=== PATIENT | male | born 1955 | race Caucasian/White ===

== ENCOUNTER → 2019-10-16 | Outpatient (CLI) | payer MEDICARE ==
--- NOTE | 2019-10-19 06:32 | PE ---
EXAMINATION TYPE: PET CT fusion skull to thigh DATE OF EXAM: 10/16/2019 COMPARISON: Outside Chest CT October 04, 2019 HISTORY: Solitary pulmonary nodule, abnormal CT. TECHNIQUE: Following the intravenous administration of 10.86 mCi of F-18 FDG, whole body images are performed from the skull base to the midthigh. Images are reviewed on the computer in the coronal, a xial, and sagittal planes. Reconstructed rotating images are created on independent workstation and reviewed on the computer. A noncontrast CT is performed in conjunction with the PET scan. SCAN: Initial Scan FINDINGS: SKULL BASE AND NECK: No areas of suspicious hypermetabolic uptake. CHEST, MEDIASTINUM, AND HILAR REGION: There is background fairly moderate underlying emphysematous ch verna most prominent in the upper lungs redemonstrated. There is redemonstration of spiculated nodule or nodular consolidation posterior right upper lobe measuring 1.3 x 0.9 cm axial image 74 that is edwina tabolic favoring postinflammatory scar. There is persistent 1.4 x 1.0 cm right mid to lower lung cent ral nodule that is ametabolic axial image 125. Of most concern is right infrahilar level at level of the azygoesophageal recess endobronchial hyperm etabolic mass extending into the bronchus intermedius difficult to accurately measure due to postobst ructive atelectatic change but felt to be measuring roughly 3.6 x 3.4 cm axial image 112 by roughly t o 4-5 cm craniocaudal dimension. Max SUV is 17.13. There is postobstructive atelectasis and/or consol idation involving medial posterior portion right lower lobe with mild hypermetabolic uptake. There are no definitive metabolic enlarged hilar or mediastinal lymph nodes. No suspicious hypermetab olic left lung nodules or masses. ABDOMEN AND PELVIS: No areas of suspicious hypermetabolic uptake. No adrenal masses are present. OSSEOUS STRUCTURES: No areas of suspicious hypermetabolic uptake. OTHER CT: Greater than 1 cm left thyroid nodule thought present, this requires ultrasound follow-up o f this is not known finding. Small degree of bilateral gynecomastia. Enlarged pulmonary arteries, CT findings suggestive of underl rachel pulmonary artery hypertension. Coronary artery calcification and/or stents are present. Correlat e clinically. Tiny pericardial effusion anterior inferior aspect. There is [place] AAA with aortobiiliac stent graft beginning near the level of renal arteries. Mildly enlarged prostate gland bulging on bladder base with central calcification. Mild wall thickening of b ladder. Presumed outlet obstruction related to BPH, correlate clinically. /Levoconvex scoliotic curvature in the spine. Straightening of spine on sagittal images. Moderate mul tilevel spurring throughout the thoracolumbar spine. Moderate to severe multilevel disc space narrowi ng in the lumbar spine with moderate multilevel anterior and lateral spurring. Moderate narrowing in both hip joints. IMPRESSION: Central obstructing right lower lobe hypermetabolic mass or neoplasm as detailed above wi th post obstructive atelectasis on background moderate emphysematous change. No suspicious thoracic a denopathy or metastatic disease present. Bronchoscopy for sampling is advised due to component of the lesion extending into bronchus intermedius shortly after its origin. TNM STAGING [id number] AJCC STAGING IIA
== END | disposition home or self-care (01) ==
LOC: RADPETMAIN 14:04
PROVIDERS: ATTEND Internal Medicine Sleep Medicine
DX: R91.1 Solitary pulmonary nodule (principal)
CPT/HCPCS: 78815; A9552

== ENCOUNTER 2019-11-10 19:41 | Emergency (ER) | payer MEDICARE ==
[2019-11-10] MEDS ORDERED: IPRATROPIUM-ALBUTEROL 3 ML NEB INHALATION STA ×2 (20:01→21:52)
[2019-11-10] MEDS ORDERED: SODIUM CHLORIDE 0.9% 1,000 ML IV STA ×3 (20:01→21:52)
--- NOTE | 2019-11-10 20:01 | ED ---
SOB HPI - General Chief Complaint: Shortness of Breath Stated Complaint: poss pneumonia Time Seen by Provider: 11/10/19 19:51 Source: patient, RN notes reviewed, old records reviewed Mode of arrival: ambulatory Limitations: no limitations - History of Present Illness Initial Comments: This is a 64-year-old male presented today for evaluation with his , evaluation of new fever shortness of breath cough and congestion no specific chest pain. No modifying factors for symptoms. Patient has no recent travel history. He has is recent hospital admission he was treated on an outpatient basis antibiotics he did feeling he had improvement at that time he had outpatient computed tomography scan diagnosing lung cancer after years of being followed with lung nodule. Patient has outpatient follow-up tomorrow with cardiothoracic surgery regarding CA, patient states he does feel improved now in the ER MD Complaint: shortness of breath, cough, anxiety -: days(s) Severity: moderate Severity scale (1-10): 6 Quality: sharp Consistency: intermittent Improves With: nothing Worsens With: nothing Known History Of: COPD Context: recent URI, other (Recent diagnoses of cancer) Associated Symptoms: denies other symptoms - Related Data Home Medications Medication Instructions Recorded Confirmed Acetaminophen Tab [Tylenol Tab] 1,000 mg PO Q6H PRN 11/10/19 11/10/19 Enalapril [Vasotec] 20 mg PO DAILY@0700 11/10/19 11/10/19 Metoprolol Tartrate [Lopressor] 50 mg PO DAILY@1600 11/10/19 11/10/19 Spironolactone [Aldactone] 25 mg PO DAILY@0700 11/10/19 11/10/19 Allergies Allergy/AdvReac Type Severity Reaction Status Date / Time bee venom protein (honey bee) Allergy Anaphylaxis Verified 11/10/19 21:32 insect venom Allergy Anaphylaxis Verified 11/10/19 21:32 Penicillins Allergy Unknown Verified 11/10/19 21:32 Childhood Review of Systems ROS Statement: Those systems with pertinent positive or pertinent negative responses have been documented in the HPI. ROS Other: All systems not noted in ROS Statement are negative. Past Medical History Past Medical History: Cancer, Pneumonia Additional Past Medical History / Comment(s): rt lower lobe lung cancer History of Any Multi-Drug Resistant Organisms: None Reported Past Surgical History: Tonsillectomy Additional Past Surgical History / Comment(s): aortic abd stent Past Psychological History: No Psychological Hx Reported Smoking Status: Former smoker Past Alcohol Use History: None Reported Past Drug Use History: None Reported General Exam Limitations: no limitations General appearance: alert, in no apparent distress, anxious Head exam: Present: atraumatic, normocephalic, normal inspection Eye exam: Present: normal appearance, PERRL, EOMI. Absent: scleral icterus, conjunctival injection, periorbital swelling ENT exam: Present: normal exam, mucous membranes moist Neck exam: Present: normal inspection. Absent: tenderness, meningismus, lymphadenopathy Respiratory exam: Present: wheezes, decreased breath sounds, prolonged expiratory. Absent: respiratory distress, rales, rhonchi, stridor Cardiovascular Exam: Present: normal rhythm, tachycardia, normal heart sounds. Absent: systolic murmur, diastolic murmur, rubs, gallop, clicks GI/Abdominal exam: Present: soft, normal bowel sounds. Absent: distended, tenderness, guarding, rebound, rigid Extremities exam: Present: normal inspection, full ROM, normal capillary refill. Absent: tenderness, pedal edema, joint swelling, calf tenderness Back exam: Present: normal inspection Neurological exam: Present: alert, oriented X3, CN II-XII intact Psychiatric exam: Present: normal affect, normal mood Skin exam: Present: warm, dry, intact, normal color. Absent: rash Course Vital Signs 11/10/19 11/10/19 11/10/19 19:44 20:00 20:36 Temperature 102.1 F H 102.9 F H Pulse Rate 114 H 106 H 104 H Respiratory 24 20 Rate Blood Pressure 130/83 136/76 O2 Sat by Pulse 93 L 95 Oximetry 11/10/19 11/10/19 11/10/19 20:53 21:41 22:20 Temperature 101.9 F H Pulse Rate 102 H 101 H 92 Respiratory 18 Rate Blood Pressure 116/66 O2 Sat by Pulse 97 Oximetry 11/10/19 11/10/19 22:31 22:57 Temperature 99.3 F Pulse Rate 90 98 Respiratory 18 Rate Blood Pressure 102/66 O2 Sat by Pulse 95 Oximetry - Reevaluation(s) Reevaluation #1: Medical record is reviewed Disposition the patient regarding need for admission secondary to fever and shortness of breath patient's symptoms improving here with fever control and hydration in the ER breathing treatments. Patient states he would like to be discharged to do is follow-up for cardiothoracic surgery regarding his lung disease Medical Decision Making - Medical Decision Making 64 female DEL with no known cause of infection coming in for severe bronchitis and exacerbation. Patient is given a dose of antibiotics here in the ER as he wants to keep his surgical appointment with cardiothoracic surgery regarding his lung tumor tomorrow. Patient is in no distress able to walk on emergency room under is a well-appearing will be discharged to follow-up or return if symptoms worsen - Lab Data Result diagrams: 11/10/19 20:15 11/10/19 20:15 Lab Results 11/10/19 11/10/19 11/10/19 Range/Units 19:50 20:15 20:15 WBC 19.8 H (3.8-10.6) k/uL RBC 3.47 L (4.30-5.90) m/uL Hgb 10.9 L (13.0-17.5) gm/dL Hct 32.6 L (39.0-53.0) % MCV 93.9 (80.0-100.0) fL MCH 31.3 (25.0-35.0) pg MCHC 33.3 (31.0-37.0) g/dL RDW 15.9 H (11.5-15.5) % Plt Count 326 (150-450) k/uL Neutrophils % 87 % Lymphocytes % 3 % Monocytes % 6 % Eosinophils % 1 % Basophils % 0 % Neutrophils # 17.3 H (1.3-7.7) k/uL Lymphocytes # 0.7 L (1.0-4.8) k/uL Monocytes # 1.2 H (0-1.0) k/uL Eosinophils # 0.3 (0-0.7) k/uL Basophils # 0.0 (0-0.2) k/uL PT (9.0-12.0) sec INR (<1.2) APTT (22.0-30.0) sec Sodium 126 L (137-145) mmol/L Potassium 4.4 (3.5-5.1) mmol/L Chloride 91 L (98-107) mmol/L Carbon Dioxide 23 (22-30) mmol/L Anion Gap 12 mmol/L BUN 17 (9-20) mg/dL Creatinine 0.77 (0.66-1.25) mg/dL Est GFR (CKD-EPI)AfAm >90 (>60 ml/min/1.73 sqM) Est GFR (CKD-EPI)NonAf >90 (>60 ml/min/1.73 sqM) Glucose 131 H (74-99) mg/dL Plasma Lactic Acid Huey (0.7-2.0) mmol/L Calcium 8.9 (8.4-10.2) mg/dL Phosphorus 2.9 (2.5-4.5) mg/dL Magnesium 1.8 (1.6-2.3) mg/dL Total Bilirubin 0.6 (0.2-1.3) mg/dL AST 25 (17-59) U/L ALT 13 (4-49) U/L Alkaline Phosphatase 79 (38-126) U/L Troponin I (0.000-0.034) ng/mL NT-Pro-B Natriuret Pep pg/mL Total Protein 7.4 (6.3-8.2) g/dL Albumin 4.0 (3.5-5.0) g/dL Urine Color Urine Appearance (Clear) Urine pH (5.0-8.0) Ur Specific [place] (1.001-1.035) Urine Protein (Negative) Urine Glucose (UA) (Negative) Urine Ketones (Negative) Urine Blood (Negative) Urine Nitrite (Negative) Urine Bilirubin (Negative) Urine Urobilinogen (<2.0) mg/dL Ur Leukocyte Esterase (Negative) Urine RBC (0-5) /hpf Urine WBC (0-5) /hpf Ur Squamous Epith Cells (0-4) /hpf Hyaline Casts (0-2) /lpf Urine Mucus (None) /hpf Influenza Type A RNA Not Detected (Not Detectd) Influenza Type B (PCR) Not Detected (Not Detectd) 11/10/19 11/10/19 11/10/19 Range/Units 20:15 20:15 20:15 WBC (3.8-10.6) k/uL RBC (4.30-5.90) m/uL Hgb (13.0-17.5) gm/dL Hct (39.0-53.0) % MCV (80.0-100.0) fL MCH (25.0-35.0) pg MCHC (31.0-37.0) g/dL RDW (11.5-15.5) % Plt Count (150-450) k/uL Neutrophils % % Lymphocytes % % Monocytes % % Eosinophils % % Basophils % % Neutrophils # (1.3-7.7) k/uL Lymphocytes # (1.0-4.8) k/uL Monocytes # (0-1.0) k/uL Eosinophils # (0-0.7) k/uL Basophils # (0-0.2) k/uL PT 11.2 (9.0-12.0) sec INR 1.1 (<1.2) APTT 27.5 (22.0-30.0) sec Sodium (137-145) mmol/L Potassium (3.5-5.1) mmol/L Chloride (98-107) mmol/L Carbon Dioxide (22-30) mmol/L Anion Gap mmol/L BUN (9-20) mg/dL Creatinine (0.66-1.25) mg/dL Est GFR (CKD-EPI)AfAm (>60 ml/min/1.73 sqM) Est GFR (CKD-EPI)NonAf (>60 ml/min/1.73 sqM) Glucose (74-99) mg/dL Plasma Lactic Acid Huey 1.0 (0.7-2.0) mmol/L Calcium (8.4-10.2) mg/dL Phosphorus (2.5-4.5) mg/dL Magnesium (1.6-2.3) mg/dL Total Bilirubin (0.2-1.3) mg/dL AST (17-59) U/L ALT (4-49) U/L Alkaline Phosphatase (38-126) U/L Troponin I (0.000-0.034) ng/mL NT-Pro-B Natriuret Pep 929 pg/mL Total Protein (6.3-8.2) g/dL Albumin (3.5-5.0) g/dL Urine Color Urine Appearance (Clear) Urine pH (5.0-8.0) Ur Specific [place] (1.001-1.035) Urine Protein (Negative) Urine Glucose (UA) (Negative) Urine Ketones (Negative) Urine Blood (Negative) Urine Nitrite (Negative) Urine Bilirubin (Negative) Urine Urobilinogen (<2.0) mg/dL Ur Leukocyte Esterase (Negative) Urine RBC (0-5) /hpf Urine WBC (0-5) /hpf Ur Squamous Epith Cells (0-4) /hpf Hyaline Casts (0-2) /lpf Urine Mucus (None) /hpf Influenza Type A RNA (Not Detectd) Influenza Type B (PCR) (Not Detectd) 11/10/19 11/10/19 Range/Units 20:15 20:31 WBC (3.8-10.6) k/uL RBC (4.30-5.90) m/uL Hgb (13.0-17.5) gm/dL Hct (39.0-53.0) % MCV (80.0-100.0) fL MCH (25.0-35.0) pg MCHC (31.0-37.0) g/dL RDW (11.5-15.5) % Plt Count (150-450) k/uL Neutrophils % % Lymphocytes % % Monocytes % % Eosinophils % % Basophils % % Neutrophils # (1.3-7.7) k/uL Lymphocytes # (1.0-4.8) k/uL Monocytes # (0-1.0) k/uL Eosinophils # (0-0.7) k/uL Basophils # (0-0.2) k/uL PT (9.0-12.0) sec INR (<1.2) APTT (22.0-30.0) sec Sodium (137-145) mmol/L Potassium (3.5-5.1) mmol/L Chloride (98-107) mmol/L Carbon Dioxide (22-30) mmol/L Anion Gap mmol/L BUN (9-20) mg/dL Creatinine (0.66-1.25) mg/dL Est GFR (CKD-EPI)AfAm (>60 ml/min/1.73 sqM) Est GFR (CKD-EPI)NonAf (>60 ml/min/1.73 sqM) Glucose (74-99) mg/dL Plasma Lactic Acid Huey (0.7-2.0) mmol/L Calcium (8.4-10.2) mg/dL Phosphorus (2.5-4.5) mg/dL Magnesium (1.6-2.3) mg/dL Total Bilirubin (0.2-1.3) mg/dL AST (17-59) U/L ALT (4-49) U/L Alkaline Phosphatase (38-126) U/L Troponin I <0.012 (0.000-0.034) ng/mL NT-Pro-B Natriuret Pep pg/mL Total Protein (6.3-8.2) g/dL Albumin (3.5-5.0) g/dL Urine Color Yellow Urine Appearance Cloudy (Clear) Urine pH 5.5 (5.0-8.0) Ur Specific [place] 1.027 (1.001-1.035) Urine Protein 2+ H (Negative) Urine Glucose (UA) Negative (Negative) Urine Ketones Trace H (Negative) Urine Blood Moderate H (Negative) Urine Nitrite Negative (Negative) Urine Bilirubin Negative (Negative) Urine Urobilinogen 2.0 (<2.0) mg/dL Ur Leukocyte Esterase Negative (Negative) Urine RBC 2 (0-5) /hpf Urine WBC 3 (0-5) /hpf Ur Squamous Epith Cells <1 (0-4) /hpf Hyaline Casts 1 (0-2) /lpf Urine Mucus Few H (None) /hpf Influenza Type A RNA (Not Detectd) Influenza Type B (PCR) (Not Detectd) - Radiology Data Radiology results: report reviewed (Chest x-ray is negative with no new changes), image reviewed Disposition Clinical Impression: Fever, Bronchitis Disposition: HOME SELF-CARE Condition: Good Instructions (If sedation given, give patient instructions): Fever in Adults (E D), Acute Bronchitis (ED) Is patient prescribed a controlled substance at d/c from ED?: No Referrals: Jennifer Lea MD [Primary Care Provider] - 1-2 days
[2019-11-10] MEDS ORDERED: MORPHINE SULFATE 4 MG/ML SYRINGE IVP PRN (20:07)
[2019-11-10] MEDS ORDERED: MORPHINE SULFATE 4 MG/ML SYRINGE IVP STA (20:07)
[2019-11-10] MEDS ORDERED: IBUPROFEN 800 MG TAB PO STA (20:07)
[2019-11-10] MEDS ORDERED: ACETAMINOPHEN TAB 500 MG TAB PO STA (20:07)
[2019-11-10 20:34] LABS: Basophils % (A) 0 %; Eosinophils # (A) 0.3 k/uL (0-0.7); Eosinophils % (A) 1 %; HCT 32.6 % (39.0-53.0); HGB 10.9 gm/dL (13.0-17.5); Lymphocytes # (A) 0.7 k/uL (1.0-4.8); Lymphocytes % (A) 3 %; MCH 31.3 pg (25.0-35.0); MCHC 33.3 g/dL (31.0-37.0); MCV 93.9 fL (80.0-100.0); Mean Platelet Volume 7.7; Monocytes # (A) 1.2 k/uL (0-1.0); Monocytes % (A) 6 %; Neutrophils # (A) 17.3 k/uL (1.3-7.7); Neutrophils % (A) 87 %; Platelet Count 326 k/uL (150-450); RBC 3.47 m/uL (4.30-5.90); RDW 15.9 % (11.5-15.5); WBC 19.8 k/uL (3.8-10.6)
[2019-11-10 20:46] LABS: ALT 13 U/L (4-49); AST 25 U/L (17-59); African American GFR (CKD) >90 (>60 ml/min/1.73 sqM); Alkaline Phosphatase 79 U/L (38-126); Anion Gap 12 mmol/L; Blood Urea Nitrogen 17 mg/dL (9-20); Calcium 8.9 mg/dL (8.4-10.2); Carbon Dioxide 23 mmol/L (22-30); Chloride 91 mmol/L (98-107); Glucose 131 mg/dL (74-99); Magnesium 1.8 mg/dL (1.6-2.3); Non-African American GFR(CKD) >90 (>60 ml/min/1.73 sqM); Phosphorus 2.9 mg/dL (2.5-4.5); Potassium 4.4 mmol/L (3.5-5.1); Sodium 126 mmol/L (137-145); Total Bilirubin 0.6 mg/dL (0.2-1.3); Total Protein 7.4 g/dL (6.3-8.2)
[2019-11-10 20:49] LABS: Appearance,Urine Cloudy (Clear); Bilirubin,Urine Negative (Negative); Blood,Urine Moderate (Negative); Color,Urine Yellow; Glucose,Urine (UA) Negative (Negative); Hyaline Casts,Urine 1 /lpf (0-2); Ketones,Urine Trace (Negative); Leukocyte Esterase,Urine Negative (Negative); Mucus,Urine Few /hpf; Nitrite,Urine Negative (Negative); PH, Urine 5.5 (5.0-8.0); Protein,Urine 2+ (Negative); RBC,Urine 2 /hpf (0-5); Specific Gravity,Urine 1.027 (1.001-1.035); Squamous Epithelial Cell,Urine <1 /hpf (0-4); WBC,Urine 3 /hpf (0-5)
[2019-11-10 21:12] LABS: INR 1.1 (<1.2); Partial Thromboplastin Time 27.5 sec (22.0-30.0); Prothrombin Time 11.2 sec (9.0-12.0)
--- NOTE | 2019-11-10 21:12 | XR ---
EXAMINATION TYPE: XR chest 2V DATE OF EXAM: 11/10/2019 COMPARISON: PET CT scan October 16, 2019 HISTORY: Weakness TECHNIQUE: 2 views FINDINGS: There is large area of consolidation in the posterior aspect right lower lobe. Left lung is clear. There is no heart failure. There are chest leads. IMPRESSION: Large area of consolidation right lower lobe not significantly different than recent CT s can. No heart failure seen.
[2019-11-10 21:50] VITALS: RESP 18
[2019-11-10] MEDS ORDERED: LEVOFLOXACIN 750MG-D5W PMX 750 MG in DEXTROSE/WATER 1 150ML.BAG IVPB STA (21:52)
[2019-11-10] MEDS ORDERED: DEXAMETHASONE SOD PHOSPHATE 10 MG/ML 1 ML VIAL IV STA (21:53)
[2019-11-10 22:58] VITALS: BP 102/66; PULSE 98; TEMP 99.3
[2019-11-11] MEDS ORDERED: IPRATROPIUM-ALBUTEROL 3 ML NEB INHALATION SCH
== END 2019-11-10 23:50 | disposition home or self-care (01) ==
LOC: EC 19:41
DX: J40 Bronchitis, not specified as acute or chronic (principal); J44.9 Chronic obstructive pulmonary disease, unspecified; Z79.899 Other long term (current) drug therapy; Z88.0 Allergy status to penicillin; Z91.030 Bee allergy status; Z91.048 Other nonmedicinal substance allergy status; Z85.118 Personal history of other malignant neoplasm of bronchus and lung; Z87.891 Personal history of nicotine dependence; Z95.5 Presence of coronary angioplasty implant and graft
CPT/HCPCS: 99285; 96365; 96366; 96375 ×2; 96361; 36415; 94640 ×2; 93005; 83880; 80053; 83605; 83735; 84100; 84484; 85025; 85610; 85730; 81001; 87502; 71046; J2270; J1100; J1956

== ENCOUNTER 2019-11-15 11:46 | Inpatient (IN) | payer MEDICARE ==
[2019-11-15] MEDS ORDERED: ACETAMINOPHEN TAB 500 MG TAB PO STA (12:21)
[2019-11-15] MEDS ORDERED: IBUPROFEN 600 MG TAB PO STA ×2 (12:21→13:06)
--- NOTE | 2019-11-15 12:26 | ED ---
General Adult HPI - General Chief complaint: Fever Stated complaint: Fever/cough/tachy Time Seen by Provider: 11/15/19 11:55 Source: patient, RN notes reviewed, old records reviewed Mode of arrival: ambulatory Limitations: no limitations - History of Present Illness Initial comments: This a 64-year-old male who presents emergency Department with a past medical history significant for recently diagnosed lung cancer. Patient comes in today because he went to get an echo and he said his heart was too fast and had a fever of 102. Patient states she was also short of breath. Patient states he has been having a fever on and off for the last 2 weeks. Patient states she's been coughing for 6 months. Patient denies any chest pain or palpitations. P atient denies any abdominal pain patient has nausea vomiting diarrhea. Patient had a lightheadedness or dizziness. Patient denies headache patient denies numbness weakness. - Related Data Home Medications Medication Instructions Recorded Confirmed Acetaminophen Tab [Tylenol Tab] 1,000 mg PO Q6H PRN 11/10/19 11/15/19 Enalapril [Vasotec] 20 mg PO DAILY@0700 11/10/19 11/15/19 Metoprolol Tartrate [Lopressor] 50 mg PO DAILY@1600 11/10/19 11/15/19 Spironolactone [Aldactone] 25 mg PO DAILY@0700 11/10/19 11/15/19 Allergies Allergy/AdvReac Type Severity Reaction Status Date / Time bee venom protein (honey bee) Allergy Anaphylaxis Verified 11/15/19 14:00 insect venom Allergy Anaphylaxis Verified 11/15/19 14:00 Penicillins Allergy Unknown Verified 11/15/19 14:00 Childhood Review of Systems ROS Statement: Those systems with pertinent positive or pertinent negative responses have been documented in the HPI. ROS Other: All systems not noted in ROS Statement are negative. Past Medical History Past Medical History: Cancer, Pneumonia Additional Past Medical History / Comment(s): rt lower lobe lung cancer History of Any Multi-Drug Resistant Organisms: None Reported Past Surgical History: Tonsillectomy Additional Past Surgical History / Comment(s): aortic abd stent Past Psychological History: No Psychological Hx Reported Smoking Status: Former smoker Past Alcohol Use History: None Reported Past Drug Use History: None Reported General Exam - General Exam Comments Initial Comments: GENERAL: Patient is well-developed and well-nourished. Patient is nontoxic and well- hydrated and is in mild distress. ENT: Neck is soft and supple. No significant lymphadenopathy is noted. Oropharynx is clear. Moist mucous membranes. Neck has full range of motion without eliciting any pain. EYES: The sclera were anicteric and conjunctiva were pink and moist. Extraocular movements were intact and pupils were equal round and reactive to light. Eyelids were unremarkable. PULMONARY: Unlabored respirations. Good breath sounds bilaterally. No audible rales rhonchi or wheezing was noted. CARDIOVASCULAR: Patient is tachycardic ABDOMEN: Soft and nontender with normal bowel sounds. SKIN: Skin is clear with no lesions or rashes and otherwise unremarkable. NEUROLOGIC: Patient is alert and oriented x3. Cranial nerves II through XII are grossly intact. Motor and sensory are also intact. Normal speech, volume and content. Symmetrical smile. MUSCULOSKELETAL: Normal extremities with adequate strength and full range of motion. LYMPHATICS: No significant lymphadenopathy is noted PSYCHIATRIC: Normal psychiatric evaluation. Limitations: no limitations Course Vital Signs 11/15/19 11/15/19 11/15/19 11:53 13:10 14:20 Temperature 102.0 F H 99.9 F H Pulse Rate 133 H 121 H 108 H Respiratory 18 20 20 Rate Blood Pressure 112/70 126/70 106/68 O2 Sat by Pulse 97 98 Oximetry Medical Decision Making - Medical Decision Making EKG shows sinus tachycardia with occasional PVC at a rate of 131 bpm DC interval 128 QRS is 102 QT interval is 298 QTC is 440. Patient's EKG shows no ST segment elevation or depression. X-ray shows significant right lower lobe pneumonia. Patient was ordered given Rocephin on arrival. Patient is septic. I spoke with some physicians agreed to admit the patient admitted the patient I consult to Dr. Middleton. EKG shows sinus tachycardia at 107 bpm DC interval 238 QRS 102 QT interval 338 QTC is 451. - Lab Data Result diagrams: 11/15/19 12:30 11/15/19 12:30 Lab Results 11/15/19 11/15/19 11/15/19 Range/Units 12:30 12:30 12:30 WBC 25.3 H (3.8-10.6) k/uL RBC 3.50 L (4.30-5.90) m/uL Hgb 10.6 L (13.0-17.5) gm/dL Hct 33.5 L (39.0-53.0) % MCV 95.5 (80.0-100.0) fL MCH 30.4 (25.0-35.0) pg MCHC 31.8 (31.0-37.0) g/dL RDW 16.0 H (11.5-15.5) % Plt Count 469 H (150-450) k/uL Neutrophils % 93 % Lymphocytes % 3 % Monocytes % 3 % Eosinophils % 0 % Basophils % 0 % Neutrophils # 23.4 H (1.3-7.7) k/uL Lymphocytes # 0.7 L (1.0-4.8) k/uL Monocytes # 0.8 (0-1.0) k/uL Eosinophils # 0.1 (0-0.7) k/uL Basophils # 0.0 (0-0.2) k/uL PT 13.3 H (9.0-12.0) sec INR 1.3 H (<1.2) APTT 29.8 (22.0-30.0) sec Sodium 127 L (137-145) mmol/L Potassium 3.8 (3.5-5.1) mmol/L Chloride 91 L (98-107) mmol/L Carbon Dioxide 23 (22-30) mmol/L Anion Gap 13 mmol/L BUN 19 (9-20) mg/dL Creatinine 0.78 (0.66-1.25) mg/dL Est GFR (CKD-EPI)AfAm >90 (>60 ml/min/1.73 sqM) Est GFR (CKD-EPI)NonAf >90 (>60 ml/min/1.73 sqM) Glucose 154 H (74-99) mg/dL Plasma Lactic Acid Huey (0.7-2.0) mmol/L Calcium 8.2 L (8.4-10.2) mg/dL Total Bilirubin 0.4 (0.2-1.3) mg/dL AST 26 (17-59) U/L ALT 15 (4-49) U/L Alkaline Phosphatase 105 (38-126) U/L Total Protein 6.4 (6.3-8.2) g/dL Albumin 3.0 L (3.5-5.0) g/dL Influenza Type A RNA (Not Detectd) Influenza Type B (PCR) (Not Detectd) 11/15/19 11/15/19 Range/Units 12:30 12:30 WBC (3.8-10.6) k/uL RBC (4.30-5.90) m/uL Hgb (13.0-17.5) gm/dL Hct (39.0-53.0) % MCV (80.0-100.0) fL MCH (25.0-35.0) pg MCHC (31.0-37.0) g/dL RDW (11.5-15.5) % Plt Count (150-450) k/uL Neutrophils % % Lymphocytes % % Monocytes % % Eosinophils % % Basophils % % Neutrophils # (1.3-7.7) k/uL Lymphocytes # (1.0-4.8) k/uL Monocytes # (0-1.0) k/uL Eosinophils # (0-0.7) k/uL Basophils # (0-0.2) k/uL PT (9.0-12.0) sec INR (<1.2) APTT (22.0-30.0) sec Sodium (137-145) mmol/L Potassium (3.5-5.1) mmol/L Chloride (98-107) mmol/L Carbon Dioxide (22-30) mmol/L Anion Gap mmol/L BUN (9-20) mg/dL Creatinine (0.66-1.25) mg/dL Est GFR (CKD-EPI)AfAm (>60 ml/min/1.73 sqM) Est GFR (CKD-EPI)NonAf (>60 ml/min/1.73 sqM) Glucose (74-99) mg/dL Plasma Lactic Acid Huey 2.7 H* (0.7-2.0) mmol/L Calcium (8.4-10.2) mg/dL Total Bilirubin (0.2-1.3) mg/dL AST (17-59) U/L ALT (4-49) U/L Alkaline Phosphatase (38-126) U/L Total Protein (6.3-8.2) g/dL Albumin (3.5-5.0) g/dL Influenza Type A RNA Not Detected (Not Detectd) Influenza Type B (PCR) Not Detected (Not Detectd) Critical Care Time Critical Care Time: Yes Total Critical Care Time: 35 Disposition Clinical Impression: Sepsis, Pneumonia Disposition: ADMITTED IP TO THIS [facility] Time of Disposition: 13:47
[2019-11-15] MEDS: SODIUM CHLORIDE 0.9% 500 ML 500 ML IV SCH ×2 (12:40→15:31)
[2019-11-15 12:48] LABS: Basophils % (A) 0 %; Eosinophils # (A) 0.1 k/uL (0-0.7); Eosinophils % (A) 0 %; HCT 33.5 % (39.0-53.0); HGB 10.6 gm/dL (13.0-17.5); Lymphocytes # (A) 0.7 k/uL (1.0-4.8); Lymphocytes % (A) 3 %; MCH 30.4 pg (25.0-35.0); MCHC 31.8 g/dL (31.0-37.0); MCV 95.5 fL (80.0-100.0); Mean Platelet Volume 7.6; Monocytes # (A) 0.8 k/uL (0-1.0); Monocytes % (A) 3 %; Neutrophils # (A) 23.4 k/uL (1.3-7.7); Neutrophils % (A) 93 %; Platelet Count 469 k/uL (150-450); WBC 25.3 k/uL (3.8-10.6)
[2019-11-15 12:57] LABS: ALT 15 U/L (4-49); AST 26 U/L (17-59); African American GFR (CKD) >90 (>60 ml/min/1.73 sqM); Alkaline Phosphatase 105 U/L (38-126); Anion Gap 13 mmol/L; Blood Urea Nitrogen 19 mg/dL (9-20); Calcium 8.2 mg/dL (8.4-10.2); Carbon Dioxide 23 mmol/L (22-30); Chloride 91 mmol/L (98-107); Glucose 154 mg/dL (74-99); Non-African American GFR(CKD) >90 (>60 ml/min/1.73 sqM); Potassium 3.8 mmol/L (3.5-5.1); Sodium 127 mmol/L (137-145); Total Bilirubin 0.4 mg/dL (0.2-1.3); Total Protein 6.4 g/dL (6.3-8.2)
[2019-11-15 13:36] LABS: INR 1.3 (<1.2); Partial Thromboplastin Time 29.8 sec (22.0-30.0); Prothrombin Time 13.3 sec (9.0-12.0)
--- NOTE | 2019-11-15 13:40 | XR ---
EXAMINATION TYPE: XR chest 2V DATE OF EXAM: 11/15/2019 COMPARISON: 11/10/2019 TECHNIQUE: PA and lateral views submitted. HISTORY: Cough FINDINGS: There is increasing consolidation involving the right lung. Left lung is clear. No pneumothorax. Hear t size stable. Hypertrophic and degenerative change spine. Hyperinflation suggests COPD. Biapical ple ural thickening. IMPRESSION: 1. Right lower lobe infiltrate is progressing compared to the prior exam. Correlate for pneumonia. Un derlying neoplasm not excluded.
[2019-11-15] MEDS ORDERED: VANCOMYCIN IV PER PHARMACY 1 EACH MISC MISCELLANE PRN ×2 (13:49→14:45)
[2019-11-15] MEDS ORDERED: LEVOFLOXACIN 750MG-D5W PMX 750 MG in DEXTROSE/WATER 1 150ML.BAG IVPB STA (13:49)
[2019-11-15] MEDS ORDERED: VANCOMYCIN 1,500 MG in SODIUM CHLORIDE 0.9% 250 ML IVPB ONE (14:00)
[2019-11-15] MEDS: LEVOFLOXACIN 750MG-D5W PMX 750 MG in DEXTROSE/WATER 1 150ML.BAG IVPB SCH (14:38)
[2019-11-15] MEDS ORDERED: IBUPROFEN 400 MG TAB PO PRN (14:42)
[2019-11-15] MEDS ORDERED: NALOXONE 0.4 MG/ML 1 ML VIAL IV PRN (14:42)
[2019-11-15] MEDS ORDERED: ACETAMINOPHEN TAB 325 MG TAB PO PRN (14:42)
[2019-11-15] MEDS ORDERED: SODIUM CHLORIDE 0.9% 1,000 ML IV STA ×2 (15:44→15:45)
--- NOTE | 2019-11-15 15:50 | P.HPIM ---
History of Present Illness H&P Date: 11/15/19 Chief Complaint: sob 64-year-old male who presents emergency Department with a past medical history significant for recently diagnosed lung cancer was scheduled for bilateral lobectomies on , was supposed to have presurgical screening with an echocardiogram today but the echocardiogram staff felt that he needed to go to the emergency department due to high heart rate. Patient has been having worsening shortness of breath, diaphoresis, increasing phlegm production, diarrhea and fevers over the past several days. He presented to the emergency department last Friday for the same symptoms, was given some IV antibiotics and discharged home without antibiotic prescription.. No nausea or vomiting. No sick contacts. Patient denies any chest pain or palpitations, no abdominal pain. In the emergency department his heart rate was running between 110-120. He had a fever of 102. Laboratory analysis showed low sodium at 127 and high White count at 25,000. His lactic acid was elevated as well. His chest x-ray showed right lower lobe infiltrates. He was subsequently admitted for further evaluation and management. Review of Systems Complete review of system performed, pertinent positives per HPI, otherwise negative Past Medical History Past Medical History: Cancer, Pneumonia Additional Past Medical History / Comment(s): rt lower lobe lung cancer History of Any Multi-Drug Resistant Organisms: None Reported Past Surgical History: Tonsillectomy Additional Past Surgical History / Comment(s): aortic abd stent Past Psychological History: No Psychological Hx Reported Smoking Status: Former smoker Past Alcohol Use History: None Reported Past Drug Use History: None Reported Medications and Allergies Home Medications Medication Instructions Recorded Confirmed Type Acetaminophen Tab [Tylenol Tab] 1,000 mg PO Q6H PRN 11/10/19 11/15/19 History Enalapril [Vasotec] 20 mg PO DAILY@0700 11/10/19 11/15/19 History Metoprolol Tartrate [Lopressor] 50 mg PO DAILY@1600 11/10/19 11/15/19 History Spironolactone [Aldactone] 25 mg PO DAILY@0700 11/10/19 11/15/19 History Allergies Allergy/AdvReac Type Severity Reaction Status Date / Time bee venom protein (honey bee) Allergy Anaphylaxis Verified 11/15/19 14:00 insect venom Allergy Anaphylaxis Verified 11/15/19 14:00 Penicillins Allergy Unknown Verified 11/15/19 14:00 Childhood Physical Exam Vitals: Vital Signs Temp Pulse Resp BP Pulse Ox 11/15/19 14:20 99.9 F H 108 H 20 106/68 98 11/15/19 13:10 121 H 20 126/70 11/15/19 11:53 102.0 F H 133 H 18 112/70 97 Intake and Output 11/14/19 11/15/19 11/15/19 22:59 06:59 14:59 Other: Weight 92.533 kg Constitutional: Mild respiratory distress, diaphoretic, no use of accessory muscles Eyes:Anicteric sclerae, moist conjunctiva, no lid-lag, PERRLA, ENMT: Oropharynx clear, no erythema, exudates Neck: Supple, FROM, no masses, or JVD, No carotid bruits, No thyromegaly Lungs: Diminished breath sounds bilaterally, clear to percussion, Normal respiratory effort, no accessory muscle use Cardiovascular: Tachycardic, regular, No murmurs, gallops, or rubs, No peripheral edema Abdominal: Soft, Nontender, no guarding, rebound or rigidity, Normoactive bowel sounds, No hepatomegaly, No splenomegaly, No palpable mass Skin: Normal temperature, tone, texture, turgor, no induration, No subcutaneous nodules, No rash, lesions, No ulcers. Skin color normal for patient, capillary refill is normal Extremities: No digital cyanosis, No clubbing, Pedal pulses intact and symmet rical, Radial pulses intact and symmetrical, No calf tenderness Psychiatric: Alert and oriented to person, place and time, appropriate affect, intact judgement Neuro: Muscles Strength 5/5 in all 4 extremities, Sensation to light touch grossly present throughout, Cranial nerves II-XII grossly intact, no focal sensory deficits Results CBC & Chem 7: 11/15/19 12:30 11/15/19 12:30 Labs: Abnormal Lab Results - Last 24 Hours (Table) 11/15/19 11/15/19 11/15/19 Range/Units 12:30 12:30 12:30 WBC 25.3 H (3.8-10.6) k/uL RBC 3.50 L (4.30-5.90) m/uL Hgb 10.6 L (13.0-17.5) gm/dL Hct 33.5 L (39.0-53.0) % RDW 16.0 H (11.5-15.5) % Plt Count 469 H (150-450) k/uL Neutrophils # 23.4 H (1.3-7.7) k/uL Lymphocytes # 0.7 L (1.0-4.8) k/uL PT 13.3 H (9.0-12.0) sec INR 1.3 H (<1.2) Sodium 127 L (137-145) mmol/L Chloride 91 L (98-107) mmol/L Glucose 154 H (74-99) mg/dL Plasma Lactic Acid Huey (0.7-2.0) mmol/L Calcium 8.2 L (8.4-10.2) mg/dL Albumin 3.0 L (3.5-5.0) g/dL 11/15/19 Range/Units 12:30 WBC (3.8-10.6) k/uL RBC (4.30-5.90) m/uL Hgb (13.0-17.5) gm/dL Hct (39.0-53.0) % RDW (11.5-15.5) % Plt Count (150-450) k/uL Neutrophils # (1.3-7.7) k/uL Lymphocytes # (1.0-4.8) k/uL PT (9.0-12.0) sec INR (<1.2) Sodium (137-145) mmol/L Chloride (98-107) mmol/L Glucose (74-99) mg/dL Plasma Lactic Acid Huey 2.7 H* (0.7-2.0) mmol/L Calcium (8.4-10.2) mg/dL Albumin (3.5-5.0) g/dL Assessment and Plan Plan: Acute sepsis/healthcare associated pneumonia Blood cultures drawn in the emergency department Sputum cultures Levaquin, cefepime and vancomycin Steroids and duonebs He was bolused with 1 L of saline in the emergency department, will give additional liter Maintain IV fluids at 150 mL per hour Recently diagnosed lung cancer Monitor Hypertension, essential Stable Resume meds Patient be admitted for more than 2 midnights, will be placed as inpatient Sepsis - Sepsis Sepsis Focused Exam #1 Sepsis Focused Exam Time: 13:30 Sepsis Focused Exam Complete: Yes Vital Signs & RN Notes Reviewed: Yes Capillary Refill: < 2 Seconds: Fingers, Toes Peripheral Pulses: Normal: Radial (R), Radial (L), Posterior Tibialis (R), Posterior Tibialis (L), Dorsalis Pedis (R), Dorsalis Pedis (L) Skin Color: Normal for Patient Respiratory Exam: decreased breath sounds Cardiovascular Exam: tachycardia
[2019-11-15] MEDS: METOPROLOL TARTRATE 50 MG TAB PO SCH (17:44)
[2019-11-15] MEDS: CEFEPIME 1 GM in SODIUM CHLORIDE 0.9% 50 ML IVPB SCH (17:45)
[2019-11-15] MEDS: IPRATROPIUM-ALBUTEROL 3 ML NEB INHALATION SCH ×2 (17:57→19:59)
[2019-11-15] MEDS: methylPREDNISolone SOD SUCCI 40 MG/ML 1 ML VIAL IV SCH (20:33)
[2019-11-15 20:56] LABS: Appearance,Urine Cloudy (Clear); Bilirubin,Urine Negative (Negative); Blood,Urine Negative (Negative); Color,Urine Yellow; Glucose,Urine (UA) Negative (Negative); Granular Casts,Urine 8 /lpf (0); Hyaline Casts,Urine 188 /lpf (0-2); Ketones,Urine Negative (Negative); Leukocyte Esterase,Urine Negative (Negative); Mucus,Urine Rare /hpf; Nitrite,Urine Negative (Negative); PH, Urine 5.5 (5.0-8.0); Protein,Urine 1+ (Negative); RBC,Urine 1 /hpf (0-5); Specific Gravity,Urine 1.018 (1.001-1.035); Urobilinogen,Urine <2.0 mg/dL (<2.0); WBC,Urine 5 /hpf (0-5)
[2019-11-15] MEDS ORDERED: CEFEPIME 1 GM in SODIUM CHLORIDE 0.9% 50 ML IVPB SCH (21:00)
[2019-11-15] MEDS: VANCOMYCIN 1,500 MG in SODIUM CHLORIDE 0.9% 250 ML IVPB SCH (23:32)
[2019-11-16] MEDS: SODIUM CHLORIDE 0.9% 1,000 ML IV SCH ×4 (03:50→21:12)
[2019-11-16] MEDS: CEFEPIME 1 GM in SODIUM CHLORIDE 0.9% 50 ML IVPB SCH ×2 (03:51→15:55)
[2019-11-16 07:48] LABS: Anisocytosis Slight; Basophils % (A) 0 %; Eosinophils % (A) 0 %; HCT 32.8 % (39.0-53.0); HGB 10.6 gm/dL (13.0-17.5); Lymphocytes # (A) 0.5 k/uL (1.0-4.8); Lymphocytes % (A) 2 %; MCH 31.4 pg (25.0-35.0); MCHC 32.2 g/dL (31.0-37.0); MCV 97.6 fL (80.0-100.0); Mean Platelet Volume 7.6; Monocytes # (A) 0.5 k/uL (0-1.0); Monocytes % (A) 2 %; Neutrophils # (A) 20.5 k/uL (1.3-7.7); Neutrophils % (A) 94 %; Platelet Count 483 k/uL (150-450); RBC 3.36 m/uL (4.30-5.90); RDW 16.2 % (11.5-15.5); WBC 21.8 k/uL (3.8-10.6)
[2019-11-16 08:00] LABS: ALT 13 U/L (4-49); AST 22 U/L (17-59); African American GFR (CKD) >90 (>60 ml/min/1.73 sqM); Albumin 2.7 g/dL (3.5-5.0); Alkaline Phosphatase 98 U/L (38-126); Anion Gap 13 mmol/L; Blood Urea Nitrogen 21 mg/dL (9-20); Calcium 8.3 mg/dL (8.4-10.2); Carbon Dioxide 21 mmol/L (22-30); Chloride 97 mmol/L (98-107); Glucose 138 mg/dL (74-99); Magnesium 1.7 mg/dL (1.6-2.3); Non-African American GFR(CKD) >90 (>60 ml/min/1.73 sqM); Phosphorus 3.8 mg/dL (2.5-4.5); Potassium 3.9 mmol/L (3.5-5.1); Sodium 131 mmol/L (137-145); Total Bilirubin 0.4 mg/dL (0.2-1.3); Total Protein 5.9 g/dL (6.3-8.2)
[2019-11-16] MEDS: IPRATROPIUM-ALBUTEROL 3 ML NEB INHALATION SCH ×4 (08:01→19:55)
[2019-11-16] MEDS: methylPREDNISolone SOD SUCCI 40 MG/ML 1 ML VIAL IV SCH ×2 (08:40→20:31)
[2019-11-16] MEDS: LISINOPRIL 20 MG TAB PO SCH (08:42)
[2019-11-16] MEDS: VANCOMYCIN 1,500 MG in SODIUM CHLORIDE 0.9% 250 ML IVPB SCH ×3 (08:58→23:42)
[2019-11-16] MEDS ORDERED: ENOXAPARIN 40 MG/0.4 ML SYRINGE SQ SCH (09:00)
--- NOTE | 2019-11-16 11:28 | CT ---
EXAMINATION TYPE: CT angio chest DATE OF EXAM: 11/16/2019 COMPARISON: NONE HISTORY: pulmonary embolism, known cancer right lower lobe CT DLP: 424.3 mGycm. Automated Exposure Control for Dose Reduction was Utilized. CONTRAST: CTA scan of the thorax is performed with IV Contrast, patient injected with 78 mL of Isovue 370, pulm onary embolism protocol. MIP Images are created on CT scanner and reviewed. FINDINGS: LUNGS: There is a large pulmonary mass and surrounding consolidation. In the right lower lobe in keep ing with this patient's history of right-sided lung cancer. The mass answering consolidation now bj ure up to 18.3 x 13.2 x 12.0 cm in anterior posterior by transverse by craniocaudal dimensions.. This previously measured roughly 4 to 5 cm on the prior PET/CT of 10/16/2019. There is diffuse surrounding groundglass opacities and interlobular septal thickening. Moderate background emphysematous change of the lungs. Left lung remains well aerated. Endobronchial lesion-invasion measures 1.9 cm in the righ t mainstem bronchus. MEDIASTINUM: There are small eccentric filling defects of the left lower lobe and right upper lobe se gmental and subsegmental pulmonary arteries as well as within right lower lobe segmental pulmonary ar jeanne. There is no secondary evidence of right heart strain. There are no greater than 1 cm hilar or mediastinal lymph nodes. Moderate to severe coronary artery calcifications. Enlarged subcarinal lymph node measuring 1.7 cm in short axis and right perihilar adenopathy measuring 2.1 cm in short axis. T race pericardial effusion. OTHER: Small splenule is seen adjacent to the [place] spleen. Very small hiatal hernia. Bilateral mild retroareolar gynecomastia. IMPRESSION: 1. Bilateral nonobstructing small segmental and subsegmental pulmonary emboli with no evidence of rig ht heart strain. Overall mild clot burden. 2. The right lower lobe mass with endobronchial invasion and surrounding consolidation have markedly increased from the prior recent PET/CT of 10/16/2019 previously measuring 4 to 5 cm and now measuring u p to 18.3 cm. There is a presumed large degree of atelectasis surrounding the primary right lower lob e neoplasm. Pathologic adenopathy is also seen. A Red level critical message alert has been initiated for Claudia Boucher via the [employer] Results System on 11/16/2019 11:26 AM. This message alert has been sent to Claudia Boucher via the preferences provided by the clinician for the receipt of Radiology Critical Findings. Message ID [id number].
[2019-11-16] MEDS ORDERED: HEPARIN SODIUM,PORCINE 10,000 UNIT/ML 1 ML VIAL IV ONE (11:42)
[2019-11-16 12:21] LABS: Basophils % (A) 0 %; Eosinophils % (A) 0 %; HCT 31.4 % (39.0-53.0); Lymphocytes # (A) 0.7 k/uL (1.0-4.8); Lymphocytes % (A) 3 %; MCH 30.7 pg (25.0-35.0); MCHC 31.8 g/dL (31.0-37.0); MCV 96.4 fL (80.0-100.0); Mean Platelet Volume 7.5; Monocytes # (A) 0.4 k/uL (0-1.0); Monocytes % (A) 2 %; Neutrophils # (A) 24.1 k/uL (1.3-7.7); Neutrophils % (A) 95 %; Platelet Count 539 k/uL (150-450); RBC 3.25 m/uL (4.30-5.90); WBC 25.5 k/uL (3.8-10.6)
[2019-11-16 12:30] LABS: INR 1.3 (<1.2); Prothrombin Time 13.2 sec (9.0-12.0)
--- NOTE | 2019-11-16 12:46 | P.CRDCN ---
History of Present Illness History of present illness: HISTORY OF PRESENTING ILLNESS This is a pleasant 64-year-old male past medical history significant for ischemic cardiomyopathy, former heavy alcohol use, chronic nicotine dependence, right lower lobe lung carcinoma and chronic pneumonia. 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 We have been asked to see in consultation for preoperative evaluation. Scheduled to undergo a right lobectomy with Dr. Garcia on . He presented to the hospital with symptoms of cough, fever and tachycardia. He is currently being treated for pneumonia and sepsis. He is seen and examined sitting up in the chair in no acute distress. He denies chest pain, dizziness or palpitations. He has been struggling for the previous 3 weeks with a persistent fever, tachycardia and cough. He came to the hospital yesterday to undergo preoperative stress testing however the test was canceled given his symptoms. On arrival to the emergency department his heart rate was 133 with 102F temperature blood pressure was 112/70. EKG revealed a sinus tachycardia heart rate of 131 with left axis deviation and PVC. Chest x-ray revealed a right lower lobe infiltrate progres sing from prior exam. Underlying neoplasm. CTA of the chest revealed bilateral nonobstructing small segmental and subsegmental pulmonary emboli with no evidence of right heart strain, overall mild clot burden, right lower lobe mass with endobronchial invasion and surrounding consolidation markedly increased from a PET scan on October 16. Previously measuring 4-5 cm and now measuring up to 18.3 cm, presumed large degree of atelectasis surrounding the primary right lower lobe neoplasm. Laboratory data reviewed, WBC 25.5, hemoglobin 10, platelets 539, sodium 131, potassium 3.9, creatinine 0.69, lactic acid on admission 2. 7 repeat after fluid administration 1.1 and magnesium 1.7. Current daily cardiac medications include enalapril 20 mg daily, Lopressor 50 mg daily and Aldactone 25 mg daily. REVIEW OF SYSTEMS At the time of my exam: CONSTITUTIONAL: Denies fever or chills. CARDIOVASCULAR: Complains of shortness of breath, PND and orthopnea. Denies chest pain or palpitations. RESPIRATORY: Complains of cough. GASTROINTESTINAL: Denies abdominal pain, diarrhea, constipation, nausea or vomiting. MUSCULOSKELETAL: Denies myalgias. NEUROLOGIC: Denies numbness, tingling or weakness. ENDOCRINE: Denies fatigue, weight change, polydipsia or polyurina. GENITOURINARY: Denies burning, hematuria or urgency with micturation. HEMATOLOGIC: Denies history of anemia or bleeding. PHYSICAL EXAMINATION Blood pressure 114/78 heart rate 110 afebrile and maintaining oxygen saturation on room air. CONSTITUTIONAL: No apparent distress. HEENT: Head is normocephalic. Pupils are equal, round. Sclerae anicteric. Mucous membranes of the mouth are moist. No JVD. No carotid bruit. CHEST EXAMINATION: Lungs are clear to auscultation. No chest wall tenderness is noted on palpation or with deep breathing. Diminished bilaterally. HEART EXAMINATION: Regular rate and rhythm. Tachycardic. S1, S2 heard. Soft systolic ejection murmur, no gallops or rub. ABDOMEN: Soft, nontender. Positive bowel sounds. EXTREMITIES: 2+ peripheral pulses, no lower extremity edema and no calf tenderness. NEUROLOGIC EXAMINATION: Patient is awake, alert and oriented x3. ASSESSMENT Sepsis secondary to persistent pneumonia Suspect bilateral pulmonary embolism on CTA this morning, heparin initiated per primary care team. Lung neoplasm Lactic acidosis Leukocytosis Hyponatremia Hypertension History of non-ischemic cardiomyopathy 2009 Chronic nicotine dependence PLAN Obtain 2-D echocardiogram and Doppler study to assess cardiac structure and function. Patient is high risk to undergo surgical intervention given his current state of sepsis and worsening pneumonia. Currently he is hemodynamically stable. However this could change very rapidly. Discussed with Marlyn Garcia NP and states his pneumonia/infiltrate is becoming worsened by the mass and will not improve until removed. Plan for surgery on regardless. Recommend ongoing use of beta blockers, optimal fluid blood pressure control and cautious fluid administration. We will continue to follow and make recommendations accordingly. Thank you kindly for this consultation. Nurse Practitioner note has been reviewed, I agree with a documented findings and plan of care. Patient was seen and examined. Past Medical History Past Medical History: Cancer, Pneumonia Additional Past Medical History / Comment(s): rt lower lobe lung cancer History of Any Multi-Drug Resistant Organisms: None Reported Past Surgical History: Tonsillectomy Additional Past Surgical History / Comment(s): aortic abd stent Past Anesthesia/Blood Transfusion Reactions: No Reported Reaction Smoking Status: Former smoker - Past Family History Father Family Medical History: Myocardial Infarction ([place]) Additional Family Medical History / Comment(s): Father of a [place] at the age of 46yrs. Mother Family Medical History: Cancer Additional Family Medical History / Comment(s): Mother from breast cancer. Medications and Allergies Home Medications Medication Instructions Recorded Confirmed Type Acetaminophen Tab [Tylenol Tab] 1,000 mg PO Q6H PRN 11/10/19 11/15/19 History Enalapril [Vasotec] 20 mg PO DAILY@0700 11/10/19 11/15/19 History Metoprolol Tartrate [Lopressor] 50 mg PO DAILY@1600 11/10/19 11/15/19 History Spironolactone [Aldactone] 25 mg PO DAILY@0700 11/10/19 11/15/19 History Allergies Allergy/AdvReac Type Severity Reaction Status Date / Time bee venom protein (honey bee) Allergy Anaphylaxis Verified 11/15/19 14:00 insect venom Allergy Anaphylaxis Verified 11/15/19 14:00 Penicillins Allergy Unknown Verified 11/15/19 14:00 Childhood Physical Exam Vitals: Vital Signs Temp Pulse Pulse Resp BP BP Pulse Ox 11/16/19 12:08 108 H 11/16/19 11:51 112 H 11/16/19 08:11 108 H 11/16/19 08:01 108 H 11/16/19 07:34 98.2 F 110 H 18 94 L 11/16/19 05:00 98.0 F 106 H 22 114/78 95 11/15/19 21:00 97.8 F 102 H 18 114/72 95 11/15/19 20:13 102 H 11/15/19 20:00 102 H 11/15/19 16:27 97.9 F 104 H 20 106/70 94 L 11/15/19 15:10 110 H 20 95/54 97 11/15/19 14:20 99.9 F H 108 H 20 106/68 98 11/15/19 13:10 121 H 20 126/70 Intake and Output 11/15/19 11/16/19 11/16/19 22:59 06:59 14:59 Other: # Voids 2 2 Weight 92.533 kg Results 11/16/19 11:56 11/16/19 07:13 Cardiac Enzymes 11/15/19 11/16/19 Range/Units 12:30 07:13 AST 26 22 (17-59) U/L Coagulation 11/15/19 Range/Units 12:30 PT 13.3 H (9.0-12.0) sec APTT 29.8 (22.0-30.0) sec CBC 11/15/19 11/16/19 11/16/19 Range/Units 12:30 07:13 11:56 WBC 25.3 H 21.8 H 25.5 H (3.8-10.6) k/uL RBC 3.50 L 3.36 L 3.25 L (4.30-5.90) m/uL Hgb 10.6 L 10.6 L 10.0 L (13.0-17.5) gm/dL Hct 33.5 L 32.8 L 31.4 L (39.0-53.0) % Plt Count 469 H 483 H 539 H (150-450) k/uL Comprehensive Metabolic Panel 11/15/19 11/16/19 Range/Units 12:30 07:13 Sodium 127 L 131 L (137-145) mmol/L Potassium 3.8 3.9 (3.5-5.1) mmol/L Chloride 91 L 97 L (98-107) mmol/L Carbon Dioxide 23 21 L (22-30) mmol/L BUN 19 21 H (9-20) mg/dL Creatinine 0.78 0.69 (0.66-1.25) mg/dL Glucose 154 H 138 H (74-99) mg/dL Calcium 8.2 L 8.3 L (8.4-10.2) mg/dL AST 26 22 (17-59) U/L ALT 15 13 (4-49) U/L Alkaline Phosphatase 105 98 (38-126) U/L Total Protein 6.4 5.9 L (6.3-8.2) g/dL Albumin 3.0 L 2.7 L (3.5-5.0) g/dL Current Medications Generic Name Dose Route Start Last Admin Trade Name Freq PRN Reason Stop Dose Admin Acetaminophen 650 mg 11/15/19 14:42 Tylenol Tab PO Q6HR PRN Mild Pain or Fever > 100.5 Albuterol/Ipratropium 3 ml 11/15/19 16:00 11/16/19 11:50 Duoneb 0.5 Mg-3 Mg/3 Ml Soln INHALATION 3 ml RT-QID PERI Administration Heparin Sodium (Porcine) 0 unit 11/16/19 11:42 Heparin IV PER PROTOCOL PRN Low PTT Protocol Levofloxacin 750 mg/ IV 150 mls @ 100 mls/hr 11/16/19 14:00 11/15/19 14:38 Solution IVPB Not Given Q24H PERI Vancomycin HCl 1,500 mg/ 250 mls @ 125 mls/hr 11/16/19 00:00 11/16/19 08:58 Sodium Chloride IVPB 125 mls/hr Q8H PERI Administration Cefepime HCl 1 gm/ Sodium 50 mls @ 100 mls/hr 11/15/19 16:00 11/16/19 03:51 Chloride IVPB 100 mls/hr Q12H PERI Administration Sodium Chloride 1,000 mls @ 150 mls/hr 11/16/19 01:15 11/16/19 08:44 Saline 0.9% IV 150 mls/hr .Q6H40M PERI Administration Heparin Sodium/Sodium Chloride 250 mls @ 16.656 mls/hr 11/16/19 11:45 25,000 unit/ Sodium Chloride IV .Q15H1M [facility] Protocol 18 UNITS/KG/HR Lisinopril 40 mg 11/16/19 07:00 11/16/19 08:42 Zestril PO 40 mg DAILY@0700 [facility] Administration Methylprednisolone Sodium Succinate 40 mg 11/15/19 21:00 11/16/19 08:40 Solu-Medrol IV 40 mg BID PERI Administration Metoprolol Tartrate 50 mg 11/15/19 16:00 11/15/19 17:44 Lopressor PO Not Given DAILY@1600 [facility] Naloxone HCl 0.2 mg 11/15/19 14:42 Narcan IV Q2M PRN Opioid Reversal Intake and Output 11/15/19 11/16/19 11/16/19 22:59 06:59 14:59 Other: # Voids 2 2 Weight 92.533 kg 11/16/19 11:56 11/16/19 07:13
[2019-11-16] MEDS: HEPARIN SOD,PORK IN 0.45% NACL 25,000 UNIT in 0.45% NACL 1 250ML.BAG IV SCH (13:11)
--- NOTE | 2019-11-16 14:15 | P.CNPUL ---
History of Present Illness Reason for consult: dyspnea, cough, pulmonary embolism, lung mass Chief complaint: Shortness of breath and cough History of present illness: This is a 64-year-old with history of COPD recently diagnosed lung cancer patient is scheduled to see Dr. Jose barajas stress test during the stress test patient was found to having worsening of shortness of breath and tachycardia sent into emergency department for further evaluation found to have postobstructive pneumonia patient is admitted into hospital for broad-spectrum antibiotic computed tomography scan of the chest showing postobstructive pneumonia patient is being followed by thoracic surgery is scheduled for right lower lobe resection chest x-ray revealed a right lower lobe infiltrate progressing from prior exam. Underlying neoplasm. CTA of the chest revealed bilateral nonobstructing small segmental and subsegmental pulmonary emboli with no evidence of right heart strain, overall mild clot burden, right lower lobe mass with endobronchial invasion and surrounding consolidation markedly increased from a PET scan on October 16. Review of Systems All systems: negative Past Medical History Past Medical History: Cancer, Pneumonia Additional Past Medical History / Comment(s): rt lower lobe lung cancer History of Any Multi-Drug Resistant Organisms: None Reported Past Surgical History: Tonsillectomy Additional Past Surgical History / Comment(s): aortic abd stent Past Anesthesia/Blood Transfusion Reactions: No Reported Reaction Smoking Status: Former smoker - Past Family History Father Family Medical History: Myocardial Infarction ([place]) Additional Family Medical History / Comment(s): Father of a [place] at the age of 46yrs. Mother Family Medical History: Cancer Additional Family Medical History / Comment(s): Mother from breast cancer. Medications and Allergies Home Medications Medication Instructions Recorded Confirmed Type Acetaminophen Tab [Tylenol Tab] 1,000 mg PO Q6H PRN 11/10/19 11/15/19 History Enalapril [Vasotec] 20 mg PO DAILY@0700 11/10/19 11/15/19 History Metoprolol Tartrate [Lopressor] 50 mg PO DAILY@1600 11/10/19 11/15/19 History Spironolactone [Aldactone] 25 mg PO DAILY@0700 11/10/19 11/15/19 History Allergies Allergy/AdvReac Type Severity Reaction Status Date / Time bee venom protein (honey bee) Allergy Anaphylaxis Verified 11/15/19 14:00 insect venom Allergy Anaphylaxis Verified 11/15/19 14:00 Penicillins Allergy Unknown Verified 11/15/19 14:00 Childhood Physical Exam Vitals: Vital Signs Temp Pulse Pulse Resp BP BP Pulse Ox 11/16/19 12:59 99.1 F 115 H 16 137/81 92 L 11/16/19 12:08 108 H 11/16/19 11:51 112 H 11/16/19 08:11 108 H 11/16/19 08:01 108 H 11/16/19 07:34 98.2 F 110 H 18 94 L 11/16/19 05:00 98.0 F 106 H 22 114/78 95 11/15/19 21:00 97.8 F 102 H 18 114/72 95 11/15/19 20:13 102 H 11/15/19 20:00 102 H 11/15/19 16:27 97.9 F 104 H 20 106/70 94 L 11/15/19 15:10 110 H 20 95/54 97 11/15/19 14:20 99.9 F H 108 H 20 106/68 98 Intake and Output 11/15/19 11/16/19 11/16/19 22:59 06:59 14:59 Other: # Voids 2 2 Weight 92.533 kg - Constitutional General appearance: average body habitus, cooperative, disheveled, mild distress - EENT Eyes: anicteric sclerae, EOMI, PERRLA, poor dentition Ears: bilateral: normal - Neck Neck: normal ROM Carotids: bilateral: upstroke normal Thyroid: bilateral: normal size - Respiratory Respiratory: right: diminished, negative: dullness, rales, rhonchi, wheezing, prolonged expiration - Cardiovascular Rhythm: regular Heart sounds: normal: S1, S2 - Gastrointestinal General gastrointestinal: normal bowel sounds - Neurologic Neurologic: CNII-XII intact - Musculoskeletal Musculoskeletal: gait normal, generalized weakness, strength equal bilaterally - Psychiatric Psychiatric: A&O x's 3, appropriate affect, intact judgment & insight Results - Laboratory Findings CBC and BMP: 11/16/19 11:56 11/16/19 07:13 PT/INR, D-dimer PT 13.2 sec (9.0-12.0) H 11/16/19 11:56 INR 1.3 (<1.2) H 11/16/19 11:56 Abnormal lab findings: Abnormal Labs 11/15/19 11/15/1920 12:30 12:30 12:30 WBC 25.3 H RBC 3.50 L Hgb 10.6 L Hct 33.5 L RDW 16.0 H Plt Count 469 H Neutrophils # 23.4 H Lymphocytes # 0.7 L PT 13.3 H INR 1.3 H Sodium 127 L Chloride 91 L Carbon Dioxide BUN Glucose 154 H Plasma Lactic Acid Huey Calcium 8.2 L Total Protein Albumin 3.0 L Urine Protein Hyaline Casts Urine Mucus 11/15/19 11/15/19 11/16/19 12:30 20:40 07:13 WBC 21.8 H RBC 3.36 L Hgb 10.6 L Hct 32.8 L RDW 16.2 H Plt Count 483 H Neutrophils # 20.5 H Lymphocytes # 0.5 L PT INR Sodium Chloride Carbon Dioxide BUN Glucose Plasma Lactic Acid Huey 2.7 H* Calcium Total Protein Albumin Urine Protein 1+ H Hyaline Casts 188 H Urine Mucus Rare H 11/16/19 11/16/19 11/16/19 07:13 11:56 11:56 WBC 25.5 H RBC 3.25 L Hgb 10.0 L Hct 31.4 L RDW 16.0 H Plt Count 539 H Neutrophils # 24.1 H Lymphocytes # 0.7 L PT 13.2 H INR 1.3 H Sodium 131 L Chloride 97 L Carbon Dioxide 21 L BUN 21 H Glucose 138 H Plasma Lactic Acid Huey Calcium 8.3 L Total Protein 5.9 L Albumin 2.7 L Urine Protein Hyaline Casts Urine Mucus - Diagnostic Findings Chest x-ray: report reviewed, image reviewed CT scan - chest: report reviewed (Finding as noted above), image reviewed (Finding as noted above) Assessment and Plan Assessment: Right lower lobe postobstructive pneumonia 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
--- NOTE | 2019-11-16 14:25 | P.GSCN ---
History of Present Illness Consult date: 11/16/19 Reason for Consult: Lung mass, plan for lobectomy Requesting physician: Alejo Garcia History of present illness: This is a 64-year-old gentleman who follows an outpatient basis with Dr. Jennifer Lea and Dr. Leonel Middleton. He has a previous medical history of hypertension, cardiomyopathy documented in 2008 which apparently resolved, arthritis, abdominal aortic aneurysm status post stent grafting in 2011, and ongoing pneumonia secondary to mass in the bronchus intermedius. This gentleman had presented with intractable nonproductive cough beginning in late May, he was treated for pneumonia but had persistent right lower lobe infiltrate. Computed tomography scan completed at [facility] in September 2019 demonstrated a small nodule in the right upper lobe of the lung and a large obstructing mass in the bronchus intermedius. He subsequently underwent a PET scan on October 16. This demonstrated no uptake in the right upper lobe mass or pulmonary nodule and marked uptake in the obstructing tumor in the bronchus intermedius. He subsequently underwent proctoscopy by Dr. Middleton which showed an obstructing tumor at the bronchus intermedius, biopsies were obtained, but these demonstrated only necrotic tissue and were nondiagnostic. The PET scan did not show any evidence of metastasis and was only positive in the area of the mass. He was sent to Dr. Garcia for consultation and was scheduled to undergo right thoracotomy on , 11/18/2019 with right middle and lower bilobectomy, with possible pneumonectomy. He was sent for cardiac clearance yesterday, however prior to having his stress test he was noted to be tachycardic in the 130s, and febrile with a fever of 102. He did state that he had been having fevers off and on and had been treated for pneumonia off and on since last May. Stress test was canceled and patient was sent to the emergency room where he was admitted for sepsis and pneumonia. He was initiated on IV antibiotics as well as IV steroids. Dr. Garcia from cardiothoracic surgery was consulted as he is well-known to our service. Review of Systems Review of systems was completed was negative except as noted - Constitutional Reports chills, Reports fever - Cardiovascular Reports rapid heart beat - Respiratory Reports cough with sputum, Reports dyspnea Past Medical History Past Medical History: Cancer, COPD, Pneumonia Additional Past Medical History / Comment(s): rt lower lobe lung cancer, cardiomegaly History of Any Multi-Drug Resistant Organisms: None Reported Past Surgical History: Tonsillectomy Additional Past Surgical History / Comment(s): aortic abd stent Past Anesthesia/Blood Transfusion Reactions: No Reported Reaction Past Psychological History: No Psychological Hx Reported Smoking Status: Former smoker Past Alcohol Use History: None Reported Past Drug Use History: None Reported - Past Family History Father Family Medical History: Myocardial Infarction ([place]) Additional Family Medical History / Comment(s): Father of a [place] at the age of 46yrs. Mother Family Medical History: Cancer Additional Family Medical History / Comment(s): Mother from breast cancer. Medications and Allergies Home Medications Medication Instructions Recorded Confirmed Type Acetaminophen Tab [Tylenol Tab] 1,000 mg PO Q6H PRN 11/10/19 11/15/19 History Enalapril [Vasotec] 20 mg PO DAILY@0700 11/10/19 11/15/19 History Metoprolol Tartrate [Lopressor] 50 mg PO DAILY@1600 11/10/19 11/15/19 History Spironolactone [Aldactone] 25 mg PO DAILY@0700 11/10/19 11/15/19 History Allergies Allergy/AdvReac Type Severity Reaction Status Date / Time bee venom protein (honey bee) Allergy Anaphylaxis Verified 11/15/19 14:00 insect venom Allergy Anaphylaxis Verified 11/15/19 14:00 Penicillins Allergy Unknown Verified 11/15/19 14:00 Childhood Surgical - Exam Vital Signs Temp Pulse Resp BP Pulse Ox 102.0 F H 133 H 18 112/70 97 11/15/19 11:53 11/15/19 11:53 11/15/19 11:53 11/15/19 11:53 11/15/19 11:53 - General well developed, well nourished, no distress, no pain, chronically ill - Eyes PERRL, normal ocular movement - ENT no hearing loss - Neck no masses, no bruits, trachea midline - Respiratory Lungs sounds diminished bilaterally, right greater than left. Respirations even, nonlabored. Currently on room air with oxygen saturation 95%. Strong, productive cough. No chest wall deformities. No cyanosis present. - Cardiovascular S1, S2 present. Regular rate and rhythm. Palpable peripheral pulses bilate rally. No edema present. No calf pain or tenderness noted. - Abdomen Abdomen: soft, non tender, bowel sounds - Genitourinary Deferred - Rectum Deferred - Integumentary no rash, no growths, no abnormal pigmentation - Neurologic normal coordination, normal sensation - Musculoskeletal normal gait, normal posture - Psychiatric oriented to time, oriented to person, oriented to place, speech is normal, m [place] intact Results - Labs 11/16/19 11:56 11/16/19 07:13 Abnormal Lab Results - Last 24 Hours (Table) 11/15/19 11/15/19 11/16/19 Range/Units 12:30 20:40 07:13 WBC 21.8 H (3.8-10.6) k/uL RBC 3.36 L (4.30-5.90) m/uL Hgb 10.6 L (13.0-17.5) gm/dL Hct 32.8 L (39.0-53.0) % RDW 16.2 H (11.5-15.5) % Plt Count 483 H (150-450) k/uL Neutrophils # 20.5 H (1.3-7.7) k/uL Lymphocytes # 0.5 L (1.0-4.8) k/uL PT 13.3 H (9.0-12.0) sec INR 1.3 H (<1.2) Sodium (137-145) mmol/L Chloride (98-107) mmol/L Carbon Dioxide (22-30) mmol/L BUN (9-20) mg/dL Glucose (74-99) mg/dL Calcium (8.4-10.2) mg/dL Total Protein (6.3-8.2) g/dL Albumin (3.5-5.0) g/dL Urine Protein 1+ H (Negative) Hyaline Casts 188 H (0-2) /lpf Urine Mucus Rare H (None) /hpf 11/16/19 11/16/19 11/16/19 Range/Units 07:13 11:56 11:56 WBC 25.5 H (3.8-10.6) k/uL RBC 3.25 L (4.30-5.90) m/uL Hgb 10.0 L (13.0-17.5) gm/dL Hct 31.4 L (39.0-53.0) % RDW 16.0 H (11.5-15.5) % Plt Count 539 H (150-450) k/uL Neutrophils # 24.1 H (1.3-7.7) k/uL Lymphocytes # 0.7 L (1.0-4.8) k/uL PT 13.2 H (9.0-12.0) sec INR 1.3 H (<1.2) Sodium 131 L (137-145) mmol/L Chloride 97 L (98-107) mmol/L Carbon Dioxide 21 L (22-30) mmol/L BUN 21 H (9-20) mg/dL Glucose 138 H (74-99) mg/dL Calcium 8.3 L (8.4-10.2) mg/dL Total Protein 5.9 L (6.3-8.2) g/dL Albumin 2.7 L (3.5-5.0) g/dL Urine Protein (Negative) Hyaline Casts (0-2) /lpf Urine Mucus (None) /hpf Diabetes panel 11/16/19 Range/Units 07:13 Sodium 131 L (137-145) mmol/L Potassium 3.9 (3.5-5.1) mmol/L Chloride 97 L (98-107) mmol/L Carbon Dioxide 21 L (22-30) mmol/L BUN 21 H (9-20) mg/dL Creatinine 0.69 (0.66-1.25) mg/dL Glucose 138 H (74-99) mg/dL Calcium 8.3 L (8.4-10.2) mg/dL AST 22 (17-59) U/L ALT 13 (4-49) U/L Alkaline Phosphatase 98 (38-126) U/L Total Protein 5.9 L (6.3-8.2) g/dL Albumin 2.7 L (3.5-5.0) g/dL Calcium panel 11/16/19 Range/Units 07:13 Calcium 8.3 L (8.4-10.2) mg/dL Phosphorus 3.8 (2.5-4.5) mg/dL Albumin 2.7 L (3.5-5.0) g/dL Pituitary panel 11/16/19 Range/Units 07:13 Sodium 131 L (137-145) mmol/L Potassium 3.9 (3.5-5.1) mmol/L Chloride 97 L (98-107) mmol/L Carbon Dioxide 21 L (22-30) mmol/L BUN 21 H (9-20) mg/dL Creatinine 0.69 (0.66-1.25) mg/dL Glucose 138 H (74-99) mg/dL Calcium 8.3 L (8.4-10.2) mg/dL Adrenal panel 11/16/19 Range/Units 07:13 Sodium 131 L (137-145) mmol/L Potassium 3.9 (3.5-5.1) mmol/L Chloride 97 L (98-107) mmol/L Carbon Dioxide 21 L (22-30) mmol/L BUN 21 H (9-20) mg/dL Creatinine 0.69 (0.66-1.25) mg/dL Glucose 138 H (74-99) mg/dL Calcium 8.3 L (8.4-10.2) mg/dL Total Bilirubin 0.4 (0.2-1.3) mg/dL AST 22 (17-59) U/L ALT 13 (4-49) U/L Alkaline Phosphatase 98 (38-126) U/L Total Protein 5.9 L (6.3-8.2) g/dL Albumin 2.7 L (3.5-5.0) g/dL - Imaging Chest x-ray: report reviewed, image reviewed CT scan - chest: report reviewed, image reviewed EKG: image reviewed Assessment and Plan Assessment: 1. Known right lung mass, suspect cancer, positive uptake on PET scan, biopsy nondiagnostic 2. Pneumonia, sepsis on admission 3. History of hypertension 4. History of cardiomyopathy in 2008 which resolved 5. Arthritis 6. History of abdominal aortic aneurysm status post stent grafting in 2011 Plan: The patient was seen and examined at the bedside. Chart/diagnostics were reviewed. Case was discussed in detail with Dr. Garcia. Our plan is to proceed with surgery on as the patient will not recover from his pneumonia as long as the obstructing mass is present. We would like cardiac clearance and cardiology was placed on consult, echocardiogram was ordered. CTA completed demonstrating bilateral nonobstructing small segmental and subsegmental pulmonary emboli with no evidence of right heart strain, as well as increase in size of the right lower lobe mass, although this is likely due to obstructing pneumonia versus true increase in size of the mass. Patient to be started on IV heparin per primary care services for pulmonary embolism, which will need to be discontinued prior to surgery. May continue IV antibiotics and steroids to make sure patient is in optimal condition for surgery. Incentive spirometry ordered and should be actively encouraged. Medical management of other comorbidities per primary care service. More recommendations to follow. Thank you for allowing us the opportunity to participate in this patients care. Time with Patient: Greater than 30
[2019-11-16] MEDS: METOPROLOL TARTRATE 50 MG TAB PO SCH (17:31)
--- NOTE | 2019-11-16 19:01 | ECHOF ---
Referral Reason:eval ventricular function MEASUREMENTS -------- HEIGHT: 182.9 cm WEIGHT: 92.5 kg BP: 114/78 RVIDd: 3.8 cm (< 3.3) IVSd: 1.1 cm (0.6 - 1.1) LVIDd: 5.4 cm (3.9 - 5.3) LVPWd: 1.3 cm (0.6 - 1.1) IVSs: 1.6 cm LVIDs: 3.3 cm LVPWs: 1.6 cm LA Diam: 3.5 cm (2.7 - 3.8) LAESV Index (A-L): 18.02 ml/m Ao Diam: 3.8 cm (2.0 - 3.7) AV Cusp: 2.3 cm (1.5 - 2.6) MV EXCURSION: 18.395 mm (> 18.000) MV EF SLOPE: 167 mm/s (70 - 150) EPSS: 0.2 cm MV E Bart: 0.98 m/s MV DecT: 157 ms MV A Bart: 1.16 m/s MV E/A Ratio: 0.85 RAP: 5.00 mmHg RVSP: 46.47 mmHg TAPSE: 27.61 mm FINDINGS -------- Resting tachycardia (HR>100bpm). This was a technically good study. The left ventricular size is normal. There is mild concentric left ventricular hypertrophy. Overa ll left ventricular systolic function is normal with, an EF between 60 - 65 %. The right ventricle is mild to moderately enlarged. Normal LA size by volume 22+/-6 ml/m2. The right atrium is normal in size. Interatrial and interventricular septum intact. There is mild aortic valve sclerosis. Mild mitral regurgitation is present. Mild tricuspid regurgitation present. There is moderate pulmonary hypertension. The right ventric ular systolic pressure, as measured by Doppler, is 46.47mmHg. The pulmonic valve was not well visualized. The aortic root is dilated measuring 3.8cm. Normal inferior vena cava with normal inspiratory collapse consistent with estimated right atrial pre ssure of 5 mmHg. There is no pericardial effusion. CONCLUSIONS -------- 1. Resting tachycardia (HR>100bpm). 2. This was a technically good study. 3. The left ventricular size is normal. 4. There is mild concentric left ventricular hypertrophy. 5. Overall left ventricular systolic function is normal with, an EF between 60 - 65 %. 6. The right ventricle is mild to moderately enlarged. 7. Normal LA size by volume 22+/-6 ml/m2. 8. The right atrium is normal in size. 9. Interatrial and interventricular septum intact. 10. There is mild aortic valve sclerosis. 11. Mild mitral regurgitation is present. 12. Mild tricuspid regurgitation present. 13. There is moderate pulmonary hypertension. 14. The right ventricular systolic pressure, as measured by Doppler, is 46.47mmHg. 15. The pulmonic valve was not well visualized. 16. The aortic root is dilated measuring 3.8cm. 17. Normal inferior vena cava with normal inspiratory collapse consistent with estimated right atrial pressure of 5 mmHg. 18. There is no pericardial effusion. HEAD OF MOBILE: Shanell Jauregui RDCS
[2019-11-16] MEDS: LEVOFLOXACIN 750MG-D5W PMX 750 MG in DEXTROSE/WATER 1 150ML.BAG IVPB SCH (19:39)
--- NOTE | 2019-11-16 20:43 | P.PN ---
Subjective Progress Note Date: 11/16/19 (delayed charting seen at 0930) Principal diagnosis: fevers Patient is a 64-year-old male patient of Dr. Hernandez with a recent diagnosis of right lower lobe pulmonary mass being followed by Dr. Middleton and Dr. Garcia for lobectomy, COPD, and prior history of cardiomegaly who presented to the emergency department at the direction of the echocardiogram senior laboratory technician secondary to elevated heart rate. Of note the patient has had approximately 6 months of symptoms. He has had multiple courses of antibiotics throughout his stay. He initially felt that this is sinusitis and then he saw Dr. Middleton and August and was noted to have an abnormality on chest x-ray. He received a course of Levaquin and then underwent a chest CT PET which showed a mass in his right lower lobe but no adenopathy. 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 He met with Dr. Garcia it was felt that he likely had underlying tumor with necrosis and would require bilobectomy versus pneumonectomy. He has had 2 courses of Levaquin and over August and September as well as recurrent fevers up to 103 over the last several months. On arrival to the ER he had a fever of 102 and a pulse of 133. Laboratory analysis showed a white blood cell count 25.3, hemoglobin 10.6, platelets 469, INR 1.3, sodium 127, albumin 3, and 188 hyaline casts in his urine. Influenza was negative. Chest x-ray was completed which showed worsening of the abnormality in his right lower lobe. He was also found have an elevated lactic acid at 2.4. He was started on IV fluids, vancomycin, cefepime, and Levaquin. He was admitted for further monitoring. Dr. Garcia was consulted. Patient seen and examined at bedside. He reports that he is feeling better today after initiation of antibiotics. He states that over the last 2 weeks he's had an acute worsening of his symptoms. His shortness of breath has become progressive and he is unable to do much. His cough is relatively unchanged. His fevers have been worsening. His fatigue and energy levels have been worsening. He denies any cramping in his lower extremities. He states that he initially felt better at the end of September after completing a course of antibiotics that has slowly been getting worse. He states that his symptoms have been severe over the last 2 weeks and he just wants to have his surgery and feel better. He has been laying around more than normal and has not been very active. Objective - Vital Signs Vital signs: Vital Signs Temp 99.1 F 11/16/19 12:59 Pulse 102 H 11/16/19 20:07 Resp 16 11/16/19 12:59 BP 137/81 11/16/19 12:59 Pulse Ox 92 L 11/16/19 12:59 Intake & Output 11/16/19 11/16/19 11/17/19 06:59 18:59 06:59 Intake Total 1166 Balance 1166 Weight 92.533 kg Intake: Intake, IV Titration 1166 Amount Heparin Sod,Pork in 0.45% 16 NaCl 25,000 unit In 0.45 % NaCl 1 250ml.bag @ 18 UNITS/KG/HR 16.656 mls/hr IV .Q15H1M PERI Rx#: [id number] Sodium Chloride 0.9% 1, 900 000 ml @ 150 mls/hr IV . Q6H40M PERI Rx#:[id number] Vancomycin 1,500 mg In 250 Sodium Chloride 0.9% 250 ml @ 125 mls/hr IVPB Q8H PERI Rx#:[id number] Other: # Voids 2 4 # Bowel Movements 1 - Exam General: Ill-appearing, pale, no distress, appears at stated age Derm: warm, dry Head: atraumatic, normocephalic, symmetric Eyes: EOMI, no lid lag, anicteric sclera Mouth: no lip lesion, mucus membranes moist Cardiovascular: S1S2 reg, no murmur, positive posterior tibial pulse bilateral, Lungs: Decreased breath sounds right base, no rhonchi, no rales , no accessory muscle use Abdominal: soft, nontender to palpation, no guarding, no appreciable organomegaly Ext: no gross muscle atrophy, no edema, no contractures Neuro: CN II-XI grossly intact, no focal neuro deficits Psych: Alert, oriented, appropriate affect - Labs CBC & Chem 7: 11/16/19 11:56 11/16/19 07:13 Labs: Abnormal Lab Results - Last 24 Hours (Table) 11/15/19 11/16/19 11/16/19 Range/Units 20:40 07:13 07:13 WBC 21.8 H (3.8-10.6) k/uL RBC 3.36 L (4.30-5.90) m/uL Hgb 10.6 L (13.0-17.5) gm/dL Hct 32.8 L (39.0-53.0) % RDW 16.2 H (11.5-15.5) % Plt Count 483 H (150-450) k/uL Neutrophils # 20.5 H (1.3-7.7) k/uL Lymphocytes # 0.5 L (1.0-4.8) k/uL PT (9.0-12.0) sec INR (<1.2) APTT (22.0-30.0) sec Sodium 131 L (137-145) mmol/L Chloride 97 L (98-107) mmol/L Carbon Dioxide 21 L (22-30) mmol/L BUN 21 H (9-20) mg/dL Glucose 138 H (74-99) mg/dL Calcium 8.3 L (8.4-10.2) mg/dL Total Protein 5.9 L (6.3-8.2) g/dL Albumin 2.7 L (3.5-5.0) g/dL Procalcitonin (0.02-0.09) ng/mL Urine Protein 1+ H (Negative) Hyaline Casts 188 H (0-2) /lpf Urine Mucus Rare H (None) /hpf 11/16/19 11/16/19 11/16/19 Range/Units 07:13 11:56 11:56 WBC 25.5 H (3.8-10.6) k/uL RBC 3.25 L (4.30-5.90) m/uL Hgb 10.0 L (13.0-17.5) gm/dL Hct 31.4 L (39.0-53.0) % RDW 16.0 H (11.5-15.5) % Plt Count 539 H (150-450) k/uL Neutrophils # 24.1 H (1.3-7.7) k/uL Lymphocytes # 0.7 L (1.0-4.8) k/uL PT 13.2 H (9.0-12.0) sec INR 1.3 H (<1.2) APTT (22.0-30.0) sec Sodium (137-145) mmol/L Chloride (98-107) mmol/L Carbon Dioxide (22-30) mmol/L BUN (9-20) mg/dL Glucose (74-99) mg/dL Calcium (8.4-10.2) mg/dL Total Protein (6.3-8.2) g/dL Albumin (3.5-5.0) g/dL Procalcitonin 0.89 H (0.02-0.09) ng/mL Urine Protein (Negative) Hyaline Casts (0-2) /lpf Urine Mucus (None) /hpf 11/16/19 Range/Units 17:40 WBC (3.8-10.6) k/uL RBC (4.30-5.90) m/uL Hgb (13.0-17.5) gm/dL Hct (39.0-53.0) % RDW (11.5-15.5) % Plt Count (150-450) k/uL Neutrophils # (1.3-7.7) k/uL Lymphocytes # (1.0-4.8) k/uL PT (9.0-12.0) sec INR (<1.2) APTT 35.1 H (22.0-30.0) sec Sodium (137-145) mmol/L Chloride (98-107) mmol/L Carbon Dioxide (22-30) mmol/L BUN (9-20) mg/dL Glucose (74-99) mg/dL Calcium (8.4-10.2) mg/dL Total Protein (6.3-8.2) g/dL Albumin (3.5-5.0) g/dL Procalcitonin (0.02-0.09) ng/mL Urine Protein (Negative) Hyaline Casts (0-2) /lpf Urine Mucus (None) /hpf Microbiology - Last 24 Hours (Table) 11/15/19 12:30 Blood Culture - Preliminary Blood No Growth after 24 hours Assessment and Plan Assessment: Probable postobstructive pneumonia with sepsis, possible gram-negative -Continue with vancomycin, cefepime, and Levaquin -Await pulmonary recommendations -Sputum culture -Blood cultures -Check procalcitonin levels to search for active bacterial infection versus a worsening of his mass Right lower lobe mass, spindle cell Ca per verbal report - new CT with some adenopathy that could be reactive -Await thoracic surgery consultation [facility] for pneumonectomy: Serious complications 27, any complications 29.6, cardiac complication 3.1, 2.3 -consult oncology Bilateral sub segemental pulmonary embolism - heparin gtt - probable NOAC once compete surery and stable - will need treatment until remission Severe COPD with exacerbation - IV steroids - duonebs - pulm hygeine - pulm recs Hyponatremia due to dehydration - continue with IVF - repeat BMP in AM - urine sodium and osmol not ordered due to IVF Anemia, chronic - check FE studies, B 12, and folic acid Thrombocytosis - likely reactive - follow CBC Lactic acidosis, resolved Chronic HTN, not on medications cardiomyopathy, resolved AAA s/p stenting
[2019-11-17] MEDS: HEPARIN SODIUM,PORCINE 5,000 UNIT/ML 1 ML VIAL IV PRN ×2 (00:36→09:59)
[2019-11-17] MEDS: HEPARIN SOD,PORK IN 0.45% NACL 25,000 UNIT in 0.45% NACL 1 250ML.BAG IV SCH ×2 (02:56→14:55)
[2019-11-17] MEDS: CEFEPIME 1 GM in SODIUM CHLORIDE 0.9% 50 ML IVPB SCH ×2 (03:03→18:33)
[2019-11-17] MEDS: SODIUM CHLORIDE 0.9% 1,000 ML IV SCH ×3 (05:54→18:23)
[2019-11-17] MEDS ORDERED: VANCOMYCIN TROUGH DUE 1 EACH MISC MISCELLANE ONE (07:00)
[2019-11-17] MEDS: IPRATROPIUM-ALBUTEROL 3 ML NEB INHALATION SCH ×4 (07:58→20:21)
[2019-11-17 08:17] LABS: ALT 14 U/L (4-49); AST 27 U/L (17-59); African American GFR (CKD) >90 (>60 ml/min/1.73 sqM); Albumin 2.5 g/dL (3.5-5.0); Alkaline Phosphatase 93 U/L (38-126); Anion Gap 11 mmol/L; Blood Urea Nitrogen 22 mg/dL (9-20); Calcium 8.1 mg/dL (8.4-10.2); Carbon Dioxide 22 mmol/L (22-30); Chloride 101 mmol/L (98-107); Glucose 132 mg/dL (74-99); Non-African American GFR(CKD) >90 (>60 ml/min/1.73 sqM); Potassium 3.9 mmol/L (3.5-5.1); Sodium 134 mmol/L (137-145); Total Bilirubin 0.1 mg/dL (0.2-1.3); Total Protein 5.8 g/dL (6.3-8.2)
[2019-11-17 08:19] LABS: Basophils % (A) 0 %; Eosinophils % (A) 0 %; HCT 30.9 % (39.0-53.0); HGB 9.7 gm/dL (13.0-17.5); Lymphocytes # (A) 1.1 k/uL (1.0-4.8); Lymphocytes % (A) 5 %; MCH 30.8 pg (25.0-35.0); MCHC 31.3 g/dL (31.0-37.0); MCV 98.4 fL (80.0-100.0); Mean Platelet Volume 7.7; Monocytes # (A) 0.3 k/uL (0-1.0); Monocytes % (A) 2 %; Neutrophils # (A) 19.6 k/uL (1.3-7.7); Neutrophils % (A) 92 %; Platelet Count 521 k/uL (150-450); RBC 3.14 m/uL (4.30-5.90); RDW 15.9 % (11.5-15.5); WBC 21.3 k/uL (3.8-10.6)
[2019-11-17] MEDS: LISINOPRIL 20 MG TAB PO SCH (08:44)
[2019-11-17] MEDS ORDERED: HYDROmorphone 0.5 MG/0.5 ML SYRINGE IVP STA (10:27)
--- NOTE | 2019-11-17 10:56 | US ---
EXAMINATION TYPE: US venous doppler duplex LE DATE OF EXAM: 11/17/2019 10:43 AM COMPARISON: NONE CLINICAL HISTORY: bilateral PE. SIDE PERFORMED: Bilateral TECHNIQUE: The lower extremity deep venous system is examined utilizing real time linear array sonog dorina with graded compression, doppler sonography and color-flow sonography. VESSELS IMAGED: External Iliac Vein (EIV) Common Femoral Vein Deep Femoral Vein Greater Saphenous Vein * Femoral Vein Popliteal Vein Small Saphenous Vein * Proximal Calf Veins (* superficial vessels) Grayscale, color doppler, spectral doppler imaging performed of the deep veins of the lower extremiti es. There is normal flow, compressibility, vascular waveforms. Right Leg: Negative for DVT Left Leg: Negative for DVT IMPRESSION: No sonographic evidence of deep venous thrombosis within the bilateral lower extremities .
--- NOTE | 2019-11-17 11:39 | P.PN ---
Subjective HISTORY OF PRESENTING ILLNESS This is a pleasant 64-year-old male past medical history significant for ischemic cardiomyopathy, former heavy alcohol use, chronic nicotine dependence, right lower lobe lung carcinoma and chronic pneumonia. He no longer follows in the office with a surgical services assistant since 2013. Echocardiogram obtained reveals preserved LV systolic function with EF 60-65%, mild MR, mild TR and moderate PH with RVSP 46 mmHg. Blood pressure 132/78 heart rate 110 maintaining oxygen saturation on room air. He is seen and examined sitting up in the chair in no acute distress. He has been afebrile. He denies worsening shortness of breath, no chest pain, dizziness or palpitations. PHYSICAL EXAMINATION CONSTITUTIONAL: No apparent distress. HEENT: Head is normocephalic. Pupils are equal, round. Sclerae anicteric. Mucous membranes of the mouth are moist. No JVD. No carotid bruit. CHEST EXAMINATION: Lungs are clear to auscultation. No chest wall tenderness is noted on palpation or with deep breathing. Diminished bilaterally. HEART EXAMINATION: Regular rate and rhythm. Tachycardic. S1, S2 heard. Soft systolic ejection murmur, no gallops or rub. EXTREMITIES: 2+ peripheral pulses, no lower extremity edema and no calf t enderness. ASSESSMENT Sepsis secondary to persistent pneumonia Suspect bilateral pulmonary embolism on CTA this morning, heparin initiated per primary care team. Lung neoplasm Lactic acidosis Leukocytosis Hyponatremia Hypertension History of non-ischemic cardiomyopathy 2009 Chronic nicotine dependence PLAN LV function is normal with no wall motion abnormalities. Clinically stable currently from a cardiac perspective. Nurse Practitioner note has been reviewed, I agree with a documented findings and plan of care. Patient was seen and examined. Objective - Vital Signs Vital signs: Vital Signs Temp 97.9 F 11/17/19 05:00 Pulse 110 H 11/17/19 10:26 Resp 16 11/17/19 10:26 BP 132/78 11/17/19 07:04 Pulse Ox 94 L 11/17/19 07:04 Intake & Output 11/16/19 11/17/19 11/17/19 18:59 06:59 18:59 Intake Total 1166 3587.157 144.535 Balance 1166 3587.157 144.535 Weight 92.533 kg Intake: Intake, IV Titration 1166 2047.157 144.535 Amount Heparin Sod,Pork in 0.45% 16 247.157 144.535 NaCl 25,000 unit In 0.45 % NaCl 1 250ml.bag @ 18 UNITS/KG/HR 16.656 mls/hr IV .Q15H1M [facility] Rx#: [id number] Sodium Chloride 0.9% 1, 900 1800 000 ml @ 150 mls/hr IV . Q6H40M [facility] Rx#:[id number] Vancomycin 1,500 mg In 250 Sodium Chloride 0.9% 250 ml @ 125 mls/hr IVPB Q8H [facility] Rx#:[id number] Oral 1540 Other: # Voids 4 2 # Bowel Movements 1 - Labs CBC & Chem 7: 11/17/19 07:30 11/17/19 07:30 Labs: Abnormal Lab Results - Last 24 Hours (Table) 11/16/19 11/16/19 11/16/19 Range/Units 07:13 11:56 11:56 WBC 25.5 H (3.8-10.6) k/uL RBC 3.25 L (4.30-5.90) m/uL Hgb 10.0 L (13.0-17.5) gm/dL Hct 31.4 L (39.0-53.0) % RDW 16.0 H (11.5-15.5) % Plt Count 539 H (150-450) k/uL Neutrophils # 24.1 H (1.3-7.7) k/uL Lymphocytes # 0.7 L (1.0-4.8) k/uL PT 13.2 H (9.0-12.0) sec INR 1.3 H (<1.2) APTT (22.0-30.0) sec Sodium (137-145) mmol/L BUN (9-20) mg/dL Glucose (74-99) mg/dL Calcium (8.4-10.2) mg/dL Total Bilirubin (0.2-1.3) mg/dL Total Protein (6.3-8.2) g/dL Albumin (3.5-5.0) g/dL Procalcitonin 0.89 H (0.02-0.09) ng/mL 11/16/19 11/17/19 11/17/19 Range/Units 17:40 00:01 07:30 WBC 21.3 H (3.8-10.6) k/uL RBC 3.14 L (4.30-5.90) m/uL Hgb 9.7 L (13.0-17.5) gm/dL Hct 30.9 L (39.0-53.0) % RDW 15.9 H (11.5-15.5) % Plt Count 521 H (150-450) k/uL Neutrophils # 19.6 H (1.3-7.7) k/uL Lymphocytes # (1.0-4.8) k/uL PT (9.0-12.0) sec INR (<1.2) APTT 35.1 H 35.7 H (22.0-30.0) sec Sodium (137-145) mmol/L BUN (9-20) mg/dL Glucose (74-99) mg/dL Calcium (8.4-10.2) mg/dL Total Bilirubin (0.2-1.3) mg/dL Total Protein (6.3-8.2) g/dL Albumin (3.5-5.0) g/dL Procalcitonin (0.02-0.09) ng/mL 11/17/19 11/17/19 Range/Units 07:30 07:30 WBC (3.8-10.6) k/uL RBC (4.30-5.90) m/uL Hgb (13.0-17.5) gm/dL Hct (39.0-53.0) % RDW (11.5-15.5) % Plt Count (150-450) k/uL Neutrophils # (1.3-7.7) k/uL Lymphocytes # (1.0-4.8) k/uL PT (9.0-12.0) sec INR (<1.2) APTT 38.8 H (22.0-30.0) sec Sodium 134 L (137-145) mmol/L BUN 22 H (9-20) mg/dL Glucose 132 H (74-99) mg/dL Calcium 8.1 L (8.4-10.2) mg/dL Total Bilirubin 0.1 L (0.2-1.3) mg/dL Total Protein 5.8 L (6.3-8.2) g/dL Albumin 2.5 L (3.5-5.0) g/dL Procalcitonin (0.02-0.09) ng/mL Microbiology - Last 24 Hours (Table) 11/15/19 12:30 Blood Culture - Preliminary Blood No Growth after 24 hours
--- NOTE | 2019-11-17 11:47 | P.PN ---
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 Pulmonary emboli subsegmental peripheral Severe COPD Sepsis Hypertension hypertensive cardiovascular disease 11/17/2019, patient seen eval examined during the rounds labs reviewed medications reviewed care plan discussed with the patient, care plan and discussed with oncology service, white cell count is trending down but is still having elevated, patient remains on IV heparin and broad-spectrum antibiotics for postobstructive pneumonia, patient is scheduled for right lower lobe dissection and lymph node dissection for November 17 This is a 64-year-old with history of COPD recently diagnosed lung cancer patient is scheduled to see Dr. Jose barajas stress test during the stress test patient was found to having worsening of shortness of breath and tachycardia sent into emergency department for further evaluation found to have postobst ructive pneumonia patient is admitted into hospital for broad-spectrum antibiotic computed tomography scan of the chest showing postobstructive pneumonia patient is being followed by thoracic surgery is scheduled for right lower lobe resection chest x-ray revealed a right lower lobe infiltrate progressing from prior exam. Underlying neoplasm. CTA of the chest revealed bilateral nonobstructing small segmental and subsegmental pulmonary emboli with no evidence of right heart strain, overall mild clot burden, right lower lobe mass with endobronchial invasion and surrounding consolidation markedly increased from a PET scan on October 16. Objective - Vital Signs Vital signs: Vital Signs Temp 97.9 F 11/17/19 05:00 Pulse 100 11/17/19 11:31 Resp 16 11/17/19 10:26 BP 132/78 11/17/19 07:04 Pulse Ox 94 L 11/17/19 07:04 Intake & Output 11/16/19 11/17/19 11/17/19 18:59 06:59 18:59 Intake Total 1166 3587.157 144.535 Balance 1166 3587.157 144.535 Weight 92.533 kg Intake: Intake, IV Titration 1166 2047.157 144.535 Amount Heparin Sod,Pork in 0.45% 16 247.157 144.535 NaCl 25,000 unit In 0.45 % NaCl 1 250ml.bag @ 18 UNITS/KG/HR 16.656 mls/hr IV .Q15H1M [facility] Rx#: [id number] Sodium Chloride 0.9% 1, 900 1800 000 ml @ 150 mls/hr IV . Q6H40M [facility] Rx#:[id number] Vancomycin 1,500 mg In 250 Sodium Chloride 0.9% 250 ml @ 125 mls/hr IVPB Q8H [facility] Rx#:[id number] Oral 1540 Other: # Voids 4 2 # Bowel Movements 1 - Exam - Constitutional General appearance: average body habitus, cooperative, disheveled, mild distress - EENT Eyes: anicteric sclerae, EOMI, PERRLA, poor dentition Ears: bilateral: normal - Neck Neck: normal ROM Carotids: bilateral: upstroke normal Thyroid: bilateral: normal size - Respiratory Respiratory: right: diminished, negative: dullness, rales, rhonchi, wheezing, prolonged expiration - Cardiovascular Rhythm: regular Heart sounds: normal: S1, S2 - Gastrointestinal General gastrointestinal: normal bowel sounds - Neurologic Neurologic: CNII-XII intact - Musculoskeletal Musculoskeletal: gait normal, generalized weakness, strength equal bilaterally - Psychiatric Psychiatric: A&O x's 3, appropriate affect, intact judgment & insight - Labs CBC & Chem 7: 11/17/19 07:30 11/17/19 07:30 Labs: Abnormal Lab Results - Last 24 Hours (Table) 11/16/19 11/16/19 11/16/19 Range/Units 07:13 11:56 11:56 WBC 25.5 H (3.8-10.6) k/uL RBC 3.25 L (4.30-5.90) m/uL Hgb 10.0 L (13.0-17.5) gm/dL Hct 31.4 L (39.0-53.0) % RDW 16.0 H (11.5-15.5) % Plt Count 539 H (150-450) k/uL Neutrophils # 24.1 H (1.3-7.7) k/uL Lymphocytes # 0.7 L (1.0-4.8) k/uL PT 13.2 H (9.0-12.0) sec INR 1.3 H (<1.2) APTT (22.0-30.0) sec Sodium (137-145) mmol/L BUN (9-20) mg/dL Glucose (74-99) mg/dL Calcium (8.4-10.2) mg/dL Total Bilirubin (0.2-1.3) mg/dL Total Protein (6.3-8.2) g/dL Albumin (3.5-5.0) g/dL Procalcitonin 0.89 H (0.02-0.09) ng/mL 11/16/19 11/17/19 11/17/19 Range/Units 17:40 00:01 07:30 WBC 21.3 H (3.8-10.6) k/uL RBC 3.14 L (4.30-5.90) m/uL Hgb 9.7 L (13.0-17.5) gm/dL Hct 30.9 L (39.0-53.0) % RDW 15.9 H (11.5-15.5) % Plt Count 521 H (150-450) k/uL Neutrophils # 19.6 H (1.3-7.7) k/uL Lymphocytes # (1.0-4.8) k/uL PT (9.0-12.0) sec INR (<1.2) APTT 35.1 H 35.7 H (22.0-30.0) sec Sodium (137-145) mmol/L BUN (9-20) mg/dL Glucose (74-99) mg/dL Calcium (8.4-10.2) mg/dL Total Bilirubin (0.2-1.3) mg/dL Total Protein (6.3-8.2) g/dL Albumin (3.5-5.0) g/dL Procalcitonin (0.02-0.09) ng/mL 11/17/19 11/17/19 Range/Units 07:30 07:30 WBC (3.8-10.6) k/uL RBC (4.30-5.90) m/uL Hgb (13.0-17.5) gm/dL Hct (39.0-53.0) % RDW (11.5-15.5) % Plt Count (150-450) k/uL Neutrophils # (1.3-7.7) k/uL Lymphocytes # (1.0-4.8) k/uL PT (9.0-12.0) sec INR (<1.2) APTT 38.8 H (22.0-30.0) sec Sodium 134 L (137-145) mmol/L BUN 22 H (9-20) mg/dL Glucose 132 H (74-99) mg/dL Calcium 8.1 L (8.4-10.2) mg/dL Total Bilirubin 0.1 L (0.2-1.3) mg/dL Total Protein 5.8 L (6.3-8.2) g/dL Albumin 2.5 L (3.5-5.0) g/dL Procalcitonin (0.02-0.09) ng/mL Microbiology - Last 24 Hours (Table) 11/15/19 12:30 Blood Culture - Preliminary Blood No Growth after 24 hours Assessment and Plan Assessment: Right lower lobe postobstructive pneumonia 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
[2019-11-17] MEDS: VANCOMYCIN 1,500 MG in SODIUM CHLORIDE 0.9% 250 ML IVPB SCH ×3 (12:24→23:42)
[2019-11-17] MEDS: methylPREDNISolone SOD SUCCI 40 MG/ML 1 ML VIAL IV SCH ×2 (12:24→23:15)
--- NOTE | 2019-11-17 14:05 | P.PN ---
Subjective Progress Note Date: 11/17/19 Principal diagnosis: Known right lung mass, suspect cancer, pneumonia with sepsis on admission, bilateral nonobstructing small segmental and subsegmental pulmonary emboli. Previous medical history of severe COPD with previous tobacco dependence, hypertension, cardiomyopathy in 2008 which has resolved, arthritis, and abdominal aortic aneurysm status post stent grafting in 2011 The patient is currently sitting up in a chair on the medical oncology unit in no acute distress. Denies any pain, states shortness breath has improved with initiation of antibiotics. Perioperative course was again discussed with the patient, including potentially cardiac increase risk as well as new diagnosis of pulmonary embolism. Risks were discussed in detail with the patient by our services, pulmonology, oncology, cardiology, and primary care. The patient and his verbalized understanding of the risks and wish to proceed with surgery. The patient has been ambulatory without difficulty and is hemodynamically stable. Objective - Vital Signs Vital signs: Vital Signs Temp 98.8 F 11/17/19 12:45 Pulse 87 11/17/19 12:45 Resp 20 11/17/19 12:45 BP 152/52 11/17/19 12:45 Pulse Ox 94 L 11/17/19 12:45 Intake & Output 11/16/19 11/17/19 11/17/19 18:59 06:59 18:59 Intake Total 1166 3587.157 144.535 Balance 1166 3587.157 144.535 Weight 92.533 kg Intake: Intake, IV Titration 1166 2047.157 144.535 Amount Heparin Sod,Pork in 0.45% 16 247.157 144.535 NaCl 25,000 unit In 0.45 % NaCl 1 250ml.bag @ 18 UNITS/KG/HR 16.656 mls/hr IV .Q15H1M [facility] Rx#: [id number] Sodium Chloride 0.9% 1, 900 1800 000 ml @ 150 mls/hr IV . Q6H40M [facility] Rx#:[id number] Vancomycin 1,500 mg In 250 Sodium Chloride 0.9% 250 ml @ 125 mls/hr IVPB Q8H [facility] Rx#:[id number] Oral 1540 Other: # Voids 4 2 # Bowel Movements 1 - Constitutional General appearance: Present: cooperative, no acute distress - Respiratory Details: Lungs sounds diminished bilaterally, right greater than left. Respirations even, nonlabored. Currently on room air with oxygen saturation 94%. Strong, productive cough. - Cardiovascular Details: S1, S2 present. Regular rate and rhythm. Palpable peripheral pulses bilaterally. No edema present. No calf pain or tenderness noted. - Gastrointestinal Gastrointestinal Comment(s): Abdomen soft, nontender, nondistended. Active bowel sounds present 4 quadrants. Tolerating diet. - Genitourinary Genitourinary Comment(s): Continues to void - Integumentary Integumentary Comment(s): Skin is warm and dry - Neurologic Neurologic: Present: CNII-XII intact - Musculoskeletal Musculoskeletal: Present: gait normal, strength equal bilaterally - Psychiatric Psychiatric: Present: A&O x's 3, appropriate affect, intact judgment & insight - Allied health notes Allied health notes reviewed: nursing - Labs CBC & Chem 7: 11/17/19 07:30 11/17/19 07:30 Labs: Abnormal Lab Results - Last 24 Hours (Table) 11/16/19 11/16/19 11/17/19 Range/Units 07:13 17:40 00:01 WBC (3.8-10.6) k/uL RBC (4.30-5.90) m/uL Hgb (13.0-17.5) gm/dL Hct (39.0-53.0) % RDW (11.5-15.5) % Plt Count (150-450) k/uL Neutrophils # (1.3-7.7) k/uL APTT 35.1 H 35.7 H (22.0-30.0) sec Sodium (137-145) mmol/L BUN (9-20) mg/dL Glucose (74-99) mg/dL Calcium (8.4-10.2) mg/dL Total Bilirubin (0.2-1.3) mg/dL Total Protein (6.3-8.2) g/dL Albumin (3.5-5.0) g/dL Procalcitonin 0.89 H (0.02-0.09) ng/mL 11/17/19 11/17/19 11/17/19 Range/Units 07:30 07:30 07:30 WBC 21.3 H (3.8-10.6) k/uL RBC 3.14 L (4.30-5.90) m/uL Hgb 9.7 L (13.0-17.5) gm/dL Hct 30.9 L (39.0-53.0) % RDW 15.9 H (11.5-15.5) % Plt Count 521 H (150-450) k/uL Neutrophils # 19.6 H (1.3-7.7) k/uL APTT 38.8 H (22.0-30.0) sec Sodium 134 L (137-145) mmol/L BUN 22 H (9-20) mg/dL Glucose 132 H (74-99) mg/dL Calcium 8.1 L (8.4-10.2) mg/dL Total Bilirubin 0.1 L (0.2-1.3) mg/dL Total Protein 5.8 L (6.3-8.2) g/dL Albumin 2.5 L (3.5-5.0) g/dL Procalcitonin (0.02-0.09) ng/mL Microbiology - Last 24 Hours (Table) 11/15/19 12:30 Blood Culture - Preliminary Blood No Growth after 24 hours - Imaging and Cardiology Lower extremity venous Doppler results reviewed Assessment and Plan Assessment: 1. Known right lung mass, suspect cancer, positive uptake on PET scan, biopsy nondiagnostic 2. Pneumonia, sepsis on admission 3. Bilateral nonobstructing small segmental and subsegmental pulmonary emboli 4. Severe COPD, previous tobacco dependance 5. History of hypertension 6. History of cardiomyopathy in 2008 which resolved 7. Arthritis 8. History of abdominal aortic aneurysm status post stent grafting in 2011 Plan: 1. Our plan is for thoracotomy with bilobectomy of the right middle and lower lobes tomorrow, 11/18/[address] Garcia. Nothing by mouth after midnight. 2. 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 Antibiotics, IV steroids per primary care service 4. Encourage incentive spirometry use 5. Increase activity, ambulate as tolerated 6. Will discuss oncology and pulmonology's concerns with Dr. Garcia 7. Management of other comorbidities per primary care service 8. More recommendations to follow Time with Patient: Greater than 30
[2019-11-17] MEDS: LEVOFLOXACIN 750MG-D5W PMX 750 MG in DEXTROSE/WATER 1 150ML.BAG IVPB SCH (14:55)
--- NOTE | 2019-11-17 16:10 | P.PN ---
Subjective Progress Note Date: 11/17/19 (delayed charting seen t 1330) Principal diagnosis: fevers Patient is a 64-year-old male patient of Dr. Hernandez with a recent diagnosis of right lower lobe pulmonary mass being followed by Dr. Middleton and Dr. Garcia for lobectomy, COPD, and prior history of cardiomegaly who presented to the emergency department at the direction of the echocardiogram metrology technician secondary to elevated heart rate. Of note the patient has had approximately 6 months of symptoms. He has had multiple courses of antibiotics throughout this time period. He initially felt that this is sinusitis and then he saw Dr. Middleton and August and was noted to have an abnormality on chest x-ray. He received a course of Levaquin and then underwent a chest CT PET which showed a mass in his right lower lobe but no adenopathy. He underwent a bronchoscopy which showed obliteration of the bronchus intermedius with necrotic tissue on biopsy and spindle cells on the cytology. He met with Dr. Garcia it was felt that he likely had underlying tumor with necrosis and would require bilobectomy versus pneumonectomy. He has had 2 courses of Levaquin and over August and September as well as recurrent fevers up to 103 over the last several months. On arrival to the ER he had a fever of 102 and a pulse of 133. Laboratory analysis showed a white blood cell count 25.3, hemoglobin 10.6, platelets 469, I NR 1.3, sodium 127, albumin 3, and 188 hyaline casts in his urine. Influenza was negative. Chest x-ray was completed which showed worsening of the abnormality in his right lower lobe. He was also found have an elevated lactic acid at 2.4. He was started on IV fluids, vancomycin, cefepime, and Levaquin. He was admitted for further monitoring. Dr. Garcia was consulted. He underwent a CT PE protocol which showed bilateral subsegmental pulmonary emboli as well as increase in size of his right lower lobe mass to 18 cm with some subcarinal and perihilar lymphadenopathy. He was started on a heparin drip. Oncology was consulted, who recommended a vascular evaluation for possible removable IVC filter. Patient was evaluated by cardiovascular surgery who recommended proceeding with surgery on 11/18/19. Cardiology was consulted, echocardiogram was ordered which showed a preserved ejection fraction of 60-65%, mild concentric LVH, and moderate pulmonary hypertension with RVSP 46.47. Lower extremity venous Dopplers were negative. Patient seen and examined at bedside. He states that his breathing easier than yesterday, increased energy, increased appetite, less watery diarrhea. Feeling slightly anxious about undergoing surgical procedure tomorrow but just want this done. We discussed at length all the current findings on his computed tomography scan from what was said by his multiple specialists, and current plan of care. All questions answered to the best of my ability. Objective - Vital Signs Vital signs: Vital Signs Temp 98.8 F 11/17/19 12:45 Pulse 92 11/17/19 15:43 Resp 20 11/17/19 12:45 BP 152/52 11/17/19 12:45 Pulse Ox 94 L 11/17/19 12:45 Intake & Output 11/16/19 11/17/19 11/17/19 18:59 06:59 18:59 Intake Total 1166 3587.157 250.000 Balance 1166 3587.157 250.000 Weight 92.533 kg Intake: Intake, IV Titration 1166 2047.157 250.000 Amount Heparin Sod,Pork in 0.45% 16 247.157 250.000 NaCl 25,000 unit In 0.45 % NaCl 1 250ml.bag @ 18 UNITS/KG/HR 16.656 mls/hr IV .Q15H1M [facility] Rx#: [id number] Sodium Chloride 0.9% 1, 900 1800 000 ml @ 75 mls/hr IV . [id number] [facility] Rx#:[id number] Vancomycin 1,500 mg In 250 Sodium Chloride 0.9% 250 ml @ 125 mls/hr IVPB Q8H [facility] Rx#:[id number] Oral 1540 Other: # Voids 4 2 2 # Bowel Movements 1 - Exam General: Ill-appearing, pale, no distress, appears at stated age Derm: warm, dry Head: atraumatic, normocephalic, symmetric Eyes: EOMI, no lid lag, anicteric sclera Mouth: no lip lesion, mucus membranes moist Cardiovascular: S1S2 reg, no murmur, positive posterior tibial pulse bilateral, Lungs: Decreased breath sounds right base, no rhonchi, no rales , no accessory muscle use Abdominal: soft, nontender to palpation, no guarding, no appreciable organomegaly Ext: no gross muscle atrophy, 1+ edema, no contractures Neuro: CN II-XI grossly intact, no focal neuro deficits Psych: Alert, oriented, appropriate affect - Labs CBC & Chem 7: 11/17/19 07:30 11/17/19 07:30 Labs: Abnormal Lab Results - Last 24 Hours (Table) 11/16/19 11/16/19 11/17/19 Range/Units 07:13 17:40 00:01 WBC (3.8-10.6) k/uL RBC (4.30-5.90) m/uL Hgb (13.0-17.5) gm/dL Hct (39.0-53.0) % RDW (11.5-15.5) % Plt Count (150-450) k/uL Neutrophils # (1.3-7.7) k/uL APTT 35.1 H 35.7 H (22.0-30.0) sec Sodium (137-145) mmol/L BUN (9-20) mg/dL Glucose (74-99) mg/dL Calcium (8.4-10.2) mg/dL Total Bilirubin (0.2-1.3) mg/dL Total Protein (6.3-8.2) g/dL Albumin (3.5-5.0) g/dL Procalcitonin 0.89 H (0.02-0.09) ng/mL 11/17/19 11/17/19 11/17/19 Range/Units 07:30 07:30 07:30 WBC 21.3 H (3.8-10.6) k/uL RBC 3.14 L (4.30-5.90) m/uL Hgb 9.7 L (13.0-17.5) gm/dL Hct 30.9 L (39.0-53.0) % RDW 15.9 H (11.5-15.5) % Plt Count 521 H (150-450) k/uL Neutrophils # 19.6 H (1.3-7.7) k/uL APTT 38.8 H (22.0-30.0) sec Sodium 134 L (137-145) mmol/L BUN 22 H (9-20) mg/dL Glucose 132 H (74-99) mg/dL Calcium 8.1 L (8.4-10.2) mg/dL Total Bilirubin 0.1 L (0.2-1.3) mg/dL Total Protein 5.8 L (6.3-8.2) g/dL Albumin 2.5 L (3.5-5.0) g/dL Procalcitonin (0.02-0.09) ng/mL Microbiology - Last 24 Hours (Table) 11/15/19 12:30 Blood Culture - Preliminary Blood No Growth after 48 hours Assessment and Plan Assessment: Postobstructive pneumonia with sepsis, possible gram-negative -Continue with vancomycin, cefepime, and Levaquin -pulmonary recommendations appreciated -Sputum culture unable to be obtainted -Blood cultures negative -Procalcitonin levels less than 2. Large component may be atelectasis - Continue with incentive spirometer. Right lower lobe mass with lymphadenopathy - cytology with spindle cell CA, path with necrosis - new CT with some adenopathy that could be reactive - Cardiothorasic surgery plan on OR 11/18/19 -Oncology recs appreciated: pathology needed during OR case including perihilar LN Bilateral sub segemental pulmonary embolism - heparin gtt - probable NOAC once compete surery and stable - will need treatment until remission - Oncology recs: Consult vascular possible need for IVC filter if resumption of anticoagulation delayed after surgery. Severe COPD with exacerbation, improving - IV steroids - duonebs - pulm hygeine - pulm recs Hyponatremia due to dehydration, improving - continue with IVF but decrease rate due to edema - repeat BMP in AM Anemia, chronic - FE studies, B 12, and folic acid pending Thrombocytosis - likely reactive - follow CBC Lactic acidosis, resolved Chronic HTN, not on medications cardiomyopathy, resolved AAA s/p stenting DVT prophylaxis: on therapeutic heparin gtt Discussed with: patient, girlfriend, nursing, Marlyn Beasley, Dr. Middleton. and Dr. Smith A total of 60 minutes was spent on the care of this complex patient more than 50% of the time was spent in counseling and care coordination.
[2019-11-17] MEDS: METOPROLOL TARTRATE 50 MG TAB PO SCH (17:18)
--- NOTE | 2019-11-17 18:02 | P.CONS ---
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 He came to the emergency department with complaints of fever, cough and tachycardia. CTA of the chest revealed bilateral pulmonary emboli. Patient was subsequently started on heparin. Previously measured mass in RLL from a PET/CT dated 10/16/19 measured 4-5 cm, now measurs 18.3 x 13.2 x 12, there is discussion of a subcarinal and a perihilar node that were new and somewhat suspicious.Patient currently is not experiencing any fever, nausea, hemoptysis, chest pain, nausea vomiting, acute changes in bowel or bladder habits, new or unusual musculoskeletal pain, swelling, bleeding. He has lost a little bit of weight, denied sweats, lymph node swellings. Review of Systems 14 point review of systems is negative except as stated in HPI Past Medical History Past Medical History: Cancer, COPD, Pneumonia Additional Past Medical History / Comment(s): rt lower lobe lung cancer, cardiomegaly History of Any Multi-Drug Resistant Organisms: None Reported Past Surgical History: Tonsillectomy Additional Past Surgical History / Comment(s): aortic abd stent Past Anesthesia/Blood Transfusion Reactions: No Reported Reaction Past Psychological History: No Psychological Hx Reported Smoking Status: Former smoker Past Alcohol Use History: None Reported Past Drug Use History: None Reported - Past Family History Father Family Medical History: Myocardial Infarction (OK) Additional Family Medical History / Comment(s): Father of a OK at the age of 46yrs. Mother Family Medical History: Cancer Additional Family Medical History / Comment(s): Mother from breast cancer. Medications and Allergies Home Medications Medication Instructions Recorded Confirmed Type Acetaminophen Tab [Tylenol Tab] 1,000 mg PO Q6H PRN 11/10/19 11/15/19 History Enalapril [Vasotec] 20 mg PO DAILY@0700 11/10/19 11/15/19 History Metoprolol Tartrate [Lopressor] 50 mg PO DAILY@1600 02/26/20 03/02/20 History Spironolactone [Aldactone] 25 mg PO DAILY@0700 11/10/19 11/15/19 History Allergies Allergy/AdvReac Type Severity Reaction Status Date / Time bee venom protein (honey bee) Allergy Anaphylaxis Verified 11/15/19 14:00 insect venom Allergy Anaphylaxis Verified 11/15/19 14:00 Penicillins Allergy Unknown Verified 11/15/19 14:00 Childhood Physical Exam Vitals: Vital Signs Temp Pulse Pulse Resp BP Pulse Ox 11/17/19 10:26 110 H 16 11/17/19 08:11 96 11/17/19 07:58 92 11/17/19 07:04 86 18 132/78 94 L 11/17/19 05:00 97.9 F 88 16 121/68 91 L 11/16/19 23:56 76 16 11/16/19 21:00 98.5 F 110 H 16 133/78 93 L 11/16/19 20:07 102 H 11/16/19 19:56 100 11/16/19 16:00 104 H 11/16/19 15:53 102 H 11/16/19 12:59 99.1 F 115 H 16 137/81 92 L 11/16/19 12:08 108 H 11/16/19 11:51 112 H Intake and Output 11/16/19 11/17/19 11/17/19 22:59 06:59 14:59 Intake Total 695.21 2891.947 144.535 Balance 695.21 2891.947 144.535 Intake: Intake, IV Titration 105.21 1941.947 144.535 Amount Heparin Sod,Pork in 0.45% 105.21 141.947 144.535 NaCl 25,000 unit In 0.45 % NaCl 1 250ml.bag @ 18 UNITS/KG/HR 16.656 mls/hr IV .Q15H1M PERI Rx#: [id number] Sodium Chloride 0.9% 1, 1800 000 ml @ 150 mls/hr IV . Q6H40M PERI Rx#:[id number] Oral 590 950 Other: # Voids 1 2 Weight 92.533 kg - Constitutional General appearance: average body habitus, cooperative, no acute distress - EENT Eyes: anicteric sclerae, EOMI ENT: hearing grossly normal, normal oropharynx - Neck Neck: no lymphadenopathy - Respiratory Respiratory: right: diminished, left: CTA - Cardiovascular Rhythm: regular Heart sounds: normal: S1, S2 Abnormal Heart Sounds: no systolic murmur, no diastolic murmur, no rub, no S3 Gallop, no S4 Gallop, no click, no other leg Peripheral Edema: bilateral: None - Gastrointestinal General gastrointestinal: no absent bowel sounds, no decreased bowel sounds, no distended, no hepatomegaly, no hyperactive bowel sounds, normal bowel sounds, no organomegaly, no rigid, no scaphoid, soft, no splenomegaly, no tenderness, no umbilical hernia, no ventral hernia - Integumentary Integumentary: normal - Neurologic Neurologic: CNII-XII intact - Musculoskeletal Musculoskeletal: strength equal bilaterally - Psychiatric Psychiatric: A&O x's 3, appropriate affect, intact judgment & insight Results CBC & Chem 7: 11/17/19 07:30 11/17/19 07:30 Labs: Abnormal Lab Results - Last 24 Hours (Table) 11/16/19 11/16/19 11/16/19 Range/Units 07:13 11:56 11:56 WBC 25.5 H (3.8-10.6) k/uL RBC 3.25 L (4.30-5.90) m/uL Hgb 10.0 L (13.0-17.5) gm/dL Hct 31.4 L (39.0-53.0) % RDW 16.0 H (11.5-15.5) % Plt Count 539 H (150-450) k/uL Neutrophils # 24.1 H (1.3-7.7) k/uL Lymphocytes # 0.7 L (1.0-4.8) k/uL PT 13.2 H (9.0-12.0) sec INR 1.3 H (<1.2) APTT (22.0-30.0) sec Sodium (137-145) mmol/L BUN (9-20) mg/dL Glucose (74-99) mg/dL Calcium (8.4-10.2) mg/dL Total Bilirubin (0.2-1.3) mg/dL Total Protein (6.3-8.2) g/dL Albumin (3.5-5.0) g/dL Procalcitonin 0.89 H (0.02-0.09) ng/mL 11/16/19 11/17/19 11/17/19 Range/Units 17:40 00:01 07:30 WBC 21.3 H (3.8-10.6) k/uL RBC 3.14 L (4.30-5.90) m/uL Hgb 9.7 L (13.0-17.5) gm/dL Hct 30.9 L (39.0-53.0) % RDW 15.9 H (11.5-15.5) % Plt Count 521 H (150-450) k/uL Neutrophils # 19.6 H (1.3-7.7) k/uL Lymphocytes # (1.0-4.8) k/uL PT (9.0-12.0) sec INR (<1.2) APTT 35.1 H 35.7 H (22.0-30.0) sec Sodium (137-145) mmol/L BUN (9-20) mg/dL Glucose (74-99) mg/dL Calcium (8.4-10.2) mg/dL Total Bilirubin (0.2-1.3) mg/dL Total Protein (6.3-8.2) g/dL Albumin (3.5-5.0) g/dL Procalcitonin (0.02-0.09) ng/mL 11/17/19 11/17/19 Range/Units 07:30 07:30 WBC (3.8-10.6) k/uL RBC (4.30-5.90) m/uL Hgb (13.0-17.5) gm/dL Hct (39.0-53.0) % RDW (11.5-15.5) % Plt Count (150-450) k/uL Neutrophils # (1.3-7.7) k/uL Lymphocytes # (1.0-4.8) k/uL PT (9.0-12.0) sec INR (<1.2) APTT 38.8 H (22.0-30.0) sec Sodium 134 L (137-145) mmol/L BUN 22 H (9-20) mg/dL Glucose 132 H (74-99) mg/dL Calcium 8.1 L (8.4-10.2) mg/dL Total Bilirubin 0.1 L (0.2-1.3) mg/dL Total Protein 5.8 L (6.3-8.2) g/dL Albumin 2.5 L (3.5-5.0) g/dL Procalcitonin (0.02-0.09) ng/mL Microbiology - Last 24 Hours (Table) 11/15/19 12:30 Blood Culture - Preliminary Blood No Growth after 24 hours Comments: Path reports from [facility] reviewed PET scan report reviewed CT scan - chest: report reviewed Assessment and Plan (1) Primary spindle cell carcinoma of lung Current Visit: Yes Status: Acute Priority: High Code(s): C34.90 - MALIGNANT NEOPLASM OF UNSP PART OF UNSP BRONCHUS OR LUNG SNOMED Code(s): 769764064 (2) Pulmonary embolism Current Visit: Yes Status: Acute Priority: High Code(s): I26.99 - OTHER PULMONARY EMBOLISM WITHOUT ACUTE COR PULMONALE SNOMED Code(s): 51829125 Plan: Dr. Smith discussed the case with Radiologist. The lymph node of concern in the subcarinal area was negative on PET, felt to only be slightly enlarged on current scan. The perihilar node is more suspect to be involved with malignancy-and would be resected with surgery. Recommendation is for review of images prior to surgery as subcarinal kathleen involvement is contraindicated to surgery. Case was discussed with Cardiothoracic surgery PA. Asked Surgeon to review PET/CT scans. The rapid and significant change in the size of the RLL lung mass is more consistent with obstruction and collapse, less likely that this is only tumor progression in such a short period of time. Acute bilateral pulmonary emboli. Recommendation is for IVC filter placement. Discussed case with Vascular Surgeon. Patient has new bilateral PE and is going to have a significant surgery, which places him at very high risk for /post operative blood clots. Cardiothoracic surgery will place pt back on anticoagulation as soon as possible post op. Doppler of BLE performed-no acute DVT attests: I preformed H&P and developed impression and plan of care for patient, discussed with dictator. I agree with dictated note, documented as a scribe
[2019-11-17 18:14] LABS: % Iron Saturation 67.43 (15.00-50.00); Ferritin 1353.7 ng/mL (22.0-322.0); Iron 118 ug/dL (65-175); Total Iron Binding Capacity 175 ug/dL (228-460)
--- NOTE | 2019-11-17 18:30 | CONS ---
DATE OF CONSULTATION: 11/17/2019 This is a 64-year-old gentleman who is known to me from the past. The patient had an abdominal aortic aneurysm and for that he had an aortic stent graft. The patient has been admitted with a mass in the right lung suspicious for cancer. Patient is going for surgery tomorrow. The patient also has a history of bilateral PE. Venous ultrasound shows no clot seen in either leg. The patient has a medical history of hypertension, cardiomyopathy, personal long-standing history of smoking. PHYSICAL EXAMINATION: Patient was seen in his room in sitting position. NECK: Supple. CHEST: Clear on auscultation. ABDOMEN: Soft, nontender. VASCULAR: Femoral pulses are palpable bilaterally. PLAN: The patient will need a filter placement with history of PE, history of cancer. I have discussed in detail with the patient's and the patient. Patient understands. We will hold the heparin for [address] a filter. Then that can be started after 4 hours. N.p.o. now. Risks and complications of bleeding, infection, thrombosis, migration and perforation have been discussed. Patient understands and we will proceed. MMODL / IJN: [id number] / [email or web address]
[2019-11-17] MEDS ORDERED: fentaNYL (PF) 50 MCG/ML 2 ML AMP IV PRN (18:41)
[2019-11-17] MEDS ORDERED: MIDAZOLAM 2 MG/2 ML VIAL IV PRN (18:41)
[2019-11-17] MEDS ORDERED: DEXAMETHASONE SOD PHOSPHATE 10 MG/ML 1 ML VIAL IV ONE (18:41)
[2019-11-17] MEDS ORDERED: LIDOCAINE 1% (10MG/ML) FOR IV START INTRADERMA PRN (18:41)
[2019-11-17] MEDS ORDERED: LACTATED RINGERS 1,000 ML IV SCH (18:45)
[2019-11-17] MEDS ORDERED: LIDOCAINE 1% INJ 10MG/ML (20 ML MDV) SQ ONE (21:24)
[2019-11-17] MEDS ORDERED: IV FLUID CONTINUATION 800 ML IV ONE (21:41)
[2019-11-17] MEDS ORDERED: IOPAMIDOL-300 100ML BTL INJ ONE (21:41)
--- NOTE | 2019-11-17 22:32 | P.PN ---
Progress Note - Text Progress Note Date: 11/17/[address] Kwon that the patient developed tachycardia immediately following IVC filter placement in the Maintenance Scheduler. Evaluated the patient personally in the Maintenance Scheduler @ 10:15 pm. The patient was asymptomatic and noted no complaints. He denied chest pain, shortness of breath, palpitations, nausea, or diaphoresis. EKG obtained, revealing A. fib with RVR at 157 bpm with left bundle branch block. Discussed the case with Dr. Gaspar, tong setter on-call. Recommended starting the patient on Cardizem infusion with a Cardizem IV push bolus. Spoke with administrative discharge, regarding direct transfer of patient from Maintenance Scheduler to telemetry unit. Johnny administer 10 mg IV push Cardizem with Cardizem infusion 10 mg an hour. Heparin infusion to be resumed.
[2019-11-17] MEDS ORDERED: DILTIAZEM 5 MG/ML 10 ML VIAL IVP ONE (22:45)
--- NOTE | 2019-11-17 22:55 | PCN ---
PROCEDURE NOTE PREOPERATIVE DIAGNOSIS: Bilateral pulmonary embolism with carcinoma of the lung; going for lung resection in a.m. PROCEDURE: Placement of an infrarenal Tulip filter, inferior vena cavagram. PROCEDURE DESCRIPTION: The patient was brought to the laborer fryer farm. Right and left groins were prepped, and drapes were applied in the usual sterile manner. This patient has a history of bilateral PE and also was found to have a lung mass in the right lung. Patient is going for thoracotomy tomorrow. I was consulted for placement of a filter. The patient was brought to the laborer fryer farm. Right and right and left groins were prepped and drapes were applied in a sterile manner. Lidocaine 1% was infiltrated in the right groin area. Micropuncture was introduced into the right common femoral vein. Micropuncture guidewire was passed and 4-Kiswahili dilator was advanced on top of the guidewire. Then we passed a regular guidewire, which was parked at the renal level. We placed a 5-Kiswahili sheath and a pigtail catheter, advanced on the top of the guidewire. Venacavogram was performed. Both the renal veins were visualized. This patient had aortic stent graft placed in the past. After that we placed a sheath and dilator which was parked at the renal level and through the sheath we deployed the Tulip filter, which was deployed below the renal vein. Sheath was removed. Pressure was held. The patient has developed tachycardia. We are doing an EKG and we have informed Internal Medicine to follow up. MMODL / IJN: [id number] /
[2019-11-17] MEDS: DILTIAZEM 125 MG in SODIUM CHLORIDE 0.9% 100 ML IV SCH (23:06)
[2019-11-18 05:39] LABS: Anisocytosis Slight; Basophils % (A) 0 %; Eosinophils # (A) 0.1 k/uL (0-0.7); Eosinophils % (A) 0 %; HCT 32.2 % (39.0-53.0); Lymphocytes # (A) 1.1 k/uL (1.0-4.8); Lymphocytes % (A) 5 %; MCH 30.1 pg (25.0-35.0); MCV 96.9 fL (80.0-100.0); Mean Platelet Volume 7.5; Monocytes # (A) 0.5 k/uL (0-1.0); Monocytes % (A) 2 %; Neutrophils # (A) 20.5 k/uL (1.3-7.7); Neutrophils % (A) 91 %; Platelet Count 538 k/uL (150-450); RBC 3.32 m/uL (4.30-5.90); RDW 16.2 % (11.5-15.5); WBC 22.5 k/uL (3.8-10.6)
[2019-11-18 05:48] LABS: INR 1.2 (<1.2); Partial Thromboplastin Time 41.6 sec (22.0-30.0); Prothrombin Time 11.9 sec (9.0-12.0)
[2019-11-18 06:02] LABS: Glucose,Whole Blood 127 mg/dL (75-99)
[2019-11-18] MEDS ORDERED: IV FLUID CONTINUATION 300 ML IV ONE (06:49)
[2019-11-18] MEDS ORDERED: LIDOCAINE 1% (10MG/ML) FOR IV START SQ ONE (07:29)
[2019-11-18] MEDS ORDERED: fentaNYL (PF) 50 MCG/ML 2 ML AMP ONE (07:32)
[2019-11-18] MEDS ORDERED: ROCURONIUM BROMIDE 10 MG/ML 5 ML VIAL IV ONE (07:32)
[2019-11-18] MEDS ORDERED: METOPROLOL TARTRATE 5 MG/5 ML VIAL IVP ONE (07:32)
[2019-11-18] MEDS ORDERED: SUCCINYLCHOLINE CHLORIDE 100 MG/5 ML SYR IV ONE (07:32)
[2019-11-18] MEDS ORDERED: ONDANSETRON 4 MG/2 ML VIAL ONE (07:32)
[2019-11-18] MEDS ORDERED: LIDOCAINE 1% INJ 10MG/ML (20 ML MDV) ONE (07:32)
[2019-11-18] MEDS ORDERED: HYDROmorphone (PF) 1 MG/ML ONE (07:32)
[2019-11-18] MEDS ORDERED: PROPOFOL 10 MG/ML 20 ML VIAL IV ONE (07:32)
[2019-11-18] MEDS ORDERED: ROPIVACAINE 5 MG/ML 30 ML VIAL ONE (07:32)
[2019-11-18] MEDS ORDERED: NEOSTIGMINE 1 MG/ML 10 ML VIAL ONE (07:32)
[2019-11-18] MEDS ORDERED: MIDAZOLAM 2 MG/2 ML VIAL ONE (07:32)
[2019-11-18 08:12] LABS: Allen Test Performed? Yes
[2019-11-18 08:14] LABS: ABG Base Excess -3.9 mmol/L; ABG HCO3 21 mmol/L (21-25); ABG Oxygen Saturation 99.1 % (94-97); ABG PCO2 43 mmHg (35-45); ABG PH 7.32 (7.35-7.45); ABG PO2 221 mmHg (83-108)
[2019-11-18] MEDS: IPRATROPIUM-ALBUTEROL 3 ML NEB INHALATION SCH ×4 (08:40→20:08)
--- NOTE | 2019-11-18 09:06 | IR ---
EXAMINATION TYPE: IR IVC filter placement DATE OF EXAM: 11/17/2019 COMPARISON: NONE HISTORY: Fluoroscopy time. Fluoroscopy was provided to the referring clinician.
[2019-11-18] MEDS ORDERED: LACTATED RINGERS 1,000 ML IV ONE (09:45)
--- NOTE | 2019-11-18 12:35 | P.OP ---
Date of Procedure: 11/18/19 Preoperative Diagnosis: New-onset atrial fibrillation, obstructing tumor bronchus intermedius Postoperative Diagnosis: Same Procedure(s) Performed: Cardioversion. Right thoracotomy, exploratory with lysis of adhesions, right lower and middle bilobectomy, mediastinal lymph node dissection, cryoablation of right intercostal nerves Anesthesia: JOE Surgeon: Lei Garcia Estimated Blood Loss (ml): 300 IV fluids (ml): 1,800 Urine output (ml): 800 Pathology: other (Proximal bronchus intermedius for frozen section. Right lower and middle lobes, lymph node stations R4, 7, R8, R10, R11. Cultures of intraparenchymal abscess.) Condition: stable Disposition: PACU Indications for Procedure: 64-year-old male presents with cough and found to have obstructing tumor in the bronchus intermedius with basilar segmental atelectasis and consolidation of the right lower lobe. Bronchoscopically did not yield a diagnosis. Patient was referred for surgery. PET scan did not show any evidence of spread of the tumor. Patient was scheduled for surgery. He developed fever and illness and re-presented to the hospital. He was now noted to have consolidation of the entire lower lobe as well as the middle lobe. The tumor looked like it had progressed further proximally all the lymph nodes were not different. Patient was placed on antibiotics and stabilized and brought to the operating room. He did develop a brief episode of atrial fibrillation the night before surgery and was in A. fib at the time of entry to the OR. Operative Findings: Patient easily converted out of A. fib with a single cardioversion shock. Exploratory thoracotomy revealed some adhesions at the apex which were easily taken down. There were dense adhesions inferiorly especially between the lower lobe and the diaphragm. These were eventually successfully taken down. The fissures were incomplete and densely adherent. There was a fair amount of hilar and mediastinal adenopathy that appeared to be reactive. Dividing the proximal bronchus intermedius the tumor was immediately evident arising from deep within the bronchus intermedius. It was not attached to the wall of the bronchus intermedius. We did resect the proximal portion of the bronchus intermedius and sent it for frozen section which returned negative. We were able to successfully close the stump of the proximal bronchus intermedius following complete resection of the tumor and no air leaks were noted from the fissures or the bronchial stump. During the mobilization of the long there was extensive drainage from the lung parenchyma of purulent material from both the middle and lower lobes. This was cultured. The upper lobe itself appeared relatively normal. Description of Procedure: Patient was brought to the operating room and placed supine on the operating table. Gen. anesthesia was induced. Fiberoptic bronchoscopy was performed. Tumor was evident in the bronchus intermedius extending up to the right mainstem bronchus but did not appear to be adherent to the wall of the bronchus although it completely filled the bronchus intermedius. The left side was clear. The right upper lobe bronchus was clear. The endotracheal tube was secured. DC cardioversion was performed with a single shock of 200 J and was successful in converting the patient to sinus rhythm. Cardizem drip was stopped and patient was given a single dose of 5 mg of IV Lopressor. Patient was turned in the left lateral decubitus position and the right chest sterilely prepped and draped. A generous posterior lateral thoracotomy was performed. The latissimus muscle was divided and the serratus muscle was spared and retracted anteriorly. Chest was entered in the fifth interspace and the intercostal muscles undercut anteriorly and posteriorly. Adhesions with the apex were taken down with electrocautery. Adhesions inferiorly between the middle lobe and the lower lobe and the diaphragm and mediastinal tissues were more difficult. The majority of this was taken down through the main incision however we could not completely mobilized the lower lobe from the diaphragm and a the second intercostal incision was made in the eighth interspace. This allowed complete mobilization of the lower lobe from the diaphragm and mediastinal pleura. We then returned to the fifth interspace incision. During dissection off the diaphragm there was a lot of drainage from the longer purulent material and this was copiously suctioned and irrigated continuously throughout the operation. Cultures were obtained and sent. Inferior pulmonary ligament was taken down. Dissection was carried up posteriorly and the R8 and level VII lymph nodes were dissected and sent for permanent section. The inferior pulmonary vein was encircled and dissected out and then ligated and divided with a robotic vascular stapler. Dissection was continued anteriorly and the middle lobe vein was identified and ligated with a second firing of a robotic vascular stapler. Dissection was then carried posteriorly onto the bronchus. The proximal portion of the bronchus intermedius was dissected out and encircled. We then opened the bronchus intermedius right below the takeoff of the upper lobe bronchus. The tumor was immediately visible. It was not adherent to the wall of the proximal bronchus intermedius. The bronchus intermedius was divided at this level. We now continued her dissection onto the pulmonary artery. Pulmonary artery leading to the lower lobe and middle lobe was ligated and divided with robotic stapler firings. We now addressed the fissures. Dissection was carried out as much as possible with the Bovie however we were not able to really completely mobilized the fissures by any means. Multiple firings of the CELESTE green stapler and a thoracoscopic black stapler were used to complete the fissures between the upper lobe and the lower lobe posteriorly and the middle lobe anteriorly. Specimen was now removed from the chest. A half centimeter ring of proximal bronchus intermedius was resected from the specimen in a complete ring and marked distally and sent for frozen section and returned negative for tumor. We now closed the stump of the bronchus intermedius with interrupted sutures of 4-0 Vicryl. The upper lobe was inflated following this and the suture line tested and noted to be absent of air leak. Similarly the staple lines were absent of air leak. We completed our lymph node dissection removing some R 11 lymph nodes from the hilum of the remaining upper lobe the R 10 lymph nodes and R4 lymph nodes area and all of these were sent for permanent section. The bilobectomy specimen was also sent for permanent section. Cryoablation of the intercostal nerves was performed at levels [id number] and 10 posteriorly. The chest was copiously irrigated with warm water multiple occasions. Good hemostasis was confirmed. 28-Singaporean chest tube was placed anteriorly to the apex and a 32 posteriorly. These were placed through separate stab incisions and secured with 0 Ethibond sutures. The ribs were now reapproximated first at the eighth interspace with 3 #1 Vicryl sutures and then at the fifth interspace with 5 #1 Vicryl sutures. Muscle layers were closed with 0 Vicryl suture. The cutaneous tissues were closed with 2-0 Vicryl and skin with 3-0 Vicryl subcutaneous stitch. Skin glue and dry sterile dressings were applied. The patient was turned supine and extubated and transferred to recovery in stable condition.
--- NOTE | 2019-11-18 13:06 | XR ---
EXAMINATION TYPE: XR chest 1V portable DATE OF EXAM: 11/18/2019 COMPARISON: 11/15/2019 HISTORY: Post lobectomy TECHNIQUE: Single frontal view of the chest is obtained. FINDINGS: There is volume loss on the right noted with chest tube in place and a moderate-sized pneu mothorax. No mediastinal deviation. Suggestion of mediastinal drain. Elevation right hemidiaphragm. L eft lung is clear. Heart is enlarged. IMPRESSION: 1. Postoperative change on the right with right-sided chest tube and moderate sized pneumothorax. Cara sures approximately 25%.
[2019-11-18] MEDS ORDERED: SODIUM CHLORIDE 0.9% 1,000 ML IV ONE (13:26)
--- NOTE | 2019-11-18 14:15 | P.ANPRN ---
Procedure Note - Anesthesia - Nerve Block Performed Right Other (see comment) Single Time Out Performed: Yes (R serratus anterior block) Date of Procedure: 11/18/19 Procedure Start Time: 13:36 Procedure Stop Time: 13:42 Location of Patient: PreOp Indication: Acute Post-Operative Pain, Requested by Surgeon Sedation Type: Sedate with meaningful contact maintained Preparation: Sterile Prep Position: Left Lateral Needle Types: Pajunk Needle Gauge: 21 Ultrasound used to visualize needle placement: Yes Ultrasound used to observe medication spread: Yes Blood Aspirated: No Pain Paresthesia on Injection Noted: No Resistance on Injection: Normal Image Stored and Saved: Yes Events: Uneventful and Well Tolerated (ropi .25% 40cc used)
[2019-11-18 14:44] LABS: Glucose,Whole Blood 128 mg/dL (75-99)
[2019-11-18] MEDS ORDERED: ONDANSETRON 4 MG/2 ML VIAL IVP PRN (14:50)
[2019-11-18] MEDS ORDERED: IPRATROPIUM-ALBUTEROL 3 ML NEB IH PRN (14:50)
[2019-11-18] MEDS ORDERED: DEXTROSE 5%-0.45% NACL 1,000 ML IV SCH (14:50)
[2019-11-18] MEDS: SODIUM CHLORIDE 0.9% 1,000 ML IV SCH (14:54)
[2019-11-18] MEDS ORDERED: NALOXONE 0.4 MG/ML 1 ML VIAL IV PRN (15:25)
[2019-11-18] MEDS: METOPROLOL TARTRATE 50 MG TAB PO SCH (15:52)
[2019-11-18] MEDS: LISINOPRIL 20 MG TAB PO SCH (15:52)
[2019-11-18] MEDS ORDERED: MORPHINE PCA 50 MG/50 ML BAG IV PRN (16:00)
[2019-11-18] MEDS: DILTIAZEM 125 MG in SODIUM CHLORIDE 0.9% 100 ML IV SCH (16:20)
[2019-11-18] MEDS: HEPARIN SOD,PORK IN 0.45% NACL 25,000 UNIT in 0.45% NACL 1 250ML.BAG IV SCH (16:20)
[2019-11-18 16:37] LABS: Glucose,Whole Blood 116 mg/dL (75-99)
[2019-11-18] MEDS: INSULIN ASPART (NovoLOG) 100 UNIT/ML VIAL SQ SCH ×2 (16:54→20:59)
--- NOTE | 2019-11-18 17:10 | P.PN ---
Subjective Progress Note Date: 11/18/19 (delayed charting seen at 1400) Principal diagnosis: fevers Patient is a 64-year-old male patient of Dr. Hernandez with a recent diagnosis of right lower lobe pulmonary mass being followed by Dr. Middleton and Dr. Garcia for lobectomy, COPD, and prior history of cardiomegaly who presented to the emergency department at the direction of the echocardiogram cryptologic technician secondary to elevated heart rate. Of note the patient has had approximately 6 months of symptoms. He has had multiple courses of antibiotics throughout this time period. He initially felt that this is sinusitis and then he saw Dr. Middleton and August and was noted to have an abnormality on chest x-ray. He received a course of Levaquin and then underwent a chest CT PET which showed a mass in his right lower lobe but no adenopathy. He underwent a bronchoscopy which showed obliteration of the bronchus intermedius with necrotic tissue on biopsy and spindle cells on the cytology. He met with Dr. Garcia it was felt that he likely had underlying tumor with necrosis and would require bilobectomy versus pneumonectomy. He has had 2 courses of Levaquin and over August and September as well as recurrent fevers up to 103 over the last several months. On arrival to the ER he had a fever of 102 and a pulse of 133. Laboratory analysis showed a white blood cell count 25.3, hemoglobin 10.6, platelets 469, INR 1.3, sodium 127, albumin 3, and 188 hyaline casts in his urine. Influenza was negative. Chest x-ray was completed which showed worsening of the abnormality in his right lower lobe. He was also found have an elevated lactic acid at 2.4. He was started on IV fluids, vancomycin, cefepime, and Levaquin. He was admitted for further monitoring. Dr. Garcia was consulted. He underwent a CT PE protocol which showed bilateral subsegmental pulmonary emboli as well as increase in size of his right lower lobe mass to 18 cm with some subcarinal and perihilar lymphadenopathy. He was started on a heparin drip. Oncology was consulted, who recommended a vascular evaluation for possible removable IVC filter. Patient was evaluated by cardiovascular surgery who recommended proceeding with surgery on 11/18/19. Cardiology was consulted, echocardiogram was ordered which showed a preserved ejection fraction of 60-65%, mild concentric LVH, and moderate pulmonary hypertension with RVSP 46.47. Lower extremity venous Dopplers were negative. He had a removable IVC filter placed on 11/18/19 and went into A fib with RVR in recovery. He was started on a cardizem gtt and transferred to the cardiac floor. He underwent Right middle and lower lobectomies with lymphnode sampling and cardioversion on 11/18/19. He tolerated the procedure well. Patient seen and examined at bedside. No pain issues, no shortness of breath, no chest pain, no nausea, no vomiting, no diarrhea, no abdominal pain. Objective - Vital Signs Vital signs: Vital Signs Temp 98.6 F 11/18/19 15:13 Pulse 84 11/18/19 16:00 Resp 12 11/18/19 16:00 BP 138/89 11/18/19 16:00 Pulse Ox 99 11/18/19 16:00 Intake & Output 11/17/19 11/18/19 11/18/19 18:59 06:59 18:59 Intake Total 307.580 295 9941 Output Total 1205 Balance 307.461 358 3900 Intake: IV 150 2215 Dextrose 5%-0.45% NaCl 1, 40 000 ml @ 40 mls/hr IV . Q24H [facility] Rx#:[id number] Sodium Chloride 0.9% 1, 75 000 ml @ 75 mls/hr IV . [id number] PERI Rx#:[id number] Intake, IV Titration 307.371 0 50 Amount Heparin Sod,Pork in 0.45% 307.371 0 NaCl 25,000 unit In 0.45 % NaCl 1 250ml.bag @ 18 UNITS/KG/HR 16.656 mls/hr IV .Q15H1M [facility] Rx#: [id number] ceFAZolin 2 gm In Sodium 50 Chloride 0.9% 50 ml @ 100 mls/hr IVPB Q8HR [facility] Rx# :[id number] Oral 250 Output: Urine 905 Estimated Blood Loss 300 Other: Voiding Method Indwelling Catheter # Voids 2 ABP, PAP, CO, CI - Last Documented Arterial Blood Pressure 154/73 - Exam General: Ill-appearing, pale, no distress, appears at stated age Derm: warm, dry Head: atraumatic, normocephalic, symmetric Eyes: EOMI, no lid lag, anicteric sclera Mouth: no lip lesion, mucus membranes moist Cardiovascular: S1S2 reg, no murmur, positive posterior tibial pulse bilateral, Lungs: Decreased breath sounds right , no rhonchi, no rales , no accessory musc le use, Chest tube in place with small air leak Abdominal: soft, nontender to palpation, no guarding, no appreciable organomegaly Ext: no gross muscle atrophy, 1+ edema, no contractures Neuro: CN II-XI grossly intact, no focal neuro deficits Psych: Alert, oriented, appropriate affect - Labs CBC & Chem 7: 11/18/19 05:22 11/17/19 07:30 Labs: Abnormal Lab Results - Last 24 Hours (Table) 11/17/19 11/17/19 11/18/19 Range/Units 07:30 07:30 05:22 WBC 22.5 H (3.8-10.6) k/uL RBC 3.32 L (4.30-5.90) m/uL Hgb 10.0 L (13.0-17.5) gm/dL Hct 32.2 L (39.0-53.0) % RDW 16.2 H (11.5-15.5) % Plt Count 538 H (150-450) k/uL Neutrophils # 20.5 H (1.3-7.7) k/uL INR (<1.2) APTT (22.0-30.0) sec ABG pH (7.35-7.45) ABG pO2 (83-108) mmHg ABG O2 Saturation (94-97) % POC Glucose (mg/dL) (75-99) mg/dL TIBC 175 L (228-460) ug/dL % Saturation 67.43 H (15.00-50.00) Ferritin 1353.7 H (22.0-322.0) ng/mL RBC Folate 1,072 H (280 - 791) ng/mL 11/18/19 11/18/19 11/18/19 Range/Units 05:22 06:00 08:07 WBC (3.8-10.6) k/uL RBC (4.30-5.90) m/uL Hgb (13.0-17.5) gm/dL Hct (39.0-53.0) % RDW (11.5-15.5) % Plt Count (150-450) k/uL Neutrophils # (1.3-7.7) k/uL INR 1.2 H (<1.2) APTT 41.6 H (22.0-30.0) sec ABG pH 7.32 L (7.35-7.45) ABG pO2 221 H (83-108) mmHg ABG O2 Saturation 99.1 H (94-97) % POC Glucose (mg/dL) 127 H (75-99) mg/dL TIBC (228-460) ug/dL % Saturation (15.00-50.00) Ferritin (22.0-322.0) ng/mL RBC Folate (280 - 791) ng/mL 11/18/19 11/18/19 Range/Units 14:42 16:36 WBC (3.8-10.6) k/uL RBC (4.30-5.90) m/uL Hgb (13.0-17.5) gm/dL Hct (39.0-53.0) % RDW (11.5-15.5) % Plt Count (150-450) k/uL Neutrophils # (1.3-7.7) k/uL INR (<1.2) APTT (22.0-30.0) sec ABG pH (7.35-7.45) ABG pO2 (83-108) mmHg ABG O2 Saturation (94-97) % POC Glucose (mg/dL) 128 H 116 H (75-99) mg/dL TIBC (228-460) ug/dL % Saturation (15.00-50.00) Ferritin (22.0-322.0) ng/mL RBC Folate (280 - 791) ng/mL Microbiology - Last 24 Hours (Table) 11/15/19 12:30 Blood Culture - Preliminary Blood No Growth after 72 hours Assessment and Plan Assessment: Postobstructive pneumonia with sepsis, possible gram-negative -vancomycin, cefepime, and Levaquin stopped by surgery as they state they removed all infection, if spikes fevers or elevating WBC will restart, Procalcitonin was less than 2. -pulmonary recommendations appreciated -Sputum culture unable to be obtained -Blood cultures negative to date - Continue with incentive spirometer. Right lower lobe mass with lymphadenopathy s/p bilobectomy with lymphnode s ampling - cytology with spindle cell CA, path with necrosis - new CT with some adenopathy that could be reactive -Oncology recs appreciated: Await pathology - pain control - pulm hygeine Bilateral sub segemental pulmonary embolism - s/p IVC filter - heparin gtt to be resumed when okay with surgery - probable NOAC once compete surery and stable - will need treatment until remission - Oncology recs appreciated Severe COPD with exacerbation, improving - IV steroids stopped by surgery - duonebs - pulm hygeine - pulm recs Hyponatremia due to dehydration, improving - on d% 0.45 per surgery, monitor sodium level closely. - repeat BMP in AM Anemia, chronic - FE studies, B 12, and folic acid consistent with anemia of chronic disease Thrombocytosis - likely reactive - follow CBC Lactic acidosis, resolved Chronic HTN, not on medications cardiomyopathy, resolved AAA s/p stenting DVT prophylaxis: SCDs Discussed with: patient, Marlyn Beasley, Nimo Montoya A total of 35 minutes was spent on the care of this complex patient more than 50% of the time was spent in counseling and care coordination.
[2019-11-18] MEDS: KETOROLAC 30 MG/ML 1 ML VIAL IVP SCH (17:37)
--- NOTE | 2019-11-18 18:06 | P.PN ---
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 fib with RVR, obstructing tumor bronchus intermedius status post right thoracotomy with lysis of adhesions resection of right lower and right middle lobe lymph node dissection along with cryoablation of right intercostal nerve, estimated blood loss was 300 mL urine output was 800 IV fluid infused for 1.8 L, patient is sitting upright on supplemental oxygen, mild pain is there, hemodynamic status stable, no pressors, right-sided chest tube intermittent air leak is present dr waggoner blood-tinged pleural fluid, labs reviewed white cell count is 22,500, ABG is stable 7.3-43 and 221 and successfully extubated in recovery, afebrile, oxygen saturation is 96-98% on supplemental oxygen post procedure chest x-ray reviewed indicated above volume loss on the right side with stable chest tube on the right moderate pneumothorax of 25%, chest tube is 20% mid to waterseal suction 11/17/2019, patient seen eval examined during the rounds labs reviewed medications reviewed care plan discussed with the patient, care plan and discussed with oncology service, white cell count is trending down but is still having elevated, patient remains on IV heparin and broad-spectrum antibiotics for postobstructive pneumonia, patient is scheduled for right lower lobe dissection and lymph node dissection for November 17 This is a 64-year-old with history of COPD recently diagnosed lung cancer p atient is scheduled to see Dr. Jose barajas stress test during the stress test patient was found to having worsening of shortness of breath and tachycardia sent into emergency department for further evaluation found to have postobstructive pneumonia patient is admitted into hospital for broad-spectrum antibiotic computed tomography scan of the chest showing postobstructive pneumonia patient is being followed by thoracic surgery is scheduled for right lower lobe resection chest x-ray revealed a right lower lobe infiltrate progressing from prior exam. Underlying neoplasm. CTA of the chest revealed bilateral nonobstructing small segmental and subsegmental pulmonary emboli with no evidence of right heart strain, overall mild clot burden, right lower lobe mass with endobronchial invasion and surrounding consolidation markedly increased from a PET scan on October 16. Objective - Vital Signs Vital signs: Vital Signs Temp 98.6 F 11/18/19 15:13 Pulse 70 11/18/19 17:00 Resp 20 11/18/19 17:00 BP 136/82 11/18/19 17:00 Pulse Ox 98 11/18/19 17:00 Intake & Output 11/17/19 11/18/19 11/18/19 18:59 06:59 18:59 Intake Total 307.678 367 5004 Output Total 1305 Balance 307.110 860 1263 Intake: IV 150 2255 Dextrose 5%-0.45% NaCl 1, 80 000 ml @ 40 mls/hr IV . Q24H PERI Rx#:[id number] Sodium Chloride 0.9% 1, 75 000 ml @ 75 mls/hr IV . [id number] PERI Rx#:[id number] Intake, IV Titration 307.371 0 50 Amount Heparin Sod,Pork in 0.45% 307.371 0 NaCl 25,000 unit In 0.45 % NaCl 1 250ml.bag @ 18 UNITS/KG/HR 16.656 mls/hr IV .Q15H1M PERI Rx#: [id number] ceFAZolin 2 gm In Sodium 50 Chloride 0.9% 50 ml @ 100 mls/hr IVPB Q8HR [facility] Rx# :[id number] Oral 500 Output: Urine 1005 Estimated Blood Loss 300 Other: Voiding Method Indwelling Catheter # Voids 2 ABP, PAP, CO, CI - Last Documented Arterial Blood Pressure 129/72 - Exam - Constitutional General appearance: average body habitus, cooperative, disheveled, mild distress - EENT Eyes: anicteric sclerae, EOMI, PERRLA, poor dentition Ears: bilateral: normal - Neck Neck: normal ROM Carotids: bilateral: upstroke normal Thyroid: bilateral: normal size - Respiratory Respiratory: right: diminished, negative: dullness, rales, rhonchi, wheezing, prolonged expiration, chest tube to 20 cm water suction intermittent air leak is present - Cardiovascular Rhythm: regular Heart sounds: normal: S1, S2 - Gastrointestinal General gastrointestinal: normal bowel sounds - Neurologic Neurologic: CNII-XII intact Psychiatric: A&O x's 3, appropriate affect, intact judgment & insight - Labs CBC & Chem 7: 11/18/19 05:22 11/17/19 07:30 Labs: Abnormal Lab Results - Last 24 Hours (Table) 11/17/19 11/17/19 11/18/19 Range/Units 07:30 07:30 05:22 WBC 22.5 H (3.8-10.6) k/uL RBC 3.32 L (4.30-5.90) m/uL Hgb 10.0 L (13.0-17.5) gm/dL Hct 32.2 L (39.0-53.0) % RDW 16.2 H (11.5-15.5) % Plt Count 538 H (150-450) k/uL Neutrophils # 20.5 H (1.3-7.7) k/uL INR (<1.2) APTT (22.0-30.0) sec ABG pH (7.35-7.45) ABG pO2 (83-108) mmHg ABG O2 Saturation (94-97) % POC Glucose (mg/dL) (75-99) mg/dL TIBC 175 L (228-460) ug/dL % Saturation 67.43 H (15.00-50.00) Ferritin 1353.7 H (22.0-322.0) ng/mL RBC Folate 1,072 H (280 - 791) ng/mL 11/18/19 11/18/19 11/18/19 Range/Units 05:22 06:00 08:07 WBC (3.8-10.6) k/uL RBC (4.30-5.90) m/uL Hgb (13.0-17.5) gm/dL Hct (39.0-53.0) % RDW (11.5-15.5) % Plt Count (150-450) k/uL Neutrophils # (1.3-7.7) k/uL INR 1.2 H (<1.2) APTT 41.6 H (22.0-30.0) sec ABG pH 7.32 L (7.35-7.45) ABG pO2 221 H (83-108) mmHg ABG O2 Saturation 99.1 H (94-97) % POC Glucose (mg/dL) 127 H (75-99) mg/dL TIBC (228-460) ug/dL % Saturation (15.00-50.00) Ferritin (22.0-322.0) ng/mL RBC Folate (280 - 791) ng/mL 11/18/19 11/18/19 Range/Units 14:42 16:36 WBC (3.8-10.6) k/uL RBC (4.30-5.90) m/uL Hgb (13.0-17.5) gm/dL Hct (39.0-53.0) % RDW (11.5-15.5) % Plt Count (150-450) k/uL Neutrophils # (1.3-7.7) k/uL INR (<1.2) APTT (22.0-30.0) sec ABG pH (7.35-7.45) ABG pO2 (83-108) mmHg ABG O2 Saturation (94-97) % POC Glucose (mg/dL) 128 H 116 H (75-99) mg/dL TIBC (228-460) ug/dL % Saturation (15.00-50.00) Ferritin (22.0-322.0) ng/mL RBC Folate (280 - 791) ng/mL Microbiology - Last 24 Hours (Table) 11/15/19 12:30 Blood Culture - Preliminary Blood No Growth after 72 hours Assessment and Plan Assessment: Right lower lobe postobstructive pneumonia 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 fib with RVR status post DC cardioversion Plan: Broad-spectrum antibiotics IV heparin on hold once hemostasis is achieved then resume in next 24-48 hours Bronchodilator He breathing exercise incentive spirometry Status post Right middle lobe and lower lobe resection and lymph node dissection Vincent we'll follow up on pathology Deep breathing sense incentive spirometry Pain control, patient will be started on PLATFORM ARCHITECT Gentle rehydration Time with Patient: Greater than 30
[2019-11-18 20:22] LABS: Glucose,Whole Blood 134 mg/dL (75-99)
[2019-11-19] MEDS: KETOROLAC 30 MG/ML 1 ML VIAL IVP SCH ×5 (00:45→23:44)
[2019-11-19 05:30] LABS: Anisocytosis Slight; Basophils % (A) 0 %; Eosinophils # (A) 0.1 k/uL (0-0.7); Eosinophils % (A) 0 %; HCT 29.7 % (39.0-53.0); HGB 9.2 gm/dL (13.0-17.5); Lymphocytes # (A) 1.6 k/uL (1.0-4.8); Lymphocytes % (A) 8 %; MCH 30.5 pg (25.0-35.0); MCV 98.4 fL (80.0-100.0); Macrocytosis Slight; Mean Platelet Volume 7.4; Monocytes % (A) 5 %; Neutrophils # (A) 15.7 k/uL (1.3-7.7); Neutrophils % (A) 84 %; Platelet Count 459 k/uL (150-450); RBC 3.02 m/uL (4.30-5.90); RDW 16.1 % (11.5-15.5); WBC 18.7 k/uL (3.8-10.6)
[2019-11-19 05:42] LABS: ALT 22 U/L (4-49); AST 52 U/L (17-59); African American GFR (CKD) >90 (>60 ml/min/1.73 sqM); Albumin 2.2 g/dL (3.5-5.0); Alkaline Phosphatase 58 U/L (38-126); Anion Gap 8 mmol/L; Blood Urea Nitrogen 24 mg/dL (9-20); Calcium 7.4 mg/dL (8.4-10.2); Carbon Dioxide 23 mmol/L (22-30); Chloride 99 mmol/L (98-107); Glucose 109 mg/dL (74-99); Magnesium 1.8 mg/dL (1.6-2.3); Non-African American GFR(CKD) >90 (>60 ml/min/1.73 sqM); Potassium 4.1 mmol/L (3.5-5.1); Sodium 130 mmol/L (137-145); Total Bilirubin 0.2 mg/dL (0.2-1.3)
[2019-11-19] MEDS ORDERED: Magnesium Replacement Protocol 1 EACH MISC MISCELLANE PRN (06:29)
[2019-11-19 06:44] LABS: Glucose,Whole Blood 114 mg/dL (75-99)
[2019-11-19] MEDS ORDERED: MORPHINE SULFATE 2 MG/ML SYRINGE IVP PRN (07:00)
[2019-11-19] MEDS ORDERED: VANCOMYCIN TROUGH DUE 1 EACH MISC MISCELLANE ONE (07:00)
[2019-11-19] MEDS: INSULIN ASPART (NovoLOG) 100 UNIT/ML VIAL SQ SCH ×4 (07:15→20:24)
[2019-11-19] MEDS: LISINOPRIL 20 MG TAB PO SCH (07:15)
[2019-11-19] MEDS: MAGNESIUM SULFATE-D5W PMX 1 GM in DEXTROSE/WATER 1 100ML.BAG IVPB SCH ×2 (07:18→09:04)
[2019-11-19] MEDS: IPRATROPIUM-ALBUTEROL 3 ML NEB INHALATION SCH ×4 (07:31→19:43)
--- NOTE | 2019-11-19 07:41 | P.PN ---
Subjective Progress Note Date: 11/19/19 Principal diagnosis: New-onset atrial fibrillation, obstructing tumor bronchus intermedius, pneumonia with sepsis on admission, bilateral nonobstructing small segmental and subsegm ental pulmonary emboli. Past medical history significant for severe COPD with previous tobacco dependence, hypertension, cardiomyopathy in 2008 which has resolved, arthritis, and abdominal aortic aneurysm status post stent grafting in 2011. POD #1 cardioversion. Right thoracotomy, exploratory with lysis of adhesions, right lower and middle bilobectomy, mediastinal lymph node dissection, cryoabl ation of right intercostal nerves. Postoperative acute blood loss anemia, an expected outcome. The patient is sitting up in bed in the intensive care unit. He is in no acute distress. Denies any complaints of shortness of breath although is complaining of some surgical type pain to his right chest with coughing. Oxygen saturations are 98% on 4 L nasal cannula and he is achieving 1000 mL on his incentive spirometry. Right pleural chest tubes remain in place to water seal. No air leak is present. Draining thin serosanguineous drainage with 900 mL output in the last 12 hours, and 1650 mL output since surgery. He remained hemodynamically stable and is currently on no inotropic or pressor support. He does have a RADIOISOTOPE TECHNOLOGIST pump in place for pain control. He has been afebrile the last 24 hours. Family member is at his bedside and has been updated on his care. His Timmons catheter was discontinued at 6 AM this morning. Bedside telemetry showing sinus tachycardia heart rate 111. Objective - Vital Signs Vital signs: Vital Signs Temp 97.9 F 11/19/19 04:00 Pulse 79 11/19/19 04:00 Resp 16 11/19/19 04:00 BP 126/76 11/18/19 19:00 Pulse Ox 92 L 11/19/19 04:00 Intake & Output 11/18/19 11/19/19 11/19/19 18:59 06:59 18:59 Intake Total 2845 400 Output Total 1635 515 Balance 1210 -115 Intake: IV 2295 400 Dextrose 5%-0.45% NaCl 1, 120 400 000 ml @ 40 mls/hr IV . Q24H PERI Rx#:[id number] Sodium Chloride 0.9% 1, 75 000 ml @ 75 mls/hr IV . [id number] PERI Rx#:[id number] Intake, IV Titration 50 Amount ceFAZolin 2 gm In Sodium 50 Chloride 0.9% 50 ml @ 100 mls/hr IVPB Q8HR [facility] Rx# :[id number] Oral 500 Output: Chest Tube Drainage 300 Chest Tube Right 300 Urine 1035 515 Estimated Blood Loss 300 Other: Voiding Method Indwelling Catheter ABP, PAP, CO, CI - Last Documented Arterial Blood Pressure 148/77 - Constitutional General appearance: Present: cooperative, no acute distress, obese - Respiratory Details: Lung sounds with few scattered rhonchi to his left lobes, diminished to his right lobe. Loose nonproductive cough. Respirations are symmetrical and nonlabored. Oxygen saturation is 98% on 4 L nasal cannula. Achieving 1000 mL on his incentive spirometry. Right pleural chest tube to remain in place to water seal. No air leaks present. Draining thin serosanguineous drainage with 900 mL output in the last 12 hours, and 1650 mL output in the last 24 hours. - Cardiovascular Details: Regular rhythm and tachycardic rate. S1 and S2 present, negative for S3, gallop or murmur. No edema present. Knee-high LANEI hose and sequential compression devices in place to his bilateral lower extremities. - Gastrointestinal Gastrointestinal Comment(s): Abdomen is soft, nontender and nondistended. Hypoactive bowel sounds present in all 4 abdominal quadrants. No guarding or rigidity. No organomegaly appreciated. - Genitourinary Genitourinary Comment(s): Timmons catheter discontinued at 6 AM today, has not voided since catheter has been removed. - Integumentary Integumentary Comment(s): Skin is warm and dry. No clubbing or cyanosis is present. Subcutaneous emphysema present to his right chest and right back. Right thoracotomy incision is clean and dry with dressing clean dry and intact. - Neurologic Neurologic: Present: CNII-XII intact - Musculoskeletal Musculoskeletal: Present: gait normal, generalized weakness, strength equal bilaterally - Psychiatric Psychiatric: Present: A&O x's 3, appropriate affect, intact judgment & insight - Allied health notes Allied health notes reviewed: nursing - Labs CBC & Chem 7: 11/19/19 05:14 11/19/19 05:14 Labs: Abnormal Lab Results - Last 24 Hours (Table) 11/17/19 11/18/19 11/18/19 Range/Units 07:30 08:07 14:42 WBC (3.8-10.6) k/uL RBC (4.30-5.90) m/uL Hgb (13.0-17.5) gm/dL Hct (39.0-53.0) % RDW (11.5-15.5) % Plt Count (150-450) k/uL Neutrophils # (1.3-7.7) k/uL ABG pH 7.32 L (7.35-7.45) ABG pO2 221 H (83-108) mmHg ABG O2 Saturation 99.1 H (94-97) % Sodium (137-145) mmol/L BUN (9-20) mg/dL Glucose (74-99) mg/dL POC Glucose (mg/dL) 128 H (75-99) mg/dL Calcium (8.4-10.2) mg/dL Total Protein (6.3-8.2) g/dL Albumin (3.5-5.0) g/dL RBC Folate 1,072 H (280 - 791) ng/mL 11/18/19 11/18/19 11/19/19 Range/Units 16:36 20:20 05:14 WBC (3.8-10.6) k/uL RBC (4.30-5.90) m/uL Hgb (13.0-17.5) gm/dL Hct (39.0-53.0) % RDW (11.5-15.5) % Plt Count (150-450) k/uL Neutrophils # (1.3-7.7) k/uL ABG pH (7.35-7.45) ABG pO2 (83-108) mmHg ABG O2 Saturation (94-97) % Sodium 130 L (137-145) mmol/L BUN 24 H (9-20) mg/dL Glucose 109 H (74-99) mg/dL POC Glucose (mg/dL) 116 H 134 H (75-99) mg/dL Calcium 7.4 L (8.4-10.2) mg/dL Total Protein 5.0 L (6.3-8.2) g/dL Albumin 2.2 L (3.5-5.0) g/dL RBC Folate (280 - 791) ng/mL 11/19/19 11/19/19 Range/Units 05:14 06:42 WBC 18.7 H (3.8-10.6) k/uL RBC 3.02 L (4.30-5.90) m/uL Hgb 9.2 L (13.0-17.5) gm/dL Hct 29.7 L (39.0-53.0) % RDW 16.1 H (11.5-15.5) % Plt Count 459 H (150-450) k/uL Neutrophils # 15.7 H (1.3-7.7) k/uL ABG pH (7.35-7.45) ABG pO2 (83-108) mmHg ABG O2 Saturation (94-97) % Sodium (137-145) mmol/L BUN (9-20) mg/dL Glucose (74-99) mg/dL POC Glucose (mg/dL) 114 H (75-99) mg/dL Calcium (8.4-10.2) mg/dL Total Protein (6.3-8.2) g/dL Albumin (3.5-5.0) g/dL RBC Folate (280 - 791) ng/mL Microbiology - Last 24 Hours (Table) 11/18/19 12:09 Gram Stain - Preliminary Lung - Right Wound Culture - Preliminary 11/18/19 12:09 Anaerobic Culture - Preliminary Lung - Right 11/18/19 12:09 Fungal Culture - Preliminary Lung - Right 11/15/19 12:30 Blood Culture - Preliminary Blood No Growth after 72 hours - Imaging and Cardiology Chest x-ray: image reviewed Assessment and Plan Assessment: 1. 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 New-onset atrial fibrillation, status post cardioversion 3. Pneumonia, sepsis on admission 4. Bilateral nonobstructing small segmental and subsegmental pulmonary emboli 5. Severe COPD, previous tobacco dependance 6. History of hypertension 7. History of cardiomyopathy in 2008 which resolved 8. Arthritis 9. History of abdominal aortic aneurysm status post stent grafting in 2011 Plan: 1. Keep right pleural chest tubes in place to water seal with accurate I's and O's. 2. Discontinue Timmons catheter, this was done at 6 AM this morning. 3. Remove right radial arterial line. 4. Encourage incentive spirometry use every hour while awake. 5. Increase activity, ambulate as tolerated, out of bed for all meals. Physical/occupational therapy consulted. 6. Surgical pathology and culture results remain pending. 7. Pain management per current when necessary orders. Morphine 2 mg IVP every 4 hours when necessary for breakthrough pain added. 8. Increase metoprolol to 50 mg by mouth twice a day. 9. We will continue to follow his daily labs and chest x-rays. 10. Bronchodilator and pulmonary management recommendations per Dr. Middleton. 11. More recommendations to follow based on patient's clinical course. Time with Patient: Greater than 30
--- NOTE | 2019-11-19 07:45 | PN ---
PROGRESS NOTE Mr. Patel is a 64-year-old male who underwent right lower and middle lobe lobectomy yesterday by Dr. Garcia. He had episode of atrial fibrillation prior to the intervention. He was cardioverted back in sinus mechanism. He is complaining of some discomfort when he coughs, but otherwise denied any chest pain. His breathing is unchanged. He denies any dizziness or palpitation. He denies any nausea or vomiting. He continues to be in sinus mechanism. He has a history of abdominal aortic aneurysm, status post endovascular repair. He has a history of pulmonary embolism, chronic obstructive lung disease. He continues to be at this time on lisinopril 40 mg daily and metoprolol tartrate 50 mg a day. PHYSICAL EXAMINATION: Blood pressure 148/70 with the heart rate in the 70s. LUNGS: With decreased breath sounds on the right side. HEART: Regular rate and rhythm. S1, S2. No S3. No rub appreciated. ABDOMEN: Soft, nontender. EXTREMITIES: No edema. LAB DATA: Lab data revealed BUN and creatinine 24 and 0.76, potassium 4.1, hemoglobin of 9.2. IMPRESSION: 1. Status post lobectomy on the right side for malignancy. 2. Paroxysmal atrial fibrillation, remains in sinus mechanism at this time. 3. Pulmonary embolism. 4. History of chronic obstructive lung disease. 5. History of abdominal aortic aneurysm repair. RECOMMENDATION: From the cardiac standpoint, I will adjust the dose of his beta guillermina. I would recommend to initiate anticoagulation once it is agreeable with Dr. Garcia. Continue incentive spirometry and continue increasing his level of activity and depending on his progress, further recommendation will be made. MMODL / IJN: [id number] /
--- NOTE | 2019-11-19 08:18 | XR ---
EXAMINATION TYPE: XR chest 1V DATE OF EXAM: 11/19/2019 COMPARISON: 11/18/2019 INDICATION: Post lobectomy TECHNIQUE: Single frontal view of the chest is obtained. FINDINGS: The heart size is normal. The pulmonary vasculature is normal. Right lung appears reinflated. No pneumothorax is evident. 2 right-sided chest tubes are present. The re is diffuse opacification through the right aerated lung which is worsening. Increasing subcutaneou s emphysema is present. IMPRESSION: 1. Expansion of previous pneumothorax right lung field post lobectomy. 2. Increasing lung opacities through the residual right lung. 3. 2 right-sided chest tubes remain in position
[2019-11-19] MEDS: METOPROLOL TARTRATE 50 MG TAB PO SCH ×2 (09:05→20:53)
[2019-11-19 11:04] VITALS: BMI 28.0
[2019-11-19] MEDS: ACETYLCYSTEINE 800 MG/4 ML VIAL INHALATION SCH ×3 (11:31→19:43)
[2019-11-19 12:04] LABS: Glucose,Whole Blood 143 mg/dL (75-99)
[2019-11-19] MEDS ORDERED: DIGOXIN 250 MCG/ML 2 ML AMP IVP STA (14:00)
--- NOTE | 2019-11-19 14:42 | P.PN ---
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 fib along with obstructing tumor of the bronchus intermedius along with pneumonia and sepsis small pulmonary emboli, anticoagulation is on hold, 11/18/2019, patient seen and evaluated examined during the rounds care plan discussed with the staff as well as family member at length, critical care time spent about 35 minutes, patient is status post cardioversion for A. fib with RVR, obstructing tumor bronchus intermedius status post right thoracotomy with lysis of adhesions resection of right lower and right middle lobe lymph node dissection along with cryoablation of right intercostal nerve, estimated blood loss was 300 mL urine output was 800 IV fluid infused for 1.8 L, patient is sitting upright on supplemental oxygen, mild pain is there, hemodynamic status stable, no pressors, right-sided chest tube intermittent air leak is present draining blood-tinged pleural fluid, labs reviewed white cell count is 22,500, ABG is stable 7.3-43 and 221 and successfully extubated in recovery, afebrile, oxygen saturation is 96-98% on supplemental oxygen post procedure chest x-ray reviewed indicated above volume loss on the right side with stable chest tube on the right moderate pneumothorax of 25%, chest tube is 20% mid to waterseal suction 11/17/2019, patient seen eval examined during the rounds labs reviewed medications reviewed care plan discussed with the patient, care plan and discussed with oncology service, white cell count is trending down but is still having elevated, patient remains on IV heparin and broad-spectrum antibiotics for postobstructive pneumonia, patient is scheduled for right lower lobe dissection and lymph node dissection for November 17 This is a 64-year-old with history of COPD recently diagnosed lung cancer patient is scheduled to see Dr. Jose barajas stress test during the stress test patient was found to having worsening of shortness of breath and tachycardia sent into emergency department for further evaluation found to have postobstructive pneumonia patient is admitted into hospital for broad-spectrum antibiotic computed tomography scan of the chest showing postobstructive pneumonia patient is being followed by thoracic surgery is scheduled for right lower lobe resection chest x-ray revealed a right lower lobe infiltrate progressing from prior exam. Underlying neoplasm. CTA of the chest revealed bilateral nonobstructing small segmental and subsegmental pulmonary emboli with no evidence of right heart strain, overall mild clot burden, right lower lobe mass with endobronchial invasion and surrounding consolidation markedly increased from a PET scan on October 16. Objective - Vital Signs Vital signs: Vital Signs Temp 98.8 F 11/19/19 12:00 Pulse 101 H 11/19/19 14:00 Resp 25 H 11/19/19 14:00 BP 96/68 11/19/19 14:00 Pulse Ox 93 L 11/19/19 14:00 Intake & Output 11/18/19 11/19/19 11/19/19 18:59 06:59 18:59 Intake Total 2845 480 320 Output Total 1635 665 545 Balance 1210 -185 -225 Weight 93.6 kg 93.6 kg Intake: IV 2295 480 320 Dextrose 5%-0.45% NaCl 1, 120 480 320 000 ml @ 40 mls/hr IV . Q24H PERI Rx#:[id number] Sodium Chloride 0.9% 1, 75 000 ml @ 75 mls/hr IV . [id number] PERI Rx#:[id number] Intake, IV Titration 50 Amount ceFAZolin 2 gm In Sodium 50 Chloride 0.9% 50 ml @ 100 mls/hr IVPB Q8HR PERI Rx# :[id number] Oral 500 Output: Chest Tube Drainage 300 Chest Tube Right 300 Drainage 375 Right Chest 375 Urine 1035 665 170 Estimated Blood Loss 300 Other: Voiding Method Indwelling Catheter Indwelling Catheter ABP, PAP, CO, CI - Last Documented Arterial Blood Pressure 89/65 - Exam - Constitutional General appearance: average body habitus, cooperative, disheveled, mild distress - EENT Eyes: anicteric sclerae, EOMI, PERRLA, poor dentition Ears: bilateral: normal - Neck Neck: normal ROM Carotids: bilateral: upstroke normal Thyroid: bilateral: normal size - Respiratory Respiratory: right: diminished, negative: dullness, rales, rhonchi, wheezing, prolonged expiration, chest tube to 20 cm water suction intermittent air leak is present - Cardiovascular Rhythm: regular Heart sounds: normal: S1, S2 - Gastrointestinal General gastrointestinal: normal bowel sounds - Neurologic Neurologic: CNII-XII intact Psychiatric: A&O x's 3, appropriate affect, intact judgment & insight - Labs CBC & Chem 7: 11/19/19 05:14 11/19/19 05:14 Labs: Abnormal Lab Results - Last 24 Hours (Table) 11/18/19 11/18/19 11/18/19 Range/Units 14:42 16:36 20:20 WBC (3.8-10.6) k/uL RBC (4.30-5.90) m/uL Hgb (13.0-17.5) gm/dL Hct (39.0-53.0) % RDW (11.5-15.5) % Plt Count (150-450) k/uL Neutrophils # (1.3-7.7) k/uL Sodium (137-145) mmol/L BUN (9-20) mg/dL Glucose (74-99) mg/dL POC Glucose (mg/dL) 128 H 116 H 134 H (75-99) mg/dL Calcium (8.4-10.2) mg/dL Total Protein (6.3-8.2) g/dL Albumin (3.5-5.0) g/dL 11/19/19 11/19/19 11/19/19 Range/Units 05:14 05:14 06:42 WBC 18.7 H (3.8-10.6) k/uL RBC 3.02 L (4.30-5.90) m/uL Hgb 9.2 L (13.0-17.5) gm/dL Hct 29.7 L (39.0-53.0) % RDW 16.1 H (11.5-15.5) % Plt Count 459 H (150-450) k/uL Neutrophils # 15.7 H (1.3-7.7) k/uL Sodium 130 L (137-145) mmol/L BUN 24 H (9-20) mg/dL Glucose 109 H (74-99) mg/dL POC Glucose (mg/dL) 114 H (75-99) mg/dL Calcium 7.4 L (8.4-10.2) mg/dL Total Protein 5.0 L (6.3-8.2) g/dL Albumin 2.2 L (3.5-5.0) g/dL 11/19/19 Range/Units 12:02 WBC (3.8-10.6) k/uL RBC (4.30-5.90) m/uL Hgb (13.0-17.5) gm/dL Hct (39.0-53.0) % RDW (11.5-15.5) % Plt Count (150-450) k/uL Neutrophils # (1.3-7.7) k/uL Sodium (137-145) mmol/L BUN (9-20) mg/dL Glucose (74-99) mg/dL POC Glucose (mg/dL) 143 H (75-99) mg/dL Calcium (8.4-10.2) mg/dL Total Protein (6.3-8.2) g/dL Albumin (3.5-5.0) g/dL Microbiology - Last 24 Hours (Table) 11/18/19 12:09 Gram Stain - Preliminary Lung - Right Wound Culture - Preliminary 11/18/19 12:09 Anaerobic Culture - Preliminary Lung - Right 11/18/19 12:09 Fungal Culture - Preliminary Lung - Right 11/15/19 12:30 Blood Culture - Preliminary Blood No Growth after 72 hours Assessment and Plan Assessment: Right lower lobe postobstructive pneumonia 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 fib with RVR status post DC cardioversion Plan: Broad-spectrum antibiotics IV heparin on hold once hemostasis is achieved patient is status post IVC filter, therapeutic anticoagulation can be initiated at a later Bronchodilator Deep breathing exercise incentive spirometry Status post Right middle lobe and lower lobe resection and lymph node dissection Vincent we'll follow up on pathology Deep breathing sense incentive spirometry Pain control, patient will be started on LAB MANAGER Gentle rehydration Time with Patient: Greater than 30
--- NOTE | 2019-11-19 14:50 | P.PN ---
Subjective Progress Note Date: 11/19/19 (delayed charting seen at 0915) Principal diagnosis: fevers Patient is a 64-year-old male patient of Dr. Hernandez with a recent diagnosis of right lower lobe pulmonary mass being followed by Dr. Middleton and Dr. 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 Of note the patient has had approximately 6 months of symptoms. He has had multiple courses of antibiotics throughout this time period. He initially felt that this is sinusitis and then he saw Dr. Middleton and August and was noted to have an abnormality on chest x-ray. He received a course of Levaquin and then underwent a chest CT PET which showed a mass in his right lower lobe but no adenopathy. He underwent a bronchoscopy which showed obliteration of the bronchus intermedius with necrotic tissue on biopsy and spindle cells on the cytology. He met with Dr. Garcia it was felt that he likely had underlying tumor with necrosis and would require bilobectomy versus pneumonectomy. He has had 2 courses of Levaquin and over August and September as well as recurrent fevers up to 103 over the last several months. On arrival to the ER he had a fever of 102 and a pulse of 133. Laboratory analysis showed a white blood cell count 25.3, hemoglobin 10.6, platelets 469, INR 1.3, sodium 127, albumin 3, and 188 hyaline casts in his urine. Influenza was negative. Chest x-ray was completed which showed worsening of the abnormality in his right lower lobe. He was also found have an elevated lactic acid at 2.4. He was started on IV fluids, vancomycin, cefepime, and Levaquin. He was admitted for further monitoring. Dr. Garcia was consulted. He underwent a CT PE protocol which showed bilateral subsegmental pulmonary emboli as well as increase in size of his right lower lobe mass to 18 cm with some subcarinal and perihilar lymphadenopathy. He was started on a heparin drip. Oncology was consulted, who recommended a vascular evaluation for possible removable IVC filter. Patient was evaluated by cardiovascular surgery who recommended proceeding with surgery on 11/18/19. Cardiology was consulted, echocardiogram was ordered which showed a preserved ejection fraction of 60-65%, mild concentric LVH, and moderate pulmonary hypertension with RVSP 46.47. Lower extremity venous Dopplers were negative. He had a removable IVC filter placed on 11/18/19 and went into A fib with RVR in recovery. He was started on a cardizem gtt and transferred to the cardiac floor. He underwent Right middle and lower lobectomies with lymphnode sampling and cardioversion on 11/18/19. He tolerated the procedure well. Was on minial oxygen after the surgery which was able to be weaned off by 11/19/19. He had a fever of 101 the morning after surgery. Patient seen and examined at bedside.Slightly more pain then yesterday, will be able to get out of bed today, no nausea, no shortness of breath. no BM yesterday or today. Tolerating his diet. Objective - Vital Signs Vital signs: Vital Signs Temp 98.8 F 11/19/19 12:00 Pulse 101 H 11/19/19 14:00 Resp 25 H 11/19/19 14:00 BP 96/68 11/19/19 14:00 Pulse Ox 93 L 11/19/19 14:00 Intake & Output 11/18/19 11/19/19 11/19/19 18:59 06:59 18:59 Intake Total 2845 480 320 Output Total 1635 665 545 Balance 1210 -185 -225 Weight 93.6 kg 93.6 kg Intake: IV 2295 480 320 Dextrose 5%-0.45% NaCl 1, 120 480 320 000 ml @ 40 mls/hr IV . Q24H PERI Rx#:[id number] Sodium Chloride 0.9% 1, 75 000 ml @ 75 mls/hr IV . [id number] PERI Rx#:[id number] Intake, IV Titration 50 Amount ceFAZolin 2 gm In Sodium 50 Chloride 0.9% 50 ml @ 100 mls/hr IVPB Q8HR PERI Rx# :[id number] Oral 500 Output: Chest Tube Drainage 300 Chest Tube Right 300 Drainage 375 Right Chest 375 Urine 1035 665 170 Estimated Blood Loss 300 Other: Voiding Method Indwelling Catheter Indwelling Catheter ABP, PAP, CO, CI - Last Documented Arterial Blood Pressure 89/65 - Exam General: Ill-appearing, pale, no distress, appears at stated age Derm: warm, dry Head: atraumatic, normocephalic, symmetric Eyes: EOMI, no lid lag, anicteric sclera Mouth: no lip lesion, mucus membranes moist Cardiovascular: S1S2 reg, no murmur, positive posterior tibial pulse bilateral, Lungs: Decreased breath sounds right , + Rhonchi , no accessory muscle use, Chest tube in place with small air leak Abdominal: soft, nontender to palpation, no guarding, no appreciable organomegaly Ext: no gross muscle atrophy, 1+ edema, no contractures Neuro: CN II-XI grossly intact, no focal neuro deficits Psych: Alert, oriented, appropriate affect - Labs CBC & Chem 7: 11/19/19 05:14 11/19/19 05:14 Labs: Abnormal Lab Results - Last 24 Hours (Table) 11/18/19 11/18/19 11/18/19 Range/Units 14:42 16:36 20:20 WBC (3.8-10.6) k/uL RBC (4.30-5.90) m/uL Hgb (13.0-17.5) gm/dL Hct (39.0-53.0) % RDW (11.5-15.5) % Plt Count (150-450) k/uL Neutrophils # (1.3-7.7) k/uL Sodium (137-145) mmol/L BUN (9-20) mg/dL Glucose (74-99) mg/dL POC Glucose (mg/dL) 128 H 116 H 134 H (75-99) mg/dL Calcium (8.4-10.2) mg/dL Total Protein (6.3-8.2) g/dL Albumin (3.5-5.0) g/dL 11/19/19 11/19/19 11/19/19 Range/Units 05:14 05:14 06:42 WBC 18.7 H (3.8-10.6) k/uL RBC 3.02 L (4.30-5.90) m/uL Hgb 9.2 L (13.0-17.5) gm/dL Hct 29.7 L (39.0-53.0) % RDW 16.1 H (11.5-15.5) % Plt Count 459 H (150-450) k/uL Neutrophils # 15.7 H (1.3-7.7) k/uL Sodium 130 L (137-145) mmol/L BUN 24 H (9-20) mg/dL Glucose 109 H (74-99) mg/dL POC Glucose (mg/dL) 114 H (75-99) mg/dL Calcium 7.4 L (8.4-10.2) mg/dL Total Protein 5.0 L (6.3-8.2) g/dL Albumin 2.2 L (3.5-5.0) g/dL 11/19/19 Range/Units 12:02 WBC (3.8-10.6) k/uL RBC (4.30-5.90) m/uL Hgb (13.0-17.5) gm/dL Hct (39.0-53.0) % RDW (11.5-15.5) % Plt Count (150-450) k/uL Neutrophils # (1.3-7.7) k/uL Sodium (137-145) mmol/L BUN (9-20) mg/dL Glucose (74-99) mg/dL POC Glucose (mg/dL) 143 H (75-99) mg/dL Calcium (8.4-10.2) mg/dL Total Protein (6.3-8.2) g/dL Albumin (3.5-5.0) g/dL Microbiology - Last 24 Hours (Table) 11/18/19 12:09 Gram Stain - Preliminary Lung - Right Wound Culture - Preliminary 11/18/19 12:09 Anaerobic Culture - Preliminary Lung - Right 11/18/19 12:09 Fungal Culture - Preliminary Lung - Right 11/15/19 12:30 Blood Culture - Preliminary Blood No Growth after 72 hours Assessment and Plan Assessment: Postobstructive pneumonia with sepsis, Gram stain with G+ in chains. -vancomycin, cefepime, and Levaquin stopped by surgery as they state they removed all infection, had recurrent fever after ABX stopped would recommended continued strep coverage. -pulmonary recommendations appreciated -Sputum culture many Gram + in chains -Blood cultures negative to date - Continue with incentive spirometer. Right lower lobe mass with lymphadenopathy s/p bilobectomy with lymph node sampling - cytology with spindle cell CA, path with necrosis - new CT with some adenopathy that could be reactive - Oncology recs appreciated: Await pathology - pain control - pulm hygeine Paroxysmal A fib - anticoagulation when okay with surgery - tele - cardio recs appreciated - BB, Dig Bilateral sub segmental pulmonary embolism - s/p IVC filter - heparin gtt to be resumed when okay with surgery - probable NOAC on discharge - will need treatment until remission - Oncology recs appreciated Severe COPD, exacerbation resolved - duonebs - pulm hygeine - pulm recs Hyponatremia due to dehydration, - encourage oral fluid intake - repeat BMP in AM Anemia, chronic - FE studies, B 12, and folic acid consistent with anemia of chronic disease Thrombocytosis - likely reactive - follow CBC Lactic acidosis, resolved Chronic HTN, not on medications cardiomyopathy, resolved AAA s/p stenting DVT prophylaxis: SCDs Discussed with: patient, Marlyn Beasley, A total of 35 minutes was spent on the care of this complex patient more than 50% of the time was spent in counseling and care coordination.
[2019-11-19] MEDS ORDERED: ALBUMIN HUMAN 5% 500 ML in EMPTY BAG 1 BAG IVPB ONE (15:26)
[2019-11-19 16:55] LABS: Glucose,Whole Blood 170 mg/dL (75-99)
[2019-11-19] MEDS ORDERED: DEXTROSE 5%-0.45% NACL 1,000 ML IV SCH (17:00)
[2019-11-19] MEDS ORDERED: DIGOXIN 250 MCG/ML 2 ML AMP IVP ONE (20:00)
[2019-11-19 20:22] LABS: Glucose,Whole Blood 203 mg/dL (75-99)
[2019-11-19] MEDS ORDERED: METOPROLOL TARTRATE 25 MG TAB PO STA (20:47)
[2019-11-20] MEDS ORDERED: DIGOXIN 250 MCG/ML 2 ML AMP IVP ONE (02:00)
[2019-11-20] MEDS ORDERED: SODIUM CHLORIDE 0.9% 500 ML 500 ML IV SCH (04:45)
[2019-11-20] MEDS: KETOROLAC 30 MG/ML 1 ML VIAL IVP SCH ×4 (05:08→23:33)
[2019-11-20 05:37] LABS: Basophils % (A) 0 %; Eosinophils # (A) 0.1 k/uL (0-0.7); Eosinophils % (A) 1 %; Lymphocytes # (A) 1.7 k/uL (1.0-4.8); Lymphocytes % (A) 8 %; MCH 30.4 pg (25.0-35.0); MCHC 30.9 g/dL (31.0-37.0); MCV 98.6 fL (80.0-100.0); Macrocytosis Slight; Mean Platelet Volume 7.7; Monocytes # (A) 0.5 k/uL (0-1.0); Monocytes % (A) 2 %; Neutrophils # (A) 19.9 k/uL (1.3-7.7); Neutrophils % (A) 89 %; Platelet Count 452 k/uL (150-450); RBC 2.53 m/uL (4.30-5.90); RDW 15.9 % (11.5-15.5); WBC 22.5 k/uL (3.8-10.6)
[2019-11-20 05:39] LABS: HGB 7.7 gm/dL (13.0-17.5)
[2019-11-20 05:47] LABS: ALT 19 U/L (4-49); AST 47 U/L (17-59); African American GFR (CKD) >90 (>60 ml/min/1.73 sqM); Albumin 2.4 g/dL (3.5-5.0); Alkaline Phosphatase 60 U/L (38-126); Anion Gap 8 mmol/L; Blood Urea Nitrogen 29 mg/dL (9-20); Calcium 7.5 mg/dL (8.4-10.2); Carbon Dioxide 24 mmol/L (22-30); Chloride 95 mmol/L (98-107); Glucose 92 mg/dL (74-99); Magnesium 2.2 mg/dL (1.6-2.3); Non-African American GFR(CKD) 88 (>60 ml/min/1.73 sqM); Potassium 4.1 mmol/L (3.5-5.1); Sodium 127 mmol/L (137-145); Total Bilirubin 0.1 mg/dL (0.2-1.3); Total Protein 5.2 g/dL (6.3-8.2)
[2019-11-20 06:48] LABS: Glucose,Whole Blood 218 mg/dL (75-99)
[2019-11-20] MEDS: INSULIN ASPART (NovoLOG) 100 UNIT/ML VIAL SQ SCH ×4 (06:50→20:42)
[2019-11-20] MEDS: LISINOPRIL 20 MG TAB PO SCH (06:59)
--- NOTE | 2019-11-20 07:01 | XR ---
EXAMINATION TYPE: XR chest 2V DATE OF EXAM: 11/20/2019 COMPARISON: Chest x-ray from yesterday and older studies. HISTORY: Post partial pneumonectomy. TECHNIQUE: Frontal and lateral views of the chest are obtained. FINDINGS: Redemonstration of 2 right-sided chest tubes. Persistent right-sided volume loss with right upper and lower lung consolidation. Adjacent significant right-sided subcutaneous emphysema. Left carter ng remains clear. Cardiac silhouette size is stable and mildly enlarged. No right-sided pneumothorax. Underlying scoliotic curvature positioning redemonstrated. IMPRESSION: Overall stable findings, 2 right-sided chest tubes with right-sided volume loss, diffuse right lung atelectasis and/or infiltrates with more prominent consolidation upper and lower lung lev els and adjacent significant subcutaneous emphysema without pneumothorax are all redemonstrated.
[2019-11-20] MEDS: ACETYLCYSTEINE 800 MG/4 ML VIAL INHALATION SCH ×4 (08:00→19:28)
[2019-11-20] MEDS: IPRATROPIUM-ALBUTEROL 3 ML NEB INHALATION SCH ×4 (08:02→19:28)
[2019-11-20] MEDS ORDERED: FUROSEMIDE 10 MG/ML 4 ML VIAL IV STA (08:36)
[2019-11-20] MEDS ORDERED: FUROSEMIDE 10 MG/ML 2 ML VIAL IV ONE (08:54)
[2019-11-20] MEDS ORDERED: METOPROLOL TARTRATE 25 MG TAB PO SCH (09:00)
[2019-11-20] MEDS: METOPROLOL TARTRATE 25 MG TAB PO SCH ×3 (09:40→21:08)
[2019-11-20] MEDS: ASCORBIC ACID 500 MG TAB PO SCH (09:40)
[2019-11-20] MEDS: SODIUM CHLORIDE 0.9% 1,000 ML IV SCH ×2 (09:41→20:42)
--- NOTE | 2019-11-20 09:41 | P.PN ---
Subjective Progress Note Date: 11/20/19 Principal diagnosis: New-onset atrial fibrillation, obstructing tumor bronchus intermedius, pneumonia with sepsis on admission, bilateral nonobstructing small segmental and subsegm ental pulmonary emboli. Past medical history significant for severe COPD with previous tobacco dependence, hypertension, cardiomyopathy in 2008 which has resolved, arthritis, and abdominal aortic aneurysm status post stent grafting in 2011. POD #2 cardioversion. Right thoracotomy, exploratory with lysis of adhesions, right lower and middle bilobectomy, mediastinal lymph node dissection, cryoabl ation of right intercostal nerves. Postoperative acute blood loss anemia, an expected outcome. The patient is sitting up to the bedside chair in the intensive care unit. He is in no acute distress. He currently denies any complaints of pain or shortness of breath. His [employer] orders remain in place for pain control and says he has been using it sparingly. Oxygen saturations are 96% on room air and he is achieving 6510-7879 mL on his incentive spirometry. Right pleural chest tubes remain in place to water seal. No air leak is present and they're draining thin serosanguineous drainage with 225 mL output in the last 8 hours in 850 mL output in the last 24 hours. He remained hemodynamically stable and is currently on no inotropic or pressor support. Lab results this morning show a WBC count of 22.5, Hgb 7.7, platelets 452, sodium 127, BUN 29 and creatinine 0.91. T-max temperature in the last 24 hours 101F, encouraged patient to use his incentive spirometry every hour while awake and ambulating in the hallway with assistance as tolerated. His Timmons catheter was discontinued yesterday and his urine output the last 8 hours has been around 300 mL. He is tolerating oral intake. The patient's is at his bedside. He reports he does have a loose productive cough with thin clear sputum. Objective - Vital Signs Vital signs: Vital Signs Temp 98.3 F 11/20/19 04:00 Pulse 97 11/20/19 08:17 Resp 25 H 11/20/19 04:00 BP 119/72 11/20/19 04:00 Pulse Ox 95 11/20/19 04:00 Intake & Output 11/19/19 11/20/19 11/20/19 18:59 06:59 18:59 Intake Total 860 480 Output Total 545 520 Balance 315 -40 Weight 93.6 kg 103.4 kg Intake: IV 860 480 Albumin Human 5% 500 ml 500 In Empty Bag 1 bag @ 500 mls/hr IVPB ONCE ONE Rx#: [id number] Dextrose 5%-0.45% NaCl 1, 360 480 000 ml @ 40 mls/hr IV . Q24H [facility] Rx#:[id number] Output: Drainage 375 280 Right Chest 375 280 Urine 170 240 Other: Voiding Method Indwelling Catheter Urinal ABP, PAP, CO, CI - Last Documented Arterial Blood Pressure 89/65 - Constitutional General appearance: Present: cooperative, no acute distress, obese - Respiratory Details: Lung sounds essentially clear throughout with some few scattered crackles. Respirations are symmetrical and nonlabored. No wheezes or rhonchi. Oxygen saturation is 96% on room air. Achieving 1000 1250 mL on his incentive spirometry. Right pleural chest tubes remain in place to water seal. No air leak is present. Draining thin serosanguineous drainage. - Cardiovascular Details: Regular rhythm and tachycardic rate. S1 and S2 present, negative for S3, gallop or murmur. +1 to +2 generalized edema. Knee-high LANIE hose and sequential compression devices in place to his bilateral lower extremities. - Gastrointestinal Gastrointestinal Comment(s): Abdomen is soft, nontender and nondistended. Active bowel sounds present in all 4 abdominal quadrants. No guarding or rigidity. Tolerating oral intake. - Genitourinary Genitourinary Comment(s): Continues to void clear vero urine. - Integumentary Integumentary Comment(s): Skin is warm and dry. No clubbing or cyanosis is present. Right chest thoracotomy incision with silver impregnated dressing clean, dry and intact. - Neurologic Neurologic: Present: CNII-XII intact - Musculoskeletal Musculoskeletal: Present: gait normal, generalized weakness, strength equal bilaterally - Psychiatric Psychiatric: Present: A&O x's 3, appropriate affect, intact judgment & insight - Allied health notes Allied health notes reviewed: nursing - Labs CBC & Chem 7: 11/20/19 04:10 11/20/19 04:10 Labs: Abnormal Lab Results - Last 24 Hours (Table) 11/19/19 11/19/19 11/19/19 Range/Units 12:02 16:53 20:20 WBC (3.8-10.6) k/uL RBC (4.30-5.90) m/uL Hgb (13.0-17.5) gm/dL Hct (39.0-53.0) % MCHC (31.0-37.0) g/dL RDW (11.5-15.5) % Plt Count (150-450) k/uL Neutrophils # (1.3-7.7) k/uL Sodium (137-145) mmol/L Chloride (98-107) mmol/L BUN (9-20) mg/dL POC Glucose (mg/dL) 143 H 170 H 203 H (75-99) mg/dL Calcium (8.4-10.2) mg/dL Total Bilirubin (0.2-1.3) mg/dL Total Protein (6.3-8.2) g/dL Albumin (3.5-5.0) g/dL 11/20/19 11/20/19 11/20/19 Range/Units 04:10 04:10 06:45 WBC 22.5 H (3.8-10.6) k/uL RBC 2.53 L (4.30-5.90) m/uL Hgb 7.7 L D (13.0-17.5) gm/dL Hct 25.0 L (39.0-53.0) % MCHC 30.9 L (31.0-37.0) g/dL RDW 15.9 H (11.5-15.5) % Plt Count 452 H (150-450) k/uL Neutrophils # 19.9 H (1.3-7.7) k/uL Sodium 127 L (137-145) mmol/L Chloride 95 L (98-107) mmol/L BUN 29 H (9-20) mg/dL POC Glucose (mg/dL) 218 H (75-99) mg/dL Calcium 7.5 L (8.4-10.2) mg/dL Total Bilirubin 0.1 L (0.2-1.3) mg/dL Total Protein 5.2 L (6.3-8.2) g/dL Albumin 2.4 L (3.5-5.0) g/dL Microbiology - Last 24 Hours (Table) 11/15/19 12:30 Blood Culture - Preliminary Blood No Growth after 96 hours - Imaging and Cardiology Chest x-ray: report reviewed, image reviewed Assessment and Plan Assessment: 1. 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 New-onset atrial fibrillation, status post cardioversion 3. Pneumonia, sepsis on admission 4. Bilateral nonobstructing small segmental and subsegmental pulmonary emboli 5. Severe COPD, previous tobacco dependance 6. History of hypertension 7. History of cardiomyopathy in 2008 which resolved 8. Arthritis 9. History of abdominal aortic aneurysm status post stent grafting in 2011 10. Postoperative acute blood loss anemia Plan: 1. Keep right pleural chest tubes in place to water seal, continue with accurat e I's and O's. 2. Lasix 20 mg IV 1 now. KVO IV fluids. 3. Start Ancef 2 g IVPB every 8 hours, Gram stain from right lung is showing many gram-positive cocci in chains. Blood cultures continue to show no growth after 96 hours. 4. Encourage incentive spirometry use every hour while awake. 5. Increase activity, ambulate as tolerated, out of bed for all meals. Physical/occupational therapy following. 6. Surgical pathology results remain pending. 7. Pain management per current when necessary orders. 8. Decrease metoprolol to 25 mg by mouth 3 times a day. 9. We will continue to follow his daily labs and chest x-rays. 10. Bronchodilator and pulmonary management recommendations per Dr. Middleton. 11. Medical management and other comorbidities per Dr. Cristina. 12. May transfer to the cardiac stepdown unit when bed available. 13. More recommendations to follow based on patient's clinical course. Time with Patient: Greater than 30
--- NOTE | 2019-11-20 09:46 | PN ---
PROGRESS NOTE Mr. Patel is a 64-year-old male who has underwent a lobectomy on the right side. He had episode of atrial fibrillation prior to the surgery. He continues to be in sinus mechanism. He is hemodynamically stable. He is complaining of some discomfort in the back of the chest at the site of his surgery. He denies any dizziness or palpitation. He denies any nausea. His blood pressure is slightly on the lower side. He continues to be on metoprolol 25 mg 3 times a day. The dose was held yesterday because of low blood pressure. His blood pressure today is 119/70 with a heart rate in the 90s. Lungs decreased breath sounds in the right base. Heart regular rate and rhythm S1, S2. No S3. No rub appreciated. Abdomen soft, nontender. Positive bowel sounds. No megaly. Extremities no edema. LAB DATA: Lab data revealed BUN and creatinine 29 and 0.91, potassium 4.1, hemoglobin of 7.7, white blood cells 22.5. IMPRESSION: 1. Status post lobectomy. 2. Atrial fibrillation, remains in sinus mechanism. 3. History of pulmonary embolism. 4. Abdominal aortic aneurysm repair. 5. History of chronic obstructive lung disease. RECOMMENDATION: From the cardiac standpoint, I will continue present therapy once it is agreeable with the surgeon. They will initiate treatment with anticoagulation. Otherwise, continue the rest of medical regimen. MMODL / IJN: [id number] /
[2019-11-20 12:19] LABS: Glucose,Whole Blood 103 mg/dL (75-99)
[2019-11-20] MEDS: FERROUS SULFATE 325 MG TAB PO SCH (12:21)
[2019-11-20 12:23] LABS: Anisocytosis Slight; HCT 25.9 % (39.0-53.0); HGB 8.1 gm/dL (13.0-17.5); MCHC 31.5 g/dL (31.0-37.0); MCV 98.5 fL (80.0-100.0); Macrocytosis Slight; Mean Platelet Volume 7.6; Platelet Count 492 k/uL (150-450); RBC 2.63 m/uL (4.30-5.90); RDW 16.1 % (11.5-15.5); WBC 23.5 k/uL (3.8-10.6)
--- NOTE | 2019-11-20 13:06 | P.PN ---
Subjective Progress Note Date: 11/20/19 (delayed charting seen at 0845) Principal diagnosis: fevers Patient is a 64-year-old male patient of Dr. Hernandez with a recent diagnosis of right lower lobe pulmonary mass being followed by Dr. Middleton and Dr. Garcia for lobectomy, COPD, and prior history of cardiomegaly who presented to the emergency department at the direction of the echocardiogram front end technician secondary to elevated heart rate. Of note the patient has had approximately 6 months of symptoms. He has had multiple courses of antibiotics throughout this time period. He initially felt that this is sinusitis and then he saw Dr. Middleton and August and was noted to have an abnormality on chest x-ray. He received a course of Levaquin and then underwent a chest CT PET which showed a mass in his right lower lobe but no adenopathy. He underwent a bronchoscopy which showed obliteration of the bronchus intermedius with necrotic tissue on biopsy and spindle cells on the cytology. He met with Dr. Garcia it was felt that he likely had underlying tumor with necrosis and would require bilobectomy versus pneumonectomy. He has had 2 courses of Levaquin and over August and September as well as recurrent fevers up to 103 over the last several months. On arrival to the ER he had a fever of 102 and a pulse of 133. Laboratory analysis showed a white blood cell count 25.3, hemoglobin 10.6, platelets 469, INR 1.3, sodium 127, albumin 3, and 188 hyaline casts in his urine. Influenza was negative. Chest x-ray was completed which showed worsening of the abnormality in his right lower lobe. He was also found have an elevated lactic acid at 2.4. He was started on IV fluids, vancomycin, cefepime, and Levaquin. He was admitted for further monitoring. Dr. Garcia was consulted. He underwent a CT PE protocol which showed bilateral subsegmental pulmonary emboli as well as increase in size of his right lower lobe mass to 18 cm with some subcarinal and perihilar lymphadenopathy. He was started on a heparin drip. Oncology was consulted, who recommended a vascular evaluation for possible removable IVC filter. Patient was evaluated by cardiovascular surgery who recommended proceeding with surgery on 11/18/19. Cardiology was consulted, echocardiogram was ordered which showed a preserved ejection fraction of 60-65%, mild concentric LVH, and moderate pulmonary hypertension with RVSP 46.47. Lower extremity venous Dopplers were negative. He had a removable IVC filter placed on 11/18/19 and went into A fib with RVR in recovery. He was started on a cardizem gtt and transferred to the cardiac floor. He underwent Right middle and lower lobectomies with lymphnode sampling and cardioversion on 11/18/19. He tolerated the procedure well. Was on minial oxygen after the surgery which was able to be weaned off by 11/19/19. He had a fever of 101 the morning after surgery. He continued to progress well, but sodium levels falling. His HgB also fell. Patient seen and examined at bedside. Pain is better controlled, no shortness of breath, no nausea, no vomiting, no diarrhea, wants to get up and walk more. Objective - Vital Signs Vital signs: Vital Signs Temp 98.3 F 11/20/19 08:00 Pulse 96 11/20/19 11:45 Resp 19 11/20/19 08:00 BP 107/75 11/20/19 08:00 Pulse Ox 94 L 11/20/19 08:00 Intake & Output 11/19/19 11/20/19 11/20/19 18:59 06:59 18:59 Intake Total 860 480 Output Total 545 520 660 Balance 315 -40 -660 Weight 93.6 kg 103.4 kg Intake: IV 860 480 Albumin Human 5% 500 ml 500 In Empty Bag 1 bag @ 500 mls/hr IVPB ONCE ONE Rx#: [id number] Dextrose 5%-0.45% NaCl 1, 360 480 000 ml @ 40 mls/hr IV . Q24H [facility] Rx#:[id number] Output: Drainage 375 280 Right Chest 375 280 Urine 170 240 660 Other: Voiding Method Indwelling Catheter Urinal Urinal # Voids 3 ABP, PAP, CO, CI - Last Documented Arterial Blood Pressure 89/65 - Exam General: Ill-appearing, pale, no distress, appears at stated age Derm: warm, dry Head: atraumatic, normocephalic, symmetric Eyes: EOMI, no lid lag, anicteric sclera Mouth: no lip lesion, mucus membranes moist Cardiovascular: S1S2 reg, no murmur, positive posterior tibial pulse bilateral, Lungs: Decreased breath sounds right , + Rhonchi , no accessory muscle use, Chest tube in place with small air leak Abdominal: soft, nontender to palpation, no guarding, no appreciable organomegaly Ext: no gross muscle atrophy, 1+ edema, no contractures Neuro: CN II-XI grossly intact, no focal neuro deficits Psych: Alert, oriented, appropriate affect - Labs CBC & Chem 7: 11/20/19 12:00 11/20/19 04:10 Labs: Abnormal Lab Results - Last 24 Hours (Table) 11/19/19 11/19/19 11/20/19 Range/Units 16:53 20:20 04:10 WBC (3.8-10.6) k/uL RBC (4.30-5.90) m/uL Hgb (13.0-17.5) gm/dL Hct (39.0-53.0) % MCHC (31.0-37.0) g/dL RDW (11.5-15.5) % Plt Count (150-450) k/uL Neutrophils # (1.3-7.7) k/uL Sodium 127 L (137-145) mmol/L Chloride 95 L (98-107) mmol/L BUN 29 H (9-20) mg/dL POC Glucose (mg/dL) 170 H 203 H (75-99) mg/dL Osmolality (280-301) mosm/kg Calcium 7.5 L (8.4-10.2) mg/dL Total Bilirubin 0.1 L (0.2-1.3) mg/dL Total Protein 5.2 L (6.3-8.2) g/dL Albumin 2.4 L (3.5-5.0) g/dL 11/20/19 11/20/19 11/20/19 Range/Units 04:10 04:10 06:45 WBC 22.5 H (3.8-10.6) k/uL RBC 2.53 L (4.30-5.90) m/uL Hgb 7.7 L D (13.0-17.5) gm/dL Hct 25.0 L (39.0-53.0) % MCHC 30.9 L (31.0-37.0) g/dL RDW 15.9 H (11.5-15.5) % Plt Count 452 H (150-450) k/uL Neutrophils # 19.9 H (1.3-7.7) k/uL Sodium (137-145) mmol/L Chloride (98-107) mmol/L BUN (9-20) mg/dL POC Glucose (mg/dL) 218 H (75-99) mg/dL Osmolality 271 L (280-301) mosm/kg Calcium (8.4-10.2) mg/dL Total Bilirubin (0.2-1.3) mg/dL Total Protein (6.3-8.2) g/dL Albumin (3.5-5.0) g/dL 11/20/19 11/20/19 Range/Units 12:00 12:15 WBC 23.5 H (3.8-10.6) k/uL RBC 2.63 L (4.30-5.90) m/uL Hgb 8.1 L (13.0-17.5) gm/dL Hct 25.9 L (39.0-53.0) % MCHC (31.0-37.0) g/dL RDW 16.1 H (11.5-15.5) % Plt Count 492 H (150-450) k/uL Neutrophils # (1.3-7.7) k/uL Sodium (137-145) mmol/L Chloride (98-107) mmol/L BUN (9-20) mg/dL POC Glucose (mg/dL) 103 H (75-99) mg/dL Osmolality (280-301) mosm/kg Calcium (8.4-10.2) mg/dL Total Bilirubin (0.2-1.3) mg/dL Total Protein (6.3-8.2) g/dL Albumin (3.5-5.0) g/dL Microbiology - Last 24 Hours (Table) 11/18/19 12:09 Gram Stain - Preliminary Lung - Right Wound Culture - Preliminary Non Hemolytic Strep 11/15/19 12:30 Blood Culture - Preliminary Blood No Growth after 96 hours Assessment and Plan Assessment: Strep pneumonia with sepsis, -ABX have been cancelled by CT surgery, I will monitor for fevers and increasing white blood cell count closely. -pulmonary recommendations appreciated -Blood cultures negative to date - Continue with incentive spirometer. Right lower lobe mass with lymphadenopathy s/p bilobectomy with lymph node sampling - cytology with spindle cell CA, path with necrosis - new CT with some adenopathy that could be reactive - Oncology recs appreciated: Await pathology - pain control - pulm hygeine Paroxysmal A fib - anticoagulation when okay with surgery - tele - cardio recs appreciated - BB - s/p Dig load Bilateral sub segmental pulmonary embolism - s/p IVC filter - heparin gtt to be resumed when okay with surgery - probable NOAC on discharge - will need treatment until remission - Oncology recs appreciated Severe COPD, exacerbation resolved - duonebs - pulm hygeine - pulm recs Hyponatremia now with fluid overload. - received albumin on 11/19/19 - Lasix X 1 now - repeat BMP in AM Anemia, chronic - FE studies, B 12, and folic acid consistent with anemia of chronic disease Thrombocytosis - likely reactive - follow CBC Lactic acidosis, resolved Chronic HTN, not on medications cardiomyopathy, resolved AAA s/p stenting DVT prophylaxis: SCDs Discussed with: patient, nursing, David Alberts A total of 35 minutes was spent on the care of this complex patient more than 50% of the time was spent in counseling and care coordination.
--- NOTE | 2019-11-20 13:21 | P.PN ---
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 Pulmonary emboli subsegmental peripheral Severe COPD Sepsis Hypertension hypertensive cardiovascular disease 11/20/2019, patient seen eval examined during the rounds labs reviewed medications reviewed care plan discussed with the staff and patient at length, patient culture results are positive for GBS, has been on IV cefazolin, white cell count slightly up, hemodynamically patient remains stable, has been walking in the hallway, residual pneumothorax is almost resolved chest tube output has been declining 11/19/2019, patient seen eval examined during the rounds labs reviewed medications reviewed radiographic studies reviewed as well minimal chest tube leak is present Ammann mild chest pain is present, but it appears to be well controlled with narcotics and [employer], patient is postop day #14 A. fib along with obstructing tumor of the bronchus intermedius along with pneumonia and sepsis small pulmonary emboli, anticoagulation is on hold, 11/18/2019, patient seen and evaluated examined during the rounds care plan discussed with the staff as well as family member at length, critical care time spent about 35 minutes, patient is status post cardioversion for A. fib with RVR, obstructing tumor bronchus intermedius status post right thoracotomy with lysis of adhesions resection of right lower and right middle lobe lymph node dissection along with cryoablation of right intercostal nerve, estimated blood loss was 300 mL urine output was 800 IV fluid infused for 1.8 L, patient is sitting upright on supplemental oxygen, mild pain is there, hemodynamic status stable, no pressors, right-sided chest tube intermittent air leak is present draining blood-tinged pleural fluid, labs reviewed white cell count is 22,500, ABG is stable 7.3-43 and 221 and successfully extubated in recovery, afebrile, oxygen saturation is 96-98% on supplemental oxygen post procedure chest x-ray reviewed indicated above volume loss on the right side with stable chest tube on the right moderate pneumothorax of 25%, chest tube is 20% mid to waterseal figueroa ction 11/17/2019, patient seen eval examined during the rounds labs reviewed medications reviewed care plan discussed with the patient, care plan and discussed with oncology service, white cell count is trending down but is still having elevated, patient remains on IV heparin and broad-spectrum antibiotics for postobstructive pneumonia, patient is scheduled for right lower lobe dissection and lymph node dissection for November 17 This is a 64-year-old with history of COPD recently diagnosed lung cancer patient is scheduled to see Dr. Jose barajas stress test during the stress test patient was found to having worsening of shortness of breath and tachycardia sent into emergency department for further evaluation found to have postobstructive pneumonia patient is admitted into hospital for broad-spectrum antibiotic computed tomography scan of the chest showing postobstructive pneumonia patient is being followed by thoracic surgery is scheduled for right lower lobe resection chest x-ray revealed a right lower lobe infiltrate progressing from prior exam. Underlying neoplasm. CTA of the chest revealed bilateral nonobstructing small segmental and subsegmental pulmonary emboli with no evidence of right heart strain, overall mild clot burden, right lower lobe mass with endobronchial inv asion and surrounding consolidation markedly increased from a PET scan on October 16. Objective - Vital Signs Vital signs: Vital Signs Temp 98.3 F 11/20/19 08:00 Pulse 96 11/20/19 11:45 Resp 19 11/20/19 08:00 BP 107/75 11/20/19 08:00 Pulse Ox 94 L 11/20/19 08:00 Intake & Output 11/19/19 11/20/19 11/20/19 18:59 06:59 18:59 Intake Total 860 480 Output Total 545 520 660 Balance 315 -40 -660 Weight 93.6 kg 103.4 kg Intake: IV 860 480 Albumin Human 5% 500 ml 500 In Empty Bag 1 bag @ 500 mls/hr IVPB ONCE ONE Rx#: [id number] Dextrose 5%-0.45% NaCl 1, 360 480 000 ml @ 40 mls/hr IV . Q24H [facility] Rx#:[id number] Output: Drainage 375 280 Right Chest 375 280 Urine 170 240 660 Other: Voiding Method Indwelling Catheter Urinal Urinal # Voids 3 ABP, PAP, CO, CI - Last Documented Arterial Blood Pressure 89/65 - Exam - Constitutional General appearance: average body habitus, cooperative, disheveled, mild distress - EENT Eyes: anicteric sclerae, EOMI, PERRLA, poor dentition Ears: bilateral: normal - Neck Neck: normal ROM Carotids: bilateral: upstroke normal Thyroid: bilateral: normal size - Respiratory Respiratory: right: diminished, negative: dullness, rales, rhonchi, wheezing, prolonged expiration, chest tube to 20 cm water suction intermittent air leak is present - Cardiovascular Rhythm: regular Heart sounds: normal: S1, S2 - Gastrointestinal General gastrointestinal: normal bowel sounds - Neurologic Neurologic: CNII-XII intact Psychiatric: A&O x's 3, appropriate affect, intact judgment & insight - Labs CBC & Chem 7: 11/20/19 12:00 11/20/19 04:10 Labs: Abnormal Lab Results - Last 24 Hours (Table) 11/19/19 11/19/19 11/20/19 Range/Units 16:53 20:20 04:10 WBC (3.8-10.6) k/uL RBC (4.30-5.90) m/uL Hgb (13.0-17.5) gm/dL Hct (39.0-53.0) % MCHC (31.0-37.0) g/dL RDW (11.5-15.5) % Plt Count (150-450) k/uL Neutrophils # (1.3-7.7) k/uL Sodium 127 L (137-145) mmol/L Chloride 95 L (98-107) mmol/L BUN 29 H (9-20) mg/dL POC Glucose (mg/dL) 170 H 203 H (75-99) mg/dL Osmolality (280-301) mosm/kg Calcium 7.5 L (8.4-10.2) mg/dL Total Bilirubin 0.1 L (0.2-1.3) mg/dL Total Protein 5.2 L (6.3-8.2) g/dL Albumin 2.4 L (3.5-5.0) g/dL 11/20/19 11/20/19 11/20/19 Range/Units 04:10 04:10 06:45 WBC 22.5 H (3.8-10.6) k/uL RBC 2.53 L (4.30-5.90) m/uL Hgb 7.7 L D (13.0-17.5) gm/dL Hct 25.0 L (39.0-53.0) % MCHC 30.9 L (31.0-37.0) g/dL RDW 15.9 H (11.5-15.5) % Plt Count 452 H (150-450) k/uL Neutrophils # 19.9 H (1.3-7.7) k/uL Sodium (137-145) mmol/L Chloride (98-107) mmol/L BUN (9-20) mg/dL POC Glucose (mg/dL) 218 H (75-99) mg/dL Osmolality 271 L (280-301) mosm/kg Calcium (8.4-10.2) mg/dL Total Bilirubin (0.2-1.3) mg/dL Total Protein (6.3-8.2) g/dL Albumin (3.5-5.0) g/dL 11/20/19 11/20/19 Range/Units 12:00 12:15 WBC 23.5 H (3.8-10.6) k/uL RBC 2.63 L (4.30-5.90) m/uL Hgb 8.1 L (13.0-17.5) gm/dL Hct 25.9 L (39.0-53.0) % MCHC (31.0-37.0) g/dL RDW 16.1 H (11.5-15.5) % Plt Count 492 H (150-450) k/uL Neutrophils # (1.3-7.7) k/uL Sodium (137-145) mmol/L Chloride (98-107) mmol/L BUN (9-20) mg/dL POC Glucose (mg/dL) 103 H (75-99) mg/dL Osmolality (280-301) mosm/kg Calcium (8.4-10.2) mg/dL Total Bilirubin (0.2-1.3) mg/dL Total Protein (6.3-8.2) g/dL Albumin (3.5-5.0) g/dL Microbiology - Last 24 Hours (Table) 11/18/19 12:09 Gram Stain - Preliminary Lung - Right Wound Culture - Preliminary Non Hemolytic Strep 11/15/19 12:30 Blood Culture - Preliminary Blood No Growth after 96 hours Assessment and Plan Assessment: Right lower lobe postobstructive pneumonia 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 fib with RVR status post DC cardioversion Plan: Broad-spectrum antibiotics Bronchodilator Deep breathing exercise incentive spirometry Status post Right middle lobe and lower lobe resection and lymph node dissectio n, we'll follow up on pathology Deep breathing sense incentive spirometry Pain control, Increase activity as tolerated Gentle rehydration Time with Patient: Greater than 30
[2019-11-20 16:45] LABS: Glucose,Whole Blood 147 mg/dL (75-99)
[2019-11-20 20:41] LABS: Glucose,Whole Blood 154 mg/dL (75-99)
--- NOTE | 2019-11-21 00:23 | P.CONS ---
History of Present Illness - Reason for Consult Consult date: 11/20/19 sepsis and post obstructive pneumonia Requesting physician: Leonel Middleton - Chief Complaint fever and cough x days - History of Present Illness Patient is a 64-year-old male presenting to the ER at [facility] on 11/15/2019 with a chief complaints of fever and palpitation patient also complaining of increasing shortness of breath patient did have a cough that has been going on for almost 6 months has been mostly dry irritating cough moderate intensity and not bringing up any sputum patient denies any nausea no vomiting no shortness of wound abdominal pain and no diarrhea on arrival to the ER the patient did have a fever of 121-patient did have a tachycardia with heart rate 108 and on admission the patient did have white count of 25,000 influenza PCR was negative UA was negative patient did have a CT angiogram which shows bilateral nonobstructive small segmental pulmonary emboli right lower lobe mass with endobronchial invasion and surrounding consolidation patient has been evaluated by pulmonary and CT surgery and the patient was taken to the OR on 11/18/2019 in this patient who status post right thoracotomy exploration with lysis of addition right lower and middle lobe lobectomy mediastinal lymph node dissection patient did have right lung cultures obtained which are now showing nonhemolytic strep patient was started on cefazolin 2 g every 8 hour infectious disease consult for further recommendation about antibiotic therapy in view of persistent elevated white count though patient seemed to have shown some improvement clinically. Review of Systems Positive point has been mentioned in HPI rest of the systems are negative Past Medical History Past Medical History: Cancer, COPD, Pneumonia Additional Past Medical History / Comment(s): rt lower lobe lung cancer, cardiomegaly History of Any Multi-Drug Resistant Organisms: None Reported Past Surgical History: Tonsillectomy Additional Past Surgical History / Comment(s): aortic abd stent Past Anesthesia/Blood Transfusion Reactions: No Reported Reaction Past Psychological History: No Psychological Hx Reported Smoking Status: Former smoker Past Alcohol Use History: None Reported Past Drug Use History: None Reported - Past Family History Father Family Medical History: Myocardial Infarction ([place]) Additional Family Medical History / Comment(s): Father of a [place] at the age of 46yrs. Mother Family Medical History: Cancer Additional Family Medical History / Comment(s): Mother from breast cancer. Medications and Allergies Home Medications Medication Instructions Recorded Confirmed Type Acetaminophen Tab [Tylenol Tab] 1,000 mg PO Q6H PRN 11/10/19 11/15/19 History Enalapril [Vasotec] 20 mg PO DAILY@0700 11/10/19 11/15/19 History Metoprolol Tartrate [Lopressor] 50 mg PO DAILY@1600 11/10/19 11/15/19 History Spironolactone [Aldactone] 25 mg PO DAILY@0700 11/10/19 11/15/19 History Allergies Allergy/AdvReac Type Severity Reaction Status Date / Time bee venom protein (honey bee) Allergy Anaphylaxis Verified 11/18/19 06:46 insect venom Allergy Anaphylaxis Verified 11/18/19 06:46 Penicillins Allergy Unknown Verified 11/18/19 06:46 Childhood Physical Exam Vitals: Vital Signs Temp Pulse Resp BP Pulse Ox 11/20/19 13:00 106 H 27 H 105/69 11/20/19 12:00 98.6 F 99 25 H 105/69 96 11/20/19 11:45 96 11/20/19 11:32 98 11/20/19 08:17 97 11/20/19 08:04 94 11/20/19 08:00 98.3 F 97 19 107/75 94 L 11/20/19 04:00 98.3 F 94 25 H 119/72 95 11/20/19 03:00 84 19 100/69 97 11/20/19 02:00 88 24 90/63 98 11/20/19 01:00 84 20 98/56 97 11/20/19 00:12 90 21 98/56 97 11/20/19 00:00 98.6 F 89 17 99/66 95 11/19/19 23:00 93 32 H 99/65 98 11/19/19 22:00 96 23 99/62 95 11/19/19 21:00 92 22 89/65 94 L 11/19/19 20:11 99 11/19/19 20:00 98.0 F 91 18 89/65 98 11/19/19 19:43 89 11/19/19 19:00 86 21 88/62 94 L 11/19/19 18:00 99 14 87/56 94 L 11/19/19 17:00 97 16 85/58 92 L 11/19/19 16:14 98 11/19/19 16:00 98.9 F 98 20 76/58 95 11/19/19 15:59 96 11/19/19 15:00 100 22 92/71 95 Intake and Output 11/19/19 11/20/19 11/20/19 22:59 06:59 14:59 Intake Total 740 280 Output Total 175 345 660 Balance 309 -73 -296 Intake: IV 740 280 Albumin Human 5% 500 ml 500 In Empty Bag 1 bag @ 500 mls/hr IVPB ONCE ONE Rx#: [id number] Dextrose 5%-0.45% NaCl 1, 240 280 000 ml @ 40 mls/hr IV . Q24H [facility] Rx#:[id number] Output: Drainage 55 225 Right Chest 55 225 Urine 120 120 660 Other: Voiding Method Urinal Urinal Urinal # Voids 3 Weight 103.4 kg GENERAL DESCRIPTION: Elderly male lying in bed, no distress. No tachypnea or accessory muscle of respiration use. HEENT: Shows Pallor , no scleral icterus. Oral mucous membrane is dry. NECK: Trachea central, no thyromegaly. LUNGS: Unlabored breathing. Decreased breath sound at the base. No wheeze or crackle. HEART: S1, S2, regular rate and rhythm. ABDOMEN: Soft, no tenderness , guarding or rigidity EXTREMITIES: No edema of feet. SKIN: No rash, no masses palpable. NEUROLOGICAL: The patient is awake, alert, oriented x3, mood and affect normal. Results CBC & Chem 7: 11/20/19 12:00 11/20/19 04:10 Labs: Abnormal Lab Results - Last 24 Hours (Table) 11/19/19 11/19/19 11/20/19 Range/Units 16:53 20:20 04:10 WBC (3.8-10.6) k/uL RBC (4.30-5.90) m/uL Hgb (13.0-17.5) gm/dL Hct (39.0-53.0) % MCHC (31.0-37.0) g/dL RDW (11.5-15.5) % Plt Count (150-450) k/uL Neutrophils # (1.3-7.7) k/uL Sodium 127 L (137-145) mmol/L Chloride 95 L (98-107) mmol/L BUN 29 H (9-20) mg/dL POC Glucose (mg/dL) 170 H 203 H (75-99) mg/dL Osmolality (280-301) mosm/kg Calcium 7.5 L (8.4-10.2) mg/dL Total Bilirubin 0.1 L (0.2-1.3) mg/dL Total Protein 5.2 L (6.3-8.2) g/dL Albumin 2.4 L (3.5-5.0) g/dL 11/20/19 11/20/19 11/20/19 Range/Units 04:10 04:10 06:45 WBC 22.5 H (3.8-10.6) k/uL RBC 2.53 L (4.30-5.90) m/uL Hgb 7.7 L D (13.0-17.5) gm/dL Hct 25.0 L (39.0-53.0) % MCHC 30.9 L (31.0-37.0) g/dL RDW 15.9 H (11.5-15.5) % Plt Count 452 H (150-450) k/uL Neutrophils # 19.9 H (1.3-7.7) k/uL Sodium (137-145) mmol/L Chloride (98-107) mmol/L BUN (9-20) mg/dL POC Glucose (mg/dL) 218 H (75-99) mg/dL Osmolality 271 L (280-301) mosm/kg Calcium (8.4-10.2) mg/dL Total Bilirubin (0.2-1.3) mg/dL Total Protein (6.3-8.2) g/dL Albumin (3.5-5.0) g/dL 11/20/19 11/20/19 Range/Units 12:00 12:15 WBC 23.5 H (3.8-10.6) k/uL RBC 2.63 L (4.30-5.90) m/uL Hgb 8.1 L (13.0-17.5) gm/dL Hct 25.9 L (39.0-53.0) % MCHC (31.0-37.0) g/dL RDW 16.1 H (11.5-15.5) % Plt Count 492 H (150-450) k/uL Neutrophils # (1.3-7.7) k/uL Sodium (137-145) mmol/L Chloride (98-107) mmol/L BUN (9-20) mg/dL POC Glucose (mg/dL) 103 H (75-99) mg/dL Osmolality (280-301) mosm/kg Calcium (8.4-10.2) mg/dL Total Bilirubin (0.2-1.3) mg/dL Total Protein (6.3-8.2) g/dL Albumin (3.5-5.0) g/dL Microbiology - Last 24 Hours (Table) 11/18/19 12:09 Gram Stain - Preliminary Lung - Right Wound Culture - Preliminary Non Hemolytic Strep 11/15/19 12:30 Blood Culture - Preliminary Blood No Growth after 96 hours Assessment and Plan Assessment: 1-patient admitted to hospital with sepsis in this patient who did have fever tachycardia elevated white count source is right sided postobstructive pneumonia in this patient with recent diagnosis of spindle cell carcinoma status post thoracotomy with right middle and lower lobe resection in this patient initial diagnosis possible postoperative pneumonia with the lung culture positive for non hemolytic strep. 2-patient with penicillin allergy that would limit the number of antibiotics safe to use (1) Pneumonia Current Visit: Yes Status: Acute Code(s): J18.9 - PNEUMONIA, UNSPECIFIED ORGANISM SNOMED Code(s): 652849909 (2) Sepsis Current Visit: Yes Status: Acute Code(s): A41.9 - SEPSIS, UNSPECIFIED ORGANISM SNOMED Code(s): 49124658 Plan: 1-cefazolin 2 g every 8 hour and will add clindamycin 600 every 8 for possible anaerobic coverage associated with the postobstructive pneumonias 2-Gentle IV fluid We will follow on clinical condition and cultures to further adjust medication if needed Thank you for this consultation we will follow the patient along with you Time with Patient: Greater than 30
[2019-11-21] MEDS: CLINDAMYCIN 600 MG in DEXTROSE 5% IN WATER 50 ML IVPB SCH ×6 (01:50→17:19)
[2019-11-21] MEDS: KETOROLAC 30 MG/ML 1 ML VIAL IVP SCH ×4 (05:52→23:13)
[2019-11-21 05:55] LABS: Anisocytosis Slight; Basophils % (A) 0 %; Eosinophils # (A) 0.3 k/uL (0-0.7); Eosinophils % (A) 1 %; HCT 24.4 % (39.0-53.0); HGB 7.8 gm/dL (13.0-17.5); Lymphocytes # (A) 1.7 k/uL (1.0-4.8); Lymphocytes % (A) 8 %; MCH 31.4 pg (25.0-35.0); MCHC 32.1 g/dL (31.0-37.0); Macrocytosis Slight; Mean Platelet Volume 8.1; Monocytes # (A) 1.1 k/uL (0-1.0); Monocytes % (A) 5 %; Neutrophils # (A) 19.5 k/uL (1.3-7.7); Neutrophils % (A) 85 %; Platelet Count 546 k/uL (150-450); RBC 2.49 m/uL (4.30-5.90); RDW 16.3 % (11.5-15.5); WBC 22.8 k/uL (3.8-10.6)
[2019-11-21 06:07] LABS: African American GFR (CKD) >90 (>60 ml/min/1.73 sqM); Anion Gap 8 mmol/L; Blood Urea Nitrogen 23 mg/dL (9-20); Calcium 7.5 mg/dL (8.4-10.2); Carbon Dioxide 23 mmol/L (22-30); Chloride 96 mmol/L (98-107); Glucose 94 mg/dL (74-99); Magnesium 1.9 mg/dL (1.6-2.3); Non-African American GFR(CKD) >90 (>60 ml/min/1.73 sqM); Sodium 127 mmol/L (137-145)
[2019-11-21 06:20] LABS: Potassium 5.4 mmol/L (3.5-5.1)
[2019-11-21 06:45] LABS: Glucose,Whole Blood 131 mg/dL (75-99)
[2019-11-21] MEDS: INSULIN ASPART (NovoLOG) 100 UNIT/ML VIAL SQ SCH ×4 (06:46→21:06)
--- NOTE | 2019-11-21 07:29 | XR ---
EXAMINATION TYPE: XR chest 1V portable DATE OF EXAM: 11/21/2019 Comparison: 11/20/2019 Clinical History: 64-year-old male post op right thoracotomy Findings: Redemonstrated volume loss in the right hemithorax with confluent upper and lower lung opacities. Rig ht sided chest tubes are present. No appreciable pneumothorax. Subcutaneous emphysema along the right thoracic wall. Right heart margin remains obscured by adjacent pleural parenchymal opacity. Impression: Stable right upper and lower lung opacities with [address] and subcutaneous emphysema. S imilar volume loss right hemithorax. No appreciable pneumothorax.
[2019-11-21] MEDS: ACETYLCYSTEINE 800 MG/4 ML VIAL INHALATION SCH ×4 (08:38→21:34)
[2019-11-21] MEDS: IPRATROPIUM-ALBUTEROL 3 ML NEB INHALATION SCH ×4 (08:38→21:34)
[2019-11-21] MEDS: MAGNESIUM SULFATE-D5W PMX 1 GM in DEXTROSE/WATER 1 100ML.BAG IVPB SCH ×2 (08:51→10:01)
[2019-11-21] MEDS: ASCORBIC ACID 500 MG TAB PO SCH (08:52)
[2019-11-21] MEDS: METOPROLOL TARTRATE 25 MG TAB PO SCH ×3 (08:55→21:06)
[2019-11-21] MEDS ORDERED: FUROSEMIDE 10 MG/ML 2 ML VIAL IV ONE (09:58)
--- NOTE | 2019-11-21 10:00 | PN ---
PROGRESS NOTE Mr. Patel is a 64-year-old male who presented lobectomy on the right side because of a mass. He had an episode of atrial fibrillation prior to that. He continues to be in sinus mechanism. He is feeling better overall. He has been more active physically. He denies any dizziness. No palpitations. He denies any nausea. He continues to be at this time on metoprolol tartrate 25 mg 3 times a day. PHYSICAL EXAMINATION: Blood pressure running in the 90s. Heart rate in the 80s. Lungs with pleuritic rub on the right side. HEART: Regular rate and rhythm, S1, S2. No S3. No rub appreciated. ABDOMEN: Soft, nontender. EXTREMITIES: No edema. LAB DATA: BUN and creatinine 23 and 0.7, hemoglobin 7.8, white blood cell of 22.8. IMPRESSION: 1. Status post lobectomy. 2. Atrial fibrillation, remains in sinus mechanism. 3. History of abdominal aortic aneurysm repair. 4. History of pulmonary embolism. 5. History of chronic obstructive lung disease. RECOMMENDATIONS: From the cardiac standpoint, stable, we will continue present therapy. There is no evidence of recurrent atrial fibrillation. We will continue to increase his level of activity. The patient will need to be anticoagulated once agreeable by the surgical service. MMODL / IJN: [id number] /
--- NOTE | 2019-11-21 10:45 | P.PN ---
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 Pulmonary emboli subsegmental peripheral Severe COPD Sepsis Hypertension hypertensive cardiovascular disease 11/21/2019, patient seen eval examined during the rounds labs reviewed medications reviewed care plan discussed with the patient sitting upright on the chair still have intermittent air leak on coughing and output is present, patient has been ambulating in the room, plan is to walk him in the hallway, lower extremity edema is present, labs reviewed white cell count remains elevated but slightly stable and showing downward trend hemoglobin have been stable also showing downward trend, sodium is down to 127 potassium is 5.4 noted that sample is hemolyzed renal functions are stable, patient has been placed on Clinda with cefazolin sodium, ID service has been following now, chest x-ray from today reviewed overall stable with 2 chest tube and right-sided volume loss due to resection of right lower lobe and right middle lobe 11/20/2019, patient seen eval examined during the rounds labs reviewed medications reviewed care plan discussed with the staff and patient at length, patient culture results are positive for GBS, has been on IV cefazolin, white cell count slightly up, hemodynamically patient remains stable, has been walking in the hallway, residual pneumothorax is almost resolved chest tube output has been declining 11/19/2019, patient seen eval examined during the rounds labs reviewed medications reviewed radiographic studies reviewed as well minimal chest tube leak is present Ammann mild chest pain is present, but it appears to be well controlled with narcotics and [employer], patient is postop day #14 A. fib along with obstructing tumor of the bronchus intermedius along with pneumonia and sepsis small pulmonary emboli, anticoagulation is on hold, 11/18/2019, patient seen and evaluated examined during the rounds care plan discussed with the staff as well as family member at length, critical care time spent about 35 minutes, patient is status post cardioversion for A. fib with RVR, obstructing tumor bronchus intermedius status post right thoracotomy with lysis of adhesions resection of right lower and right middle lobe lymph node dissection along with cryoablation of right intercostal nerve, estimated blood loss was 300 mL urine output was 800 IV fluid infused for 1.8 L, patient is sitting upright on supplemental oxygen, mild pain is there, hemodynamic status stable, no pressors, right-sided chest tube intermittent air leak is present draining blood-tinged pleural fluid, labs reviewed white cell count is 22,500, ABG is stable 7.3-43 and 221 and successfully extubated in recovery, afebrile, oxygen saturation is 96-98% on supplemental oxygen post procedure chest x-ray reviewed indicated above volume loss on the right side with stable chest tube on the right moderate pneumothorax of 25%, chest tube is 20% mid to waterseal suction 11/17/2019, patient seen eval examined during the rounds labs reviewed medications reviewed care plan discussed with the patient, care plan and discussed with oncology service, white cell count is trending down but is still having elevated, patient remains on IV heparin and broad-spectrum antibiotics for postobstructive pneumonia, patient is scheduled for right lower lobe dissection and lymph node dissection for November 17 This is a 64-year-old with history of COPD recently diagnosed lung cancer patient is scheduled to see Dr. Jose barajas stress test during the stress test patient was found to having worsening of shortness of breath and tachycardia sen t into emergency department for further evaluation found to have postobstructive pneumonia patient is admitted into hospital for broad-spectrum antibiotic computed tomography scan of the chest showing postobstructive pneumonia patient is being followed by thoracic surgery is scheduled for right lower lobe resection chest x-ray revealed a right lower lobe infiltrate progressing from prior exam. Underlying neoplasm. CTA of the chest revealed bilateral nonobstructing small segmental and subsegmental pulmonary emboli with no evidence of right heart strain, overall mild clot burden, right lower lobe mass with endobronchial invasion and surrounding consolidation markedly increased from a PET scan on October 16. Objective - Vital Signs Vital signs: Vital Signs Temp 98.5 F 11/21/19 08:00 Pulse 89 11/21/19 09:00 Resp 16 11/21/19 09:00 BP 94/59 11/21/19 09:00 Pulse Ox 96 11/21/19 09:00 Intake & Output 11/20/19 11/21/19 11/21/19 17:59 06:59 18:59 Intake Total 160 Output Total 200 Balance -40 Weight Intake: IV 160 Magnesium Sulfate-D5w Pmx 100 1 gm In Dextrose/Water 1 100ml.bag @ 100 mls/hr IVPB Q1H [facility] Rx#: [id number] Sodium Chloride 0.9% 1, 10 000 ml @ 10 mls/hr IV . Q24H [facility] Rx#:[id number] ceFAZolin 2 gm In Sodium 50 Chloride 0.9% 50 ml @ 100 mls/hr IVPB Q8HR [facility] Rx# :[id number] Intake, IV Titration Amount Clindamycin 600 mg In Dextrose 5% in Water 50 ml @ 50 mls/hr IVPB Q8H [facility] Rx#:[id number] Sodium Chloride 0.9% 1, 000 ml @ 10 mls/hr IV . Q24H [facility] Rx#:[id number] Output: Drainage 50 Right Chest 50 Urine 150 Other: Voiding Method Urinal # Voids 1 ABP, PAP, CO, CI - Last Documented Arterial Blood Pressure 89/65 - Exam - Constitutional General appearance: average body habitus, cooperative, disheveled, mild distress - EENT Eyes: anicteric sclerae, EOMI, PERRLA, poor dentition Ears: bilateral: normal - Neck Neck: normal ROM Carotids: bilateral: upstroke normal Thyroid: bilateral: normal size - Respiratory Respiratory: right: diminished, negative: dullness, rales, rhonchi, wheezing, prolonged expiration, chest tube to 20 cm water suction intermittent air leak is present on coughing - Cardiovascular Rhythm: regular Heart sounds: normal: S1, S2 - Gastrointestinal General gastrointestinal: normal bowel sounds - Neurologic Neurologic: CNII-XII intact Psychiatric: A&O x's 3, appropriate affect, intact judgment & insight - Labs CBC & Chem 7: 11/21/19 05:15 11/21/19 05:15 Labs: Abnormal Lab Results - Last 24 Hours (Table) 11/20/19 11/20/19 11/20/19 Range/Units 04:10 12:00 12:15 WBC 23.5 H (3.8-10.6) k/uL RBC 2.63 L (4.30-5.90) m/uL Hgb 8.1 L (13.0-17.5) gm/dL Hct 25.9 L (39.0-53.0) % RDW 16.1 H (11.5-15.5) % Plt Count 492 H (150-450) k/uL Neutrophils # (1.3-7.7) k/uL Monocytes # (0-1.0) k/uL Sodium (137-145) mmol/L Potassium (3.5-5.1) mmol/L Chloride (98-107) mmol/L BUN (9-20) mg/dL POC Glucose (mg/dL) 103 H (75-99) mg/dL Osmolality 271 L (280-301) mosm/kg Calcium (8.4-10.2) mg/dL 11/20/19 11/20/19 11/21/19 Range/Units 16:43 20:39 05:15 WBC (3.8-10.6) k/uL RBC (4.30-5.90) m/uL Hgb (13.0-17.5) gm/dL Hct (39.0-53.0) % RDW (11.5-15.5) % Plt Count (150-450) k/uL Neutrophils # (1.3-7.7) k/uL Monocytes # (0-1.0) k/uL Sodium 127 L (137-145) mmol/L Potassium 5.4 H (3.5-5.1) mmol/L Chloride 96 L (98-107) mmol/L BUN 23 H (9-20) mg/dL POC Glucose (mg/dL) 147 H 154 H (75-99) mg/dL Osmolality (280-301) mosm/kg Calcium 7.5 L (8.4-10.2) mg/dL 11/21/19 11/21/19 Range/Units 05:15 06:43 WBC 22.8 H (3.8-10.6) k/uL RBC 2.49 L (4.30-5.90) m/uL Hgb 7.8 L (13.0-17.5) gm/dL Hct 24.4 L (39.0-53.0) % RDW 16.3 H (11.5-15.5) % Plt Count 546 H (150-450) k/uL Neutrophils # 19.5 H (1.3-7.7) k/uL Monocytes # 1.1 H (0-1.0) k/uL Sodium (137-145) mmol/L Potassium (3.5-5.1) mmol/L Chloride (98-107) mmol/L BUN (9-20) mg/dL POC Glucose (mg/dL) 131 H (75-99) mg/dL Osmolality (280-301) mosm/kg Calcium (8.4-10.2) mg/dL Microbiology - Last 24 Hours (Table) 11/18/19 12:09 Anaerobic Culture - Preliminary Lung - Right 11/15/19 12:30 Blood Culture - Preliminary Blood No Growth after 120 hours 11/18/19 12:09 Gram Stain - Preliminary Lung - Right Wound Culture - Preliminary Non Hemolytic Strep Assessment and Plan Assessment: Hyponatremia Right lower lobe postobstructive pneumonia 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 fib with RVR status post DC cardioversion Intermittent air leak on coughing Plan: Recommend to leave the chest tubes in for now Broad-spectrum antibiotics Bronchodilator Deep breathing exercise incentive spirometry Status post Right middle lobe and lower lobe resection and lymph node dissection, we'll follow up on pathology Deep breathing sense incentive spirometry Pain control, Increase activity as tolerated Gentle rehydration with normal saline if sodium level remains low Time with Patient: Greater than 30
--- NOTE | 2019-11-21 11:25 | P.PN ---
Subjective Progress Note Date: 11/21/19 Principal diagnosis: New-onset atrial fibrillation, obstructing tumor bronchus intermedius, pneumonia with sepsis on admission, bilateral nonobstructing small segmental, subsegmental pulmonary emboli and right lung Gram stain result showing non-hemolytic strep. Past medical history significant for severe COPD with previous tobacco dependence, hypertension, cardiomyopathy in 2008 which has resolved, arthritis, and abdominal aortic aneurysm status post stent grafting in 2012. POD #3 cardioversion. Right thoracotomy, exploratory with lysis of adhesions, right lower and middle bilobectomy, mediastinal lymph node dissection, cryoablation of right intercostal nerves. Postoperative acute blood loss anemia, an expected outcome. The patient is sitting up to the bedside chair in the intensive care unit. He is in no acute distress. He currently denies any complaints of pain or shortness of breath. Reports he feels better on a daily basis. Room air oxygen saturation is 95% and he is achieving 1500 mL on his incentive spirometry. Right pleural chest tube remains in place to water seal. No air leak is present. 125 mL of thin serosanguineous drainage output the last 8 hours and 500 mL output in the last 24 hours. A chest x-ray was completed this morning which shows a stable right upper and lower lung bases with some subcu emphysema present and continued volume loss to his right hemithorax. He remains afebrile the last 24 hours. Preliminary Gram stain of his right lung shows nonhemolytic strep and was started on Ancef yesterday. Infectious disease is following and also added clindamycin. He reports that he has ambulated in the intensive care unit hallway 1 this morning with assistance from physical therapy and nursing staff. Objective - Vital Signs Vital signs: Vital Signs Temp 98.5 F 11/21/19 08:00 Pulse 89 11/21/19 09:00 Resp 16 11/21/19 09:00 BP 94/59 11/21/19 09:00 Pulse Ox 96 11/21/19 09:00 Intake & Output 11/20/19 11/21/19 11/21/19 17:59 06:59 18:59 Intake Total 160 Output Total 200 Balance -40 Weight Intake: IV 160 Magnesium Sulfate-D5w Pmx 100 1 gm In Dextrose/Water 1 100ml.bag @ 100 mls/hr IVPB Q1H [facility] Rx#: [id number] Sodium Chloride 0.9% 1, 10 000 ml @ 10 mls/hr IV . Q24H [facility] Rx#:[id number] ceFAZolin 2 gm In Sodium 50 Chloride 0.9% 50 ml @ 100 mls/hr IVPB Q8HR [facility] Rx# :[id number] Intake, IV Titration Amount Clindamycin 600 mg In Dextrose 5% in Water 50 ml @ 50 mls/hr IVPB Q8H [facility] Rx#:[id number] Sodium Chloride 0.9% 1, 000 ml @ 10 mls/hr IV . Q24H [facility] Rx#:[id number] Output: Drainage 50 Right Chest 50 Urine 150 Other: Voiding Method Urinal # Voids 1 ABP, PAP, CO, CI - Last Documented Arterial Blood Pressure 89/65 - Constitutional General appearance: Present: cooperative, no acute distress, obese - Respiratory Details: Lung sounds essentially clear to his left lobes, diminished to his right lower lobe. Respirations are symmetrical and nonlabored. Productive loose cough with clear sputum. Right pleural chest tubes remains in place to water seal. No air leak is present. Draining thin serosanguineous drainage with 125 mL output in the last 8 hours, 500 mL output in the last 24 hours. Room air oxygen saturatio n 95% in achieving 1500 mL on his incentive spirometry. - Cardiovascular Details: regular rhythm and rate. S1 and S2 present, negative for S3, gallop or murmur. Generalized +1 edema. Bedside telemetry showing normal sinus rhythm heart rate 92. - Gastrointestinal Gastrointestinal Comment(s): Abdomen is soft, nontender and nondistended. Active bowel sounds present in all 4 abdominal quadrants. No guarding or rigidity. Passing flatus. Tolerating oral intake. - Genitourinary Genitourinary Comment(s): Voiding clear vero urine. - Integumentary Integumentary Comment(s): Skin is warm and dry. No clubbing or cyanosis is present. Right thoracotomy incision is clean and dry with silver impregnated dressing clean and intact. - Neurologic Neurologic: Present: CNII-XII intact - Musculoskeletal Musculoskeletal: Present: gait normal, generalized weakness, strength equal bilaterally - Psychiatric Psychiatric: Present: A&O x's 3 - Allied health notes Allied health notes reviewed: nursing - Labs CBC & Chem 7: 11/21/19 05:15 11/21/19 05:15 Labs: Abnormal Lab Results - Last 24 Hours (Table) 03/07/20 03/07/20 03/07/20 Range/Units 04:10 12:00 12:15 WBC 23.5 H (3.8-10.6) k/uL RBC 2.63 L (4.30-5.90) m/uL Hgb 8.1 L (13.0-17.5) gm/dL Hct 25.9 L (39.0-53.0) % RDW 16.1 H (11.5-15.5) % Plt Count 492 H (150-450) k/uL Neutrophils # (1.3-7.7) k/uL Monocytes # (0-1.0) k/uL Sodium (137-145) mmol/L Potassium (3.5-5.1) mmol/L Chloride (98-107) mmol/L BUN (9-20) mg/dL POC Glucose (mg/dL) 103 H (75-99) mg/dL Osmolality 271 L (280-301) mosm/kg Calcium (8.4-10.2) mg/dL 11/20/19 11/20/19 11/21/19 Range/Units 16:43 20:39 05:15 WBC (3.8-10.6) k/uL RBC (4.30-5.90) m/uL Hgb (13.0-17.5) gm/dL Hct (39.0-53.0) % RDW (11.5-15.5) % Plt Count (150-450) k/uL Neutrophils # (1.3-7.7) k/uL Monocytes # (0-1.0) k/uL Sodium 127 L (137-145) mmol/L Potassium 5.4 H (3.5-5.1) mmol/L Chloride 96 L (98-107) mmol/L BUN 23 H (9-20) mg/dL POC Glucose (mg/dL) 147 H 154 H (75-99) mg/dL Osmolality (280-301) mosm/kg Calcium 7.5 L (8.4-10.2) mg/dL 11/21/19 11/21/19 Range/Units 05:15 06:43 WBC 22.8 H (3.8-10.6) k/uL RBC 2.49 L (4.30-5.90) m/uL Hgb 7.8 L (13.0-17.5) gm/dL Hct 24.4 L (39.0-53.0) % RDW 16.3 H (11.5-15.5) % Plt Count 546 H (150-450) k/uL Neutrophils # 19.5 H (1.3-7.7) k/uL Monocytes # 1.1 H (0-1.0) k/uL Sodium (137-145) mmol/L Potassium (3.5-5.1) mmol/L Chloride (98-107) mmol/L BUN (9-20) mg/dL POC Glucose (mg/dL) 131 H (75-99) mg/dL Osmolality (280-301) mosm/kg Calcium (8.4-10.2) mg/dL Microbiology - Last 24 Hours (Table) 11/18/19 12:09 Anaerobic Culture - Preliminary Lung - Right 11/15/19 12:30 Blood Culture - Preliminary Blood No Growth after 120 hours 11/18/19 12:09 Gram Stain - Preliminary Lung - Right Wound Culture - Preliminary Non Hemolytic Strep - Imaging and Cardiology Chest x-ray: report reviewed, image reviewed Assessment and Plan Assessment: 1. 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 New-onset atrial fibrillation, status post cardioversion 3. Pneumonia, sepsis on admission 4. Bilateral nonobstructing small segmental and subsegmental pulmonary emboli 5. Severe COPD, previous tobacco dependance 6. History of hypertension 7. History of cardiomyopathy in 2008 which resolved 8. Arthritis 9. History of abdominal aortic aneurysm status post stent grafting in 2011 10. Postoperative acute blood loss anemia Plan: 1. Keep right pleural chest tubes in place to water seal, continue with accurate I's and O's. Likely will discontinue his right pleural chest tubes tomorrow. 2. Lasix 20 mg IV 1 now. 3. Continue Ancef 2 g IVPB every 8 hours, as gram stain from right lung is showing many gram-positive cocci in chains, nonhemolytic strep. Continue clindamycin antibiotic management per infectious disease. 4. Encourage incentive spirometry use 10 times every hour while awake. 5. Increase activity, ambulate as tolerated, out of bed for all meals. Physical/occupational therapy following. 6. Surgical pathology results remain pending. 7. Pain management per current when necessary orders. 8. Continue metoprolol to 25 mg by mouth 3 times a day. 9. We will continue to follow his daily labs and chest x-rays. 10. Bronchodilator and pulmonary management recommendations per Dr. Middleton. 11. Medical management and other comorbidities per Dr. Cristina. 12. May transfer to the cardiac stepdown unit when bed available per the cardiothoracic surgery standpoint. 13. More recommendations to follow based on patient's clinical course. Time with Patient: Greater than 30
[2019-11-21 11:50] LABS: Glucose,Whole Blood 131 mg/dL (75-99)
--- NOTE | 2019-11-21 12:03 | P.PN ---
Subjective Progress Note Date: 11/21/19 The patient is status post bilobectomy on 11/19/19. He is currently undergoing postop care in the ICU. Chest tubes are still in situ, with some decreasing drainage noted today. He denied any fevers/chills/nausea/vomiting. His complaining of some constipation. Appetite is fair. Objective - Vital Signs Vital signs: Vital Signs Temp 98.5 F 11/21/19 08:00 Pulse 89 11/21/19 09:00 Resp 16 11/21/19 09:00 BP 94/59 11/21/19 09:00 Pulse Ox 96 11/21/19 09:00 Intake & Output 11/20/19 11/21/19 11/21/19 17:59 06:59 18:59 Intake Total 160 Output Total 200 Balance -40 Weight Intake: IV 160 Magnesium Sulfate-D5w Pmx 100 1 gm In Dextrose/Water 1 100ml.bag @ 100 mls/hr IVPB Q1H [facility] Rx#: [id number] Sodium Chloride 0.9% 1, 10 000 ml @ 10 mls/hr IV . Q24H [facility] Rx#:[id number] ceFAZolin 2 gm In Sodium 50 Chloride 0.9% 50 ml @ 100 mls/hr IVPB Q8HR [facility] Rx# :[id number] Intake, IV Titration Amount Clindamycin 600 mg In Dextrose 5% in Water 50 ml @ 50 mls/hr IVPB Q8H [facility] Rx#:[id number] Sodium Chloride 0.9% 1, 000 ml @ 10 mls/hr IV . Q24H [facility] Rx#:[id number] Output: Drainage 50 Right Chest 50 Urine 150 Other: Voiding Method Urinal # Voids 1 ABP, PAP, CO, CI - Last Documented Arterial Blood Pressure 89/65 - Constitutional General appearance: Present: no acute distress - EENT Eyes: Present: EOMI ENT: Present: hearing grossly normal, normal oropharynx - Respiratory Respiratory: right: diminished - Cardiovascular Rhythm: regular Heart sounds: normal: S1, S2 - Gastrointestinal General gastrointestinal: Present: normal bowel sounds, soft - Integumentary Integumentary: Present: normal - Neurologic Neurologic: Present: CNII-XII intact - Musculoskeletal Musculoskeletal Comment(s): Bilateral lower extremity edema Musculoskeletal: Present: generalized weakness, strength equal bilaterally - Psychiatric Psychiatric: Present: A&O x's 3, appropriate affect - Labs CBC & Chem 7: 11/21/19 05:15 11/21/19 05:15 Labs: Abnormal Lab Results - Last 24 Hours (Table) 11/20/19 11/20/19 11/20/19 Range/Units 04:10 12:00 12:15 WBC 23.5 H (3.8-10.6) k/uL RBC 2.63 L (4.30-5.90) m/uL Hgb 8.1 L (13.0-17.5) gm/dL Hct 25.9 L (39.0-53.0) % RDW 16.1 H (11.5-15.5) % Plt Count 492 H (150-450) k/uL Neutrophils # (1.3-7.7) k/uL Monocytes # (0-1.0) k/uL Sodium (137-145) mmol/L Potassium (3.5-5.1) mmol/L Chloride (98-107) mmol/L BUN (9-20) mg/dL POC Glucose (mg/dL) 103 H (75-99) mg/dL Osmolality 271 L (280-301) mosm/kg Calcium (8.4-10.2) mg/dL 11/20/19 11/20/19 11/21/19 Range/Units 16:43 20:39 05:15 WBC (3.8-10.6) k/uL RBC (4.30-5.90) m/uL Hgb (13.0-17.5) gm/dL Hct (39.0-53.0) % RDW (11.5-15.5) % Plt Count (150-450) k/uL Neutrophils # (1.3-7.7) k/uL Monocytes # (0-1.0) k/uL Sodium 127 L (137-145) mmol/L Potassium 5.4 H (3.5-5.1) mmol/L Chloride 96 L (98-107) mmol/L BUN 23 H (9-20) mg/dL POC Glucose (mg/dL) 147 H 154 H (75-99) mg/dL Osmolality (280-301) mosm/kg Calcium 7.5 L (8.4-10.2) mg/dL 11/21/19 11/21/1920 Range/Units 05:15 06:43 11:35 WBC 22.8 H (3.8-10.6) k/uL RBC 2.49 L (4.30-5.90) m/uL Hgb 7.8 L (13.0-17.5) gm/dL Hct 24.4 L (39.0-53.0) % RDW 16.3 H (11.5-15.5) % Plt Count 546 H (150-450) k/uL Neutrophils # 19.5 H (1.3-7.7) k/uL Monocytes # 1.1 H (0-1.0) k/uL Sodium (137-145) mmol/L Potassium (3.5-5.1) mmol/L Chloride (98-107) mmol/L BUN (9-20) mg/dL POC Glucose (mg/dL) 131 H 131 H (75-99) mg/dL Osmolality (280-301) mosm/kg Calcium (8.4-10.2) mg/dL Microbiology - Last 24 Hours (Table) 11/18/19 12:09 Anaerobic Culture - Preliminary Lung - Right 11/15/19 12:30 Blood Culture - Preliminary Blood No Growth after 120 hours 11/18/19 12:09 Gram Stain - Preliminary Lung - Right Wound Culture - Preliminary Non Hemolytic Strep Assessment and Plan (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 Therefore at this time the exact pathology is not known. In any case the patient appeared to have resectable disease and is status post bilobectomy, and lymph node sampling. Await final pathology for additional recommendations. It was discussed with the patient that the need for any adjuvant systemic therapy will depend on the final pathology and pathologic stage. Current Visit: Yes Status: Acute Priority: High Code(s): C34.90 - MALIGNANT NEOPLASM OF UNSP PART OF UNSP BRONCHUS OR LUNG SNOMED Code(s): 046255135 (2) Pulmonary embolism Narrative/Plan: The patient underwent IVC filter placement prior to surgery. Anticoagulation was discontinued for surgery. He has been off anticoagulation since because of increased output from the chest tubes which is starting to decrease. - The case was discussed in detail with the thoracic surgery service. Final pathology report is not available but apparently pulmonary embolus was not found on pathology. However this does NOT rule out PE, as small emboli can resolve within 24-48 hours with anticoagulation. I would therefore recommend that the patient be started on anticoagulation as soon as okay with thoracic surgery and continue treatment for 6 months assuming that there are no tolerance issues. - Case was also discussed with vascular surgery. Assuming that the patient is able to resume anticoagulation and tolerated that well, we will attempt to plan for removal of the filter within the next 3-4 weeks. Current Visit: Yes Status: Acute Priority: High Code(s): I26.99 - OTHER PU LMONARY EMBOLISM WITHOUT ACUTE COR PULMONALE SNOMED Code(s): 38522012 Plan: Defer to the admitting service and other consultants for management of his other medical problems
[2019-11-21] MEDS ORDERED: POLYETHYLENE GLYCOL 3350 17 GM POWD.PACK PO PRN (12:19)
[2019-11-21] MEDS: FERROUS SULFATE 325 MG TAB PO SCH (13:06)
--- NOTE | 2019-11-21 15:39 | P.PN ---
Subjective Progress Note Date: 11/21/19 (delayed charting seen at 1145) Principal diagnosis: fevers Patient is a 64-year-old male patient of Dr. Hernadnez with a recent diagnosis of right lower lobe pulmonary mass being followed by Dr. Middleton and Dr. Garcia for lobectomy, COPD, and prior history of cardiomegaly who presented to the emergency department at the direction of the echocardiogram staging technician secondary to elevated heart rate. Of note the patient has had approximately 6 months of symptoms. He has had multiple courses of antibiotics throughout this time period. He initially felt that this is sinusitis and then he saw Dr. Middleton and August and was noted to have an abnormality on chest x-ray. He received a course of Levaquin and then underwent a chest CT PET which showed a mass in his right lower lobe but no adenopathy. He underwent a bronchoscopy which showed obliteration of the bronchus intermedius with necrotic tissue on biopsy and some spindle cells on washings per verbal report. He met with Dr. Garcia it was felt that he likely had underlying tumor with necrosis and would require bilobectomy versus pneumonectomy. He has had 2 courses of Levaquin and over August and September as well as recurrent fevers up to 103 over the last several months. On arrival to the ER he had a fever of 102 and a pulse of 133. Laboratory analysis showed a white blood cell count 25.3, hemoglobin 10.6, platelets 469, INR 1.3, sodium 127, albumin 3, and 188 hyaline casts in his urine. Influenza was negative. Chest x-ray was completed which showed worsening of the abnormality in his right lower lobe. He was also found have an elevated lactic acid at 2.4. He was started on IV fluids, vancomycin, cefepime, and Levaquin. He was admitted for further monitoring. Dr. Garcia was consulted. He underwent a CT PE protocol which showed bilateral subsegmental pulmonary emboli as well as increase in size of his right lower lobe mass to 18 cm with some subcarinal and perihilar lymphadenopathy. He was started on a heparin drip. Oncology was consulted, who recommended a vascular evaluation for possible removable IVC filter. Patient was evaluated by cardiovascular surgery who recommended proc eeding with surgery on 11/18/19. Cardiology was consulted, echocardiogram was ordered which showed a preserved ejection fraction of 60-65%, mild concentric LVH, and moderate pulmonary hypertension with RVSP 46.47. Lower extremity venous Dopplers were negative. He had a removable IVC filter placed on 11/18/19 and went into A fib with RVR in recovery. He was started on a cardizem gtt and transferred to the cardiac floor. He underwent Right middle and lower lobectomies with lymphnode sampling and cardioversion on 11/18/19. He tolerated the procedure well. Was on minial oxygen after the surgery which was able to be weaned off by 11/19/19. He had a fever of 101 the morning after surgery. He continued to progress well, but sodium levels falling. His HgB also fell. Patient seen and examined at bedside. He reports feeling well today, minimal pain other then when coughing or walking, no chest pain, no SOB. No BM yet since surgery. Objective - Vital Signs Vital signs: Vital Signs Temp 98.2 F 11/21/19 12:00 Pulse 102 H 11/21/19 13:13 Resp 16 11/21/19 12:00 BP 89/58 11/21/19 12:00 Pulse Ox 96 11/21/19 12:00 Intake & Output 11/20/19 11/21/19 11/21/19 17:59 06:59 18:59 Intake Total 160 Output Total 220 Balance -60 Weight Intake: IV 160 Magnesium Sulfate-D5w Pmx 100 1 gm In Dextrose/Water 1 100ml.bag @ 100 mls/hr IVPB Q1H PERI Rx#: [id number] Sodium Chloride 0.9% 1, 10 000 ml @ 10 mls/hr IV . Q24H PERI Rx#:[id number] ceFAZolin 2 gm In Sodium 50 Chloride 0.9% 50 ml @ 100 mls/hr IVPB Q8HR PERI Rx# :[id number] Intake, IV Titration Amount Clindamycin 600 mg In Dextrose 5% in Water 50 ml @ 50 mls/hr IVPB Q8H PERI Rx#:[id number] Sodium Chloride 0.9% 1, 000 ml @ 10 mls/hr IV . Q24H PERI Rx#:[id number] Output: Drainage 70 Right Chest 70 Urine 150 Other: Voiding Method Urinal # Voids 1 ABP, PAP, CO, CI - Last Documented Arterial Blood Pressure 89/65 - Exam General: non toxic, no distress, appears at stated age Derm: warm, dry Head: atraumatic, normocephalic, symmetric Eyes: EOMI, no lid lag, anicteric sclera Mouth: no lip lesion, mucus membranes moist Cardiovascular: S1S2 reg, no murmur, positive posterior tibial pulse bilateral, Lungs: Decreased breath sounds right , no accessory muscle use, Chest tube in place Abdominal: soft, nontender to palpation, no guarding, no appreciable organomegaly Ext: no gross muscle atrophy, 2+ edema, no contractures Neuro: CN II-XI grossly intact, no focal neuro deficits Psych: Alert, oriented, appropriate affect - Labs CBC & Chem 7: 11/21/19 05:15 11/21/19 05:15 Labs: Abnormal Lab Results - Last 24 Hours (Table) 11/20/19 11/20/19 11/21/19 Range/Units 16:43 20:39 05:15 WBC (3.8-10.6) k/uL RBC (4.30-5.90) m/uL Hgb (13.0-17.5) gm/dL Hct (39.0-53.0) % RDW (11.5-15.5) % Plt Count (150-450) k/uL Neutrophils # (1.3-7.7) k/uL Monocytes # (0-1.0) k/uL Sodium 127 L (137-145) mmol/L Potassium 5.4 H (3.5-5.1) mmol/L Chloride 96 L (98-107) mmol/L BUN 23 H (9-20) mg/dL POC Glucose (mg/dL) 147 H 154 H (75-99) mg/dL Calcium 7.5 L (8.4-10.2) mg/dL 11/21/19 11/21/19 11/21/19 Range/Units 05:15 06:43 11:35 WBC 22.8 H (3.8-10.6) k/uL RBC 2.49 L (4.30-5.90) m/uL Hgb 7.8 L (13.0-17.5) gm/dL Hct 24.4 L (39.0-53.0) % RDW 16.3 H (11.5-15.5) % Plt Count 546 H (150-450) k/uL Neutrophils # 19.5 H (1.3-7.7) k/uL Monocytes # 1.1 H (0-1.0) k/uL Sodium (137-145) mmol/L Potassium (3.5-5.1) mmol/L Chloride (98-107) mmol/L BUN (9-20) mg/dL POC Glucose (mg/dL) 131 H 131 H (75-99) mg/dL Calcium (8.4-10.2) mg/dL Microbiology - Last 24 Hours (Table) 11/15/19 12:30 Blood Culture - Final Blood No Growth after 144 hours 11/18/19 12:09 Gram Stain - Final Lung - Right Wound Culture - Final Non Hemolytic Strep 11/18/19 12:09 Anaerobic Culture - Preliminary Lung - Right Assessment and Plan Assessment: Strep pneumonia with sepsis, -ID consulted and pt on cefazolin and clindamycin -pulmonary recommendations appreciated - Blood cultures negative to date - Continue with incentive spirometer. Right lower lobe mass with lymphadenopathy s/p bilobectomy with lymph node sampling - awaiting pathology - Bronch results: bronchial washings with spindle cells, path with necrosis - new CT with some adenopathy that could be reactive - Oncology recs appreciated: Await pathology - pain control - pulm hygeine Paroxysmal A fib - anticoagulation when okay with surgery - tele - cardio recs appreciated - BB - s/p Dig load Bilateral sub segmental pulmonary embolism - s/p IVC filter - heparin gtt to be resumed when okay with surgery - NOAC on discharge - will need treatment until remission - Oncology recs appreciated Pseudo hyperkalemia - due to hemolysis - recheck in AM Severe COPD, exacerbation resolved - duonebs - pulm hygeine - pulm recs Hyponatremia now with fluid overload. - received albumin on 11/19/19 - Lasix X 1 given again today - repeat BMP in AM Anemia, chronic - FE studies, B 12, and folic acid consistent with anemia of chronic disease Thrombocytosis - likely reactive - follow CBC Lactic acidosis, resolved Chronic HTN, not on medications cardiomyopathy, resolved AAA s/p stenting DVT prophylaxis: SCDs Discussed with: patient, nursing A total of 25 minutes was spent on the care of this complex patient more than 50% of the time was spent in counseling and care coordination.
[2019-11-21] MEDS: SENNOSIDES 8.6 MG TAB PO SCH (16:13)
[2019-11-21 17:16] LABS: Glucose,Whole Blood 134 mg/dL (75-99)
[2019-11-21 21:02] LABS: Glucose,Whole Blood 153 mg/dL (75-99)
[2019-11-21] MEDS: SODIUM CHLORIDE 0.9% 1,000 ML IV SCH (21:08)
--- NOTE | 2019-11-21 23:39 | PN ---
PROGRESS NOTE DATE OF SERVICE: 11/21/2019 REASON FOR FOLLOWUP: Possible postoperative pneumonia. INTERVAL HISTORY: The patient is currently afebrile. He has been breathing comfortably. The patient denies having any chest pain or shortness of breath. He did have some cough with minimal sputum and hemoptysis. No nausea. No vomiting. No abdominal pain. No diarrhea. The patient is complaining of constipation. PHYSICAL EXAMINATION: Blood pressure is 91/57 with a pulse of 93, temperature 98.1. He is 96% on room air. General description is an elderly male lying in bed in no distress. RESPIRATORY SYSTEM: Unlabored breathing. Decreased breath sounds at the bases. No wheeze. HEART: S1, S2. Regular rate and rhythm. ABDOMEN: Soft. No tenderness. LABS: Hemoglobin 7.8, white count 22.8. BUN of 23, creatinine 0.67. DIAGNOSTIC IMPRESSION AND PLAN: Patient with lung cancer and this patient who is status post right middle and lower lobe resection. The right lung culture was positive for non-hemolytic strep, which is sensitive to most antibiotics in this patient currently with penicillin allergy with initial concern for possible postoperative pneumonia. The patient is covered with cefazolin and clindamycin. Continue to monitor clinical course closely. Continue with supportive care. MMODL / IJN: [id number] /
[2019-11-22] MEDS: CLINDAMYCIN 600 MG in DEXTROSE 5% IN WATER 50 ML IVPB SCH ×6 (02:56→19:05)
[2019-11-22 05:16] LABS: Anisocytosis Slight; Basophils % (A) 0 %; Eosinophils # (A) 0.3 k/uL (0-0.7); Eosinophils % (A) 1 %; HCT 20.2 % (39.0-53.0); Hypochromasia Slight; Lymphocytes # (A) 1.6 k/uL (1.0-4.8); Lymphocytes % (A) 8 %; MCH 31.5 pg (25.0-35.0); MCHC 31.9 g/dL (31.0-37.0); MCV 98.8 fL (80.0-100.0); Macrocytosis Slight; Mean Platelet Volume 8.2; Monocytes # (A) 0.6 k/uL (0-1.0); Monocytes % (A) 3 %; Neutrophils # (A) 16.4 k/uL (1.3-7.7); Neutrophils % (A) 86 %; Platelet Count 786 k/uL (150-450); RBC 2.05 m/uL (4.30-5.90); RDW 16.2 % (11.5-15.5); WBC 19.1 k/uL (3.8-10.6)
[2019-11-22 05:17] LABS: African American GFR (CKD) >90 (>60 ml/min/1.73 sqM); Anion Gap 8 mmol/L; Blood Urea Nitrogen 20 mg/dL (9-20); Calcium 7.5 mg/dL (8.4-10.2); Carbon Dioxide 28 mmol/L (22-30); Chloride 94 mmol/L (98-107); Glucose 112 mg/dL (74-99); Non-African American GFR(CKD) >90 (>60 ml/min/1.73 sqM); Potassium 4.8 mmol/L (3.5-5.1); Sodium 130 mmol/L (137-145)
[2019-11-22 05:18] LABS: HGB 6.5 gm/dL (13.0-17.5)
[2019-11-22] MEDS: KETOROLAC 30 MG/ML 1 ML VIAL IVP SCH ×3 (05:51→19:06)
[2019-11-22 06:43] LABS: Glucose,Whole Blood 148 mg/dL (75-99)
[2019-11-22] MEDS: INSULIN ASPART (NovoLOG) 100 UNIT/ML VIAL SQ SCH ×4 (06:44→21:14)
[2019-11-22] MEDS ORDERED: CALCIUM GLUCONATE 1 GM in SODIUM CHLORIDE 0.9% 100 ML IVPB ONE (07:00)
--- NOTE | 2019-11-22 08:16 | XR ---
EXAMINATION TYPE: XR chest 2V DATE OF EXAM: 11/22/2019 COMPARISON: 11/21/2019 HISTORY: 64-year-old male postoperative right bilobectomy TECHNIQUE: PA and lateral views FINDINGS: 2 right-sided chest tubes remain in place. Volume loss within the right hemithorax with shift of the heart towards the right remains unchanged as does patchy opacity upper and lower right lung. No pneum othorax clearly identified. Subcutaneous emphysema persists along the right chest wall. IMPRESSION: Postsurgical volume loss right hemithorax with persistent upper and lower right lung consolidation. 2 right-sided chest tubes remain in place with similar subcutaneous emphysema. No appreciable pneumoth orax.
--- NOTE | 2019-11-22 09:16 | PN ---
PROGRESS NOTE Mr. Patel is a 64-year-old male who underwent lobectomy, had episode of atrial fibrillation prior to the intervention. He is back in sinus mechanism. He had a history of pulmonary embolism. He is feeling better overall. His breathing is stable. He is denying any symptoms of chest pain. He denies any dizziness or palpitation. He continued to be in sinus mechanism. He is anemic. His cytology and transbronchial biopsies so far are negative for malignancy. He continues to be at this time on metoprolol tartrate 25 mg 3 times a day. PHYSICAL EXAMINATION: Blood pressure 102/60 with the heart rate in 90s. LUNGS: With crackles on the right. No wheezes. HEART: Regular rate and rhythm. S1, S2. No S3. No rub. ABDOMEN: Soft, nontender. EXTREMITIES: No significant edema. LAB DATA: Lab data revealed a hemoglobin of 6.5, which has decreased compared to yesterday. His BUN and creatinine are 20 and 0.64. IMPRESSION: 1. Status post bilobectomy. 2. Atrial fibrillation, remaining in sinus mechanism at this time. 3. Possible pulmonary embolism. 4. History of chronic obstructive lung disease. 5. History of abdominal aortic aneurysm. RECOMMENDATION: From the cardiac standpoint, will continue present therapy. Once he is stable from the surgical standpoint and the chest tube is removed and his hemoglobin is stable, then he should be started back on anticoagulation in view of pulmonary embolism and the episode of atrial fibrillation. We will see him on as-needed basis. Please feel free to call us for any question. MMODL / IJN: [id number] /
[2019-11-22] MEDS: ACETYLCYSTEINE 800 MG/4 ML VIAL INHALATION SCH ×4 (09:23→20:53)
[2019-11-22] MEDS: IPRATROPIUM-ALBUTEROL 3 ML NEB INHALATION SCH ×4 (09:23→20:53)
--- NOTE | 2019-11-22 10:01 | P.PN ---
Subjective Progress Note Date: 11/22/19 Principal diagnosis: SOB Patient feeling ok, no overnight issues. No sob or cp. No fevers. Objective - Vital Signs Vital signs: Vital Signs Temp 98.5 F 11/22/19 04:00 Pulse 100 11/22/19 09:26 Resp 25 H 11/22/19 04:00 BP 102/62 11/22/19 04:00 Pulse Ox 98 11/22/19 04:00 Intake & Output 11/21/19 11/22/19 11/22/19 18:59 06:59 18:59 Intake Total 250 80 Output Total 1140 360 Balance -890 -280 Weight 101.2 kg Intake: IV 250 80 Magnesium Sulfate-D5w Pmx 100 1 gm In Dextrose/Water 1 100ml.bag @ 100 mls/hr IVPB Q1H PERI Rx#: [id number] Sodium Chloride 0.9% 1, 50 80 000 ml @ 10 mls/hr IV . Q24H PERI Rx#:[id number] ceFAZolin 2 gm In Sodium 100 Chloride 0.9% 50 ml @ 100 mls/hr IVPB Q8HR PERI Rx# :[id number] Oral 0 Output: Drainage 200 40 Right Chest 200 40 Urine 940 320 Other: Voiding Method Urinal Urinal # Voids 1 ABP, PAP, CO, CI - Last Documented Arterial Blood Pressure 89/65 - Exam General: non toxic, no distress, appears at stated age Derm: warm, dry Head: atraumatic, normocephalic, symmetric Eyes: EOMI, no lid lag, anicteric sclera Mouth: no lip lesion, mucus membranes moist Cardiovascular: S1S2 reg, no murmur, positive posterior tibial pulse bilateral, Lungs: Decreased breath sounds right , no accessory muscle use, Chest tube in place Abdominal: soft, nontender to palpation, no guarding, no appreciable organomegaly Ext: no gross muscle atrophy, 2+ edema, no contractures Neuro: CN II-XI grossly intact, no focal neuro deficits Psych: Alert, oriented, appropriate affect - Labs CBC & Chem 7: 11/22/19 04:00 11/22/19 04:00 Labs: Abnormal Lab Results - Last 24 Hours (Table) 11/21/19 11/21/19 11/21/19 Range/Units 11:35 16:50 21:00 WBC (3.8-10.6) k/uL RBC (4.30-5.90) m/uL Hgb (13.0-17.5) gm/dL Hct (39.0-53.0) % RDW (11.5-15.5) % Plt Count (150-450) k/uL Neutrophils # (1.3-7.7) k/uL Sodium (137-145) mmol/L Chloride (98-107) mmol/L Creatinine (0.66-1.25) mg/dL Glucose (74-99) mg/dL POC Glucose (mg/dL) 131 H 134 H 153 H (75-99) mg/dL Calcium (8.4-10.2) mg/dL 11/22/19 11/22/19 11/22/19 Range/Units 04:00 04:00 06:41 WBC 19.1 H (3.8-10.6) k/uL RBC 2.05 L (4.30-5.90) m/uL Hgb 6.5 L* (13.0-17.5) gm/dL Hct 20.2 L (39.0-53.0) % RDW 16.2 H (11.5-15.5) % Plt Count 786 H (150-450) k/uL Neutrophils # 16.4 H (1.3-7.7) k/uL Sodium 130 L (137-145) mmol/L Chloride 94 L (98-107) mmol/L Creatinine 0.64 L (0.66-1.25) mg/dL Glucose 112 H (74-99) mg/dL POC Glucose (mg/dL) 148 H (75-99) mg/dL Calcium 7.5 L (8.4-10.2) mg/dL Microbiology - Last 24 Hours (Table) 11/15/19 12:30 Blood Culture - Final Blood No Growth after 144 hours 11/18/19 12:09 Gram Stain - Final Lung - Right Wound Culture - Final Non Hemolytic Strep Assessment and Plan Plan: Strep pneumonia with sepsis, -ID consulted and pt on cefazolin and clindamycin -pulmonary recommendations appreciated - Blood cultures negative to date - Continue with incentive spirometer. Right lower lobe mass with lymphadenopathy s/p bilobectomy with lymph node sampling - Bronch results: bronchial washings with spindle cells, path with necrosis - new CT with some adenopathy that could be reactive - Oncology recs appreciated: Await pathology - pain control - pulm hygeine Paroxysmal A fib - anticoagulation when okay with surgery and when anemia stabilizes - tele - cardio recs appreciated - BB - s/p Dig load, not on dig now as he is back in sinus. Bilateral sub segmental pulmonary embolism - s/p IVC filter - AC to resume once anemia stable and once ok with CT surgery - NOAC on discharge Severe COPD, exacerbation resolved - duonebs - pulm hygeine - pulm recs Hyponatremia now with fluid overload. - received albumin on 11/19/19 - Lasix given - improved, repeat BMP in AM Acute on chronic anemia sec to blood loss - d/w pulm, will d/w CT surgery, will likely require one unit of PRBCs - FE studies, B 12, and folic acid consistent with anemia of chronic disease now with component of blood loss Thrombocytosis - likely reactive - follow CBC Lactic acidosis, resolved Chronic HTN, not on medications cardiomyopathy, resolved AAA s/p stenting DVT prophylaxis: SCDs Discussed with: patient, nursing A total of 25 minutes was spent on the care of this complex patient more than 50% of the time was spent in counseling and care coordination.
--- NOTE | 2019-11-22 10:06 | P.PN ---
Subjective Progress Note Date: 11/22/19 On today's evaluation of the 2019 and seeing the patient for Dr. Middleton is a follow-up. I'm covering for Dr. Burgess this evaluation. The patient has COPD and he has a lung mass when he was found to have a lesion in the right mainstem bronchus. He underwent a bilobectomy with a right middle lobe and the right lower lobe was removed. The patient currently is postop day #4. His chest tubes are in place. The output from the chest tube has been around 130 mL over the past 24 hours. It is a blood the effusion. There is a minimal amount of air leak. He is using incentive spirometer. Is on room air oxygen. Hemoglobin dropped down to 6.5 and the patient will be receiving a unit of packed RBC. No nausea. No vomiting. No abdominal pain. No chest pain. He has a morphine [facility] for pain control. He is on bronchodilators around the clock. No hemoptysis. No pleurisy. No altered mentation. Final pathology still pending. He is on a combination of clindamycin and Kefzol. Cultures still pending for now major samples liver collected intraoperatively. The white cell count is at 19 and it is improving compared to yesterday. Objective - Vital Signs Vital signs: Vital Signs Temp 98.5 F 11/22/19 04:00 Pulse 102 H 11/22/19 09:48 Resp 25 H 11/22/19 04:00 BP 102/62 11/22/19 04:00 Pulse Ox 98 11/22/19 04:00 Intake & Output 11/21/19 11/22/19 11/22/19 18:59 06:59 18:59 Intake Total 250 80 Output Total 1140 360 Balance -890 -280 Weight 101.2 kg Intake: IV 250 80 Magnesium Sulfate-D5w Pmx 100 1 gm In Dextrose/Water 1 100ml.bag @ 100 mls/hr IVPB Q1H PERI Rx#: [id number] Sodium Chloride 0.9% 1, 50 80 000 ml @ 10 mls/hr IV . Q24H PERI Rx#:[id number] ceFAZolin 2 gm In Sodium 100 Chloride 0.9% 50 ml @ 100 mls/hr IVPB Q8HR PERI Rx# :[id number] Oral 0 Output: Drainage 200 40 Right Chest 200 40 Urine 940 320 Other: Voiding Method Urinal Urinal # Voids 1 ABP, PAP, CO, CI - Last Documented Arterial Blood Pressure 89/65 - Exam - Constitutional General appearance: Present: cooperative, no acute distress, obese - Respiratory Details: Lung sounds essentially clear to his left lobes, diminished to his right lower lobe. Respirations are symmetrical and nonlabored. Productive loose cough with clear sputum. Right pleural chest tubes remains in place to water seal. No air leak is present. Draining thin serosanguineous drainage was noted and the patient has limited air leak as seen in the Pleur-evac. - Cardiovascular Details: regular rhythm and rate. S1 and S2 present, negative for S3, gallop or murmur. Generalized +1 edema. Bedside telemetry showing normal sinus rhythm heart rate 92. - Gastrointestinal Gastrointestinal Comment(s): Abdomen is soft, nontender and nondistended. Active bowel sounds present in all 4 abdominal quadrants. No guarding or rigidity. Passing flatus. Tolerating oral intake. - Genitourinary Genitourinary Comment(s): Voiding clear vero urine. - Integumentary Integumentary Comment(s): Skin is warm and dry. No clubbing or cyanosis is present. Right thoracotomy incision is clean and dry with silver impregnated dressing clean and intact. - Neurologic Neurologic: Present: CNII-XII intact - Musculoskeletal Musculoskeletal: Present: gait normal, generalized weakness, strength equal bilaterally - Psychiatric Psychiatric: Present: A&O x's 3 - Labs CBC & Chem 7: 11/22/19 04:00 11/22/19 04:00 Labs: Abnormal Lab Results - Last 24 Hours (Table) 11/21/19 11/21/19 11/21/19 Range/Units 11:35 16:50 21:00 WBC (3.8-10.6) k/uL RBC (4.30-5.90) m/uL Hgb (13.0-17.5) gm/dL Hct (39.0-53.0) % RDW (11.5-15.5) % Plt Count (150-450) k/uL Neutrophils # (1.3-7.7) k/uL Sodium (137-145) mmol/L Chloride (98-107) mmol/L Creatinine (0.66-1.25) mg/dL Glucose (74-99) mg/dL POC Glucose (mg/dL) 131 H 134 H 153 H (75-99) mg/dL Calcium (8.4-10.2) mg/dL Crossmatch 11/22/19 11/22/19 11/22/19 Range/Units 04:00 04:00 06:41 WBC 19.1 H (3.8-10.6) k/uL RBC 2.05 L (4.30-5.90) m/uL Hgb 6.5 L* (13.0-17.5) gm/dL Hct 20.2 L (39.0-53.0) % RDW 16.2 H (11.5-15.5) % Plt Count 786 H (150-450) k/uL Neutrophils # 16.4 H (1.3-7.7) k/uL Sodium 130 L (137-145) mmol/L Chloride 94 L (98-107) mmol/L Creatinine 0.64 L (0.66-1.25) mg/dL Glucose 112 H (74-99) mg/dL POC Glucose (mg/dL) 148 H (75-99) mg/dL Calcium 7.5 L (8.4-10.2) mg/dL Crossmatch 11/22/19 Range/Units 08:23 WBC (3.8-10.6) k/uL RBC (4.30-5.90) m/uL Hgb (13.0-17.5) gm/dL Hct (39.0-53.0) % RDW (11.5-15.5) % Plt Count (150-450) k/uL Neutrophils # (1.3-7.7) k/uL Sodium (137-145) mmol/L Chloride (98-107) mmol/L Creatinine (0.66-1.25) mg/dL Glucose (74-99) mg/dL POC Glucose (mg/dL) (75-99) mg/dL Calcium (8.4-10.2) mg/dL Crossmatch See Detail Microbiology - Last 24 Hours (Table) 11/15/19 12:30 Blood Culture - Final Blood No Growth after 144 hours 11/18/19 12:09 Gram Stain - Final Lung - Right Wound Culture - Final Non Hemolytic Strep Assessment and Plan Plan: 1. obstructing tumor bronchus intermedius/right mainstem bronchus, suspect cancer, positive uptake on PET scan, biopsy nondiagnostic, status post right thoracotomy, exploratory with lysis of adhesions, right lower and middle bilobectomy, the patient is postop day #4. Right-sided chest tube in place. The patient is positive air leak. Output is improved compared to yesterday. 2. New-onset atrial fibrillation, status post cardioversion 3. Pneumonia, sepsis on admission, awaiting final cultures and the patient is currently on a combination of clindamycin and his white cell count is improving 4. Bilateral nonobstructing small segmental and subsegmental pulmonary emboli, post IVC filter placement 5. Severe COPD, previous tobacco dependance 6. History of hypertension 7. History of cardiomyopathy in 2008 which resolved 8. Arthritis 9. History of abdominal aortic aneurysm status post stent grafting in 2011 10. Postoperative acute blood loss anemia, with further drop in the hemoglobin down to 6.5. The patient will be receiving a unit of packed RBC. 11 subcu emphysema involving the right lung extending to the right chest area Plan: Continue pain control with morphine [facility] Transfused with 1 unit of packed RBC Monitor hemoglobin posttransfusion Continue incentive spirometer Continue current antibiotic coverage Monitor the output from the chest tubes Daily chest x-rays. The chest x-ray was reviewed. No evidence of any significant pneumothorax. There is subcutaneous emphysema and a chest tubes are all in good location. There is volume loss on the right. Maxillary
[2019-11-22] MEDS: SENNOSIDES 8.6 MG TAB PO SCH (10:46)
[2019-11-22] MEDS: METOPROLOL TARTRATE 25 MG TAB PO SCH ×3 (10:46→21:14)
[2019-11-22] MEDS: ASCORBIC ACID 500 MG TAB PO SCH (10:46)
[2019-11-22 11:50] LABS: Glucose,Whole Blood 129 mg/dL (75-99)
[2019-11-22] MEDS: FERROUS SULFATE 325 MG TAB PO SCH (12:02)
--- NOTE | 2019-11-22 12:24 | P.PN ---
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 Previous medical history of severe COPD with previous tobacco dependence, hypertension, cardiomyopathy in 2008 which has resolved, arthritis, and abdominal aortic aneurysm status post stent grafting in 2012 POD #5 placement of infrarenal tulip filter, inferior venacavogram POD #4 cardioversion. Right thoracotomy, exploratory with lysis of adhesions, right lower and middle bilobectomy, mediastinal lymph node dissection, cryoablation right intercostal nerves Postoperative acute blood loss anemia, expected outcome The patient is currently sitting up in a recliner in the intensive care unit in no acute distress. He states pain is controlled on current medication regimen, denies shortness of breath. He does report being tired but otherwise feels okay. Hemoglobin 6.5 this morning. Cultures removed during thoracotomy represent nonhemolytic strep. No new concerns. Objective - Vital Signs Vital signs: Vital Signs Temp 97.6 F 11/22/19 08:00 Pulse 102 H 11/22/19 09:48 Resp 15 11/22/19 08:00 BP 106/58 11/22/19 08:00 Pulse Ox 99 11/22/19 08:00 Intake & Output 11/21/19 11/22/19 11/22/19 18:59 06:59 18:59 Intake Total 250 80 Output Total 1140 360 150 Balance -890 -280 -150 Weight 101.2 kg Intake: IV 250 80 Magnesium Sulfate-D5w Pmx 100 1 gm In Dextrose/Water 1 100ml.bag @ 100 mls/hr IVPB Q1H PERI Rx#: [id number] Sodium Chloride 0.9% 1, 50 80 000 ml @ 10 mls/hr IV . Q24H PERI Rx#:[id number] ceFAZolin 2 gm In Sodium 100 Chloride 0.9% 50 ml @ 100 mls/hr IVPB Q8HR PERI Rx# :[id number] Oral 0 Output: Drainage 200 40 Right Chest 200 40 Urine 940 320 150 Other: Voiding Method Urinal Urinal # Voids 1 ABP, PAP, CO, CI - Last Documented Arterial Blood Pressure 89/65 - Constitutional General appearance: Present: cooperative, no acute distress - Respiratory Details: Lungs sounds diminished bilaterally, right greater than left. Respirations even, nonlabored. Currently on room air with oxygen saturation 98%. Right pleural chest tube present to waterseal, 40 mL serosanguineous drainage overnight, 500 mL in 24 hours, no air leak present, positive tidaling. Strong, productive cough. - Cardiovascular Details: S1, S2 present. Regular rate and rhythm. Palpable peripheral pulses bilaterally. Trace generalized edema present. No calf pain or tenderness noted. - Gastrointestinal Gastrointestinal Comment(s): Abdomen soft, nontender, nondistended. Active bowel sounds present 4 quadrants. Tolerating diet. - Genitourinary Genitourinary Comment(s): Continues to void clear, yellow urine - Integumentary Integumentary Comment(s): Skin is warm and dry with evidence of good perfusion. Right lateral thoracotomy incision covered with dry intact dressing - Neurologic Neurologic: Present: CNII-XII intact - Musculoskeletal Musculoskeletal: Present: gait normal, strength equal bilaterally - Psychiatric Psychiatric: Present: A&O x's 3, appropriate affect, intact judgment & insight - Allied health notes Allied health notes reviewed: nursing - Labs CBC & Chem 7: 11/22/19 04:00 11/22/19 04:00 Labs: Abnormal Lab Results - Last 24 Hours (Table) 11/21/19 11/21/19 11/21/19 Range/Units 11:35 16:50 21:00 WBC (3.8-10.6) k/uL RBC (4.30-5.90) m/uL Hgb (13.0-17.5) gm/dL Hct (39.0-53.0) % RDW (11.5-15.5) % Plt Count (150-450) k/uL Neutrophils # (1.3-7.7) k/uL Sodium (137-145) mmol/L Chloride (98-107) mmol/L Creatinine (0.66-1.25) mg/dL Glucose (74-99) mg/dL POC Glucose (mg/dL) 131 H 134 H 153 H (75-99) mg/dL Calcium (8.4-10.2) mg/dL Crossmatch 11/22/19 11/22/19 11/22/19 Range/Units 04:00 04:00 06:41 WBC 19.1 H (3.8-10.6) k/uL RBC 2.05 L (4.30-5.90) m/uL Hgb 6.5 L* (13.0-17.5) gm/dL Hct 20.2 L (39.0-53.0) % RDW 16.2 H (11.5-15.5) % Plt Count 786 H (150-450) k/uL Neutrophils # 16.4 H (1.3-7.7) k/uL Sodium 130 L (137-145) mmol/L Chloride 94 L (98-107) mmol/L Creatinine 0.64 L (0.66-1.25) mg/dL Glucose 112 H (74-99) mg/dL POC Glucose (mg/dL) 148 H (75-99) mg/dL Calcium 7.5 L (8.4-10.2) mg/dL Crossmatch 11/22/19 Range/Units 08:23 WBC (3.8-10.6) k/uL RBC (4.30-5.90) m/uL Hgb (13.0-17.5) gm/dL Hct (39.0-53.0) % RDW (11.5-15.5) % Plt Count (150-450) k/uL Neutrophils # (1.3-7.7) k/uL Sodium (137-145) mmol/L Chloride (98-107) mmol/L Creatinine (0.66-1.25) mg/dL Glucose (74-99) mg/dL POC Glucose (mg/dL) (75-99) mg/dL Calcium (8.4-10.2) mg/dL Crossmatch See Detail Microbiology - Last 24 Hours (Table) 11/18/19 12:09 Anaerobic Culture - Final Lung - Right 11/15/19 12:30 Blood Culture - Final Blood No Growth after 144 hours 11/18/19 12:09 Gram Stain - Final Lung - Right Wound Culture - Final Non Hemolytic Strep - Imaging and Cardiology Chest x-ray: report reviewed, image reviewed Assessment and Plan Assessment: 1. Known right lung mass/obstructing tumor of the bronchus intermedius, suspect cancer, positive uptake on PET scan, biopsy nondiagnostic, status post right thoracotomy with middle and lower bilobectomy, pathology pending 2. Pneumonia, sepsis on admission, cultures growing nonhemolytic strep 3. Bilateral nonobstructing small segmental and subsegmental pulmonary emboli per radiologist read, status post IVC filter placement 4. Severe COPD, previous tobacco dependance 5. History of hypertension 6. History of cardiomyopathy in 2008 which resolved 7. Arthritis 8. History of abdominal aortic aneurysm status post stent grafting in 2011 9. New onset paroxysmal atrial fibrillation, status post cardioversion 10. Postoperative acute blood loss anemia Plan: 1. Will keep right pleural chest tubes to waterseal for now. May discontinue anterior chest tube this afternoon. 2. Antibiotics per infectious disease 3. Encourage incentive spirometry use 10 times every hour while awake 4. Increase activity, ambulate as tolerated 5. Pain control with current medication regimen. 6. Will monitor daily x-rays 7. Bronchodilators per pulmonology 8. Management of other comorbidities per primary care service 9. Transfer orders placed for [address] [place] [address] cardiac stepdown unit. May transfer when bed available from cardiothoracic surgery standpoint 10. Patient to receive 1 unit packed red blood cells per oncology 11. More recommendations to follow Time with Patient: Greater than 30
[2019-11-22] MEDS ORDERED: traMADol 50 MG TAB PO PRN (14:53)
[2019-11-22] MEDS: SODIUM CHLORIDE 0.9% 1,000 ML IV SCH (15:41)
[2019-11-22 16:38] LABS: Glucose,Whole Blood 122 mg/dL (75-99)
[2019-11-22 16:53] LABS: Anisocytosis Slight; HGB 7.2 gm/dL (13.0-17.5); MCH 29.7 pg (25.0-35.0); MCHC 31.5 g/dL (31.0-37.0); MCV 94.3 fL (80.0-100.0); Mean Platelet Volume 7.3; Platelet Count 574 k/uL (150-450); RBC 2.43 m/uL (4.30-5.90); RDW 18.6 % (11.5-15.5); WBC 16.6 k/uL (3.8-10.6)
[2019-11-22 20:21] LABS: Glucose,Whole Blood 139 mg/dL (75-99)
[2019-11-23] MEDS: SODIUM CHLORIDE 0.9% 1,000 ML IV SCH (00:01)
[2019-11-23] MEDS: CLINDAMYCIN 600 MG in DEXTROSE 5% IN WATER 50 ML IVPB SCH ×4 (02:12→11:24)
[2019-11-23 06:07] LABS: Anisocytosis Slight; Basophils % (A) 0 %; Eosinophils # (A) 0.2 k/uL (0-0.7); Eosinophils % (A) 1 %; HCT 23.2 % (39.0-53.0); HGB 7.3 gm/dL (13.0-17.5); Lymphocytes # (A) 1.3 k/uL (1.0-4.8); Lymphocytes % (A) 8 %; MCH 29.6 pg (25.0-35.0); MCHC 31.3 g/dL (31.0-37.0); MCV 94.6 fL (80.0-100.0); Mean Platelet Volume 7.2; Monocytes # (A) 0.5 k/uL (0-1.0); Monocytes % (A) 3 %; Neutrophils % (A) 87 %; Platelet Count 616 k/uL (150-450); RBC 2.45 m/uL (4.30-5.90); RDW 19.1 % (11.5-15.5); WBC 16.1 k/uL (3.8-10.6)
[2019-11-23 06:22] LABS: African American GFR (CKD) >90 (>60 ml/min/1.73 sqM); Anion Gap 9 mmol/L; Blood Urea Nitrogen 15 mg/dL (9-20); Calcium 7.8 mg/dL (8.4-10.2); Carbon Dioxide 27 mmol/L (22-30); Chloride 97 mmol/L (98-107); Glucose 91 mg/dL (74-99); Non-African American GFR(CKD) >90 (>60 ml/min/1.73 sqM); Potassium 5.3 mmol/L (3.5-5.1); Sodium 133 mmol/L (137-145)
[2019-11-23 06:31] LABS: Glucose,Whole Blood 108 mg/dL (75-99)
[2019-11-23] MEDS: KETOROLAC 30 MG/ML 1 ML VIAL IVP SCH ×2 (06:33)
[2019-11-23] MEDS: INSULIN ASPART (NovoLOG) 100 UNIT/ML VIAL SQ SCH ×3 (07:05→17:38)
--- NOTE | 2019-11-23 08:10 | XR ---
EXAMINATION TYPE: XR chest 2V DATE OF EXAM: 11/23/2019 COMPARISON: 11/22/2019 HISTORY: Post lobectomy. Follow-up exam. TECHNIQUE: Frontal and lateral views of the chest are obtained. FINDINGS: Right chest wall subcutaneous emphysema is again seen. Right thoracostomy tube has been re moved in the interim. There is a small apical residual pneumothorax with apical measurement of 2.7 cm . Right basilar airspace disease has become more confluent. Rightward mediastinal shift from the righ t-sided volume loss is partially postsurgical. Cardiomediastinal silhouette is partially obscured. Ri ght-sided pleural thickening is also seen. Left lung is well aerated. IMPRESSION: Removal of the right thoracostomy tube with small residual right pneumothorax. Increasin g confluence of the right basilar airspace disease, likely atelectasis and trace right pleural effusi on with persistent subcutaneous emphysema along the right chest wall.
[2019-11-23] MEDS: IPRATROPIUM-ALBUTEROL 3 ML NEB INHALATION SCH ×3 (09:01→16:15)
[2019-11-23] MEDS: ACETYLCYSTEINE 800 MG/4 ML VIAL INHALATION SCH ×3 (09:02→16:15)
--- NOTE | 2019-11-23 09:11 | P.PN ---
Subjective Progress Note Date: 11/23/19 Principal diagnosis: Known right lung mass/obstructing tumor of the bronchus intermedius, suspect cancer, pneumonia with sepsis on admission, bilateral nonobstructing small segmental and subsegmental pulmonary emboli per radiologist read, new-onset paroxysmal atrial fibrillation. Previous medical history of severe COPD with previous tobacco dependence, hypertension, cardiomyopathy in 2008 which has resolved, arthritis, and abdominal aortic aneurysm status post stent grafting in 2012 POD #6 placement of infrarenal tulip filter, inferior venacavogram POD #5 cardioversion. Right thoracotomy, exploratory with lysis of adhesions, right lower and middle bilobectomy, mediastinal lymph node dissection, cryoablation right intercostal nerves Postoperative acute blood loss anemia, expected outcome The patient was sitting up in a recliner in the intensive care unit this morning in no acute distress. He stated pain has been well controlled on current medication regimen and is requiring no narcotics, denies shortness of breath. He received 1 unit packed red blood cells yesterday with hemoglobin this morning 7.3. Cultures removed during thoracotomy represent nonhemolytic strep, currently on IV antibiotics, pathology still pending. No new concerns. Objective - Vital Signs Vital signs: Vital Signs Temp 98.5 F 11/23/19 08:20 Pulse 102 H 11/23/19 08:20 Resp 20 11/23/19 08:20 BP 117/68 11/23/19 08:20 Pulse Ox 99 11/23/19 08:20 Intake & Output 11/22/19 11/23/19 11/23/19 18:59 06:59 18:59 Intake Total 310 90 Output Total 550 650 Balance -240 -560 Intake: IV 90 Sodium Chloride 0.9% 1, 40 000 ml @ 10 mls/hr IV . Q24H PERI Rx#:[id number] ceFAZolin 2 gm In Sodium 50 Chloride 0.9% 50 ml @ 100 mls/hr IVPB Q8HR PERI Rx# :[id number] Blood Product 310 Rc Irr As1 Unit 310 [id number] Output: Drainage 50 Right Chest 50 Urine 500 650 Other: Voiding Method Urinal Urinal # Voids 1 # Bowel Movements 1 ABP, PAP, CO, CI - Last Documented Arterial Blood Pressure 89/65 - Constitutional General appearance: Present: cooperative, no acute distress - Respiratory Details: Lungs sounds diminished bilaterally, right greater than left. Respirations even, nonlabored. Currently on room air with oxygen saturation 95%. Able to achieve 1000 mL on his incentive spirometry. Strong cough. - Cardiovascular Details: S1, S2 present. Regular rate and rhythm. Palpable peripheral pulses bilaterally. Trace generalized edema present. No calf pain or tenderness noted. - Gastrointestinal Gastrointestinal Comment(s): Abdomen soft, nontender, nondistended. Active bowel sounds present 4 q uadrants. Tolerating diet. Positive bowel movement yesterday and this morning - Genitourinary Genitourinary Comment(s): Continues to void clear, yellow urine - Integumentary Integumentary Comment(s): Skin is warm and dry with evidence of good perfusion. Right lateral thoracotomy incision covered with dry intact dressing - Neurologic Neurologic: Present: CNII-XII intact - Musculoskeletal Musculoskeletal: Present: gait normal, strength equal bilaterally - Psychiatric Psychiatric: Present: A&O x's 3, appropriate affect, intact judgment & insight - Allied health notes Allied health notes reviewed: nursing - Labs CBC & Chem 7: 11/23/19 05:19 11/23/19 05:19 Labs: Abnormal Lab Results - Last 24 Hours (Table) 11/22/19 11/22/19 11/22/19 Range/Units 08:23 11:49 16:21 WBC 16.6 H (3.8-10.6) k/uL RBC 2.43 L (4.30-5.90) m/uL Hgb 7.2 L (13.0-17.5) gm/dL Hct 23.0 L (39.0-53.0) % RDW 18.6 H (11.5-15.5) % Plt Count 574 H (150-450) k/uL Neutrophils # (1.3-7.7) k/uL Sodium (137-145) mmol/L Potassium (3.5-5.1) mmol/L Chloride (98-107) mmol/L POC Glucose (mg/dL) 129 H (75-99) mg/dL Calcium (8.4-10.2) mg/dL Crossmatch See Detail 11/22/19 11/22/19 11/23/19 Range/Units 16:37 20:19 05:19 WBC 16.1 H (3.8-10.6) k/uL RBC 2.45 L (4.30-5.90) m/uL Hgb 7.3 L (13.0-17.5) gm/dL Hct 23.2 L (39.0-53.0) % RDW 19.1 H (11.5-15.5) % Plt Count 616 H (150-450) k/uL Neutrophils # 14.0 H (1.3-7.7) k/uL Sodium (137-145) mmol/L Potassium (3.5-5.1) mmol/L Chloride (98-107) mmol/L POC Glucose (mg/dL) 122 H 139 H (75-99) mg/dL Calcium (8.4-10.2) mg/dL Crossmatch 11/23/19 11/23/19 Range/Units 05:19 06:29 WBC (3.8-10.6) k/uL RBC (4.30-5.90) m/uL Hgb (13.0-17.5) gm/dL Hct (39.0-53.0) % RDW (11.5-15.5) % Plt Count (150-450) k/uL Neutrophils # (1.3-7.7) k/uL Sodium 133 L (137-145) mmol/L Potassium 5.3 H (3.5-5.1) mmol/L Chloride 97 L (98-107) mmol/L POC Glucose (mg/dL) 108 H (75-99) mg/dL Calcium 7.8 L (8.4-10.2) mg/dL Crossmatch Microbiology - Last 24 Hours (Table) 11/18/19 12:09 Anaerobic Culture - Final Lung - Right - Imaging and Cardiology Chest x-ray: report reviewed, image reviewed Assessment and Plan Assessment: 1. Known right lung mass/obstructing tumor of the bronchus intermedius, suspect cancer, positive uptake on PET scan, biopsy nondiagnostic, status post right thoracotomy with middle and lower bilobectomy, pathology pending 2. Pneumonia, sepsis on admission, cultures growing nonhemolytic strep 3. Bilateral nonobstructing small segmental and subsegmental pulmonary emboli per radiologist read, status post IVC filter placement 4. Severe COPD, previous tobacco dependance 5. History of hypertension 6. History of cardiomyopathy in 2008 which resolved 7. Arthritis 8. History of abdominal aortic aneurysm status post stent grafting in 2012 9. New onset paroxysmal atrial fibrillation, status post cardioversion 10. Postoperative acute blood loss anemia Plan: 1. No anticoagulation necessary 2. Antibiotics per infectious disease, recommend transitioning to oral antibiotics 3. Encourage incentive spirometry use 10 times every hour while awake 4. Increase activity, ambulate as tolerated 5. Pain control with current medication regimen. 6. Bronchodilators per pulmonology 7. Management of other comorbidities per primary care service 8. Patient should be discharged to home from our standpoint. Follow up appointment made with Dr. Garcia. Incisional care reviewed with the patient. Our contact information given to patient for any questions or concerns. Time with Patient: Greater than 30
[2019-11-23] MEDS ORDERED: FUROSEMIDE 10 MG/ML 2 ML VIAL IV ONE (09:23)
[2019-11-23] MEDS: SENNOSIDES 8.6 MG TAB PO SCH (09:37)
[2019-11-23] MEDS: METOPROLOL TARTRATE 25 MG TAB PO SCH ×2 (09:37→16:11)
[2019-11-23] MEDS: ASCORBIC ACID 500 MG TAB PO SCH (09:37)
[2019-11-23] MEDS: FERROUS SULFATE 325 MG TAB PO SCH (13:02)
[2019-11-23 15:32] VITALS: BP 125/63; TEMP 99
--- NOTE | 2019-11-23 16:09 | P.PN ---
Subjective Progress Note Date: 11/23/19 Principal diagnosis: Obstructing tumor in the bronchus intermedius/right mainstem bronchus, suspect malignancy, with positive uptake on PET scan, status post right thoracotomy, exp loratory with lysis of adhesions right lower and middle lobectomy On today's evaluation of the 2019 and seeing the patient for Dr. Middleton is a follow-up. I'm covering for Dr. Burgess this evaluation. The patient has COPD and he has a lung mass when he was found to have a lesion in the right mainstem bronchus. He underwent a bilobectomy with a right middle lobe and the right lower lobe was removed. The patient currently is postop day #4. His chest tubes are in place. The output from the chest tube has been around 130 mL over the past 24 hours. It is a blood the effusion. There is a minimal amount of air leak. He is using incentive spirometer. Is on room air oxygen. Hemoglobin dropped down to 6.5 and the patient will be receiving a unit of packed RBC. No nausea. No vomiting. No abdominal pain. No chest pain. He has a morphine [employer] for pain control. He is on bronchodilators around the clock. No hemoptysis. No pleurisy. No altered mentation. Final pathology still pending. He is on a combination of clindamycin and Kefzol. Cultures still pending for now major samples liver collected intraoperatively. The white cell count is at 19 and it is improving compared to yesterday. On 11/23/2019 patient seen in follow-up on selective care unit, she is awake and alert, in no acute distress, his right-sided chest tube was removed yesterday, and today's chest x-ray interval removal of the right thoracostomy tube with small residual right pneumothorax, and increasing right basilar airspace disease likely related to atelectasis and trace right pleural effusion with persistent subcutaneous emphysema along the right chest wall. Clinically stable, patient is doing well, room air pulse ox is 97%, and on incentive spirometer, tolerating ambulation. Wedge biopsy of the lung pathology is still pending. Objective - Vital Signs Vital signs: Vital Signs Temp 99 F 11/23/19 15:31 Pulse 101 H 11/23/19 15:31 Resp 20 11/23/19 15:31 BP 125/63 11/23/19 15:31 Pulse Ox 97 11/23/19 15:31 Intake & Output 11/22/19 11/23/19 11/23/19 18:59 06:59 18:59 Intake Total 310 90 340 Output Total 276 117 7904 Balance -485 -593 -4353 Intake: IV 90 100 Clindamycin 600 mg In 50 Dextrose 5% in Water 50 ml @ 50 mls/hr IVPB Q8H PERI Rx#:[id number] Sodium Chloride 0.9% 1, 40 000 ml @ 10 mls/hr IV . Q24H PERI Rx#:[id number] ceFAZolin 2 gm In Sodium 50 50 Chloride 0.9% 50 ml @ 100 mls/hr IVPB Q8HR PERI Rx# :[id number] Oral 240 Blood Product 310 Rc Irr As1 Unit 310 [id number] Output: Drainage 50 Right Chest 50 Urine 552 129 1804 Other: Voiding Method Urinal Urinal Urinal # Voids 1 # Bowel Movements 1 ABP, PAP, CO, CI - Last Documented Arterial Blood Pressure 89/65 - Exam GENERAL EXAM: Alert, very pleasant, 64-year-old white male, on room air, with pulse ox of 97% comfortable in no apparent distress. HEAD: Normocephalic/atraumatic. EYES: Normal reaction of pupils, equal size. Conjunctiva pink, sclera white. NOSE: Clear with pink turbinates. THROAT: No erythema or exudates. NECK: No masses, no JVD, no thyroid enlargement, no adenopathy. CHEST: No chest wall deformity. Symmetrical expansion. Right lateral chest incisions clean dry and intact, chest tube sites clean dry and intact LUNGS: Equal air entry with basilar crackles, but no wheeze, rhonchi or dullness. CVS: Regular rate and rhythm, normal S1 and S2, no gallops, no murmurs, no rubs ABDOMEN: Soft, nontender. No hepatosplenomegaly, normal bowel sounds, no guarding or rigidity. EXTREMITIES: No clubbing, no edema, no cyanosis, 2+ pulses and upper and lower extremities. MUSCULOSKELETAL: Muscle strength and tone normal. SPINE: No scoliosis or deformity SKIN: No rashes CENTRAL NERVOUS SYSTEM: Alert and oriented -3. No focal deficits, tone is normal in all 4 extremities. PSYCHIATRIC: Alert and oriented -3. Appropriate affect. Intact judgment and insight. - Labs CBC & Chem 7: 11/23/19 05:19 11/23/19 05:19 Labs: Abnormal Lab Results - Last 24 Hours (Table) 11/22/19 11/22/19 11/22/19 Range/Units 16:21 16:37 20:19 WBC 16.6 H (3.8-10.6) k/uL RBC 2.43 L (4.30-5.90) m/uL Hgb 7.2 L (13.0-17.5) gm/dL Hct 23.0 L (39.0-53.0) % RDW 18.6 H (11.5-15.5) % Plt Count 574 H (150-450) k/uL Neutrophils # (1.3-7.7) k/uL Sodium (137-145) mmol/L Potassium (3.5-5.1) mmol/L Chloride (98-107) mmol/L POC Glucose (mg/dL) 122 H 139 H (75-99) mg/dL Calcium (8.4-10.2) mg/dL 11/23/19 11/23/19 11/23/19 Range/Units 05:19 05:19 06:29 WBC 16.1 H (3.8-10.6) k/uL RBC 2.45 L (4.30-5.90) m/uL Hgb 7.3 L (13.0-17.5) gm/dL Hct 23.2 L (39.0-53.0) % RDW 19.1 H (11.5-15.5) % Plt Count 616 H (150-450) k/uL Neutrophils # 14.0 H (1.3-7.7) k/uL Sodium 133 L (137-145) mmol/L Potassium 5.3 H (3.5-5.1) mmol/L Chloride 97 L (98-107) mmol/L POC Glucose (mg/dL) 108 H (75-99) mg/dL Calcium 7.8 L (8.4-10.2) mg/dL Assessment and Plan Plan: Assessment: 1. obstructing tumor bronchus intermedius/right mainstem bronchus, suspect cancer, positive uptake on PET scan, biopsy nondiagnostic, status post right thoracotomy, exploratory with lysis of adhesions, right lower and middle bilobectomy, the patient is postop day #5. Right-sided chest tube in place. The patient is positive air leak. Output is improved compared to yesterday. 2. New-onset atrial fibrillation, status post cardioversion 3. Pneumonia, sepsis on admission, awaiting final cultures and the patient is currently on a combination of clindamycin and his white cell count is improving 4. Bilateral nonobstructing small segmental and subsegmental pulmonary emboli, post IVC filter placement 5. Severe COPD, previous tobacco dependance 6. History of hypertension 7. History of cardiomyopathy in 2008 which resolved 8. Arthritis 9. History of abdominal aortic aneurysm status post stent grafting in 2011 10. Postoperative acute blood loss anemia, with further drop in the hemoglobin down to 6.5. The patient will be receiving a unit of packed RBC. 11 subcu emphysema involving the right lung extending to the right chest area Plan: Patient is doing well, today's chest x-ray has been reviewed, no evidence of any significant pneumothorax, and his incentive spirometry use, maintain pain control, patient is tolerating ablation, discharge planning is in progress for discharge home today. Biopsies are still pending, she will follow-up with Dr. Middleton in the office. I performed a history & physical examination of the patient and discussed their management with my nurse practitioner, Radha Garcia. I reviewed the nurse practitioner's note and agree with the documented findings and plan of care. Lung sounds are positive for diminished breath sounds with a few scattered crackles. The findings and the impression was discussed with the patient. I attest to the documentation by the nurse practitioner. Time with Patient: Less than 30
[2019-11-23 16:19] VITALS: RESP 18
[2019-11-23 16:31] VITALS: PULSE 94
[2019-11-23 17:17] LABS: Glucose,Whole Blood 138 mg/dL (75-99)
[2019-11-23] MEDS ORDERED: CLINDAMYCIN 150 MG CAP PO SCH (18:00)
--- NOTE | 2019-11-24 11:41 | CDI ---
Documentation Clarification Form Date: 11/24/19 From: Jacquelyn Hahn Phone: If you have a question about this query, please contact Lilia Warren, Industrial Gas Production Operator at [phone] between 8am and 5pm. Admit Date: 11/15/19 Discharge Date: 11/23/19 Patient Name: YULIANA LOCKETT Visit Number: [id number] ATTENTION: The Clinical Documentation Specialists (CDI) and [facility] Coding Staff appreciate your assistance in clarifying documentation. Please respond to the clarification below the line at the bottom and electronically sign. The CDI & [facility] Coding staff will review the response and follow-up if needed. Please note: Queries are made part of the Legal Health Record. If you have any questions, please contact the author of this message via ITS. Dear Dr. 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 In your professional opinion, do you agree with the pathology report specifying High grade malignant neoplasm of right middle and lower lobes of lung? Yes No Other (please specify) Unable to determine YES MTDD
--- NOTE | 2019-11-24 12:04 | CDI ---
Documentation Clarification Form Date: 11/24/19 From: Jacquelyn Hahn Phone: If you have a question about this query, please contact Lilia Warren, [employer] at [phone] between 8am and 5pm. Admit Date: 11/15/19 Discharge Date: 11/23/19 Patient Name: YULIANA LOCKETT Visit Number: [id number] ATTENTION: The Clinical Documentation Specialists (CDI) and [facility] Coding Staff appreciate your assistance in clarifying documentation. Please respond to the clarification below the line at the bottom and electronically sign. The CDI & [facility] Coding staff will review the response and follow-up if needed. Please note: Queries are made part of the Legal Health Record. If you have any questions, please contact the author of this message via ITS. Dear Dr. Lei Garcia, Subcutaneous emphysema is documented in the CXR 11/18, 11/19,11/20,11/21, 11/22 and per 11/20, 11/21, 11/22 PNs - 11/22 trace right pleural effusion with persistent subcutaneous emphysema along right chest wall. Patients Admitting Diagnosis:obstructing tumor bronchus intermedius Post-Operative Diagnosis: same Procedure performed: Cardioversion, right thoracotomy, exploratory w lysis of adhesions, right lower and middle bilobectomy, mediastinal lymph node dissection, cryoablation of right intercostal nerves. History/Risk Factors: PE w [place] filter placed in inferior vena cava, Strep sepsis w Strep pneumonia, hyponatremia, COPD, ABLA, Hypertensive heart disease wo heart failure Treatment: Chest tubes were placed at the time of surgery and monitored. In order to accurately reflect this patients severity of illness, please clarify if the subcutaneous emphysema: has been ruled out is a complication of surgical procedure is an expected outcome of the surgical procedure is related to co-morbid condition(s) of Other please specify Unable to determine expected development of thoracic surgery with no clinical implication or significance MTDD
--- NOTE | 2019-11-24 14:52 | P.DS ---
Providers Date of admission: 11/15/19 13:49 Expected date of discharge: 11/24/19 Attending physician: Alejo Garcia MD Consults: 11/15/19 14:00 Consult Physician Urgent Consulting Provider: Leonel Middleton Consult Reason/Comments: Lung cancer, pneumonia Do you want consulting provider notified?: Yes 11/15/19 14:44 Consult Physician Routine Consulting Provider: Lei Garcia Consult Reason/Comments: lung ca Do you want consulting provider notified?: Yes 11/16/19 06:48 Consult Physician Routine Consulting Provider: Carito Rivers Consult Reason/Comments: cardiac clearence for lobectomy Do you want consulting provider notified?: Yes 11/16/19 20:28 Consult Physician Routine Consulting Provider: Adrián Smith Consult Reason/Comments: 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 Do you want consulting provider notified?: Yes 11/17/19 11:35 Consult Physician Urgent Consulting Provider: Alex Kwon Consult Reason/Comments: Place removable IVC filter Do you want consulting provider notified?: Yes 11/20/19 12:20 Consult Physician Routine Consulting Provider: William Leblanc Consult Reason/Comments: abx management Do you want consulting provider notified?: Yes Primary care physician: Jennifer Lea [facility] Course: 64-year-old male with a past medical history significant for COPD, recently diagnosed lung cancer was scheduled for bilateral lobectomies on , was supposed to have presurgical screening with an echocardiogram today but the echocardiogram staff felt that he needed to go to the emergency department due to high heart rate. Patient has been having worsening shortness of breath, diaphoresis, increasing phlegm production, diarrhea and fevers over the past several days. He presented to the emergency department last Friday for the same symptoms, was given some IV antibiotics and discharged home without antibiotic prescription.. No nausea or vomiting. No sick contacts. Patient denies any chest pain or palpitations, no abdominal pain. A few months back he underwent a bronchoscopy which showed obliteration of the bronchus intermedius and pathology showed spindle cell carcinoma. He met with Dr. Garcia who felt that he likely had underlying tumor with necrosis and would require bilobectomy. On arrival to the ER he had a fever of 102 and a pulse of 133. Laboratory analysis showed a white blood cell count 25.3, hemoglobin 10.6, platelets 469, INR 1.3, sodium 127, albumin 3, and 188 hyaline casts in his urine. Influenza was negative. Chest x-ray was completed which showed worsening of the abnormality in his right lower lobe. He was also found have an elevated lactic acid at 2.4. He was started on IV fluids, vancomycin, cefepime, and Levaquin. He was admitted for further monitoring. Dr. Garcia was consulted. Patient underwent CT angiogram of the chest which showed bilateral segmental and subsegmental pulmonary emboli as well as increasing lung mass size compared to PET scan performed in September. Patient was initiated on a heparin drip. Oral anticoagulants were not given because he was going to have bilateral lobectomies. Patient went to the [employer] for IVC filter placement. Patient had bilateral lower extremity Doppler that did not show DVT. After he had IVC filter placed he went into atrial fibrillation with rapid ventricular response. He was initiated on Cardizem drip at that time. On 11/17 he underwent cardioversion in addition to right thoracotomy, exploratory with lysis of adhesions, right lower and middle bilobectomy, mediastinal lymph node dissection, cryoablation of right intercostal nerves, done by CT surgery, Dr. Garcia. Patient tolerated the procedure well. Several days after the procedure hemoglobin dropped down to 6.5. He was transfused 1 unit of packed red blood cells. Cultures from the surgical specimen showed nonhemolytic strep. This was treated with cefazolin and clindamycin. Chest tube was discontinued by CT surgery and patient was discharged on 11/22 in a stable condition. Time for discharge 35 minutes. Patient Condition at Discharge: Stable Plan - Discharge Summary Discharge Rx Participant: No New Discharge Prescriptions: New Clindamycin [Cleocin] 300 mg PO Q8H #20 cap Furosemide [Lasix] 20 mg PO DAILY #7 tab Metoprolol Tartrate [Lopressor] 25 mg PO TID #90 tab Sennosides [Senokot] 8.6 mg PO DAILY PRN tab PRN Reason: Constipation Acetaminophen Tab [Tylenol] 1,000 mg PO Q6HR PRN tab PRN Reason: Mild Pain Or Fever > 100.5 Continue Spironolactone [Aldactone] 25 mg PO DAILY@0700 Discontinued Metoprolol Tartrate [Lopressor] 50 mg PO DAILY@1600 Enalapril [Vasotec] 20 mg PO DAILY@0700 Acetaminophen Tab [Tylenol Tab] 1,000 mg PO Q6H PRN PRN Reason: Fever And/ Or Pain Discharge Medication List Spironolactone [Aldactone] 25 mg PO DAILY@0700 11/10/19 [History] Acetaminophen Tab [Tylenol] 1,000 mg PO Q6HR PRN tab 11/23/19 [Rx] Clindamycin [Cleocin] 300 mg PO Q8H #20 cap 11/23/19 [Rx] Furosemide [Lasix] 20 mg PO DAILY #7 tab 11/23/19 [Rx] Metoprolol Tartrate [Lopressor] 25 mg PO TID #90 tab 11/23/19 [Rx] Sennosides [Senokot] 8.6 mg PO DAILY PRN tab 11/23/19 [Rx] Follow up Appointment(s)/Referral(s): Lei Garcia MD [Family Provider] - 12/02/19 2:15 pm () Leonel Middleton MD [STAFF PHYSICIAN] - 1 Week (Office is closed. Please call to schedule appointment) Jennifer Lea MD [Primary Care Provider] - 11/26/19 9:40 am (Friday) Patient Instructions/Handouts: Thoracotomy (DC), Inferior Vena Cava Filter Placement (DC) Activity/Diet/Wound Care/Special Instructions: DISCHARGE INSTRUCTIONS: 1. No driving for 2 weeks, or until physician gives their ok. 2. No lifting, pushing, or pulling more than 10 pounds for 2 weeks. The physician will advise of any restriction changes. 3. Continue pain control per as needed orders. Alternate acetaminophen (Tylenol) and ibuprofen (Motrin/Advil) for pain. 4. Continue with incentive spirometry and splinting until otherwise directed by the physician. 5. Leave chest tube dressing for 48 hours. After that, remove all dressings and shower daily. 6. Routine incision care. No powders, lotions, ointments on incisions. 7. Please call surgeon/[employer]ANER for temp greater than 101 F or purulent drainage from incisions. 8. Smoking cessation counseling and program information provided. For any questions or concerns please call K[employer]'s Marlyn at [phone] or David at [phone] Discharge Disposition: HOME SELF-CARE
== END 2019-11-23 18:35 | disposition home or self-care (01) | DRG 853 ==
LOC: EC 11:46 → 5NMEDONC 13:49 → 3SCARD 11-17 22:57 → 2SICU 11-18 12:51 → 3SCARD 11-23 07:47
PROVIDERS: ADMIT Internal Medicine; ATTEND Internal Medicine
PROC: 06H03DZ Insertion of Intraluminal Device into Inferior Vena Cava, Percutaneous Approach (ICD-10-PCS; 2019-11-17)
PROC: 0BN Respiratory System, Release (ICD-10-PCS; principal; 2019-11-18 07:30)
PROC: 5A2204Z Restoration of Cardiac Rhythm, Single (ICD-10-PCS; principal; 2019-11-18 07:30)
PROC: 0BJ08ZZ Inspection of Tracheobronchial Tree, Via Natural or Artificial Opening Endoscopic (ICD-10-PCS; principal; 2019-11-18 07:30)
PROC: 07T70ZZ Resection of Thorax Lymphatic, Open Approach (ICD-10-PCS; principal; 2019-11-18 07:30)
PROC: 01580ZZ Destruction of Thoracic Nerve, Open Approach (ICD-10-PCS; principal; 2019-11-18 07:30)
PROC: 0BTF0ZZ Resection of Right Lower Lung Lobe, Open Approach (ICD-10-PCS; principal; 2019-11-18 07:30)
PROC: 0BTD0ZZ Resection of Right Middle Lung Lobe, Open Approach (ICD-10-PCS; principal; 2019-11-18 07:30)
PROC: 0BNJ0ZZ Release Left Lower Lung Lobe, Open Approach (ICD-10-PCS; principal; 2019-11-18 07:30)
PROC: 30233N1 Transfusion of Nonautologous Red Blood Cells into Peripheral Vein, Percutaneous Approach (ICD-10-PCS; 2019-11-22)
DX: A40.9 Streptococcal sepsis, unspecified (principal); J15.4 Pneumonia due to other streptococci; I26.99 Other pulmonary embolism without acute cor pulmonale; E87.2 Acidosis; E87.1 Hypo-osmolality and hyponatremia; J44.0 Chronic obstructive pulmonary disease with (acute) lower respiratory infection; J44.1 Chronic obstructive pulmonary disease with (acute) exacerbation; D62 Acute posthemorrhagic anemia; J93.82 Other air leak; C34.81 Malignant neoplasm of overlapping sites of right bronchus and lung; J98.11 Atelectasis; I27.20 Pulmonary hypertension, unspecified; J98.2 Interstitial emphysema; D63.8 Anemia in other chronic diseases classified elsewhere; I11.9 Hypertensive heart disease without heart failure; E86.0 Dehydration; I48.0 Paroxysmal atrial fibrillation; E87.70 Fluid overload, unspecified; Y95 Nosocomial condition; K66.0 Peritoneal adhesions (postprocedural) (postinfection); I08.1 Rheumatic disorders of both mitral and tricuspid valves; R59.0 Localized enlarged lymph nodes; M19.90 Unspecified osteoarthritis, unspecified site; E87.5 Hyperkalemia; R19.7 Diarrhea, unspecified; K59.00 Constipation, unspecified; F10.21 Alcohol dependence, in remission; E66.9 Obesity, unspecified; Z68.30 Body mass index [BMI] 30.0-30.9, adult; Z79.899 Other long term (current) drug therapy; Z87.891 Personal history of nicotine dependence; Z87.01 Personal history of pneumonia (recurrent); Z90.2 Acquired absence of lung [part of]; Z86.711 Personal history of pulmonary embolism; Z86.79 Personal history of other diseases of the circulatory system; Z95.828 Presence of other vascular implants and grafts; Z98.890 Other specified postprocedural states; Z71.3 Dietary counseling and surveillance; Z88.0 Allergy status to penicillin; Z91.030 Bee allergy status; Z91.038 Other insect allergy status; Z82.49 Family history of ischemic heart disease and other diseases of the circulatory system; Z80.3 Family history of malignant neoplasm of breast
CPT/HCPCS: 36415; 37191; 64450; 71045; 71046; 71275; 76942; 80048; 80053; 80202; 81001; 82607; 82728; 82747; 82805; 83540; 83550; 83605; 83735; 83930; 83935; 84100; 84145; 84300; 85025; 85027; 85610; 85730; 86850; 86900; 86901; 86920; 87040; 87070; 87075; 87077; 87102; 87186; 87205; 87502; 88305; 88307; 88309; 88331; 88341; 88342; 93005; 93306; 93970; 94640; 94760; 96365; 96367; 99291

== ENCOUNTER → 2019-11-15 | Outpatient (CLI) | payer MEDICARE ==
[~2019-11-15] MED LIST: DOBUTamine DRIP for NUC MED 500 MG in DEXTROSE/WATER 1 250ML.BAG IV ONE
== END | disposition home or self-care (01) ==
LOC: RADNMMAIN 11:01
PROVIDERS: ATTEND Thoracic Surgery (Cardiothoracic Vascular Surgery)
DX: Z53.9 Procedure and treatment not carried out, unspecified reason (principal)

== ENCOUNTER → 2020-01-28 | Outpatient (CLI) | payer MEDICARE ==
[2020-01-28 14:33] LABS: African American GFR (CKD) >90 (>60 ml/min/1.73 sqM); Blood Urea Nitrogen 20 mg/dL (9-20); Non-African American GFR(CKD) >90 (>60 ml/min/1.73 sqM)
--- NOTE | 2020-01-28 15:30 | CT ---
EXAMINATION TYPE: CT angio chest DATE OF EXAM: 01/28/2020 COMPARISON: HISTORY: lung cancer, arthritis, recent right middle and lower lobectomy CT DLP: 409.9 mGycm CONTRAST: CT chest with contrast and 3D reconstruction with MIP imaging is performed with IV Contrast, patient injected with 100 mL of Isovue 370. Contrast-enhanced CT of the chest was performed through the course of the pulmonary arteries with tej g and mediastinal window settings submitted. 3D reconstruction with MIP imaging was also performed. PULMONARY ARTERIES: The pulmonary arteries and their major tributaries are patent. I do not see elias dence for sizable filling defect to suggest pulmonary embolic process. LUNGS: Interval postoperative changes of right middle and right lower lobectomy. I cannulated pneumot horax right lower lobe. Subcutaneous emphysema. Persistent masslike density right infrahilar and righ t lower lobe region measuring 7.7 x 4.8 cm. Additional nodular density right upper lobe measuring 2.2 cm image 92. Spiculated nodule right upper lobe image 52 of 175 measuring 9 mm. Right apical pleural effusion and capping. Emphysematous changes noted bilaterally. MEDIASTINUM: Thoracic aorta is of normal caliber,however, evaluation is limited given timing of the contrast bolus. If there is concern for thoracic aortic pathology consider SHWETA. Correlate clinicall y . The heart is not enlarged. No evidence for mediastinal mass. No mediastinal lymph nodes greater than 1cm. HILAR STRUCTURES: No evidence for mass. No hilar lymph nodes greater than 1 cm. UPPER ABDOMEN: Partially imaged upper abdominal aortic aneurysm. Gated hepatic lesions compatible wit h metastatic disease. IMPRESSION: 1. No evidence for Pulmonary embolism at this time. 2. Pulmonary findings as noted above. 3. Metastatic disease to the liver.
== END | disposition home or self-care (01) ==
LOC: RADCTMAIN 13:56
PROVIDERS: ATTEND Internal Medicine Hematology & Oncology
DX: J93.9 Pneumothorax, unspecified (principal); T79.7XXA Traumatic subcutaneous emphysema, initial encounter; J98.4 Other disorders of lung; R91.1 Solitary pulmonary nodule; Z88.0 Allergy status to penicillin; Z91.030 Bee allergy status
CPT/HCPCS: 82565; 84520; 71275; 36415; Q9967

== ENCOUNTER → 2020-02-11 | Outpatient (CLI) | payer MEDICARE ==
--- NOTE | 2020-02-11 14:18 | PE ---
Nuclear medicine PET/CT HISTORY: Solitary pulmonary nodule, R 91.1, subsequent Patient received 11.6 mCi F-18 FDG intravenously in delayed scanning was performed from the skull bas e to the mid thighs. Localization and attenuation correction CT scan was performed. Correlation to prior nuclear medicine PET/CT 10/16/2019 Neck and chest: There is been interval surgery status post lobectomy right hemithorax, there is volum e loss, pleural thickening present with some probable areas of scarring, there is a small air-fluid l evel present at the right lung base may be due to trapped lung, difficult to exclude small empyema. [place] of subcutaneous emphysema is present at the level the inferior margin of the right scap alfonso. There is a new pulmonary nodule in the right lower lobe measuring 18 mm which shows hypermetabol ic uptake. The left lung is spared. No mediastinal, axillary, or hilar adenopathy. Pulmonary artery i s prominent suggesting pulmonary artery hypertension. There are coronary artery calcifications presen t. Shift of the mediastinum noted toward the right. Apical fluid attenuation present in the right hem ithorax. No supraclavicular or cervical adenopathy. ABDOMEN: Multiple liver masses have developed in the interval showing corresponding hypermetabolic up take. There are at least 8 masses present. Patient's abdominal aortic aneurysm and aortic stent graft is noted incidentally. There is no evident adrenal mass. No retroperitoneal adenopathy. No ascites. Osseous structures show multiple foci of hypermetabolic uptake including the right side of L5 vertebr al body posterior elements,, the left scapula shows a focus, the proximal right fourth rib, right asp ect of the eighth vertebral body thoracic spine, 10 vertebral body midthoracic spine. IMPRESSION: Metastatic disease.
== END | disposition home or self-care (01) ==
LOC: RADPETMAIN 08:29
PROVIDERS: ATTEND Internal Medicine Hematology & Oncology
DX: R91.1 Solitary pulmonary nodule (principal); C79.9 Secondary malignant neoplasm of unspecified site
CPT/HCPCS: 78815; A9552

== ENCOUNTER → 2020-03-09 | Outpatient (CLI) | payer MEDICARE ==
[2020-03-09 07:18] LABS: African American GFR (CKD) >90 (>60 ml/min/1.73 sqM); Blood Urea Nitrogen 16 mg/dL (9-20); Non-African American GFR(CKD) >90 (>60 ml/min/1.73 sqM)
--- NOTE | 2020-03-09 10:08 | CT ---
EXAMINATION TYPE: CT ChestAbdPelvis w con DATE OF EXAM: 03/09/2020 COMPARISON: PET CT February 11, 2020 and older studies. Most recent chest CT January 28, 2020. HISTORY: follow up lung cancer, history of right-sided lung surgery November 19, 2019 and completed chemo therapy February 09, 2020. CT DLP: 1092.4 mGycm. Automated Exposure Control for Dose Reduction was Utilized. CONTRAST: CT scan of the thorax, abdomen and pelvis is performed with oral and with IV Contrast, patient inject ed with 100 mL of Isovue 300. FINDINGS: LUNGS: Redemonstration of right-sided volume loss and mediastinal shift. Redemonstration of backgroun d moderate emphysematous change greatest in the right upper lobe. Redemonstration of postsurgical erica nge right infrahilar level with some persistent small right pleural fluid collection that does not co mpletely layer dependently. Stable 8mm posterior right upper lobe nodule that is ametabolic most rece nt PET/CT. Right infrahilar sutures and pleural thickening/fluid axial image 43 is redemonstrated. Th ere is 17 x 15 mm right lower lobe nodule axial image 43 not significantly changed from PET CT right measured 16 x 13 mm. Was noted hypermetabolic. Left lung redemonstrates hyperinflation without new no dule. MEDIASTINUM: There are no greater than 1 cm hilar or mediastinal lymph nodes. No pericardial effusi on is seen. Persistent enlarged right and left pulmonary arteries consistent with underlying pulmona ry hypertension. Persistent ligation at distal right pulmonary artery axial image 38. Heart size stab le and upper limits of normal. Coronary artery calcification redemonstrated which is noted marked of underlying coronary artery disease. Ascending aorta measures up to 4.1 cm in diameter at most 35 unch anged from prior. OTHER: Small degree of subareolar gynecomastia is redemonstrated. LIVER/GB: Correlating with most recent PET/CT there are hepatic metastatic deposits redemonstrated. L argest lesion anterior-inferior left hepatic lobe measures 6.3 cm long axis axial image 71 enlarged f rom 4.8 cm PET/CT axial image 158. Posterior right hepatic lobe metastatic lesion measures 4.3 cm cesar g exercise image 58 versus 3.8 cm prior PET/CT axial image 142. PANCREAS: No significant abnormality is seen. SPLEEN: No significant abnormality is seen. ADRENALS: No new adrenal masses. KIDNEYS: Persistent lower pole right renal volume loss with 6 mm nonobstructing calculus lower pole l evel. BOWEL: Oral contrast does not reach level of terminal ileum making evaluation distal bowel slightly s uboptimal. No suspicious small or large bowel dilatation. Some sigmoid colonic diverticula are redemo nstrated.. GENITAL ORGANS: Mildly enlarged prostate gland bulging on bladder base. LYMPH NODES: No greater than 1cm abdominal or pelvic lymph nodes are appreciated. OSSEOUS STRUCTURES: There is S-shaped scoliosis with multilevel spurring in the spine. [id number] arpan disc space narrowing and spurring with endplate sclerosis right L3-L4 and left L4-L5 and L5-S1 l evels. Slight grade 1 retrolisthesis L3 on L4 and L4 on L5. Subtle lytic metastatic disease for refer ence right T10 lesion axial image 48 are identified, osseous metastatic disease noted better visualiz ed on PET/CT due to the hypermetabolic uptake. OTHER: Persistent Infrarenal IVC filter. Persistent aortobiiliac stent graft which shows some IntraSt ent thrombosis along the left aspect but patency through the iliac portion of stent graft. Moderate c alcified plaque distal to this remains present. Tortuous aorta redemonstrated. IMPRESSION: Stable suspicious recurrent right lower lung pulmonary nodule. Suspected stable osseous metastatic disease. Redemonstration of hepatic metastatic disease felt to show some interval increase in size. No new metastatic disease is evident.
== END | disposition home or self-care (01) ==
LOC: RADCTMAIN 06:41
PROVIDERS: ATTEND Internal Medicine Hematology & Oncology
DX: C34.31 Malignant neoplasm of lower lobe, right bronchus or lung (principal); C78.7 Secondary malignant neoplasm of liver and intrahepatic bile duct; Z88.0 Allergy status to penicillin
CPT/HCPCS: 82565; 84520; 71260; 74177; 36415; Q9967

== ENCOUNTER → 2020-04-27 | Outpatient (CLI) | payer MEDICARE ==
--- NOTE | 2020-04-27 16:15 | CT ---
EXAMINATION TYPE: CT ChestAbdPelvis w con DATE OF EXAM: 04/27/2020 COMPARISON: 03/09/2020 and 11/16/2019 HISTORY: 64-year-old male with history of right lung cancer TECHNIQUE: Contiguous axial scanning of the chest, abdomen, and pelvis performed with IV Contrast, pa tient injected with 100 mL of Isovue 300. Delayed images through the kidneys were obtained. Coronal/s agittal reconstructions performed. CT DLP: 1001.3 mGycm Automated exposure control for dose reduction was used. FINDINGS: CHEST: Heart upper limits of normal in size without pericardial effusion. Three-vessel coronary artery calci fications are present. Mild aneurysm ascending aorta 4.1 cm and upper descending thoracic aorta at 3.5 cm. Conventional arch vessel branching anatomy. No progressive thoracic lymphadenopathy. Mild bilateral gynecomastia. Post surgical changes right hemithorax with corresponding volume loss with partial pneumonectomy. Moderate to advanced centrilobular emphysema. Large caliber to the main right and left pulmonary arteries at 3.3 cm compatible with underlying pulm onary arterial hypertension. Stable subpleural 1 cm nodule posterior right upper lobe did not show hypermetabolism on prior PET/CT . Stable 1.9 cm a right basilar pulmonary nodule which was previously hypermetabolic. Chronic small rig ht pleural effusion and stable subpleural thickening along the periphery of the right base. ABDOMEN: Multiple hepatic lesions are redemonstrated. Some of these are stable while others show decreasing size, for example, inferior right hepatic lobe measuring 4.4 cm versus 5.7 mm, previously. Anterior left liver lobe measuring 6.5 cm versus 6.7 cm, previously. Segment 4 measuring 1.4 cm versus 2.8 cm, previously. Right hepatic dome measuring 3.4 cm versus 4.0 cm, previously. Right adrenal gland, spleen, and pancreas appear within normal limits. Portal venous system is patent . Stable mild thickening of the left adrenal gland without discrete nodularity. Subcentimeter hypodensities right kidney too small for accurate CT characterization, probable cysts. 7 mm nonobstructive right renal calculus. Stable extrarenal pelvis on the left. Redemonstrated infrarenal abdominal aortic graft. The overall aortic caliber is 4.3 cm, not significa ntly changed. An IVC filter is also present. Bilateral iliac artery stents are also demonstrated. No dilated small bowel, free fluid, or free air. No mesenteric or retroperitoneal lymphadenopathy. Mild overall stool burden. No pericolonic inflammatory change. Mild distal sigmoid diverticulosis. PELVIS: Bladder urine distended. Prostate gland measures 4.5 cm wide. Surgical clips in the left axilla. No a bnormal fluid collection in the pelvis or pelvic lymphadenopathy. BONES: Mild degenerative changes at the hips. Degenerated levoconvex curvature lumbar spine. The hypermetabo lic osseous metastatic disease seen on the patient's 02/11/2020 PET/CT remains largely occult by CT. IMPRESSION: 1. REDEMONSTRATED VOLUME LOSS WITH POSTSURGICAL AND POSTTREATMENT CHANGES WITHIN THE RIGHT HEMITHORAX . THE 1.9 CM RIGHT BASILAR PULMONARY NODULE NOTED TO BE HYPERMETABOLIC ON PATIENT'S PET/CT REMAINS ST ABLE IN SIZE. ALSO STABLE IS THE SUBPLEURAL THICKENING ALONG THE PERIPHERY OF THE RIGHT BASE. THE PAT IENT'S OSSEOUS METASTATIC DISEASE SEEN ON THE PET/CT REMAINS OCCULT BY CT. 2. MULTIPLE HEPATIC METASTASES ARE EITHER STABLE OR SHOW DECREASING SIZE (FOR EXAMPLE, INFERIOR RIGHT LIVER LOBE AT 4.4 CM VERSUS 5.7 CM, PREVIOUSLY). 3. NO NEW METASTATIC DISEASE SEEN. 4. COPD WITH PULMONARY ARTERIAL HYPERTENSION, CAD, ASCENDING AORTIC ANEURYSM AT 4.1 CM, 7 MM NONOBSTR UCTIVE RIGHT RENAL CALCULUS, AND PRIOR ABDOMINAL AORTIC ENDOVASCULAR STENT GRAFT.
== END | disposition home or self-care (01) ==
LOC: RADCTMAIN 10:35
PROVIDERS: ATTEND Internal Medicine Hematology & Oncology
DX: C34.31 Malignant neoplasm of lower lobe, right bronchus or lung (principal); C79.51 Secondary malignant neoplasm of bone; C78.7 Secondary malignant neoplasm of liver and intrahepatic bile duct; J44.9 Chronic obstructive pulmonary disease, unspecified; I27.21 Secondary pulmonary arterial hypertension; I25.10 Atherosclerotic heart disease of native coronary artery without angina pectoris; I71.2 Thoracic aortic aneurysm, without rupture; N20.0 Calculus of kidney; Z98.890 Other specified postprocedural states; Z95.828 Presence of other vascular implants and grafts; Z88.0 Allergy status to penicillin
CPT/HCPCS: 71260; 74177; Q9967

== ENCOUNTER → 2020-06-12 | Outpatient (CLI) | payer MEDICARE ==
[2020-06-12 10:18] LABS: African American GFR (CKD) >90 (>60 ml/min/1.73 sqM); Blood Urea Nitrogen 15 mg/dL (9-20); Non-African American GFR(CKD) >90 (>60 ml/min/1.73 sqM)
--- NOTE | 2020-06-12 14:31 | CT ---
EXAMINATION TYPE: CT ChestAbdPelvis w con DATE OF EXAM: 06/12/2020 COMPARISON: Most recent CT April 27, 2020 and older CTs. Most recent PET CT February 11, 2020. HISTORY: Lung CA with surgical treatment. Known AAA with stent. CT DLP: 931.8 mGycm. Automated Exposure Control for Dose Reduction was Utilized. CONTRAST: CT scan of the thorax, abdomen and pelvis is performed with oral and with IV Contrast, patient inject ed with 100 mL of Isovue 300. FINDINGS: LUNGS: Redemonstration of right-sided surgical change and volume loss. Background moderate underlying emphysematous change redemonstrated. Hyperexpanded left lung again seen. Stable 1.0 x 0.9 cm posteri or right upper lung nodule image 21. Enlarging right lower lobe nodule near sutures now measuring 2.8 x 2.4 cm image 44 corresponds to area of hypermetabolic uptake on the most recent PET CT. Stable sma ll adjacent right pleural fluid collection extending laterally. No new nodules bilaterally. MEDIASTINUM: There are no new greater than 1 cm hilar or mediastinal lymph nodes. No pericardial e ffusion is seen. Mild cardiomegaly redemonstrated. Moderate to severe coronary artery callus case ma nager stents again seen. Prominent bilateral pulmonary arteries including larger right pulmonary teto ry with ligation lower lobe branch redemonstrated. Stable ascending aortic aneurysm up to 4.1 cm in diameter axial image 31. OTHER: Small degree of subareolar gynecomastia again seen. LIVER/GB: Interval progression of hepatic metastatic disease. For reference lesion left hepatic lobe inferiorly now measures 9.1 cm long axis axial image 31 versus 6.5 cm prior study. For reference post erior right hepatic metastatic focus measures 8.3 cm long axis image 17 versus 4.6 cm prior. New smal ler intrahepatic metastatic lesions are noted. PANCREAS: No significant abnormality is seen. SPLEEN: No significant abnormality is seen. ADRENALS: No significant abnormality is seen. KIDNEYS: Persistent mid to lower right kidney volume loss and cortical thinning with stable 7 mm calc ulus sac measures 34 and adjacent 1.4 cm exophytic thin-walled cyst redemonstrated. Small extrarenal pelvis on the left is stable. BOWEL: Oral contrast reaches level of the right colon. There is no suspicious small or large bowel di latation. Diverticula in the sigmoid colon are present. No CT evidence for acute diverticulitis. GENITAL ORGANS: No gross abnormality seen. LYMPH NODES: No greater than 1cm abdominal or pelvic lymph nodes are appreciated. OSSEOUS STRUCTURES: S-shaped scoliosis. Multilevel spurring in the spine. Multilevel dewhvrvj-dy-wcyv re disc space narrowing with vacuum disc phenomenon mid to lower lumbar spine greatest at L3-L4 and L 4-L5 levels where there is spondylolisthesis also redemonstrated. Suspected Osseous metastatic diseas e on PET/CT remains not well seen on CT images OTHER: Persistent patent aortobiiliac stent graft through [place] AAA up to 4.7 cm transversely axial image 83. Surgical clips bilateral groin region redemonstrated. IMPRESSION: Metastatic neoplastic progression with enlarging right lower lung nodule. Enlarging and new hepatic metastatic disease also identified.
== END | disposition home or self-care (01) ==
LOC: RADCTMAIN 09:22
PROVIDERS: ATTEND Internal Medicine Hematology & Oncology
DX: C34.31 Malignant neoplasm of lower lobe, right bronchus or lung (principal); C78.7 Secondary malignant neoplasm of liver and intrahepatic bile duct; Z88.0 Allergy status to penicillin
CPT/HCPCS: 82565; 84520; 71260; 74177; 36415; Q9967 ×2

== ENCOUNTER → 2020-07-24 | Outpatient (CLI) | payer MEDICARE ==
--- NOTE | 2020-07-24 10:36 | MR ---
EXAMINATION TYPE: MR lumbar spine wo/w con DATE OF EXAM: 07/24/2020 COMPARISON: CT 06/12/2020 HISTORY: Low back pain, right hip pain, hx lung ca TECHNIQUE: Multiplanar, multisequence images of the lumbar spine were acquired There is extensive artifact present. Artifact likely due to patient's stent graft at the region of in terest. IMPRESSION: Exam was aborted due to artifact. Nondiagnostic exam.
== END | disposition home or self-care (01) ==
LOC: RADMRIMAIN 09:00
PROVIDERS: ATTEND Internal Medicine Hematology & Oncology
DX: Z53.9 Procedure and treatment not carried out, unspecified reason (principal)

== ENCOUNTER 2020-07-29 09:22 | Inpatient (IN) | payer MEDICARE ==
[2020-07-29] MEDS ORDERED: ACETAMINOPHEN TAB 500 MG TAB PO STA (10:15)
--- NOTE | 2020-07-29 10:18 | ED ---
General Adult HPI - General Chief complaint: Weakness Stated complaint: Vomiting/Weak Time Seen by Provider: 07/29/20 09:45 Source: patient, RN notes reviewed, old records reviewed Mode of arrival: ambulatory Limitations: no limitations - History of Present Illness Initial comments: This is a 65-year-old male with past mental history significant for lung cancer with metastatic disease to the liver and bone. Patient states in November she had a lobectomy. Patient states since then he's had 6 ounces chemo and he is now on immunotherapy. Patient states last immunotherapy was a week ago. Patient states last 4 days he's been having nausea and vomiting and unable to keep it has been drinking. Patient states been feeling weak so came in and got a liter of fluid yesterday from the oncologist but he again vomited when he got home and again this morning and he was feeling weak anytime he stood up so decided come to the emergency department. Patient denies any cough difficulty breathing or shortness of breath. Patient denies any chest pain. Patient denies abdominal pain. Patient denies any diarrhea. Patient denies exposure code. Patient den ies any dysuria hematuria urinary frequency. - Related Data Home Medications Medication Instructions Recorded Confirmed Spironolactone [Aldactone] 25 mg PO DAILY 11/10/19 07/29/20 Apixaban [Eliquis] 5 mg PO DIRECTED 07/29/20 07/29/20 HYDROcodone/APAP 5-325MG [[place] 1 tab PO Q6H PRN 07/29/20 07/29/20 5-325] Metoprolol Tartrate [Lopressor] 50 mg PO DAILY 07/29/20 07/29/20 Allergies Allergy/AdvReac Type Severity Reaction Status Date / Time bee venom protein (honey bee) Allergy Anaphylaxis Verified 06/27/20 12:46 insect venom Allergy Anaphylaxis Verified 06/27/20 12:46 Penicillins Allergy Unknown Verified 06/27/20 12:46 Childhood Review of Systems ROS Statement: Those systems with pertinent positive or pertinent negative responses have been documented in the HPI. ROS Other: All systems not noted in ROS Statement are negative. Past Medical History Past Medical History: Cancer, COPD, Pneumonia Additional Past Medical History / Comment(s): rt lower lobe lung cancer, cardiomegaly History of Any Multi-Drug Resistant Organisms: None Reported Past Surgical History: Tonsillectomy Additional Past Surgical History / Comment(s): aortic abd stent Past Anesthesia/Blood Transfusion Reactions: No Reported Reaction Past Psychological History: No Psychological Hx Reported Smoking Status: Former smoker Past Alcohol Use History: None Reported Past Drug Use History: None Reported - Past Family History Father Family Medical History: Myocardial Infarction ([place]) Additional Family Medical History / Comment(s): Father of a [place] at the age of 46yrs. Mother Family Medical History: Cancer Additional Family Medical History / Comment(s): Mother from breast cancer. General Exam - General Exam Comments Initial Comments: GENERAL: Patient is well-developed and well-nourished. Patient is nontoxic and well- hydrated and is in mild distress. ENT: Neck is soft and supple. No significant lymphadenopathy is noted. Oropharynx is clear. Moist mucous membranes. Neck has full range of motion without eliciting any pain. EYES: The sclera were anicteric and conjunctiva were pink and moist. Extraocular movements were intact and pupils were equal round and reactive to light. Eyelids were unremarkable. PULMONARY: Unlabored respirations. Good breath sounds bilaterally. No audible rales rhonchi or wheezing was noted. CARDIOVASCULAR: Patient is tachycardic at about 130 beats a minute. ABDOMEN: Soft and nontender with normal bowel sounds. SKIN: Skin is clear with no lesions or rashes and otherwise unremarkable. NEUROLOGIC: Patient is alert and oriented x3. Cranial nerves II through XII are grossly intact. Motor and sensory are also intact. Normal speech, volume and content. Symmetrical smile. MUSCULOSKELETAL: Normal extremities with adequate strength and full range of motion. No lower extremity swelling or edema. No calf tenderness. LYMPHATICS: No significant lymphadenopathy is noted PSYCHIATRIC: Normal psychiatric evaluation. Limitations: no limitations Course Vital Signs 07/29/20 07/29/20 07/29/20 09:43 13:07 13:23 Temperature 100.3 F H Pulse Rate 156 H 114 H Respiratory 18 18 Rate Blood Pressure 81/56 88/65 97/71 O2 Sat by Pulse 99 98 Oximetry Procedures - Sepsis Sepsis Focused Exam #1 Time Sepsis Criteria Met: 12:30 Sepsis Focused Exam Date: 07/29/20 Sepsis Focused Exam Time: 13:31 Sepsis Focused Exam Complete: Yes Vital Signs & RN Notes Reviewed: Yes Capillary Refill: > 2 Seconds: Fingers Peripheral Pulses: Normal: Radial (R) Skin Color: Normal for Patient Respiratory Exam: normal lung sounds Cardiovascular Exam: tachycardia Medical Decision Making - Medical Decision Making EKG shows sinus tachycardia 109 bpm PA interval 228 QRS is under 4 QT interval 348 QTC is 468. Patient's EKG shows no ST segment elevation or depression. Chest x-ray shows right-sided pleural effusion. Patient was initially hypotensive patient was given 2.5 L of fluid and his blood pressure came up to greater than 100 systolic. I spoke with the oncologist and they wanted the patient on vancomycin and cefepime. I spoke with sound physician's agreed to admit the patient admitted the patient wrote admitting orders. - Lab Data Result diagrams: 07/29/20 10:34 07/29/20 10:34 Lab Results 07/29/20 07/29/20 07/29/20 Range/Units 10:34 10:34 10:34 WBC 16.4 H (3.8-10.6) k/uL RBC 2.90 L (4.30-5.90) m/uL Hgb 8.2 L (13.0-17.5) gm/dL Hct 26.0 L (39.0-53.0) % MCV 89.8 D (80.0-100.0) fL MCH 28.4 (25.0-35.0) pg MCHC 31.6 (31.0-37.0) g/dL RDW 20.6 H (11.5-15.5) % Plt Count 358 (150-450) k/uL MPV 8.8 Neutrophils % 90 % Lymphocytes % 5 % Monocytes % 4 % Eosinophils % 1 % Basophils % 0 % Neutrophils # 14.6 H (1.3-7.7) k/uL Lymphocytes # 0.8 L (1.0-4.8) k/uL Monocytes # 0.7 (0-1.0) k/uL Eosinophils # 0.1 (0-0.7) k/uL Basophils # 0.0 (0-0.2) k/uL Hypochromasia Moderate Anisocytosis Moderate PT 13.5 H (9.0-12.0) sec INR 1.3 H (<1.2) APTT 21.4 L (22.0-30.0) sec Sodium 126 L (137-145) mmol/L Potassium 3.3 L (3.5-5.1) mmol/L Chloride 79 L (98-107) mmol/L Carbon Dioxide 40 H (22-30) mmol/L Anion Gap 7 mmol/L BUN 49 H (9-20) mg/dL Creatinine 1.07 (0.66-1.25) mg/dL Est GFR (CKD-EPI)AfAm 84 (>60 ml/min/1.73 sqM) Est GFR (CKD-EPI)NonAf 73 (>60 ml/min/1.73 sqM) Glucose 106 H (74-99) mg/dL Plasma Lactic Acid Huey (0.7-2.0) mmol/L Calcium 9.5 (8.4-10.2) mg/dL Total Bilirubin 0.9 (0.2-1.3) mg/dL AST 129 H (17-59) U/L ALT 35 (4-49) U/L Alkaline Phosphatase 145 H (38-126) U/L Troponin I (0.000-0.034) ng/mL Total Protein 6.9 (6.3-8.2) g/dL Albumin 3.6 (3.5-5.0) g/dL Coronavirus (PCR) (Not Detectd) 07/29/20 07/29/20 07/29/20 Range/Units 10:34 10:34 11:03 WBC (3.8-10.6) k/uL RBC (4.30-5.90) m/uL Hgb (13.0-17.5) gm/dL Hct (39.0-53.0) % MCV (80.0-100.0) fL MCH (25.0-35.0) pg MCHC (31.0-37.0) g/dL RDW (11.5-15.5) % Plt Count (150-450) k/uL MPV Neutrophils % % Lymphocytes % % Monocytes % % Eosinophils % % Basophils % % Neutrophils # (1.3-7.7) k/uL Lymphocytes # (1.0-4.8) k/uL Monocytes # (0-1.0) k/uL Eosinophils # (0-0.7) k/uL Basophils # (0-0.2) k/uL Hypochromasia Anisocytosis PT (9.0-12.0) sec INR (<1.2) APTT (22.0-30.0) sec Sodium (137-145) mmol/L Potassium (3.5-5.1) mmol/L Chloride (98-107) mmol/L Carbon Dioxide (22-30) mmol/L Anion Gap mmol/L BUN (9-20) mg/dL Creatinine (0.66-1.25) mg/dL Est GFR (CKD-EPI)AfAm (>60 ml/min/1.73 sqM) Est GFR (CKD-EPI)NonAf (>60 ml/min/1.73 sqM) Glucose (74-99) mg/dL Plasma Lactic Acid Huey 2.3 H* (0.7-2.0) mmol/L Calcium (8.4-10.2) mg/dL Total Bilirubin (0.2-1.3) mg/dL AST (17-59) U/L ALT (4-49) U/L Alkaline Phosphatase (38-126) U/L Troponin I <0.012 (0.000-0.034) ng/mL Total Protein (6.3-8.2) g/dL Albumin (3.5-5.0) g/dL Coronavirus (PCR) Not Detected (Not Detectd) Critical Care Time Critical Care Time: Yes Total Critical Care Time: 35 Disposition Clinical Impression: Sepsis, Pleural effusion, History of lung cancer Disposition: ADMITTED IP TO THIS HOSP Referrals: Jennifer Lea MD [Primary Care Provider] - 1-2 days Time of Disposition: 13:09
[2020-07-29] MEDS: SODIUM CHLORIDE 0.9% 500 ML 500 ML IV SCH ×4 (10:38→14:48)
[2020-07-29 11:00] LABS: INR 1.3 (<1.2); Prothrombin Time 13.5 sec (9.0-12.0)
[2020-07-29 11:01] LABS: Albumin 3.6 g/dL (3.5-5.0); Calcium 9.5 mg/dL (8.4-10.2); Potassium 3.3 mmol/L (3.5-5.1); Total Bilirubin 0.9 mg/dL (0.2-1.3); Total Protein 6.9 g/dL (6.3-8.2)
--- NOTE | 2020-07-29 11:19 | XR ---
EXAMINATION TYPE: XR chest 2V DATE OF EXAM: 07/29/2020 COMPARISON: Prior chest x-ray 11/23/2019, CT 06/12/2020 HISTORY: Fever, metastatic lung carcinoma TECHNIQUE: Frontal and lateral views of the chest are obtained on 3 images. FINDINGS: Abnormal density at the right lung bases become more confluent, there is volume loss in th e right hemithorax. Left lung is spared. Heart is likely stable. Apical pleural thickening noted on t he right. Subcutaneous emphysema has improved. Prominent lung volume on the left. IMPRESSION: Abnormal density right hemithorax is indeterminate, may be related to patient's lung car cinoma, loculated fluid versus pleural effusion and associated masses. There is underlying COPD, emph ysema. Difficult to exclude underlying pneumonia.
[2020-07-29 11:35] LABS: Partial Thromboplastin Time 21.4 sec (22.0-30.0)
[2020-07-29 11:53] LABS: Anisocytosis Moderate; Basophils % (A) 0 %; Eosinophils # (A) 0.1 k/uL (0-0.7); Eosinophils % (A) 1 %; HGB 8.2 gm/dL (13.0-17.5); Hypochromasia Moderate; Lymphocytes # (A) 0.8 k/uL (1.0-4.8); Lymphocytes % (A) 5 %; MCH 28.4 pg (25.0-35.0); MCHC 31.6 g/dL (31.0-37.0); Mean Platelet Volume 8.8; Monocytes # (A) 0.7 k/uL (0-1.0); Monocytes % (A) 4 %; Neutrophils # (A) 14.6 k/uL (1.3-7.7); Neutrophils % (A) 90 %; Platelet Count 358 k/uL (150-450); RDW 20.6 % (11.5-15.5); WBC 16.4 k/uL (3.8-10.6)
[2020-07-29 12:00] LABS: MCV 89.8 fL (80.0-100.0)
[2020-07-29] MEDS ORDERED: POTASSIUM CHLORIDE ER 20 MEQ TAB.ER PO STA (12:45)
[2020-07-29] MEDS: POTASSIUM CHLORIDE 10 MEQ in WATER FOR INJECTION 1 100ML.BAG IVPB SCH ×3 (13:12→16:30)
[2020-07-29] MEDS ORDERED: VANCOMYCIN IV PER PHARMACY 1 EACH MISC MISCELLANE PRN (13:20)
[2020-07-29] MEDS ORDERED: CEFEPIME 2 GM in SODIUM CHLORIDE 0.9% 100 ML IVPB STA (13:22)
[2020-07-29] MEDS ORDERED: VANCOMYCIN 1,500 MG in SODIUM CHLORIDE 0.9% 250 ML IVPB ONE (14:15)
[2020-07-29] MEDS: HYDROCORTISONE SUCCINATE 100 MG/2 ML VIAL IV SCH ×2 (14:49→21:20)
[2020-07-29] MEDS: SODIUM CHLORIDE 0.9% 1,000 ML IV SCH ×2 (15:00→21:21)
[2020-07-29] MEDS ORDERED: HYDROcodone/APAP 5-325MG 1 EACH TAB PO PRN (15:30)
[2020-07-29] MEDS ORDERED: ONDANSETRON 4 MG/2 ML VIAL IVP PRN (15:32)
--- NOTE | 2020-07-29 15:32 | P.HPIM ---
History of Present Illness H&P Date: 07/29/20 Chief Complaint: Worsening nausea and vomiting This is a 65-year-old male with past medical history noted below significant for history of colon cancer status post bilobectomy/chemotherapy currently on immunotherapy with last treatment 1 week ago according to patient report. Patient said that he came in to the emergency room with nausea and vomiting. His symptoms started few days ago and is being getting progressively worse. He was at the cancer center yesterday where he received IV fluid and his oncologist told him to come to the emergency room if his symptoms persist. Patient denies any abdominal pain. He had a normal bowel movement yesterday. He is attributi ng his nausea and vomiting to the immunotherapy treatment. He last vomited this morning and he describe it as bilious. There is no blood or coffee-ground emesis. Patient denies any chest pain otherwise. He reports feeling well. No fevers or chills. No flulike symptoms. Patient was evaluated in the ER and was found to have evidence of severe sepsis with septic shock. No source of infection identified. Over19 test was negative. He will be admitted to the hospital for further management. Review of Systems Review of system: 14 points review of systems were obtained and were negative except to what were mentioned in the HPI. Past Medical History Past Medical History: Cancer, COPD, Pneumonia Additional Past Medical History / Comment(s): rt lower lobe lung cancer, cardiomegaly History of Any Multi-Drug Resistant Organisms: None Reported Past Surgical History: Tonsillectomy Additional Past Surgical History / Comment(s): aortic abd stent Past Anesthesia/Blood Transfusion Reactions: No Reported Reaction Past Psychological History: No Psychological Hx Reported Smoking Status: Former smoker Past Alcohol Use History: None Reported Past Drug Use History: None Reported - Past Family History Father Family Medical History: Myocardial Infarction ([place]) Additional Family Medical History / Comment(s): Father of a [place] at the age of 46yrs. Mother Family Medical History: Cancer Additional Family Medical History / Comment(s): Mother from breast cancer. Medications and Allergies Home Medications Medication Instructions Recorded Confirmed Type Spironolactone [Aldactone] 25 mg PO DAILY 11/10/19 07/29/20 History Apixaban [Eliquis] 5 mg PO DIRECTED 07/29/20 07/29/20 History HYDROcodone/APAP 5-325MG [[place] 1 tab PO Q6H PRN 07/29/20 07/29/20 History 5-325] Metoprolol Tartrate [Lopressor] 50 mg PO DAILY 07/29/20 07/29/20 History Allergies Allergy/AdvReac Type Severity Reaction Status Date / Time bee venom protein (honey bee) Allergy Anaphylaxis Verified 06/27/20 12:46 insect venom Allergy Anaphylaxis Verified 06/27/20 12:46 Penicillins Allergy Unknown Verified 06/27/20 12:46 Childhood Physical Exam Vitals: Vital Signs Temp Pulse Resp BP Pulse Ox 07/29/20 15:01 97 18 106/77 95 07/29/20 13:23 97/71 07/29/20 13:07 114 H 18 88/65 98 07/29/20 09:43 100.3 F H 156 H 18 81/56 99 Intake and Output 07/29/20 07/29/20 07/29/20 06:59 14:59 22:59 Other: Weight 79.379 kg General: The patient is awake and alert, in no distress Eye: there is normal conjunctiva bilaterally. Neck: The neck is supple, there is no JVD. Cardiovascular: Normal S1-S2, no S3-S4, no murmurs. Respiratory: Lungs clear to auscultation bilaterally Gastrointestinal: Abdomen is soft, nontender Musculoskeletal: There is no pedal edema. Neurological:. Speech is normal. Skin: Skin is warm and dry Results CBC & Chem 7: 07/29/20 10:34 07/29/20 10:34 Labs: Abnormal Lab Results - Last 24 Hours (Table) 07/29/20 07/29/20 07/29/20 Range/Units 10:34 10:34 10:34 WBC 16.4 H (3.8-10.6) k/uL RBC 2.90 L (4.30-5.90) m/uL Hgb 8.2 L (13.0-17.5) gm/dL Hct 26.0 L (39.0-53.0) % RDW 20.6 H (11.5-15.5) % Neutrophils # 14.6 H (1.3-7.7) k/uL Lymphocytes # 0.8 L (1.0-4.8) k/uL PT 13.5 H (9.0-12.0) sec INR 1.3 H (<1.2) APTT 21.4 L (22.0-30.0) sec Sodium 126 L (137-145) mmol/L Potassium 3.3 L (3.5-5.1) mmol/L Chloride 79 L (98-107) mmol/L Carbon Dioxide 40 H (22-30) mmol/L BUN 49 H (9-20) mg/dL Glucose 106 H (74-99) mg/dL Plasma Lactic Acid Huey (0.7-2.0) mmol/L AST 129 H (17-59) U/L Alkaline Phosphatase 145 H (38-126) U/L 07/29/20 07/29/20 Range/Units 10:34 13:46 WBC (3.8-10.6) k/uL RBC (4.30-5.90) m/uL Hgb (13.0-17.5) gm/dL Hct (39.0-53.0) % RDW (11.5-15.5) % Neutrophils # (1.3-7.7) k/uL Lymphocytes # (1.0-4.8) k/uL PT (9.0-12.0) sec INR (<1.2) APTT (22.0-30.0) sec Sodium (137-145) mmol/L Potassium (3.5-5.1) mmol/L Chloride (98-107) mmol/L Carbon Dioxide (22-30) mmol/L BUN (9-20) mg/dL Glucose (74-99) mg/dL Plasma Lactic Acid [place] 2.3 H* 2.1 H* (0.7-2.0) mmol/L AST (17-59) U/L Alkaline Phosphatase (38-126) U/L Assessment and Plan Assessment: This is a 65-year-old female with past medical history noted below who presented to the emergency room with worsening nausea and vomiting. Patient was evaluated in the ER and will be admitted to the hospital for further management of his medical problems noted below. 1. Severe sepsis with septic shock, source of infection is not clear. Maybe secondary to acute gastritis. Blood pressure improved with IV fluids. Blood culture sent and pending. Urinalysis ordered. Covid19 negative. Influenza A/B ordered and pending. Patient denies any upper respiratory symptoms. Chest x-ray showed chronic findings. Patient received 3L of fluids in the ER. He was started on IV steroid and broad-spectrum antibiotic with IV vancomycin and cefepime given immunocompromise status. We will continue to monitor closely. 2. History of metastatic lung cancer status post bilobectomy of the right lower and middle lobe in November 2019. Status post chemotherapy. Currently on i mmunotherapy. Oncology consulted. 3. Chronic atrial fibrillation with rapid ventricular response on presentation, heart rate currently well controlled. On anticoagulation with Eliquis 4. Hypovolemic hyponatremia: Continue IV fluid hydration and repeat lab work in the morning 5. Hypokalemia, replacement ordered. Today, I reviewed his medication list and lab work results. The patient is admitted with an anticipated greater than 2 midnight stay for evaluation of the medical problems noted above Discussed with: Patient and nursing staff Anticipated discharge date: To be determined based on clinical course Anticipated discharge place: home A total of 45 minutes was spent on the care of this complex patient more than 50% of the time was spent in counseling and care coordination.
[2020-07-29 15:36] LABS: Appearance,Urine Clear (Clear); Bilirubin,Urine Negative (Negative); Blood,Urine Negative (Negative); Color,Urine Yellow; Glucose,Urine (UA) Negative (Negative); Hyaline Casts,Urine 7 /lpf (0-2); Ketones,Urine Trace (Negative); Leukocyte Esterase,Urine Negative (Negative); Mucus,Urine Rare /hpf; Nitrite,Urine Negative (Negative); PH, Urine 5.5 (5.0-8.0); Protein,Urine 1+ (Negative); RBC,Urine 1 /hpf (0-5); Specific Gravity,Urine 1.019 (1.001-1.035); Squamous Epithelial Cell,Urine <1 /hpf (0-4); Urobilinogen,Urine <2.0 mg/dL (<2.0); WBC,Urine 5 /hpf (0-5)
--- NOTE | 2020-07-29 19:38 | P.CONS ---
History of Present Illness - Reason for Consult Consult date: 07/29/20 lung cancer Requesting physician: Jerry Weber - Chief Complaint Weakness, vomiting - History of Present Illness Mr. Patel is a very pleasant 65 yo male who follows with Dr. Smith, last seen on 07/26/20. He has a complicated recent past medical history. The patient was initially seen in consult at [facility] on 11/17/19. The patient had been found to have a lung nodule on chest x-ray, following an episode of pneumonia, initially in 10/04. CT chest on 10/04/19 had shown a specific related 1.3 cm mass in the posterior superior right apex and a 0.9 cm nodule in the right midlung. There was a right lower lobe endobronchial lesion with likely postobstructive atelectasis. Patient had a PET scan that showed uptake only in the lower lobe lesion. He had a bronchoscopy on 10/19/19, that showed a circumferential mass completely occluding the right lower lobe bronchus. 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 The patient was set up for surgery, but was actually admitted because of fever, cough and tachycardia. CT of the chest revealed bilateral pulmonary emboli. He was started on heparin. As you is to be taken to surgery he had a removable IVC filter placed. He subsequently underwent surgery and had a somewhat prolonged course, with no induration from his chest tube, persistent tachycardia and shortness of breath. He did ultimately recovered and was able to be discharged. At the time of discharge he was not placed on anticoagulation, as recommended by us. He states that he was told that on review of the CT scans there was doubt as to whether the PE findings were real. 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 Bronchial and vascular resection margins were negative. Total nodes sampled were 11, from 5 different stations, and were negative. There was no evidence of visceral pleural invasion. He was seen for his first office visit on 12/30/19. Given the size of the tumor, and the pathology, he was recommended adjuvant chemotherapy. He was referred to the [facility] for an opinion. Telemedicine Audio Visual 02/03/20: The patient's case was discussed with the [facility]. They agreed with recommendations for adjuvant chemotherapy and recommended carboplatin and Gemzar. The patient's case, regarding his possible PE was also discussed with pulmonary medicine. They reviewed his CAT scans personally and with radiology. It was felt that while the findings were not overtly definitive, they did favor PE and therefore resumption of anticoagulation was recommended. The patient had repeat CTA and ultrasound done which showed no evidence of thrombo-embolism. However CT unfortunately showed possibility of recurrent infrahilar mass 7.7 cm as well as lesions in the liver suspicious for metastasis. PET scan showed extensive metastatic disease, with 1.8 cm hypermetabolic nodule in the right lower lung, osseous metastasis involving T-spine, L-spine and left scapula, as well as at least 8 lesions in the liver. biomarker testing was negative. as above. The patient subsequently initiated carboplatin and Gemzar and is status post 6 cycles, completing those on 06/08/20 the patient's biomarker testing was essentially negative other than for PTEN and HER2. Keytruda was added with cycle 5. dose of carboplatin and Gemzar was reduced by 10%, After cycle 4 , and again, after cycle 5 PEG -G-CSF was added after cycle 1. He required blood transfusions during cycle 4 and cycle 5 follow-up CT scans after cycle 6, unfortunately showed progression in the liver, and the right lung The pt was switched to immunotherapy alone with Opdivo, as he had only had 2 cycles of Keytruda prior to the abovementioned CT scan, and tolerance of chemo had been poor. He is s/p 2 cycle He was seen at his own request for new onset pain in the b/l buttock areas, R >> L, which is affecting his appetite and sleep. He has increased his Alleve to BID without much relief. the patient was started on Sum[place]. Was also given a Medrol Dosepak. He had an MRI of the lumbar spine ordered, which was unfortunately nondiagnostic, because of his stent. he patient has resumed eliquis after his last visit here, and is tolerating it well. he reports marked decrease in appetite due to early satiety, as well as increased fullness in his mid upper abdomen.He has had some constipation , improved with stool softeners. Fatigue is increased. back pain has improved partially. ROS is otherwise as per HPI and negative out of 10 Presents now to the hospital for weakness and vomiting. He did come into the office on 07/28/20 for hydration. Continue to have vomiting, prompting his ED visit. No diarrhea. Work up in ED revealed anemia, Hgb 8.2, mild leukocytosis at 16, hyponatremia and hypokalemia, and hypotension which improved with fluids. Lactate also increased. Hydrated, started on antibiotics, and admitted for sep sis, cultures pending. CXR was done revealing right lung opacity which is increased as well as pleural effusion. Review of Systems All systems: negative Constitutional: Reports as per HPI Past Medical History Past Medical History: Cancer, COPD, Pneumonia Additional Past Medical History / Comment(s): rt lower lobe lung cancer, cardiomegaly History of Any Multi-Drug Resistant Organisms: None Reported Past Surgical History: Tonsillectomy Additional Past Surgical History / Comment(s): aortic abd stent Past Anesthesia/Blood Transfusion Reactions: No Reported Reaction Past Psychological History: No Psychological Hx Reported Smoking Status: Former smoker Past Alcohol Use History: None Reported Past Drug Use History: None Reported - Past Family History Father Family Medical History: Myocardial Infarction (TN) Additional Family Medical History / Comment(s): Father of a [place] at the age of 46yrs. Mother Family Medical History: Cancer Additional Family Medical History / Comment(s): Mother from breast cancer. Medications and Allergies Home Medications Medication Instructions Recorded Confirmed Type Spironolactone [Aldactone] 25 mg PO DAILY 11/10/19 07/29/20 History Apixaban [Eliquis] 5 mg PO DIRECTED 07/29/20 07/29/20 History HYDROcodone/APAP 5-325MG [[place] 1 tab PO Q6H PRN 07/29/20 07/29/20 History 5-325] Metoprolol Tartrate [Lopressor] 50 mg PO DAILY 07/29/20 07/29/20 History Allergies Allergy/AdvReac Type Severity Reaction Status Date / Time bee venom protein (honey bee) Allergy Anaphylaxis Verified 06/27/20 12:46 insect venom Allergy Anaphylaxis Verified 06/27/20 12:46 Penicillins Allergy Unknown Verified 06/27/20 12:46 Childhood Physical Exam Vitals: Vital Signs Temp Pulse Resp BP Pulse Ox 07/29/20 13:23 97/71 07/29/20 13:07 114 H 18 88/65 98 07/29/20 09:43 100.3 F H 156 H 18 81/56 99 Intake and Output 07/28/20 07/29/20 07/29/20 22:59 06:59 14:59 Other: Weight 79.379 kg Gen.: No acute distress. HEENT: No conjunctival pallor. No scleral icterus. Mucosa moist. Neck: Neck supple. Lungs: No respiratory distress. Heart: Regular rate. No lower extremity edema. Abdomen: Soft, nontender. MSK: Appropriate strength in all 4 extremities. Neuro: Alert and oriented 3. Skin: No jaundice. Psych: Appropriate affect. Results CBC & Chem 7: 07/29/20 10:34 07/29/20 10:34 Labs: Abnormal Lab Results - Last 24 Hours (Table) 07/29/20 07/29/20 07/29/20 Range/Units 10:34 10:34 10:34 WBC 16.4 H (3.8-10.6) k/uL RBC 2.90 L (4.30-5.90) m/uL Hgb 8.2 L (13.0-17.5) gm/dL Hct 26.0 L (39.0-53.0) % RDW 20.6 H (11.5-15.5) % Neutrophils # 14.6 H (1.3-7.7) k/uL Lymphocytes # 0.8 L (1.0-4.8) k/uL PT 13.5 H (9.0-12.0) sec INR 1.3 H (<1.2) APTT 21.4 L (22.0-30.0) sec Sodium 126 L (137-145) mmol/L Potassium 3.3 L (3.5-5.1) mmol/L Chloride 79 L (98-107) mmol/L Carbon Dioxide 40 H (22-30) mmol/L BUN 49 H (9-20) mg/dL Glucose 106 H (74-99) mg/dL Plasma Lactic Acid Huey (0.7-2.0) mmol/L AST 129 H (17-59) U/L Alkaline Phosphatase 145 H (38-126) U/L 07/29/20 07/29/20 Range/Units 10:34 13:46 WBC (3.8-10.6) k/uL RBC (4.30-5.90) m/uL Hgb (13.0-17.5) gm/dL Hct (39.0-53.0) % RDW (11.5-15.5) % Neutrophils # (1.3-7.7) k/uL Lymphocytes # (1.0-4.8) k/uL PT (9.0-12.0) sec INR (<1.2) APTT (22.0-30.0) sec Sodium (137-145) mmol/L Potassium (3.5-5.1) mmol/L Chloride (98-107) mmol/L Carbon Dioxide (22-30) mmol/L BUN (9-20) mg/dL Glucose (74-99) mg/dL Plasma Lactic Acid Huey 2.3 H* 2.1 H* (0.7-2.0) mmol/L AST (17-59) U/L Alkaline Phosphatase (38-126) U/L Chest x-ray: report reviewed Assessment and Plan Assessment: 1. Vomiting due to chemotherapy/immunotherapy 2. Sepsis 3. Generalized weakness, due to dehydration 4. Hyponatremia, hypokalemia 5. Leukocytosis 6. Lung cancer, metastatic Plan: Mr. Patel is a very pleasant 65 yo male with metastatic lung cancer on immunotherapy, here for weakness and vomiting, found to have mild leukocytosis, hyponatremia and hypokalemia, and right hemithorax density and pleural effusion. Also with anemia, Hgb 8.2. He was given IV fluids and overall improved. Admitted for sepsis and dehydration. Continue supportive care and antibiotics. Awaiting cultures. antiemetics. Next opdivo due in 3 weeks. hold until pt improves and is discharged. We will continue to follow pt with you.
[2020-07-29] MEDS: APIXABAN 5 MG TAB PO SCH (21:20)
[2020-07-29] MEDS: METOPROLOL TARTRATE 50 MG TAB PO SCH (21:20)
[2020-07-30] MEDS: CEFEPIME 2 GM in SODIUM CHLORIDE 0.9% 100 ML IVPB SCH ×4 (00:34→23:52)
[2020-07-30 06:20] LABS: Glucose,Whole Blood 103 mg/dL (75-99)
[2020-07-30] MEDS: SODIUM CHLORIDE 0.9% 1,000 ML IV SCH ×2 (06:27→12:40)
[2020-07-30] MEDS: INSULIN ASPART (NovoLOG) 100 UNIT/ML VIAL SQ SCH ×4 (06:28→22:18)
[2020-07-30] MEDS: HYDROCORTISONE SUCCINATE 100 MG/2 ML VIAL IV SCH (06:30)
[2020-07-30] MEDS ORDERED: VANCOMYCIN 1,250 MG in SODIUM CHLORIDE 0.9% 250 ML IVPB SCH (08:00)
[2020-07-30] MEDS: METOPROLOL TARTRATE 50 MG TAB PO SCH ×2 (08:11→22:18)
[2020-07-30] MEDS: APIXABAN 5 MG TAB PO SCH ×2 (08:11→22:18)
[2020-07-30 08:39] LABS: Anisocytosis Slight; Basophils % (A) 0 %; Eosinophils % (A) 0 %; HCT 22.6 % (39.0-53.0); Hypochromasia Marked; Lymphocytes # (A) 0.8 k/uL (1.0-4.8); Lymphocytes % (A) 5 %; MCH 28.4 pg (25.0-35.0); MCHC 30.1 g/dL (31.0-37.0); MCV 94.5 fL (80.0-100.0); Macrocytosis Slight; Mean Platelet Volume 8.2; Monocytes # (A) 0.5 k/uL (0-1.0); Monocytes % (A) 3 %; Neutrophils # (A) 13.9 k/uL (1.3-7.7); Neutrophils % (A) 91 %; Platelet Count 315 k/uL (150-450); RBC 2.39 m/uL (4.30-5.90); WBC 15.3 k/uL (3.8-10.6)
[2020-07-30 08:43] LABS: HGB 6.8 gm/dL (13.0-17.5)
[2020-07-30 08:52] LABS: African American GFR (CKD) >90 (>60 ml/min/1.73 sqM); Anion Gap 6 mmol/L; Blood Urea Nitrogen 37 mg/dL (9-20); Calcium 7.8 mg/dL (8.4-10.2); Carbon Dioxide 30 mmol/L (22-30); Chloride 95 mmol/L (98-107); Glucose 102 mg/dL (74-99); Magnesium 1.6 mg/dL (1.6-2.3); Non-African American GFR(CKD) >90 (>60 ml/min/1.73 sqM); Potassium 4.1 mmol/L (3.5-5.1); Sodium 131 mmol/L (137-145)
[2020-07-30 10:33] LABS: Poikilocytosis (M) Present; Polychromasia Present
[2020-07-30 10:34] LABS: Mixed Population RBC Present
[2020-07-30 11:48] VITALS: BMI 23.7
[2020-07-30 12:18] LABS: Glucose,Whole Blood 114 mg/dL (75-99)
[2020-07-30] MEDS ORDERED: MAGNESIUM SULFATE-D5W PMX 1 GM in DEXTROSE/WATER 1 100ML.BAG IVPB ONE (12:22)
--- NOTE | 2020-07-30 12:31 | P.PN ---
Subjective Progress Note Date: 07/30/20 Patient is feeling well today. He denies any nausea or vomiting. No abdominal pain. Hemoglobin this morning was 6.8. No evidence of bleeding anywhere. Objective - Vital Signs Vital signs: Vital Signs Temp 97.8 F 07/29/20 20:00 Pulse 89 07/30/20 08:00 Resp 16 07/30/20 11:53 BP 120/70 07/30/20 08:00 Pulse Ox 95 07/30/20 04:00 Intake & Output 07/29/20 07/30/20 07/30/20 18:59 06:59 18:59 Intake Total 740 125 Output Total 300 Balance 440 125 Weight 79.379 kg 80.6 kg 79.379 kg Intake: Intake, IV Titration 740 Amount Cefepime 2 gm In Sodium 100 Chloride 0.9% 100 ml @ 25 mls/hr IVPB Q8HR [facility] Rx# :[id number] Sodium Chloride 0.9% 1, 390 000 ml @ 130 mls/hr IV . Q7H42M [facility] Rx#:[id number] Vancomycin 1,500 mg In 250 Sodium Chloride 0.9% 250 ml @ 125 mls/hr IVPB ONCE ONE Rx#:[id number] Oral 125 Output: Urine 300 Emesis 0 Other: Voiding Method Toilet Toilet Urinal Urinal # Voids 1 - Exam General: The patient is awake and alert, in no distress Eye: there is normal conjunctiva bilaterally. Neck: The neck is supple, there is no JVD. Cardiovascular: Normal S1-S2, no S3-S4, no murmurs. Respiratory: Lungs clear to auscultation bilaterally Gastrointestinal: Abdomen is soft, nontender Musculoskeletal: There is no pedal edema. Neurological:. Speech is normal. Skin: Skin is warm and dry - Labs CBC & Chem 7: 07/30/20 07:32 07/30/20 07:32 Labs: Abnormal Lab Results - Last 24 Hours (Table) 07/29/20 07/29/20 07/30/20 Range/Units 13:46 15:12 06:19 WBC (3.8-10.6) k/uL RBC (4.30-5.90) m/uL Hgb (13.0-17.5) gm/dL Hct (39.0-53.0) % MCHC (31.0-37.0) g/dL RDW (11.5-15.5) % Neutrophils # (1.3-7.7) k/uL Lymphocytes # (1.0-4.8) k/uL Sodium (137-145) mmol/L Chloride (98-107) mmol/L BUN (9-20) mg/dL Glucose (74-99) mg/dL POC Glucose (mg/dL) 103 H (75-99) mg/dL Plasma Lactic Acid Huey 2.1 H* (0.7-2.0) mmol/L Calcium (8.4-10.2) mg/dL Urine Protein 1+ H (Negative) Urine Ketones Trace H (Negative) Hyaline Casts 7 H (0-2) /lpf Urine Mucus Rare H (None) /hpf 07/30/20 07/30/20 07/30/20 Range/Units 07:32 07:32 12:12 WBC 15.3 H (3.8-10.6) k/uL RBC 2.39 L (4.30-5.90) m/uL Hgb 6.8 L* (13.0-17.5) gm/dL Hct 22.6 L (39.0-53.0) % MCHC 30.1 L (31.0-37.0) g/dL RDW 20.0 H (11.5-15.5) % Neutrophils # 13.9 H (1.3-7.7) k/uL Lymphocytes # 0.8 L (1.0-4.8) k/uL Sodium 131 L (137-145) mmol/L Chloride 95 L (98-107) mmol/L BUN 37 H (9-20) mg/dL Glucose 102 H (74-99) mg/dL POC Glucose (mg/dL) 114 H (75-99) mg/dL Plasma Lactic Acid Huey (0.7-2.0) mmol/L Calcium 7.8 L (8.4-10.2) mg/dL Urine Protein (Negative) Urine Ketones (Negative) Hyaline Casts (0-2) /lpf Urine Mucus (None) /hpf Assessment and Plan Assessment: This is a 65-year-old female with past medical history noted below who presented to the emergency room with worsening nausea and vomiting. Patient was evaluated in the ER and admitted to the hospital for further management of his medical problems noted below. 1. Severe sepsis with septic shock, source of infection is not clear. Blood pressure improved with IV fluids. Blood culture sent and pending. Urinalysis, Covid19, and Influenza A/B ordered negative. Patient denies any upper respiratory symptoms. Chest x-ray showed chronic findings. He was started on IV steroid and broad-spectrum antibiotic with IV vancomycin and cefepime given immunocompromise status. We will continue to monitor closely. 2. History of metastatic lung cancer status post bilobectomy of the right lower and middle lobe in November 2019. Status post chemotherapy. Currently on immunotherapy. Oncology consulted. 3. Chronic atrial fibrillation with rapid ventricular response on presentation, heart rate currently well controlled. On anticoagulation with Eliquis 4. Hypovolemic hyponatremia: Improved with IV fluid hydration 5. Hypokalemia and hypomagnesemia, replaced 6. Acute on chronic anemia secondary to Unasyn/chemotherapy: 1 unit of PRBC ordered for decision today. Today, I reviewed his medication list and lab work results. Continue current regimen. Decrease IV fluids to 50 mL per hour normal saline area repeat CBC in the morning. Awaiting urine culture. At this discharge home if stable tomorrow. Appreciate oncology recommendations.
[2020-07-30 13:12] LABS: Hemoglobin A1C 5.3 % (4.0-6.0)
[2020-07-30] MEDS: VANCOMYCIN 1,250 MG in SODIUM CHLORIDE 0.9% 250 ML IVPB SCH ×2 (15:27→23:53)
[2020-07-30 17:29] LABS: Glucose,Whole Blood 137 mg/dL (75-99)
[2020-07-30 20:47] LABS: Glucose,Whole Blood 147 mg/dL (75-99)
[2020-07-31 06:29] LABS: Glucose,Whole Blood 118 mg/dL (75-99)
[2020-07-31] MEDS: INSULIN ASPART (NovoLOG) 100 UNIT/ML VIAL SQ SCH ×3 (06:39→17:19)
[2020-07-31] MEDS ORDERED: VANCOMYCIN TROUGH DUE 1 EACH MISC MISCELLANE ONE (07:00)
[2020-07-31 07:34] LABS: Anisocytosis Slight; Basophils % (A) 0 %; Eosinophils # (A) 0.2 k/uL (0-0.7); Eosinophils % (A) 1 %; HCT 25.9 % (39.0-53.0); HGB 7.7 gm/dL (13.0-17.5); Hypochromasia Marked; Lymphocytes # (A) 1.4 k/uL (1.0-4.8); Lymphocytes % (A) 9 %; MCH 28.4 pg (25.0-35.0); MCHC 29.8 g/dL (31.0-37.0); MCV 95.3 fL (80.0-100.0); Macrocytosis Slight; Mean Platelet Volume 8.2; Monocytes # (A) 0.5 k/uL (0-1.0); Monocytes % (A) 3 %; Neutrophils # (A) 13.3 k/uL (1.3-7.7); Neutrophils % (A) 86 %; Platelet Count 303 k/uL (150-450); Poikilocytosis Slight; RBC 2.71 m/uL (4.30-5.90); RDW 19.1 % (11.5-15.5); WBC 15.5 k/uL (3.8-10.6)
[2020-07-31 08:02] LABS: African American GFR (CKD) >90 (>60 ml/min/1.73 sqM); Anion Gap 5 mmol/L; Blood Urea Nitrogen 29 mg/dL (9-20); Calcium 7.9 mg/dL (8.4-10.2); Carbon Dioxide 30 mmol/L (22-30); Chloride 98 mmol/L (98-107); Glucose 113 mg/dL (74-99); Magnesium 1.9 mg/dL (1.6-2.3); Non-African American GFR(CKD) >90 (>60 ml/min/1.73 sqM); Potassium 3.2 mmol/L (3.5-5.1); Sodium 133 mmol/L (137-145)
[2020-07-31] MEDS: CEFEPIME 2 GM in SODIUM CHLORIDE 0.9% 100 ML IVPB SCH (09:15)
[2020-07-31] MEDS: VANCOMYCIN 1,250 MG in SODIUM CHLORIDE 0.9% 250 ML IVPB SCH (09:15)
[2020-07-31] MEDS: SODIUM CHLORIDE 0.9% 1,000 ML IV SCH (09:15)
[2020-07-31] MEDS: METOPROLOL TARTRATE 50 MG TAB PO SCH (09:16)
[2020-07-31] MEDS: APIXABAN 5 MG TAB PO SCH (09:16)
[2020-07-31] MEDS ORDERED: POTASSIUM CHLORIDE 20 MEQ in WATER FOR INJECTION 1 100ML.BAG IVPB STA (10:45)
[2020-07-31] MEDS ORDERED: POTASSIUM CHLORIDE ER 20 MEQ TAB.ER PO STA (10:45)
[2020-07-31 11:57] LABS: Glucose,Whole Blood 126 mg/dL (75-99)
[2020-07-31 13:55] VITALS: TEMP 97.9
--- NOTE | 2020-07-31 14:51 | P.DS ---
Providers Date of admission: 07/29/20 13:23 Expected date of discharge: 07/31/20 Attending physician: Jerry Weber Consults: 07/29/20 13:27 Consult Physician Urgent Consulting Provider: Adrián Smith Consult Reason/Comments: History of lung cancer, sepsis Do you want consulting provider notified?: Yes [facility] Course: This is a 65-year-old female with past medical history noted below who presented to the emergency room with worsening nausea and vomiting. Patient was evaluated in the ER and admitted to the hospital for further management of his medical problems noted below. 1. Severe sepsis with septic shock, source of infection is not clear. Blood pressure improved with IV fluids. Blood culture negative. Urinalysis, Covid19, and Influenza A/B ordered negative. Patient denies any upper respiratory symptoms. Chest x-ray showed chronic findings. He was started on IV steroid and broad-spectrum antibiotic with IV vancomycin and cefepime given immunocompromise status. His overall condition improved significantly. He'll be discharged with 5 days course of Levaquin (penicillin ALLERGY) and follow-up with oncology as directed 2. History of metastatic lung cancer status post bilobectomy of the right lower and middle lobe in November 2019. Status post chemotherapy. Currently on immunotherapy. Oncology consulted. 3. Chronic atrial fibrillation with rapid ventricular response on presentation, heart rate currently well controlled. On anticoagulation with Eliquis 4. Hypovolemic hyponatremia: Improved with IV fluid hydration 5. Hypokalemia and hypomagnesemia, replaced 6. Acute on chronic anemia secondary to Unasyn/chemotherapy: Status post 1 unit of PRBC transfusion during this admission. Repeat lab work in 3-5 days Patient will be discharged home in a stable condition. For further details about this hospitalization please refer to the electronic chart. Time spent on discharge > 30 minutes including counseling and coordination of care Patient Condition at Discharge: Poor Plan - Discharge Summary Discharge Rx Participant: No New Discharge Prescriptions: New Levofloxacin [Levaquin] 500 mg PO DAILY 1 Days #5 tab Continue Spironolactone [Aldactone] 25 mg PO DAILY Apixaban [Eliquis] 5 mg PO DIRECTED Metoprolol Tartrate [Lopressor] 50 mg PO DAILY HYDROcodone/APAP 5-325MG [[place] 5-325] 1 tab PO Q6H PRN PRN Reason: Pain Discharge Medication List Spironolactone [Aldactone] 25 mg PO DAILY 11/10/19 [History] Apixaban [Eliquis] 5 mg PO DIRECTED 07/29/20 [History] HYDROcodone/APAP 5-325MG [[place] 5-325] 1 tab PO Q6H PRN 07/29/20 [History] Metoprolol Tartrate [Lopressor] 50 mg PO DAILY 07/29/20 [History] Levofloxacin [Levaquin] 500 mg PO DAILY 1 Days #5 tab 07/31/20 [Rx] Follow up Appointment(s)/Referral(s): Jennifer Lea MD [Primary Care Provider] - 1-2 days Adrián Smith MD [STAFF PHYSICIAN] - 1 Week Discharge Disposition: HOME SELF-CARE
[2020-07-31] MEDS ORDERED: HYDROcodone/APAP 5-325MG 1 EACH TAB PO PRN (16:27)
--- NOTE | 2020-07-31 16:36 | P.PN ---
Objective - Vital Signs Vital signs: Vital Signs Temp 97.9 F 07/31/20 11:20 Pulse 98 07/31/20 11:20 Resp 16 07/31/20 11:20 BP 117/76 07/31/20 11:20 Pulse Ox 100 07/31/20 11:20 Intake & Output 07/30/20 07/31/20 07/31/20 18:59 06:59 18:59 Intake Total 1355 700 Balance 1355 700 Weight 79.379 kg 77 kg Intake: Intake, IV Titration 750 600 Amount Cefepime 2 gm In Sodium 100 100 Chloride 0.9% 100 ml @ 25 mls/hr IVPB Q8HR [facility] Rx# :[id number] Magnesium Sulfate-D5w Pmx 100 1 gm In Dextrose/Water 1 100ml.bag @ 100 mls/hr IVPB ONCE ONE Rx#: [id number] Sodium Chloride 0.9% 1, 400 150 000 ml @ 50 mls/hr IV . Q20H [facility] Rx#:[id number] Vancomycin 1,250 mg In 250 Sodium Chloride 0.9% 250 ml @ 125 mls/hr IVPB Q12H [facility] Rx#:[id number] Vancomycin 1,250 mg In 250 Sodium Chloride 0.9% 250 ml @ 125 mls/hr IVPB Q8HR [facility] Rx#:[id number] Oral 605 100 Blood Product 0 Rc As-1 Unit 0 [id number] Other: Voiding Method Toilet Toilet Toilet Urinal Urinal Urinal # Voids 3 - Labs CBC & Chem 7: 07/31/20 06:53 07/31/20 06:53 Labs: Abnormal Lab Results - Last 24 Hours (Table) 07/30/20 07/30/20 07/30/20 Range/Units 11:16 17:18 20:45 WBC (3.8-10.6) k/uL RBC (4.30-5.90) m/uL Hgb (13.0-17.5) gm/dL Hct (39.0-53.0) % MCHC (31.0-37.0) g/dL RDW (11.5-15.5) % Neutrophils # (1.3-7.7) k/uL Sodium (137-145) mmol/L Potassium (3.5-5.1) mmol/L BUN (9-20) mg/dL Glucose (74-99) mg/dL POC Glucose (mg/dL) 137 H 147 H (75-99) mg/dL Calcium (8.4-10.2) mg/dL Crossmatch See Detail 07/31/20 07/31/20 07/31/20 Range/Units 06:27 06:53 06:53 WBC 15.5 H (3.8-10.6) k/uL RBC 2.71 L (4.30-5.90) m/uL Hgb 7.7 L (13.0-17.5) gm/dL Hct 25.9 L (39.0-53.0) % MCHC 29.8 L (31.0-37.0) g/dL RDW 19.1 H (11.5-15.5) % Neutrophils # 13.3 H (1.3-7.7) k/uL Sodium 133 L (137-145) mmol/L Potassium 3.2 L (3.5-5.1) mmol/L BUN 29 H (9-20) mg/dL Glucose 113 H (74-99) mg/dL POC Glucose (mg/dL) 118 H (75-99) mg/dL Calcium 7.9 L (8.4-10.2) mg/dL Crossmatch 07/31/20 Range/Units 11:49 WBC (3.8-10.6) k/uL RBC (4.30-5.90) m/uL Hgb (13.0-17.5) gm/dL Hct (39.0-53.0) % MCHC (31.0-37.0) g/dL RDW (11.5-15.5) % Neutrophils # (1.3-7.7) k/uL Sodium (137-145) mmol/L Potassium (3.5-5.1) mmol/L BUN (9-20) mg/dL Glucose (74-99) mg/dL POC Glucose (mg/dL) 126 H (75-99) mg/dL Calcium (8.4-10.2) mg/dL Crossmatch Microbiology - Last 24 Hours (Table) 07/29/20 12:00 Blood Culture - Preliminary Blood No Growth after 48 hours 07/29/20 11:55 Blood Culture - Preliminary Blood No Growth after 48 hours Assessment and Plan (1) Pneumonia Narrative/Plan: Patient's symptoms improved significantly after electrolyte replacement and antibiotics. Continue current therapy. 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 Third line treatment has been ordered. Patient will start as soon as insurance approval obtained and he is felt to be at least adequately recuperated from his current acute illness. Patient did verbalize understanding. He will be contacted with appointment date and time Current Visit: Yes Status: Chronic Priority: High Code(s): C34.90 - MALIGNANT NEOPLASM OF UNSP PART OF UNSP BRONCHUS OR LUNG SNOMED Code(s): 029599212 Plan: Patient is okay from an oncology standpoint to be discharged once he has been cleared by Attending and consulting Physicians. Patient will be called for follow-up in the office Doctor attests: I performed a history and physical examination of this patient, developed impression and plan of care, discussed with dictator. I agree with dictators note, documented as a scribe.
[2020-07-31 17:13] LABS: Glucose,Whole Blood 138 mg/dL (75-99)
[2020-07-31 17:40] VITALS: BP 122/70; PULSE 106; RESP 18
[2020-08-01] MEDS ORDERED: VANCOMYCIN TROUGH DUE 1 EACH MISC MISCELLANE ONE (07:00)
== END 2020-07-31 18:02 | disposition home or self-care (01) | DRG 871 ==
LOC: EC 09:22 → 3SCARD 13:23
PROVIDERS: ADMIT Internal Medicine; ATTEND Internal Medicine
PROC: 30233N1 Transfusion of Nonautologous Red Blood Cells into Peripheral Vein, Percutaneous Approach (ICD-10-PCS; principal; 2020-07-31)
DX: A41.9 Sepsis, unspecified organism (principal); R65.21 Severe sepsis with septic shock; J18.9 Pneumonia, unspecified organism; C78.7 Secondary malignant neoplasm of liver and intrahepatic bile duct; C79.51 Secondary malignant neoplasm of bone; J90 Pleural effusion, not elsewhere classified; E87.1 Hypo-osmolality and hyponatremia; I48.20 Chronic atrial fibrillation, unspecified; C34.90 Malignant neoplasm of unspecified part of unspecified bronchus or lung; J44.0 Chronic obstructive pulmonary disease with (acute) lower respiratory infection; J98.11 Atelectasis; Z20.828 Contact with and (suspected) exposure to other viral communicable diseases; D64.81 Anemia due to antineoplastic chemotherapy; E83.42 Hypomagnesemia; E86.0 Dehydration; E86.1 Hypovolemia; E87.6 Hypokalemia; T45.1X5A Adverse effect of antineoplastic and immunosuppressive drugs, initial encounter; Z79.899 Other long term (current) drug therapy; Z79.01 Long term (current) use of anticoagulants; Z88.0 Allergy status to penicillin; Z91.030 Bee allergy status; Z87.891 Personal history of nicotine dependence; Z85.038 Personal history of other malignant neoplasm of large intestine; Z87.01 Personal history of pneumonia (recurrent); Z90.89 Acquired absence of other organs; Z98.890 Other specified postprocedural states; Z82.49 Family history of ischemic heart disease and other diseases of the circulatory system; Z80.3 Family history of malignant neoplasm of breast
CPT/HCPCS: 36415; 71046; 80048; 80053; 80202; 81001; 83036; 83605; 83735; 84484; 85025; 85610; 85730; 86850; 86900; 86901; 86920; 87040; 87502; 87635; 93005; 96365; 96366; 96367; 96368; 96375; 99291

== ENCOUNTER → 2020-08-14 | Outpatient (CLI) | payer MEDICARE ==
[2020-08-14 11:06] LABS: African American GFR (CKD) >90 (>60 ml/min/1.73 sqM); Blood Urea Nitrogen 14 mg/dL (9-20); Non-African American GFR(CKD) >90 (>60 ml/min/1.73 sqM)
--- NOTE | 2020-08-14 18:51 | CT ---
EXAMINATION TYPE: CT ChestAbdPelvis w con DATE OF EXAM: 08/14/2020 INDICATION: Follow up lung cancer COMPARISON: 06/12/2020 CT DLP: 882.8 mGycm CONTRAST: Performed with Oral Contrast and with IV Contrast, patient injected with 100 mL of Isovue 300. TECHNIQUE: Axial images at 5 mm thick sections. Reconstructed images in the coronal plane. Delayed images through the kidneys. FINDINGS: CT CHEST: There is shift the mediastinum towards the right. Prior lobectomy may be present. There is a cyst 1.0 cm nodule in the right apex, stable from comparison. Advanced emphysematous changes are present within the right lung. Milder emphysematous changes are on the left. There appears be a large mass at the right lung base measuring 4.4 x 4.8 cm this previously measured 2.4 x 2.8 cm. Portion of the thyroid visualized is mild heterogeneity within the left lobe. Some pleural fluid may be present. No enlarged mediastinal or hilar adenopathy is evident. The ascending aorta diameter at the level of the main pulmonary artery is 4.2 cm. The main pulmonary artery diameter at the bifurcation is 3.[address] ABDOMEN: Liver: Very large hypodense lesion within the right lobe liver with expansion compatible with large m etastasis. This currently measures 16.5 x 10.2 cm. This previously measured 9.7 x 5.9 cm. An expansil e left lobe lesion is also present measuring 11.2 x 6.4 cm. Previous measurement of 7.9 x 4.7 cm. Spleen: Normal Pancreas: Normal Adrenal glands: The adrenal glands are normal. Gallbladder: Normal Kidneys: Right kidney appears mildly atrophic. Left kidney appears normal. No hydronephrosis is prese nt. No cysts are present. Delayed images were obtained through the kidneys, which remain unremarka ble. Aorta: Vascular calcification is within the aorta. Inferior vena cava: Normal. CT PELVIS: Loops of bowel within the abdomen and pelvis are normal. There are loops of bowel which are incom pletely distended or lack oral contrast limiting their evaluation. Appendix: Not identified. No suspicious dilated tubular structure or inflammatory changes evident. Urinary bladder: Normal. Genitourinary structures: Prostate appears unremarkable Osseous structures: No suspicious lytic or sclerotic lesions. May be an old right posterior lateral l ower rib fracture. IMPRESSIONS: 1. Stable lateral right apical nodule. 2. Enlarging right lung base mass. 3. Enlarging right and left lobe liver lesions.
== END | disposition home or self-care (01) ==
LOC: RADCTMAIN 10:29
PROVIDERS: ATTEND Internal Medicine Hematology & Oncology
DX: R91.1 Solitary pulmonary nodule (principal); R91.8 Other nonspecific abnormal finding of lung field; K76.9 Liver disease, unspecified; C34.31 Malignant neoplasm of lower lobe, right bronchus or lung
CPT/HCPCS: 82565; 84520; 71260; 74177; 36415; Q9967

== ENCOUNTER → 2020-09-19 | Outpatient (CLI) | payer MEDICARE ==
[2020-09-19 11:41] LABS: African American GFR (CKD) >90 (>60 ml/min/1.73 sqM); Blood Urea Nitrogen 14 mg/dL (9-20); Non-African American GFR(CKD) >90 (>60 ml/min/1.73 sqM)
--- NOTE | 2020-09-19 14:05 | CT ---
EXAMINATION TYPE: CT ChestAbdPelvis w con DATE OF EXAM: 09/19/2020 COMPARISON: 08/14/2020, 06/12/2020, 03/09/2020 HISTORY: 65-year-old male C34.31, Lung cancer TECHNIQUE: Contiguous axial scanning of the chest, abdomen, and pelvis performed with IV Contrast, pa tient injected with 100 ml mL of Isovue 300. Delayed images through the kidneys were obtained. Mejía l/sagittal reconstructions performed. CT DLP: 926.1 mGycm Automated exposure control for dose reduction was used. FINDINGS: CHEST: The heart is upper limits of normal in size with small pericardial fluid extending into the anterior pericardial recess. Scattered coronary artery calcifications are present and are remarkable for coron alvaro artery disease. Ascending aorta mildly aneurysmal at 4.0 cm. Mild metastatic arch calcifications and conventional bra nching anatomy. Upper descending thoracic aorta mildly aneurysmal at 3.6 cm. Large caliber to the main right and left pulmonary arteries measuring up to 3.6 cm suggesting underly ing pulmonary arterial hypertension. Post surgical change with partial right pneumonectomy. Similar medial right basilar pleural parenchymal thickening and additional pleural thickening along t he periphery of the right base. Right basilar pulmonary nodule has decreased in size currently at 3.7 x 2.9 cm versus 4.8 x 4.4 cm, p reviously. Background of moderate to advanced centrilobular emphysema. 1 cm irregular nodule posterior right upper lobe, axial image 18 remains unchanged back to at least . Some circumferential wall thickening is noted along the distal third thoracic esophagus, axial image 39. Mild bilateral gynecomastia. No progressive thoracic lymphadenopathy seen. ABDOMEN: Large lesions within the right and left hepatic lobes. On the left, this measures up to 13.4 x 7.7 cm (versus 14.3 x 7.8 cm, previously). In the right lobe, lesion measures up to 16.0 x 12.7 cm versus 16.9 x 13.3 cm, previously. Inferior right liver lobe lesion measures up to 10.3 cm versus 11.4 cm, previously. No biliary ductal dilatation. Portal venous system is patent. Gallbladder, adrenal glands, spleen, and pancreas show no gross abnormality. Lower pole of the right kidney is atretic with an 8 mm nonobstructive calculus. A 2.0 cm hypodensity lateral lower pole right kidney probable cyst. Some delay in excretion of contrast from both kidneys. IVC filter and endovascular abdominal aortic biiliac stent graft is demonstrated. Infrarenal abdomina l aortic caliber of 4.4 cm versus 4.0 cm, previously. Left common iliac artery caliber of 2.3 cm, unc hanged. No dilated small bowel, free fluid, free air. No mesenteric or retroperitoneal lymphadenopathy seen. No significant stool burden. No pericolonic inflammatory change. PELVIS: Mild circumferential bladder wall thickening. This could represent chronic bladder hypertrophy or cys titis. Clinically correlate. Central prostatic calcifications noted. No abnormal fluid collection in pelvis or pelvic lymphadenopathy. BONES: Mild degenerative change of the hips. Degenerated levoconvex curvature of the lumbar spine. Mild dege nerative changes of hips. Grade 1 retrolisthesis L3-L5 levels. No progressive osseous destructive pro cess identified. IMPRESSION: 1. COPD WITH MODERATE TO ADVANCED EMPHYSEMA AND PARTIAL RIGHT LUNG RESECTION WITH CHRONIC PLEURAL PAR ENCHYMAL SCARRING AT THE RIGHT BASE. 2. RIGHT BASILAR PULMONARY NODULE SLIGHTLY SMALLER AT 3.7 X 2.9 CM (VERSUS 4.8 X 4.4 CM, PREVIOUSLY). 3. STABLE 1 CM POSTERIOR RIGHT UPPER LOBE PULMONARY NODULE. 4. MULTIPLE KNOWN LARGE METASTATIC LIVER MASSES (THESE ARE MINIMALLY DECREASED IN SIZE, FOR EXAMPLE, IN THE RIGHT LOBE MEASURING 16.0 X 12.7 CM VERSUS 16.9 X 13.3 CM, PREVIOUSLY). 5. SOME DELAY IN EXCRETION OF CONTRAST ON THE SECOND SET OF KIDNEY IMAGES. CORRELATE WITH PATIENT'S B UN/CREATININE TO EXCLUDE ACUTE KIDNEY INJURY.
== END | disposition home or self-care (01) ==
LOC: RADCTMAIN 10:57
PROVIDERS: ATTEND Internal Medicine Hematology & Oncology
DX: J43.9 Emphysema, unspecified (principal); C34.31 Malignant neoplasm of lower lobe, right bronchus or lung; R16.0 Hepatomegaly, not elsewhere classified
CPT/HCPCS: 82565; 84520; 71260; 74177; 36415; Q9967

== ENCOUNTER → 2020-10-16 | Outpatient (CLI) | payer MEDICARE ==
[2020-10-16 11:41] LABS: African American GFR (CKD) >90 (>60 ml/min/1.73 sqM); Blood Urea Nitrogen 18 mg/dL (9-20); Non-African American GFR(CKD) >90 (>60 ml/min/1.73 sqM)
--- NOTE | 2020-10-16 12:37 | CT ---
EXAMINATION TYPE: CT angio chest DATE OF EXAM: 10/16/2020 12:14 PM COMPARISON: Chest CT November 17, 2020 and older CTs HISTORY: Shortness of breath, history of metastatic neoplasm on chemotherapy. CT DLP: 268.1 mGycm Automated exposure control for dose reduction was used. CONTRAST: CTA scan of the thorax is performed with IV Contrast, patient injected with 100 mL of Isovue 370, pul monary embolism protocol. MIP images are created and reviewed. FINDINGS: LUNGS: Moderate to severe underlying emphysematous change redemonstrated. Persistent small right pleu ral fluid collection. Stable 9 mm posterior right upper lung nodule axial image 43. Surgical changes right hilar region with right-sided volume loss and persistent irregular fluid and/or irregular thick ening redemonstrated. There is subtle groundglass opacity and reticulation throughout the left lung a re present. No left-sided pleural effusion. No left-sided nodules. Elevated right hemidiaphragm again seen. MEDIASTINUM: There is slightly suboptimal study with most dense contrast in the SVC. Enlarged right a nd left pulmonary arteries consistent with underlying pulmonary hypertension redemonstrated. Surgical change to the distal right pulmonary artery. No postsurgical change right upper lung pulmonary arter y. No filling defect to suggest pulmonary embolism. Slightly suboptimal with heterogeneity in the per iphery but no obvious PE. Stable mild cardiomegaly. Moderate to severe coronary artery calcification redemonstrated. There are no new greater than 1 cm left hilar or mediastinal lymph nodes. No perica rdial effusion is seen. OTHER: known large hepatic masses right hepatic lobe and left hepatic lobe are partially imaged.. IMPRESSION: Suboptimal study without convincing CT evidence for acute pulmonary embolism. Background moderate to advanced underlying emphysematous change with small amount simple right pleural fluid and /or pleural thickening most prominent at right hilar level. Right-sided posttreatment change redemons trated. New multifocal reticulation and groundglass opacities throughout the left lungs could reflect posttreatment change, versus areas of developing infiltrate and/or edema. Correlate clinically.
== END | disposition home or self-care (01) ==
LOC: RADCTMAIN 11:03
PROVIDERS: ATTEND Internal Medicine Hematology & Oncology
DX: J43.9 Emphysema, unspecified (principal); R91.8 Other nonspecific abnormal finding of lung field; Z98.890 Other specified postprocedural states; Z91.030 Bee allergy status; Z88.0 Allergy status to penicillin
CPT/HCPCS: 82565; 84520; 71275; 36415; Q9967

== ENCOUNTER 2020-10-23 12:35 | Inpatient (IN) | payer MEDICARE ==
[2020-10-23] MEDS ORDERED: IPRATROPIUM-ALBUTEROL 3 ML NEB INHALATION STA (12:56)
--- NOTE | 2020-10-23 12:59 | ED ---
General Adult HPI - General Chief complaint: Shortness of Breath Stated complaint: SOB, from [facility] Time Seen by Provider: 10/23/20 12:46 Source: patient, family, RN notes reviewed Mode of arrival: wheelchair Limitations: no limitations - History of Present Illness Initial comments: Patient is a pleasant 65-year-old male presenting to the emergency department with difficulty in breathing. Onset of symptoms was 2 weeks ago after last chemotherapy. Patient is on chemotherapy as well as immunotherapy for lung cancer. Occasional cough with clear sputum. Dyspnea has worsened, especially with exertion. No fevers. No leg pain or leg swelling. - Related Data Home Medications Medication Instructions Recorded Confirmed Spironolactone [Aldactone] 25 mg PO DAILY 11/10/19 08/05/20 Apixaban [Eliquis] 5 mg PO DIRECTED 07/29/20 08/05/20 HYDROcodone/APAP 5-325MG [[place] 1 tab PO Q6H PRN 07/29/20 08/05/20 5-325] Metoprolol Tartrate [Lopressor] 50 mg PO DAILY 07/29/20 08/05/20 Allergies Allergy/AdvReac Type Severity Reaction Status Date / Time bee venom protein (honey bee) Allergy Anaphylaxis Verified 10/23/20 12:47 insect venom Allergy Anaphylaxis Verified 10/23/20 12:47 Penicillins Allergy Unknown Verified 10/23/20 12:47 Childhood Review of Systems ROS Statement: Those systems with pertinent positive or pertinent negative responses have been documented in the HPI. ROS Other: All systems not noted in ROS Statement are negative. Constitutional: Denies: fever Eyes: Denies: eye pain ENT: Denies: ear pain Respiratory: Reports: as per HPI, cough, dyspnea Cardiovascular: Denies: chest pain Endocrine: Reports: fatigue Gastrointestinal: Denies: abdominal pain Genitourinary: Denies: dysuria Musculoskeletal: Denies: back pain Skin: Denies: rash Neurological: Denies: weakness Past Medical History Past Medical History: Cancer, COPD, Pneumonia Additional Past Medical History / Comment(s): rt lower lobe lung cancer, cardiomegaly History of Any Multi-Drug Resistant Organisms: None Reported Past Surgical History: Tonsillectomy Additional Past Surgical History / Comment(s): aortic abd stent Past Anesthesia/Blood Transfusion Reactions: No Reported Reaction Past Psychological History: No Psychological Hx Reported Smoking Status: Former smoker Past Alcohol Use History: None Reported Past Drug Use History: None Reported - Past Family History Father Family Medical History: Myocardial Infarction (SD) Additional Family Medical History / Comment(s): Father of a SD at the age of 46yrs. Mother Family Medical History: Cancer Additional Family Medical History / Comment(s): Mother from breast cancer. General Exam Limitations: no limitations General appearance: alert, in no apparent distress Head exam: Present: normocephalic Eye exam: Present: normal appearance Neck exam: Present: normal inspection Respiratory exam: Present: decreased breath sounds Cardiovascular Exam: Present: tachycardia GI/Abdominal exam: Present: soft. Absent: tenderness Extremities exam: Present: normal inspection. Absent: pedal edema, calf tenderness Back exam: Present: normal inspection Neurological exam: Present: alert Psychiatric exam: Present: normal affect, normal mood Skin exam: Present: normal color Course Vital Signs 10/23/20 10/23/20 10/23/20 12:42 13:17 13:23 Temperature 98.4 F Pulse Rate 119 H 105 H 106 H Respiratory 20 Rate Blood Pressure 104/64 O2 Sat by Pulse 87 L Oximetry - Reevaluation(s) Reevaluation #1: 10/23/20 14:31 Patient meets criteria for sepsis diagnosed at 1430. Culture and lactic acid and IV antibiotics will be added. Patient will be provided fluid bolus. EKG Findings - EKG Comments: EKG Findings:: Sinus tachycardia 107. MI 132. QRS 100. QT 344. QTC 459. Left axis. Left anterior fascicular block. No acute ST change. Medical Decision Making - Medical Decision Making Patient reevaluated. Patient and family updated. Case discussed with Dr. Flores, who will admit covering for Dr. Everett. - Lab Data Result diagrams: 10/23/20 13:16 10/23/20 13:16 Lab Results 10/23/20 10/23/20 10/23/20 Range/Units 13:16 13:16 13:16 WBC 17.2 H (3.8-10.6) k/uL RBC 2.97 L (4.30-5.90) m/uL Hgb 10.1 L (13.0-17.5) gm/dL Hct 32.6 L (39.0-53.0) % MCV 110.0 H (80.0-100.0) fL MCH 33.9 (25.0-35.0) pg MCHC 30.9 L (31.0-37.0) g/dL RDW 21.9 H (11.5-15.5) % Plt Count 157 (150-450) k/uL MPV 11.5 Neutrophils % 94 % Lymphocytes % 4 % Monocytes % 2 % Eosinophils % 0 % Basophils % 0 % Neutrophils # 16.1 H (1.3-7.7) k/uL Lymphocytes # 0.7 L (1.0-4.8) k/uL Monocytes # 0.3 (0-1.0) k/uL Eosinophils # 0.0 (0-0.7) k/uL Basophils # 0.0 (0-0.2) k/uL Manual Slide Review Performed Large Platelets Present Hypochromasia Slight Anisocytosis Moderate Macrocytosis Marked A PT 12.9 H (9.0-12.0) sec INR 1.3 H (<1.2) APTT 26.7 (22.0-30.0) sec Sodium 130 L (137-145) mmol/L Potassium 4.3 (3.5-5.1) mmol/L Chloride 99 (98-107) mmol/L Carbon Dioxide 24 (22-30) mmol/L Anion Gap 7 mmol/L BUN 13 (9-20) mg/dL Creatinine 0.57 L (0.66-1.25) mg/dL Est GFR (CKD-EPI)AfAm >90 (>60 ml/min/1.73 sqM) Est GFR (CKD-EPI)NonAf >90 (>60 ml/min/1.73 sqM) Glucose 105 H (74-99) mg/dL Plasma Lactic Acid Huey (0.7-2.0) mmol/L Calcium 7.1 L (8.4-10.2) mg/dL Magnesium 1.7 (1.6-2.3) mg/dL Total Bilirubin 0.8 (0.2-1.3) mg/dL AST 40 (17-59) U/L ALT 28 (4-49) U/L Alkaline Phosphatase 159 H (38-126) U/L Lactate Dehydrogenase 1132 H (313-618) U/L C-Reactive Protein 72.1 H (<10.0) mg/L NT-Pro-B Natriuret Pep pg/mL Total Protein 5.5 L (6.3-8.2) g/dL Albumin 2.6 L (3.5-5.0) g/dL Coronavirus (PCR) (Not Detectd) 10/23/20 10/23/20 10/23/20 Range/Units 13:16 13:16 13:16 WBC (3.8-10.6) k/uL RBC (4.30-5.90) m/uL Hgb (13.0-17.5) gm/dL Hct (39.0-53.0) % MCV (80.0-100.0) fL MCH (25.0-35.0) pg MCHC (31.0-37.0) g/dL RDW (11.5-15.5) % Plt Count (150-450) k/uL MPV Neutrophils % % Lymphocytes % % Monocytes % % Eosinophils % % Basophils % % Neutrophils # (1.3-7.7) k/uL Lymphocytes # (1.0-4.8) k/uL Monocytes # (0-1.0) k/uL Eosinophils # (0-0.7) k/uL Basophils # (0-0.2) k/uL Manual Slide Review Large Platelets Hypochromasia Anisocytosis Macrocytosis PT (9.0-12.0) sec INR (<1.2) APTT (22.0-30.0) sec Sodium (137-145) mmol/L Potassium (3.5-5.1) mmol/L Chloride (98-107) mmol/L Carbon Dioxide (22-30) mmol/L Anion Gap mmol/L BUN (9-20) mg/dL Creatinine (0.66-1.25) mg/dL Est GFR (CKD-EPI)AfAm (>60 ml/min/1.73 sqM) Est GFR (CKD-EPI)NonAf (>60 ml/min/1.73 sqM) Glucose (74-99) mg/dL Plasma Lactic Acid Huey 3.3 H* (0.7-2.0) mmol/L Calcium (8.4-10.2) mg/dL Magnesium (1.6-2.3) mg/dL Total Bilirubin (0.2-1.3) mg/dL AST (17-59) U/L ALT (4-49) U/L Alkaline Phosphatase (38-126) U/L Lactate Dehydrogenase (313-618) U/L C-Reactive Protein (<10.0) mg/L NT-Pro-B Natriuret Pep 718 pg/mL Total Protein (6.3-8.2) g/dL Albumin (3.5-5.0) g/dL Coronavirus (PCR) Not Detected (Not Detectd) - Radiology Data Radiology results: image reviewed (Chest x-ray shows patchy left perihilar infiltrate. Persistent changes right lung.) Critical Care Time Critical Care Time: Yes Total Critical Care Time: 32 Disposition Clinical Impression: Pneumonia, Severe sepsis Disposition: ADMITTED IP TO THIS [facility] Condition: Serious Is patient prescribed a controlled substance at d/c from ED?: No Referrals: Jennifer Lea MD [Primary Care Provider] - 1-2 days Decision Time: 14:31
[2020-10-23 13:47] LABS: ALT 28 U/L (4-49); AST 40 U/L (17-59); African American GFR (CKD) >90 (>60 ml/min/1.73 sqM); Albumin 2.6 g/dL (3.5-5.0); Alkaline Phosphatase 159 U/L (38-126); Anion Gap 7 mmol/L; Blood Urea Nitrogen 13 mg/dL (9-20); Calcium 7.1 mg/dL (8.4-10.2); Carbon Dioxide 24 mmol/L (22-30); Chloride 99 mmol/L (98-107); Glucose 105 mg/dL (74-99); LDH 1132 U/L (313-618); Magnesium 1.7 mg/dL (1.6-2.3); Non-African American GFR(CKD) >90 (>60 ml/min/1.73 sqM); Potassium 4.3 mmol/L (3.5-5.1); Sodium 130 mmol/L (137-145); Total Bilirubin 0.8 mg/dL (0.2-1.3); Total Protein 5.5 g/dL (6.3-8.2)
[2020-10-23 13:51] LABS: Anisocytosis Moderate; Basophils % (A) 0 %; Eosinophils % (A) 0 %; HCT 32.6 % (39.0-53.0); HGB 10.1 gm/dL (13.0-17.5); Hypochromasia Slight; Lymphocytes # (A) 0.7 k/uL (1.0-4.8); Lymphocytes % (A) 4 %; MCH 33.9 pg (25.0-35.0); MCHC 30.9 g/dL (31.0-37.0); Macrocytosis Marked; Mean Platelet Volume 11.5; Monocytes # (A) 0.3 k/uL (0-1.0); Monocytes % (A) 2 %; Neutrophils # (A) 16.1 k/uL (1.3-7.7); Neutrophils % (A) 94 %; Platelet Count 157 k/uL (150-450); RBC 2.97 m/uL (4.30-5.90); RDW 21.9 % (11.5-15.5); WBC 17.2 k/uL (3.8-10.6)
[2020-10-23 13:52] LABS: INR 1.3 (<1.2); Partial Thromboplastin Time 26.7 sec (22.0-30.0); Prothrombin Time 12.9 sec (9.0-12.0)
--- NOTE | 2020-10-23 13:59 | XR ---
EXAMINATION TYPE: XR chest 2V DATE OF EXAM: 10/23/2020 COMPARISON: 07/29/2020 HISTORY: Shortness of breath TECHNIQUE: Frontal and lateral views of the chest are obtained. FINDINGS: Scattered senescent parenchymal changes noted. Hyperinflation compatible with COPD. Patchy perihilar infiltrate. Right-sided pleural effusion. Right apical pleural thickening. Previousl y noted partially lysed mass is not visualized at this time. Heart size is stable. Mediastinal structures are stable and grossly unremarkable. No evidence for hilar prominence. Degenerative changes dorsal spine. IMPRESSION: 1. Interval development of patchy left perihilar infiltrate. Correlate for underlying pneumonia. Pers istent changes right lung.
[2020-10-23 14:06] LABS: C Reactive Protein 72.1 mg/L (<10.0)
[2020-10-23 14:07] LABS: Large Platelets Present
[2020-10-23] MEDS ORDERED: PNEUMONIA PROTOCOL UTILIZED 1 EACH MISC PO PRN (14:34)
[2020-10-23] MEDS ORDERED: CEFEPIME 2 GM in SODIUM CHLORIDE 0.9% 100 ML IVPB STA (14:34)
[2020-10-23] MEDS ORDERED: AZITHROMYCIN 500 MG in SODIUM CHLORIDE 0.9% 250 ML IVPB STA (14:34)
[2020-10-23] MEDS ORDERED: IPRATROPIUM-ALBUTEROL 3 ML NEB INHALATION PRN (14:34)
[2020-10-23] MEDS ORDERED: SODIUM CHLORIDE 0.9% 500 ML 500 ML IV STA (14:34)
[2020-10-23] MEDS ORDERED: SODIUM CHLORIDE 0.9% 1,000 ML IV STA ×2 (14:34)
[2020-10-23] MEDS: SODIUM CHLORIDE 0.9% 1,000 ML IV SCH ×2 (15:24→23:33)
[2020-10-23] MEDS: IPRATROPIUM-ALBUTEROL 3 ML NEB INHALATION SCH ×2 (16:30→20:24)
[2020-10-23] MEDS ORDERED: hydrOXYzine HCL 10 MG TAB PO PRN (16:31)
[2020-10-23] MEDS ORDERED: HYDROcodone/APAP 5-325MG 1 EACH TAB PO PRN (16:31)
--- NOTE | 2020-10-23 16:37 | P.HPIM ---
History of Present Illness H&P Date: 10/23/20 Chief Complaint: Cough, weakness, dyspnea, hypoxia 65 year old man with history of lung cancer s/p lobectomy, currently on chemotherapy and s/p cycle 4 of immunotherapy, with mets to the liver, COPD, hx of NICM from ETOH, now recovered EF presented for hypoxia as noted in oncology clinic this morning. Patient says that he went for routine follow up for his oncologist, and during his office visit, he was noted to be hypoxic. He and his note that patient has been coughing more robustly than normal for him, and he has also been profoundly weak since his last cycle of chemo/immunotherapy 2 weeks ago; specifically, requiring a lot of energy to leave the bed. He denies fevers, nausea, vomiting, chest pain, palps, abd pain, dysuria, dyschezia, numbness of extremities. Appetite is okay, +unintentional weight loss of 10-11 lbs over last couple months. He reports chills that have been worsening over last week. He reports itchiness with rash for last 2 weeks since his chemo/immunotherapy session. Afebrile, 115/83, 115, 95% on 3L NC. WBC 17.2, 10.1 Hgb, PLT 157. Na 130. LA 3.3. LDH 1132. CRP 72. BNP 718. CV neg. Review of Systems All Systems reviewed and pertinent positives and negatives noted in HPI, all other symptoms are negative Past Medical History Past Medical History: Cancer, COPD, Pneumonia Additional Past Medical History / Comment(s): rt lower lobe lung cancer, cardiomegaly History of Any Multi-Drug Resistant Organisms: None Reported Past Surgical History: Tonsillectomy Additional Past Surgical History / Comment(s): aortic abd stent Past Anesthesia/Blood Transfusion Reactions: No Reported Reaction Past Psychological History: No Psychological Hx Reported Smoking Status: Former smoker Past Alcohol Use History: None Reported Past Drug Use History: None Reported - Past Family History Father Family Medical History: Myocardial Infarction (AR) Additional Family Medical History / Comment(s): Father of a AR at the age of 46yrs. Mother Family Medical History: Cancer Additional Family Medical History / Comment(s): Mother from breast cancer. Medications and Allergies Home Medications Medication Instructions Recorded Confirmed Type Spironolactone [Aldactone] 25 mg PO DAILY 11/10/19 10/23/20 History Apixaban [Eliquis] 5 mg PO BID 07/29/20 10/23/20 History HYDROcodone/APAP 5-325MG [[place] 1 tab PO BID PRN 07/29/20 10/23/20 History 5-325] Metoprolol Tartrate [Lopressor] 50 mg PO DAILY 07/29/20 10/23/20 History Famotidine [Pepcid] 10 mg PO DAILY 10/23/20 10/23/20 History Furosemide [Lasix] 20 - 40 mg PO DAILY PRN 10/23/20 10/23/20 History Loratadine [Claritin] 10 mg PO HS 10/23/20 10/23/20 History Potassium Chloride ER [K-Dur 20] 20 meq PO DAILY 10/23/20 10/23/20 History hydrOXYzine HCL [Atarax] 10 mg PO QID PRN 10/23/20 10/23/20 History predniSONE [Deltasone] See Taper PO DAILY 10/23/20 10/23/20 History Allergies Allergy/AdvReac Type Severity Reaction Status Date / Time bee venom protein (honey bee) Allergy Anaphylaxis Verified 10/23/20 14:47 insect venom Allergy Anaphylaxis Verified 10/23/20 14:47 Penicillins Allergy Unknown Verified 10/23/20 14:47 Childhood Physical Exam Osteopathic Statement: *. No significant issues noted on an osteopathic structural exam other than those noted in the History and Physical/Consult. Vitals: Vital Signs Temp Pulse Resp BP Pulse Ox 10/23/20 15:30 101 H 26 H 115/83 95 10/23/20 14:40 103 H 24 120/81 92 L 10/23/20 14:30 115 H 24 120/81 97 10/23/20 14:20 107 H 22 120/81 94 L 10/23/20 13:23 106 H 10/23/20 13:17 105 H 10/23/20 12:42 98.4 F 119 H 20 104/64 87 L Intake and Output 10/23/20 10/23/20 10/23/20 06:59 14:59 22:59 Other: Weight 76.204 kg Gen: awake, alert HEENT: normocephalic, atraumatic, good hearing acuity, dry mucous membranes Resp: good air exchange, breathing comfortably with no accessory muscle use, clear to auscultation bilaterally with minimal crackles in the left posterior base CVS: good distal perfusion x 4, tachycardic, regular rhythm, no murmurs GI: soft, NTTP, ND : no SPT, no CVAT, ji catheter not present MSK: Trace pitting edema, no clubbing Neuro: non-focal, moving all extremities Psych: cooperative, euthymic mood Results CBC & Chem 7: 10/23/20 13:16 10/23/20 13:16 Labs: Abnormal Lab Results - Last 24 Hours (Table) 10/23/20 10/23/20 10/23/20 Range/Units 13:16 13:16 13:16 WBC 17.2 H (3.8-10.6) k/uL RBC 2.97 L (4.30-5.90) m/uL Hgb 10.1 L (13.0-17.5) gm/dL Hct 32.6 L (39.0-53.0) % MCV 110.0 H (80.0-100.0) fL MCHC 30.9 L (31.0-37.0) g/dL RDW 21.9 H (11.5-15.5) % Neutrophils # 16.1 H (1.3-7.7) k/uL Lymphocytes # 0.7 L (1.0-4.8) k/uL Macrocytosis Marked A PT 12.9 H (9.0-12.0) sec INR 1.3 H (<1.2) Sodium 130 L (137-145) mmol/L Creatinine 0.57 L (0.66-1.25) mg/dL Glucose 105 H (74-99) mg/dL Plasma Lactic Acid Huey (0.7-2.0) mmol/L Calcium 7.1 L (8.4-10.2) mg/dL Alkaline Phosphatase 159 H (38-126) U/L Lactate Dehydrogenase 1132 H (313-618) U/L C-Reactive Protein 72.1 H (<10.0) mg/L Total Protein 5.5 L (6.3-8.2) g/dL Albumin 2.6 L (3.5-5.0) g/dL 10/23/20 Range/Units 13:16 WBC (3.8-10.6) k/uL RBC (4.30-5.90) m/uL Hgb (13.0-17.5) gm/dL Hct (39.0-53.0) % MCV (80.0-100.0) fL MCHC (31.0-37.0) g/dL RDW (11.5-15.5) % Neutrophils # (1.3-7.7) k/uL Lymphocytes # (1.0-4.8) k/uL Macrocytosis PT (9.0-12.0) sec INR (<1.2) Sodium (137-145) mmol/L Creatinine (0.66-1.25) mg/dL Glucose (74-99) mg/dL Plasma Lactic Acid Huey 3.3 H* (0.7-2.0) mmol/L Calcium (8.4-10.2) mg/dL Alkaline Phosphatase (38-126) U/L Lactate Dehydrogenase (313-618) U/L C-Reactive Protein (<10.0) mg/L Total Protein (6.3-8.2) g/dL Albumin (3.5-5.0) g/dL Assessment and Plan Assessment: 1. Sepsis with Acute Hypoxemic Respiratory Failure 2. Community Acquired Pneumonia 3. Hypertension, essential 4. Hx of Alcohol induced NICM, with recovered EF 5. Lung Cancer s/p lobectomy with mets to the liver 6. Immunosuppressed state 7. Hx of PE on Eliquis 65 year old man with history of HTN, lung cancer, immunosuppression presented with hypoxia from oncology clinic and was found to be in sepsis with acute hypoxemic respiratory failure and to have left hilar infiltrate on chest x-ray concerning for community acquired pneumonia. Plan: - admit to inpatient - BCx, RCx - covid negative - currently cefepime/azithromycin, will de-escalate as able - procalcitonin pending - repeat lactate pending - ferritin pending - echo - IVF: NS 2.5L of total bolus in the ER --> NS 100cc/hr - continue prednisone at 40mg daily - continue home loratadine/famotidine - continue home hydroxyzine - holding home metoprolol/spironolactone - patient has not been taking these for this past week - continue home Eliquis - hematology consult, pending Full Code DVT PPx: nicola is DPOA
[2020-10-23] MEDS ORDERED: PROCHLORPERAZINE 5 MG TAB PO PRN (16:38)
[2020-10-23] MEDS ORDERED: ONDANSETRON 4 MG/2 ML VIAL IVP PRN (16:38)
[2020-10-23] MEDS ORDERED: DOCUSATE 100 MG CAP PO PRN (16:38)
[2020-10-23] MEDS ORDERED: ACETAMINOPHEN TAB 325 MG TAB PO PRN (16:38)
[2020-10-23] MEDS ORDERED: LORazepam 2 MG/ML INJ IV PRN (16:38)
[2020-10-23] MEDS ORDERED: NALOXONE 0.4 MG/ML 1 ML VIAL IV PRN (16:38)
[2020-10-23] MEDS: FAMOTIDINE 20 MG TAB PO SCH (19:32)
[2020-10-23] MEDS: APIXABAN 5 MG TAB PO SCH (20:22)
[2020-10-23] MEDS: LORATADINE 10 MG TAB PO SCH (20:22)
[2020-10-23 21:40] LABS: Ferritin 1763.7 ng/mL (22.0-322.0)
[2020-10-23] MEDS: CEFEPIME 2 GM in SODIUM CHLORIDE 0.9% 100 ML IVPB SCH (23:33)
[2020-10-24 02:45] LABS: Potassium 3.9 mmol/L (3.5-5.1)
[2020-10-24 02:46] LABS: African American GFR (CKD) >90 (>60 ml/min/1.73 sqM); Anion Gap 5 mmol/L; Blood Urea Nitrogen 12 mg/dL (9-20); Calcium 6.5 mg/dL (8.4-10.2); Carbon Dioxide 19 mmol/L (22-30); Chloride 106 mmol/L (98-107); Glucose 104 mg/dL (74-99); Magnesium 1.6 mg/dL (1.6-2.3); Non-African American GFR(CKD) >90 (>60 ml/min/1.73 sqM); Sodium 130 mmol/L (137-145)
[2020-10-24 03:37] LABS: Anisocytosis Moderate; Basophils % (A) 0 %; Eosinophils % (A) 0 %; Hypochromasia Moderate; Lymphocytes # (A) 1.1 k/uL (1.0-4.8); Lymphocytes % (A) 9 %; MCH 34.8 pg (25.0-35.0); MCHC 30.7 g/dL (31.0-37.0); MCV 113.5 fL (80.0-100.0); Macrocytosis Marked; Mean Platelet Volume 11.5; Monocytes # (A) 0.4 k/uL (0-1.0); Monocytes % (A) 3 %; Neutrophils # (A) 10.5 k/uL (1.3-7.7); Neutrophils % (A) 87 %; Platelet Count 123 k/uL (150-450); RBC 2.29 m/uL (4.30-5.90); RDW 21.8 % (11.5-15.5); WBC 12.1 k/uL (3.8-10.6)
[2020-10-24 04:41] LABS: Large Platelets Present; Polychromasia Present
[2020-10-24 04:42] LABS: Poikilocytosis (M) Present
[2020-10-24] MEDS ORDERED: SODIUM CHLORIDE 0.9% 500 ML 500 ML IV ONE (05:29)
[2020-10-24] MEDS: IPRATROPIUM-ALBUTEROL 3 ML NEB INHALATION SCH ×4 (07:48→20:35)
[2020-10-24] MEDS: CEFEPIME 2 GM in SODIUM CHLORIDE 0.9% 100 ML IVPB SCH ×2 (08:25→18:12)
[2020-10-24] MEDS: APIXABAN 5 MG TAB PO SCH ×2 (08:26→20:18)
[2020-10-24] MEDS: FAMOTIDINE 20 MG TAB PO SCH (08:27)
[2020-10-24] MEDS: POTASSIUM CHLORIDE ER 20 MEQ TAB.ER PO SCH (08:29)
[2020-10-24] MEDS: predniSONE 20 MG TAB PO SCH (08:30)
--- NOTE | 2020-10-24 08:31 | XR ---
EXAMINATION TYPE: XR chest 2V DATE OF EXAM: 10/24/2020 COMPARISON: Chest x-ray 10/23/[address] 10/16/2020 HISTORY: Pneumonia TECHNIQUE: Frontal and lateral views of the chest are obtained. FINDINGS: Pleural parenchymal changes are similar to prior exam. Apical pleural thickening is presen t on the right, patchy density present greater in the left lung, the right hemidiaphragm is obscured. Cardiac mediastinal silhouette is likely stable. Postop changes noted in the right hemithorax. Patie nt is rotated. IMPRESSION: Correlate for pneumonia, edema, likely chronic pleural reaction rather than right pleur al effusion, atelectasis, there is underlying emphysema
[2020-10-24] MEDS ORDERED: PETROLATUM, WHITE OINT 50 GM TUBE TOPICAL PRN (11:01)
--- NOTE | 2020-10-24 11:50 | ECHOF ---
Referral Reason:Hx of alcohol induced NICM MEASUREMENTS -------- HEIGHT: 182.9 cm WEIGHT: 75.7 kg BP: 112/67 RVIDd: 4.1 cm (< 3.3) IVSd: 1.6 cm (0.6 - 1.1) LVIDd: 4.3 cm (3.9 - 5.3) LVPWd: 1.6 cm (0.6 - 1.1) IVSs: 1.5 cm LVIDs: 3.3 cm LVPWs: 2.0 cm LAESV Index (A-L): 33.35 ml/m Ao Diam: 3.3 cm (2.0 - 3.7) AV Cusp: 1.7 cm (1.5 - 2.6) MV EXCURSION: 27.874 mm (> 18.000) MV EF SLOPE: 71 mm/s (70 - 150) EPSS: 0.7 cm RAP: 5.00 mmHg RVSP: 52.33 mmHg FINDINGS -------- Sinus rhythm. Resting tachycardia (HR>100bpm). This was a technically adequate study. The left ventricular size is normal. There is moderate concentric left ventricular hypertrophy. O verall left ventricular systolic function is low-normal with, an EF between 50 - 55 %. The right ventricle is moderately enlarged. LA is midly dilated 29-33ml/m2. The right atrium was not well visualized. Interatrial and interventricular septum intact. The aortic valve is trileaflet, and appears structurally normal. No aortic stenosis or regurgitation. The mitral valve is normal. [id number] mitral regurgitation is present. The tricuspid valve appears structurally normal. Moderate tricuspid regurgitation present. There is moderate to severe pulmonary hypertension. The right ventricular systolic pressure, as measured by Doppler, is 52.33mmHg. The pulmonic valve was not well visualized. The aortic root size is normal. IVC Not well visulized. Echo free space may represent effusion or a pericardial fat pad. CONCLUSIONS -------- 1. There is moderate concentric left ventricular hypertrophy. 2. Overall left ventricular systolic function is low-normal with, an EF between 50 - 55 %. 3. The right ventricle is moderately enlarged. 4. LA is midly dilated 29-33ml/m2. 5. The aortic valve is trileaflet, and appears structurally normal. No aortic stenosis or regurgitati on. 6. Gpli-[id number]-[id number] mitral regurgitation is present. 7. Moderate tricuspid regurgitation present. 8. There is moderate to severe pulmonary hypertension. 9. Echo free space may represent effusion or a pericardial fat pad. DIETARY COOK: Sherri Shanks RDCS
[2020-10-24] MEDS ORDERED: VANCOMYCIN IV PER PHARMACY 1 EACH MISC MISCELLANE PRN (13:00)
--- NOTE | 2020-10-24 13:09 | P.PN ---
Subjective Progress Note Date: 10/24/20 Pt again has no complaints, but oxygen requirement is rapidly increasing. CXR appears to have worsening infiltrate which appears to be edema vs infection. Pt has been on IVF. Objective - Vital Signs Vital signs: Vital Signs Temp 99.3 F 10/24/20 11:42 Pulse 118 H 10/24/20 12:27 Resp 20 10/24/20 11:42 BP 121/84 10/24/20 11:42 Pulse Ox 84 L 10/24/20 11:42 Intake & Output 10/23/20 10/24/20 10/24/20 18:59 06:59 18:59 Intake Total 1600 236 Output Total 500 250 Balance 1100 -14 Weight 76.204 kg 76.2 kg Intake: Intake, IV Titration 1000 Amount Sodium Chloride 0.9% 1, 1000 000 ml @ 125 mls/hr IV . Q8H [facility] Rx#:[id number] Oral 600 236 Output: Urine 500 250 Other: Voiding Method Toilet Urinal # Voids 1 1 - Exam Gen: awake, alert HEENT: normocephalic, atraumatic, good hearing acuity, dry mucous membranes Resp: good air exchange, breathing comfortably with no accessory muscle use, crackles in the left posterior base CVS: good distal perfusion x 4, tachycardic, regular rhythm, no murmurs GI: soft, NTTP, ND : no SPT, no CVAT, ji catheter not present MSK: Trace pitting edema, no clubbing Neuro: non-focal, moving all extremities Psych: cooperative, euthymic mood - Labs CBC & Chem 7: 10/24/20 02:10 10/24/20 02:10 Labs: Abnormal Lab Results - Last 24 Hours (Table) 10/23/20 10/23/20 10/23/20 Range/Units 13:16 13:16 13:16 WBC 17.2 H (3.8-10.6) k/uL RBC 2.97 L (4.30-5.90) m/uL Hgb 10.1 L (13.0-17.5) gm/dL Hct 32.6 L (39.0-53.0) % MCV 110.0 H (80.0-100.0) fL MCHC 30.9 L (31.0-37.0) g/dL RDW 21.9 H (11.5-15.5) % Plt Count (150-450) k/uL Neutrophils # 16.1 H (1.3-7.7) k/uL Lymphocytes # 0.7 L (1.0-4.8) k/uL Macrocytosis Marked A PT 12.9 H (9.0-12.0) sec INR 1.3 H (<1.2) Sodium 130 L (137-145) mmol/L Carbon Dioxide (22-30) mmol/L Creatinine 0.57 L (0.66-1.25) mg/dL Glucose 105 H (74-99) mg/dL Plasma Lactic Acid Huey (0.7-2.0) mmol/L Calcium 7.1 L (8.4-10.2) mg/dL Ferritin 1763.7 H (22.0-322.0) ng/mL Alkaline Phosphatase 159 H (38-126) U/L Lactate Dehydrogenase 1132 H (313-618) U/L C-Reactive Protein 72.1 H (<10.0) mg/L Total Protein 5.5 L (6.3-8.2) g/dL Albumin 2.6 L (3.5-5.0) g/dL Procalcitonin (0.02-0.09) ng/mL 10/23/20 10/23/20 10/23/20 Range/Units 13:16 13:16 16:35 WBC (3.8-10.6) k/uL RBC (4.30-5.90) m/uL Hgb (13.0-17.5) gm/dL Hct (39.0-53.0) % MCV (80.0-100.0) fL MCHC (31.0-37.0) g/dL RDW (11.5-15.5) % Plt Count (150-450) k/uL Neutrophils # (1.3-7.7) k/uL Lymphocytes # (1.0-4.8) k/uL Macrocytosis PT (9.0-12.0) sec INR (<1.2) Sodium (137-145) mmol/L Carbon Dioxide (22-30) mmol/L Creatinine (0.66-1.25) mg/dL Glucose (74-99) mg/dL Plasma Lactic Acid Huye 3.3 H* 2.7 H* (0.7-2.0) mmol/L Calcium (8.4-10.2) mg/dL Ferritin (22.0-322.0) ng/mL Alkaline Phosphatase (38-126) U/L Lactate Dehydrogenase (313-618) U/L C-Reactive Protein (<10.0) mg/L Total Protein (6.3-8.2) g/dL Albumin (3.5-5.0) g/dL Procalcitonin 0.13 H (0.02-0.09) ng/mL 10/23/20 10/23/20 10/24/20 Range/Units 20:26 23:13 02:10 WBC 12.1 H (3.8-10.6) k/uL RBC 2.29 L (4.30-5.90) m/uL Hgb 8.0 L D (13.0-17.5) gm/dL Hct 26.0 L (39.0-53.0) % MCV 113.5 H (80.0-100.0) fL MCHC 30.7 L (31.0-37.0) g/dL RDW 21.8 H (11.5-15.5) % Plt Count 123 L (150-450) k/uL Neutrophils # 10.5 H (1.3-7.7) k/uL Lymphocytes # (1.0-4.8) k/uL Macrocytosis Marked A PT (9.0-12.0) sec INR (<1.2) Sodium (137-145) mmol/L Carbon Dioxide (22-30) mmol/L Creatinine (0.66-1.25) mg/dL Glucose (74-99) mg/dL Plasma Lactic Acid Huey 2.8 H* 2.4 H* (0.7-2.0) mmol/L Calcium (8.4-10.2) mg/dL Ferritin (22.0-322.0) ng/mL Alkaline Phosphatase (38-126) U/L Lactate Dehydrogenase (313-618) U/L C-Reactive Protein (<10.0) mg/L Total Protein (6.3-8.2) g/dL Albumin (3.5-5.0) g/dL Procalcitonin (0.02-0.09) ng/mL 10/24/20 10/24/20 Range/Units 02:10 02:10 WBC (3.8-10.6) k/uL RBC (4.30-5.90) m/uL Hgb (13.0-17.5) gm/dL Hct (39.0-53.0) % MCV (80.0-100.0) fL MCHC (31.0-37.0) g/dL RDW (11.5-15.5) % Plt Count (150-450) k/uL Neutrophils # (1.3-7.7) k/uL Lymphocytes # (1.0-4.8) k/uL Macrocytosis PT (9.0-12.0) sec INR (<1.2) Sodium 130 L (137-145) mmol/L Carbon Dioxide 19 L (22-30) mmol/L Creatinine 0.51 L (0.66-1.25) mg/dL Glucose 104 H (74-99) mg/dL Plasma Lactic Acid Huey 2.1 H* (0.7-2.0) mmol/L Calcium 6.5 L (8.4-10.2) mg/dL Ferritin (22.0-322.0) ng/mL Alkaline Phosphatase (38-126) U/L Lactate Dehydrogenase (313-618) U/L C-Reactive Protein (<10.0) mg/L Total Protein (6.3-8.2) g/dL Albumin (3.5-5.0) g/dL Procalcitonin (0.02-0.09) ng/mL Assessment and Plan Assessment: 1. Sepsis with Acute Hypoxemic Respiratory Failure 2. Community Acquired Pneumonia 3. Hypertension, essential 4. Hx of Alcohol induced NICM, with recovered EF 5. Lung Cancer s/p lobectomy with mets to the liver 6. Immunosuppressed state 7. Hx of PE on Eliquis 65 year old man with history of HTN, lung cancer, immunosuppression presented with hypoxia from oncology clinic and was found to be in sepsis with acute hypoxemic respiratory failure and to have left hilar infiltrate on chest x-ray concerning for community acquired pneumonia. Plan: - admit to inpatient - BCx, RCx, pending - covid negative - currently cefepime/azithromycin, escalated to vancomycin/cefepime on 10/24 - procalcitonin mildly elevated at 0.13 - lactate 2.4 --> 1.7 - ferritin 1763 - echo = EF 50-55%, LVH, moderately enlarged RV, mod pHTN to 53 - IVF: NS 2.5L of total bolus in the ER --> NS 100cc/hr - stopped on 10/24 - started on 40mg lasix IV daily - continue prednisone at 40mg daily - continue home loratadine/famotidine - continue home hydroxyzine - holding home metoprolol/spironolactone - patient has not been taking these for this past week - continue home Eliquis - hematology consult, pending - pulmonary consult, pending Full Code DVT PPx: nicola is DPOA
[2020-10-24] MEDS: FUROSEMIDE 10 MG/ML 4 ML VIAL IV SCH (13:21)
[2020-10-24] MEDS: MAG HYDROX/AL HYDROX/SIMETH 30 ML, LIDOCAINE VISCOUS 30 ML, diphenhydrAMINE ELIXIR 75 M... PO SCH ×12 (13:21→20:18)
[2020-10-24] MEDS ORDERED: VANCOMYCIN 1,500 MG in SODIUM CHLORIDE 0.9% 250 ML IVPB SCH (14:00)
[2020-10-24] MEDS ORDERED: AZITHROMYCIN 500 MG in SODIUM CHLORIDE 0.9% 250 ML IVPB SCH (16:00)
--- NOTE | 2020-10-24 16:12 | P.CONS ---
History of Present Illness - Reason for Consult Consult date: 10/24/20 NSCLC Requesting physician: Miladys Flores - Chief Complaint hypoxia - History of Present Illness Mr. Patel is a very pleasant 65-year-old male patient of Dr. Smith with a complicated PMH. Seen at [facility] 11/17/19, found to have a lung nodule on chest x-ray following pneumonia. CT 10/05/19 showed a 1.3 cm mass posterior superior right apex, 0.9 cm nodule in the right mid lung. There was a right lower lobe endobronchial lesion with postobstructive atelectasis. PET showed uptake only in the lower lobe lesion. Bronchoscopy 10/19/19 was nondiagnostic but cytology was positive for spindle cell. He was scheduled for surgery, unfortunately admitted for fever, cough and tachycardia, CTA revealed bilateral PE. Had IVC place. Had surgery with a prolonged recovery period.Final past showed a 4 cm, biphasic high-grade malignant neoplasm consistent with carcinoma extending into the bronchus intermedius. Margins were negative, 11 lymph nodes from 5 different stations all negative, no evidence of pleural invasion. Adjuvant treatment was recommended. Patient was seen at [facility] for second opinion. They agreed with recommendations for adjuvant treatment, recommended carboplatin and Gemzar. There were multiple opinions regarding patient's PE. Patient was not discharged on anticoagulation post op. It was ultimately decided to resume anticoagulation with a repeat CTA, and ultrasound. No evidence of thromboembolism unfortunately though, showed possibility of recurrent infrahilar mass, 7.7 cm as well as lesions in the liver. PET showed extensive metastatic disease, 1.8 cm right lower lobe nodule, bone metastases involving spine, left scapula and 8 lesions in the liver. Biomarker testing was negative other then PTEN and Her2. He completed 6 cycles of carboplatin and Gemzar (2 dose reductions) 06/08/20, Keytruda was added with cycle 5. CT scans after cycle 6 unfortunately showed progression of the liver and the right lung. He was switched to opdivo. After 1 cycle patient had markedly liver enlargement with associated symptoms. It was discussed at that time comfort care versus active treatment. Patient wanted to pursue active treatment. tarted Taxotere and cyramza 08/04/20. He is s/p 4 cycles, due to cont with Taxotere single agent due to rash and persistent toxicities after Tx. Patient was being seen in the office yesterday for routine treatment follow-up. He was given 500 cc hydration, found to be persistently hypoxic and referred over to the ER. Patient had to be placed on high flow O2 to maintain O2 sat in the low 90s. Labs showed increased lactic acid, chest x-ray suggestive of a postobstructive pneumonia. Patient denied fevers, he has mild to moderate oral irritation, no sore throat, ear pain, he has a cough, unable to expectorate, he feels his breathing is a little bit better since admission with oxygen and b reathing treatments as well as antibiotics. He denies nausea, vomiting, abdominal pain or cramping, acute changes in bowel or bladder habits, swelling in the legs, he feels pretty weak, he hasn't been up to the bathroom, he is on eliquis and denies any bleeding. Review of Systems 14 point ROS is neg except as stated in HPI Past Medical History Past Medical History: Atrial Fibrillation, Cancer, COPD, Pneumonia Additional Past Medical History / Comment(s): rt lower lobe lung cancer, cardiomegaly, filter in left leg in november 2019. Last Chemo was and lost 11 lbs since then. History of Any Multi-Drug Resistant Organisms: None Reported Past Surgical History: Tonsillectomy Additional Past Surgical History / Comment(s): aortic abd stent Past Anesthesia/Blood Transfusion Reactions: No Reported Reaction Past Psychological History: No Psychological Hx Reported Additional Psychological History / Comment(s): Pt is retired. He uses no as sistive devices. He drives. Smoking Status: Former smoker Past Alcohol Use History: None Reported Additional Past Alcohol Use History / Comment(s): Pt started smoking in 1969 and quit in May 2020. Past Drug Use History: None Reported - Past Family History Father Family Medical History: Myocardial Infarction (NE) Additional Family Medical History / Comment(s): Father of a NE at the age of 46yrs. Mother Family Medical History: Cancer Additional Family Medical History / Comment(s): Mother had. breast cancer. Medications and Allergies Home Medications Medication Instructions Recorded Confirmed Type Spironolactone [Aldactone] 25 mg PO DAILY 11/10/19 10/23/20 History Apixaban [Eliquis] 5 mg PO BID 07/29/20 10/23/20 History HYDROcodone/APAP 5-325MG [[place] 1 tab PO BID PRN 07/29/20 10/23/20 History 5-325] Metoprolol Tartrate [Lopressor] 50 mg PO DAILY 07/29/20 10/23/20 History Famotidine [Pepcid] 10 mg PO DAILY 10/23/20 10/23/20 History Furosemide [Lasix] 20 - 40 mg PO DAILY PRN 10/23/20 10/23/20 History Loratadine [Claritin] 10 mg PO HS 10/23/20 10/23/20 History Potassium Chloride ER [K-Dur 20] 20 meq PO DAILY 10/23/20 10/23/20 History hydrOXYzine HCL [Atarax] 10 mg PO QID PRN 10/23/20 10/23/20 History predniSONE [Deltasone] See Taper PO DAILY 10/23/20 10/23/20 History Allergies Allergy/AdvReac Type Severity Reaction Status Date / Time bee venom protein (honey bee) Allergy Anaphylaxis Verified 10/23/20 14:47 insect venom Allergy Anaphylaxis Verified 10/23/20 14:47 Penicillins Allergy Unknown Verified 10/23/20 14:47 Childhood Physical Exam Vitals: Vital Signs Temp Pulse Pulse Resp BP BP Pulse Ox 10/24/20 08:00 98.4 F 94 64 19 137/92 88 L 10/24/20 07:48 90 10/24/20 04:46 98 F 94 18 112/67 94 L 10/24/20 02:47 18 10/23/20 23:37 97.8 F 104 H 18 104/64 92 L 10/23/20 20:39 102 H 10/23/20 20:24 103 H 92 L 10/23/20 20:20 97.7 F 100 18 128/77 95 10/23/20 17:59 97.6 F 106 H 18 129/77 93 L 10/23/20 17:00 99 F 110 H 23 124/84 92 L 10/23/20 16:42 106 H 10/23/20 16:30 103 H 10/23/20 16:00 101 H 28 H 115/83 95 10/23/20 15:30 101 H 26 H 115/83 95 10/23/20 14:40 103 H 24 120/81 92 L 10/23/20 14:30 115 H 24 120/81 97 10/23/20 14:20 107 H 22 120/81 94 L 10/23/20 13:23 106 H 10/23/20 13:17 105 H 10/23/20 12:42 98.4 F 119 H 20 104/64 87 L Intake and Output 10/23/20 10/24/20 10/24/20 22:59 06:59 14:59 Intake Total 1600 236 Output Total 500 Balance 1100 236 Intake: Intake, IV Titration 1000 Amount Sodium Chloride 0.9% 1, 1000 000 ml @ 125 mls/hr IV . Q8H [facility] Rx#:[id number] Oral 600 236 Output: Urine 500 Other: Voiding Method Toilet Toilet # Voids 1 Weight 76.204 kg 76.2 kg - Constitutional General appearance: average body habitus, cooperative, no acute distress - EENT Eyes: anicteric sclerae, EOMI ENT: hearing grossly normal, pharyngeal erythema - Neck Neck: no lymphadenopathy - Respiratory Respiratory: bilateral: diminished - Cardiovascular Rhythm: regular Heart sounds: normal: S1, S2 Abnormal Heart Sounds: no systolic murmur, no diastolic murmur, no rub, no S3 G allop, no S4 Gallop, no click, no other - Gastrointestinal General gastrointestinal: no absent bowel sounds, no decreased bowel sounds, no distended, no hepatomegaly, no hyperactive bowel sounds, normal bowel sounds, no organomegaly, no rigid, no scaphoid, soft, no splenomegaly, no tenderness, no umbilical hernia, no ventral hernia - Integumentary very dry skin, reddened rash look to the arms Integumentary: rash - Neurologic Neurologic: CNII-XII intact - Musculoskeletal Musculoskeletal: generalized weakness, strength equal bilaterally - Psychiatric Psychiatric: A&O x's 3, appropriate affect, intact judgment & insight Results CBC & Chem 7: 10/24/20 02:10 10/24/20 02:10 Labs: Abnormal Lab Results - Last 24 Hours (Table) 10/23/20 10/23/20 10/23/20 Range/Units 13:16 13:16 13:16 WBC 17.2 H (3.8-10.6) k/uL RBC 2.97 L (4.30-5.90) m/uL Hgb 10.1 L (13.0-17.5) gm/dL Hct 32.6 L (39.0-53.0) % MCV 110.0 H (80.0-100.0) fL MCHC 30.9 L (31.0-37.0) g/dL RDW 21.9 H (11.5-15.5) % Plt Count (150-450) k/uL Neutrophils # 16.1 H (1.3-7.7) k/uL Lymphocytes # 0.7 L (1.0-4.8) k/uL Macrocytosis Marked A PT 12.9 H (9.0-12.0) sec INR 1.3 H (<1.2) Sodium 130 L (137-145) mmol/L Carbon Dioxide (22-30) mmol/L Creatinine 0.57 L (0.66-1.25) mg/dL Glucose 105 H (74-99) mg/dL Plasma Lactic Acid Huey (0.7-2.0) mmol/L Calcium 7.1 L (8.4-10.2) mg/dL Ferritin 1763.7 H (22.0-322.0) ng/mL Alkaline Phosphatase 159 H (38-126) U/L Lactate Dehydrogenase 1132 H (313-618) U/L C-Reactive Protein 72.1 H (<10.0) mg/L Total Protein 5.5 L (6.3-8.2) g/dL Albumin 2.6 L (3.5-5.0) g/dL Procalcitonin (0.02-0.09) ng/mL 10/23/20 10/23/20 10/23/20 Range/Units 13:16 13:16 16:35 WBC (3.8-10.6) k/uL RBC (4.30-5.90) m/uL Hgb (13.0-17.5) gm/dL Hct (39.0-53.0) % MCV (80.0-100.0) fL MCHC (31.0-37.0) g/dL RDW (11.5-15.5) % Plt Count (150-450) k/uL Neutrophils # (1.3-7.7) k/uL Lymphocytes # (1.0-4.8) k/uL Macrocytosis PT (9.0-12.0) sec INR (<1.2) Sodium (137-145) mmol/L Carbon Dioxide (22-30) mmol/L Creatinine (0.66-1.25) mg/dL Glucose (74-99) mg/dL Plasma Lactic Acid Huey 3.3 H* 2.7 H* (0.7-2.0) mmol/L Calcium (8.4-10.2) mg/dL Ferritin (22.0-322.0) ng/mL Alkaline Phosphatase (38-126) U/L Lactate Dehydrogenase (313-618) U/L C-Reactive Protein (<10.0) mg/L Total Protein (6.3-8.2) g/dL Albumin (3.5-5.0) g/dL Procalcitonin 0.13 H (0.02-0.09) ng/mL 10/23/20 10/23/20 10/24/20 Range/Units 20:26 23:13 02:10 WBC 12.1 H (3.8-10.6) k/uL RBC 2.29 L (4.30-5.90) m/uL Hgb 8.0 L D (13.0-17.5) gm/dL Hct 26.0 L (39.0-53.0) % MCV 113.5 H (80.0-100.0) fL MCHC 30.7 L (31.0-37.0) g/dL RDW 21.8 H (11.5-15.5) % Plt Count 123 L (150-450) k/uL Neutrophils # 10.5 H (1.3-7.7) k/uL Lymphocytes # (1.0-4.8) k/uL Macrocytosis Marked A PT (9.0-12.0) sec INR (<1.2) Sodium (137-145) mmol/L Carbon Dioxide (22-30) mmol/L Creatinine (0.66-1.25) mg/dL Glucose (74-99) mg/dL Plasma Lactic Acid Huey 2.8 H* 2.4 H* (0.7-2.0) mmol/L Calcium (8.4-10.2) mg/dL Ferritin (22.0-322.0) ng/mL Alkaline Phosphatase (38-126) U/L Lactate Dehydrogenase (313-618) U/L C-Reactive Protein (<10.0) mg/L Total Protein (6.3-8.2) g/dL Albumin (3.5-5.0) g/dL Procalcitonin (0.02-0.09) ng/mL 10/24/20 10/24/20 Range/Units 02:10 02:10 WBC (3.8-10.6) k/uL RBC (4.30-5.90) m/uL Hgb (13.0-17.5) gm/dL Hct (39.0-53.0) % MCV (80.0-100.0) fL MCHC (31.0-37.0) g/dL RDW (11.5-15.5) % Plt Count (150-450) k/uL Neutrophils # (1.3-7.7) k/uL Lymphocytes # (1.0-4.8) k/uL Macrocytosis PT (9.0-12.0) sec INR (<1.2) Sodium 130 L (137-145) mmol/L Carbon Dioxide 19 L (22-30) mmol/L Creatinine 0.51 L (0.66-1.25) mg/dL Glucose 104 H (74-99) mg/dL Plasma Lactic Acid Huey 2.1 H* (0.7-2.0) mmol/L Calcium 6.5 L (8.4-10.2) mg/dL Ferritin (22.0-322.0) ng/mL Alkaline Phosphatase (38-126) U/L Lactate Dehydrogenase (313-618) U/L C-Reactive Protein (<10.0) mg/L Total Protein (6.3-8.2) g/dL Albumin (3.5-5.0) g/dL Procalcitonin (0.02-0.09) ng/mL MRI - head: report reviewed Assessment and Plan (1) Hypoxia Narrative/Plan: Patient requiring high flow O2. On abx, Pulm consulted Current Visit: Yes Status: Acute Priority: High Code(s): R09.02 - HYPOXEMIA SNOMED Code(s): 003691170 (2) Pneumonia Current Visit: Yes Status: Acute Priority: High Code(s): J18.9 - PNEUMONIA, UNSPECIFIED ORGANISM SNOMED Code(s): 442468035 (3) Sepsis Current Visit: Yes Status: Acute Priority: High Code(s): A41.9 - SEPSIS, UNSPECIFIED ORGANISM SNOMED Code(s): 24150026 (4) Non-small cell lung cancer (NSCLC) Narrative/Plan: Patient most recently completed Taxotere and cyramza VEGF treatment at the end of September. He had decrease in lung and liver lesions after 3 cycles, CT in early Sep. He is due to begin single agent Taxotere later this week after 4 cycles due to progressive intolerance-rash, weaknss after Tx. Tx will be held until his current condition is stabilized and he has had the opportunity to rehabilitate, as needed, to recover from acute illness and have a PS adequate to cont cancer therapy. Current Visit: Yes Status: Chronic Priority: Medium Code(s): C34.90 - MALIGNANT NEOPLASM OF UNSP PART OF UNSP BRONCHUS OR LUNG SNOMED Code(s): 478827024 (5) Pulmonary embolism Narrative/Plan: continue Eliquis as prescribed Current Visit: No Status: Chronic Priority: Medium Code(s): I26.99 - OTHER PULMONARY EMBOLISM WITHOUT ACUTE COR PULMONALE SNOMED Code(s): 22613616 (6) Mucositis due to antineoplastic therapy Narrative/Plan: CTCAE grade 2, salt and soda, cool solution Current Visit: Yes Status: Acute Priority: High Code(s): K12.31 - ORAL MUCOSITIS (ULCERATIVE) DUE TO ANTINEOPLASTIC THERAPY SNOMED Code(s): 147464989
[2020-10-24] MEDS: SODIUM CHLORIDE 0.9% 1,000 ML IV SCH (18:00)
[2020-10-24] MEDS: SALT AND SODA MOUTHWASH 1,000 ML PO SCH ×2 (18:11→20:19)
[2020-10-24] MEDS: LORATADINE 10 MG TAB PO SCH (20:18)
[2020-10-25] MEDS: SALT AND SODA MOUTHWASH 1,000 ML PO SCH ×5 (00:34→20:44)
[2020-10-25] MEDS: CEFEPIME 2 GM in SODIUM CHLORIDE 0.9% 100 ML IVPB SCH ×3 (01:37→16:27)
[2020-10-25] MEDS: VANCOMYCIN 1,500 MG in SODIUM CHLORIDE 0.9% 250 ML IVPB SCH ×3 (01:37→18:21)
[2020-10-25] MEDS: IPRATROPIUM-ALBUTEROL 3 ML NEB INHALATION SCH ×4 (07:58→20:15)
[2020-10-25] MEDS: APIXABAN 5 MG TAB PO SCH ×2 (09:02→20:44)
[2020-10-25] MEDS: FAMOTIDINE 20 MG TAB PO SCH (09:03)
[2020-10-25] MEDS: MAG HYDROX/AL HYDROX/SIMETH 30 ML, LIDOCAINE VISCOUS 30 ML, diphenhydrAMINE ELIXIR 75 M... PO SCH ×12 (09:04→20:46)
[2020-10-25] MEDS: POTASSIUM CHLORIDE ER 20 MEQ TAB.ER PO SCH (09:04)
[2020-10-25] MEDS: predniSONE 20 MG TAB PO SCH (09:04)
[2020-10-25] MEDS: FUROSEMIDE 10 MG/ML 4 ML VIAL IV SCH (09:37)
--- NOTE | 2020-10-25 10:39 | P.CNPUL ---
History of Present Illness Consult date: 10/25/20 Reason for consult: dyspnea, hypoxemia, pneumonia, lung mass Chief complaint: Shortness of breath and hypoxia History of present illness: This is a 65-year-old with extensive history of COPD and diagnosis of lung cancer also has a history of DVT PE status post IVC filter and on direct oral anticoagulant patient has finished 4 courses of chemotherapy last was in of September since then patient was more short of breath appetite continued to decompensate was found to be hypoxic in oncology office advised to be admitted into the hospital found to have pneumonia currently being treated with broad- spectrum antibiotics cephapirin, patient was on room air at home oxygen requirement was 6 L at admission bump up to 15 L continued to be hypoxic and eventually placed on BiPAP currently 08/20 with 100% oxygen appears comfortable does have cough shortness of breath the severity is improved on BiPAP, arterial blood gas after 3-4 hours pending, review of the data revealed that white cell count was over 17,010 the patient on cephapirin bronchodilator continuation of Eliquis, prednisone and vancomycin, patient had a computed tomography scan done in outpatient was negative for PE in oncology office, chest x-ray showing dev elopment of patchy left by a hilar infiltrate, right-sided pleural thickening, and loss of volume on the right side due to prior right lobectomy for lung cancer Review of Systems All systems: negative Past Medical History Past Medical History: Atrial Fibrillation, Cancer, COPD, Pneumonia Additional Past Medical History / Comment(s): rt lower lobe lung cancer, cardiomegaly, filter in left leg in november 2019. Last Chemo was and lost 11 lbs since then. History of Any Multi-Drug Resistant Organisms: None Reported Past Surgical History: Tonsillectomy Additional Past Surgical History / Comment(s): aortic abd stent Past Anesthesia/Blood Transfusion Reactions: No Reported Reaction Past Psychological History: No Psychological Hx Reported Additional Psychological History / Comment(s): Pt is retired. He uses no assistive devices. He drives. Smoking Status: Former smoker Past Alcohol Use History: None Reported Additional Past Alcohol Use History / Comment(s): Pt started smoking in 1969 and quit in May 2020. Past Drug Use History: None Reported - Past Family History Father Family Medical History: Myocardial Infarction (MS) Additional Family Medical History / Comment(s): Father of a MS at the age of 46yrs. Mother Family Medical History: Cancer Additional Family Medical History / Comment(s): Mother had. breast cancer. Medications and Allergies Home Medications Medication Instructions Recorded Confirmed Type Spironolactone [Aldactone] 25 mg PO DAILY 11/10/19 10/23/20 History Apixaban [Eliquis] 5 mg PO BID 07/29/20 10/23/20 History HYDROcodone/APAP 5-325MG [Linn 1 tab PO BID PRN 07/29/20 10/23/20 History 5-325] Metoprolol Tartrate [Lopressor] 50 mg PO DAILY 07/29/20 10/23/20 History Famotidine [Pepcid] 10 mg PO DAILY 10/23/20 10/23/20 History Furosemide [Lasix] 20 - 40 mg PO DAILY PRN 10/23/20 10/23/20 History Loratadine [Claritin] 10 mg PO HS 10/23/20 10/23/20 History Potassium Chloride ER [K-Dur 20] 20 meq PO DAILY 10/23/20 10/23/20 History hydrOXYzine HCL [Atarax] 10 mg PO QID PRN 10/23/20 10/23/20 History predniSONE [Deltasone] See Taper PO DAILY 10/23/20 10/23/20 History Allergies Allergy/AdvReac Type Severity Reaction Status Date / Time bee venom protein (honey bee) Allergy Anaphylaxis Verified 10/23/20 14:47 insect venom Allergy Anaphylaxis Verified 10/23/20 14:47 Penicillins Allergy Unknown Verified 10/23/20 14:47 Childhood Physical Exam Vitals: Vital Signs Temp Pulse Pulse Resp BP Pulse Ox 10/25/20 08:09 102 H 10/25/20 08:00 98.5 F 138 H 22 100/74 89 L 10/25/20 07:58 100 10/25/20 03:50 98.0 F 106 H 20 131/82 90 L 10/24/20 23:30 101 H 18 116/75 92 L 10/24/20 20:50 98 18 10/24/20 20:36 101 H 18 10/24/20 20:14 98.2 F 113 H 20 120/80 85 L 10/24/20 17:15 118 H 18 10/24/20 17:04 123 H 18 10/24/20 16:00 98 F 113 H 17 112/76 97 10/24/20 12:27 118 H 10/24/20 11:42 99.3 F 118 H 20 121/84 84 L 10/24/20 11:36 72 10/24/20 11:26 70 Intake and Output 10/24/20 10/25/20 10/25/20 22:59 06:59 14:59 Intake Total 690 240 Output Total 320 Balance 370 240 Intake: Oral 690 240 Output: Urine 320 Other: Voiding Method Toilet Urinal # Voids 1 0 # Bowel Movements 0 - Constitutional General appearance: average body habitus, cooperative, disheveled, mild distress - EENT Eyes: PERRLA Ears: bilateral: normal - Neck Carotids: bilateral: upstroke normal Thyroid: bilateral: normal size - Respiratory Respiratory: bilateral: diminished - Cardiovascular Rhythm: regular Heart sounds: normal: S1, S2 - Gastrointestinal General gastrointestinal: normal bowel sounds - Integumentary Integumentary: decreased turgor - Neurologic Neurologic: CNII-XII intact - Musculoskeletal Musculoskeletal: gait normal, generalized weakness, strength equal bilaterally - Psychiatric Psychiatric: A&O x's 3, appropriate affect, intact judgment & insight Results - Laboratory Findings CBC and BMP: 10/24/20 02:10 10/24/20 02:10 PT/INR, D-dimer PT 12.9 sec (9.0-12.0) H 10/23/20 13:16 INR 1.3 (<1.2) H 10/23/20 13:16 Abnormal lab findings: Abnormal Labs 10/23/20 10/23/20 10/23/20 13:16 13:16 13:16 WBC 17.2 H RBC 2.97 L Hgb 10.1 L Hct 32.6 L MCV 110.0 H MCHC 30.9 L RDW 21.9 H Plt Count Neutrophils # 16.1 H Lymphocytes # 0.7 L Macrocytosis Marked A PT 12.9 H INR 1.3 H Sodium 130 L Carbon Dioxide Creatinine 0.57 L Glucose 105 H Plasma Lactic Acid Huey Calcium 7.1 L Ferritin 1763.7 H Alkaline Phosphatase 159 H Lactate Dehydrogenase 1132 H C-Reactive Protein 72.1 H Total Protein 5.5 L Albumin 2.6 L Procalcitonin Free T3 pg/mL 10/23/20 10/23/20 10/23/20 13:16 13:16 16:35 WBC RBC Hgb Hct MCV MCHC RDW Plt Count Neutrophils # Lymphocytes # Macrocytosis PT INR Sodium Carbon Dioxide Creatinine Glucose Plasma Lactic Acid Huey 3.3 H* 2.7 H* Calcium Ferritin Alkaline Phosphatase Lactate Dehydrogenase C-Reactive Protein Total Protein Albumin Procalcitonin 0.13 H Free T3 pg/mL 10/23/20 10/23/20 10/24/20 20:26 23:13 02:10 WBC 12.1 H RBC 2.29 L Hgb 8.0 L D Hct 26.0 L MCV 113.5 H MCHC 30.7 L RDW 21.8 H Plt Count 123 L Neutrophils # 10.5 H Lymphocytes # Macrocytosis Marked A PT INR Sodium Carbon Dioxide Creatinine Glucose Plasma Lactic Acid Huey 2.8 H* 2.4 H* Calcium Ferritin Alkaline Phosphatase Lactate Dehydrogenase C-Reactive Protein Total Protein Albumin Procalcitonin Free T3 pg/mL 10/24/20 10/24/20 10/24/20 02:10 02:10 02:10 WBC RBC Hgb Hct MCV MCHC RDW Plt Count Neutrophils # Lymphocytes # Macrocytosis PT INR Sodium 130 L Carbon Dioxide 19 L Creatinine 0.51 L Glucose 104 H Plasma Lactic Acid Huey 2.1 H* Calcium 6.5 L Ferritin Alkaline Phosphatase Lactate Dehydrogenase C-Reactive Protein Total Protein Albumin Procalcitonin Free T3 pg/mL 1.9 L - Diagnostic Findings Chest x-ray: report reviewed, image reviewed Assessment and Plan Assessment: Sepsis Acute hypoxic respiratory failure Left-sided pneumonia likely community-acquired Right-sided lung cancer status post lobectomy and chemotherapy History of DVT PE status post IVC filter and on direct anticoagulant Hypertension hypertensive cardiovascular disease Baseline COPD Plan: Gentle rehydration Continue BiPAP setting of 12/ with 100% oxygen uptake and arterial blood gas in about 3-4 hours Continue broad-spectrum antibiotics Sputum from Gram stain and culture Blood cultures IV steroids Continue bronchodilator Further recommendations pending plan of care as per clinical response of the patient Time with Patient: Greater than 30
[2020-10-25 11:16] LABS: African American GFR (CKD) >90 (>60 ml/min/1.73 sqM); Anion Gap 9 mmol/L; Blood Urea Nitrogen 14 mg/dL (9-20); Calcium 6.9 mg/dL (8.4-10.2); Carbon Dioxide 23 mmol/L (22-30); Chloride 99 mmol/L (98-107); Glucose 93 mg/dL (74-99); Magnesium 1.5 mg/dL (1.6-2.3); Non-African American GFR(CKD) >90 (>60 ml/min/1.73 sqM); Sodium 131 mmol/L (137-145)
--- NOTE | 2020-10-25 11:19 | P.PN ---
Subjective Progress Note Date: 10/25/20 Pts only complaint is dyspnea on exertion, but appears comfortable at rest despite increasing O2 requirement. On BiPAP by the time of my evaluation. Seen in consultation by pulmonology, ABG pending, steroids started. Objective - Vital Signs Vital signs: Vital Signs Temp 98.5 F 10/25/20 08:00 Pulse 102 H 10/25/20 08:09 Resp 22 10/25/20 08:00 BP 100/74 10/25/20 08:00 Pulse Ox 89 L 10/25/20 08:00 Intake & Output 10/24/20 10/25/20 10/25/20 18:59 06:59 18:59 Intake Total 1176 150 240 Output Total 990 Balance 186 150 240 Intake: Oral 1176 150 240 Output: Urine 990 Other: Voiding Method Urinal Toilet Urinal # Voids 1 0 # Bowel Movements 0 - Exam Gen: awake, alert HEENT: normocephalic, atraumatic, good hearing acuity, dry mucous membranes Resp: BiPAP - 08/20, 100%; breathing comfortably with no accessory muscle use, c rackles in the left lung, no wheezes CVS: good distal perfusion x 4, tachycardic, regular rhythm, no murmurs GI: soft, NTTP, ND : no SPT, no CVAT, ji catheter not present MSK: Trace pitting edema, no clubbing Neuro: non-focal, moving all extremities Psych: cooperative, euthymic mood - Labs CBC & Chem 7: 10/24/20 02:10 10/24/20 02:10 Labs: Abnormal Lab Results - Last 24 Hours (Table) 10/24/20 Range/Units 02:10 Free T3 pg/mL 1.9 L (2.3-4.2) pg/mL Microbiology - Last 24 Hours (Table) 10/23/20 16:35 Blood Culture - Preliminary Blood No Growth after 24 hours 10/23/20 13:16 Blood Culture - Preliminary Blood No Growth after 24 hours Assessment and Plan Assessment: 1. Sepsis with Acute Hypoxemic Respiratory Failure 2. Community Acquired Pneumonia 3. Hypertension, essential 4. Hx of Alcohol induced NICM, with recovered EF 5. Lung Cancer s/p lobectomy with mets to the liver 6. Immunosuppressed state 7. Hx of PE on Eliquis 65 year old man with history of HTN, lung cancer, immunosuppression presented with hypoxia from oncology clinic and was found to be in sepsis with acute hypoxemic respiratory failure and to have left hilar infiltrate on chest x-ray concerning for community acquired pneumonia. Plan: - admit to inpatient - oxygen PRN --> 6-15L on 10/24 --> BiPAP on 10/25 - BCx = NGTD; RCx = pending - covid negative - cefepime/azithromycin on admission, escalated to vancomycin/cefepime on 10/24 - procalcitonin mildly elevated at 0.13 - lactate 2.4 --> 1.7 - ferritin 1763 - echo = EF 50-55%, LVH, moderately enlarged RV, mod pHTN to 53 - IVF: NS 2.5L of total bolus in the ER --> NS 100cc/hr - stopped IVF on 10/24 - started on 40mg lasix IV daily, stopped on 10/25 - prednisone at 40mg daily --> solumedrol 40mg IV q12 on 10/25 - continue home loratadine/famotidine - continue home hydroxyzine - holding home metoprolol/spironolactone - patient has not been taking these for this past week - continue home Andra - hematology consult, appreciate recs - pulmonary consult, appreciate recs Full Code DVT PPx: [email or web address] is ROSLYN
[2020-10-25 11:36] LABS: Anisocytosis Moderate; Basophils % (A) 0 %; Eosinophils # (A) 0.1 k/uL (0-0.7); Eosinophils % (A) 0 %; HCT 31.2 % (39.0-53.0); Hypochromasia Marked; Lymphocytes # (A) 0.6 k/uL (1.0-4.8); Lymphocytes % (A) 5 %; MCH 35.2 pg (25.0-35.0); MCHC 31.1 g/dL (31.0-37.0); MCV 113.4 fL (80.0-100.0); Macrocytosis Marked; Mean Platelet Volume 11.6; Monocytes # (A) 0.3 k/uL (0-1.0); Monocytes % (A) 3 %; Neutrophils # (A) 11.8 k/uL (1.3-7.7); Neutrophils % (A) 92 %; RBC 2.75 m/uL (4.30-5.90); RDW 20.9 % (11.5-15.5); WBC 12.9 k/uL (3.8-10.6)
[2020-10-25 11:43] LABS: HGB 9.7 gm/dL (13.0-17.5)
[2020-10-25 12:00] LABS: Potassium 3.4 mmol/L (3.5-5.1)
[2020-10-25] MEDS: methylPREDNISolone SOD SUCCI 40 MG/ML 1 ML VIAL IV SCH ×2 (12:09→20:45)
[2020-10-25] MEDS: TRIAMCINOLONE 0.1% CREAM 80 GM TUBE TOPICAL SCH ×2 (12:10→22:59)
[2020-10-25 12:23] LABS: Large Platelets Present; Platelet Count 117 k/uL (150-450)
[2020-10-25 12:29] LABS: Poikilocytosis (M) Present; Polychromasia Present
--- NOTE | 2020-10-25 13:13 | CT ---
EXAMINATION TYPE: CT angio chest DATE OF EXAM: 10/25/2020 COMPARISON: CT chest 10/16/2020, CT chest 09/19/2020 HISTORY: Lung cancer, pneumonia CT DLP: 318.4 mGycm Automated exposure control for dose reduction was used. CONTRAST: CTA scan of the thorax is performed with IV Contrast, patient injected with 100, wasted 26 mL of Isov ue 370, pulmonary embolism protocol. MIP images are created and reviewed. 3D reconstructed images a re created on an independent workstation and reviewed. FINDINGS: LUNGS: Extensive emphysematous changes, pleural parenchymal changes are similar to prior exam, nodula r density in the subpleural location on axial image 42 shows a similar appearance, pleural thickening is present along the right lower hemithorax, postop changes are present. Groundglass opacities are p resent throughout the left lung and have progressed in the interval. AORTA: Root of the aorta measures 4.4 cm, proximal ascending aorta 4.2 cm, proximal descending aorta 3.3 cm, pulmonary artery 3.4 cm on the left, 3.8 cm on the right. MEDIASTINUM: There is satisfactory enhancement of the pulmonary artery and its branches, there is no CT evidence for pulmonary embolism, postop changes are noted the right lower lung. There is mediastin al adenopathy. No pericardial effusion is seen. OTHER: Right lobe liver mass is partially visualized and measures 16.5 cm. Posterior ninth right rib shows evidence of prior fracture and healing IMPRESSION: THERE HAS BEEN INTERVAL DEVELOPMENT OF DIFFUSE GROUNDGLASS OPACITY WITHIN THE LEFT LUNG, CORRELATE FO R PNEUMONIA, EDEMA
[2020-10-25 13:36] LABS: ABG Base Excess -1.5 mmol/L; ABG HCO3 23 mmol/L (21-25); ABG PCO2 36 mmHg (35-45); ABG PH 7.41 (7.35-7.45); ABG PO2 >400 mmHg (83-108); ABG TCO2 24 mmol/L (19-24); Allen Test Performed? Yes
--- NOTE | 2020-10-25 14:56 | P.PN ---
Subjective Progress Note Date: 10/25/20 Principal diagnosis: Pneumonia, sepsis, NSCLC In f/u today pt has persistent SOB with any exertion, not improving, he is starting to expectorate some thick mucus, denied hemoptysis, he uses his energy to breathe. Objective - Vital Signs Vital signs: Vital Signs Temp 98.5 F 10/25/20 08:00 Pulse 102 H 10/25/20 08:09 Resp 22 10/25/20 08:00 BP 100/74 10/25/20 08:00 Pulse Ox 89 L 10/25/20 08:00 Intake & Output 10/24/20 10/25/20 10/25/20 18:59 06:59 18:59 Intake Total 1176 150 240 Output Total 990 Balance 186 150 240 Intake: Oral 1176 150 240 Output: Urine 990 Other: Voiding Method Urinal Toilet Urinal # Voids 1 0 # Bowel Movements 0 - Constitutional General appearance: Present: average body habitus, cooperative, mild distress - EENT EENT Comment(s): dry mucus membranes Eyes: Present: anicteric sclerae, EOMI ENT: Present: hearing grossly normal - Respiratory Respiratory: bilateral: diminished, rales (scattered, R>L) - Cardiovascular Heart sounds: normal: S1, S2 - Peripheral edema leg Peripheral Edema: bilateral: Trace - Gastrointestinal General gastrointestinal: Present: normal bowel sounds, soft - Neurologic Neurologic: Present: CNII-XII intact - Musculoskeletal Musculoskeletal: Present: generalized weakness - Psychiatric Psychiatric: Present: A&O x's 3, appropriate affect, intact judgment & insight - Labs CBC & Chem 7: 10/25/20 09:30 10/25/20 09:30 Labs: Abnormal Lab Results - Last 24 Hours (Table) 10/24/20 Range/Units 02:10 Free T3 pg/mL 1.9 L (2.3-4.2) pg/mL Microbiology - Last 24 Hours (Table) 10/23/20 16:35 Blood Culture - Preliminary Blood No Growth after 24 hours 10/23/20 13:16 Blood Culture - Preliminary Blood No Growth after 24 hours - Imaging and Cardiology CT scan - chest: report reviewed Assessment and Plan (1) Hypoxia Narrative/Plan: Patient now requiring bipap. On abx, Pulm following Current Visit: Yes Status: Acute Priority: High Code(s): R09.02 - HYPOXEMIA SNOMED Code(s): 285141811 (2) Pneumonia Current Visit: Yes Status: Acute Priority: High Code(s): J18.9 - PNEUMONIA, UNSPECIFIED ORGANISM SNOMED Code(s): 617543007 (3) Sepsis Current Visit: Yes Status: Acute Priority: High Code(s): A41.9 - SEPSIS, UNSPECIFIED ORGANISM SNOMED Code(s): 69806210 (4) Non-small cell lung cancer (NSCLC) Narrative/Plan: Patient most recently completed Taxotere and cyramza (VEGF treatment) at the end of September. He had decrease in lung and liver lesions after 3 cycles, CT in early Sep. He is due to begin single agent Taxotere later this week after 4 cycles due to progressive intolerance-rash, weakness after Tx. Tx will be held until his current condition is stabilized and he has had the opportunity to rehabilitate, as needed, to recover from acute illness and have a PS adequate to cont cancer therapy. Current Visit: Yes Status: Chronic Priority: Medium Code(s): C34.90 - MALIGNANT NEOPLASM OF UNSP PART OF UNSP BRONCHUS OR LUNG SNOMED Code(s): 075701025 (5) Pulmonary embolism Narrative/Plan: Continue Eliquis as prescribed. Did do CTA due to persistent SOB on exertion, no PE, has increased infiltrates Current Visit: No Status: Chronic Priority: Medium Code(s): I26.99 - OTHER PULMONARY EMBOLISM WITHOUT ACUTE COR PULMONALE SNOMED Code(s): 95394209 (6) Mucositis due to antineoplastic therapy Narrative/Plan: CTCAE grade 2, slightly improved. Cont salt and soda, cool solution Current Visit: Yes Status: Acute Priority: High Code(s): K12.31 - ORAL MUCOSITIS (ULCERATIVE) DUE TO ANTINEOPLASTIC THERAPY SNOMED Code(s): 541803212 (7) Rash Narrative/Plan: Drug rash, mild, ordered some hydrocortisone Current Visit: Yes Status: Acute Priority: Medium Code(s): R21 - RASH AND OTHER NONSPECIFIC SKIN ERUPTION SNOMED Code(s): 394417399 Plan: Attests: I have performed H&P and developed impression and plan of care of patient, discussed with dictator. I agree with dictated note, documented as a scribe.
[2020-10-25 17:12] LABS: Glucose,Whole Blood 192 mg/dL (75-99)
[2020-10-25] MEDS: INSULIN ASPART (NovoLOG) 100 UNIT/ML VIAL SQ SCH ×2 (17:43→22:59)
[2020-10-25] MEDS ORDERED: REMDESIVIR 200 MG in SODIUM CHLORIDE 0.9% 250 ML IVPB ONE (20:00)
[2020-10-25] MEDS: LORATADINE 10 MG TAB PO SCH (20:44)
[2020-10-25 21:02] LABS: Glucose,Whole Blood 71 mg/dL (75-99)
[2020-10-26 00:22] LABS: Glucose,Whole Blood 159 mg/dL (75-99)
[2020-10-26] MEDS: CEFEPIME 2 GM in SODIUM CHLORIDE 0.9% 100 ML IVPB SCH ×4 (00:27→23:30)
[2020-10-26] MEDS: SALT AND SODA MOUTHWASH 1,000 ML PO SCH ×6 (00:28→23:33)
[2020-10-26] MEDS: VANCOMYCIN 1,500 MG in SODIUM CHLORIDE 0.9% 250 ML IVPB SCH ×2 (02:32→10:40)
[2020-10-26 06:13] LABS: Glucose,Whole Blood 134 mg/dL (75-99)
[2020-10-26] MEDS: INSULIN ASPART (NovoLOG) 100 UNIT/ML VIAL SQ SCH ×4 (06:20→20:06)
[2020-10-26] MEDS: IPRATROPIUM-ALBUTEROL 3 ML NEB INHALATION SCH ×4 (08:27→19:54)
[2020-10-26] MEDS ORDERED: VANCOMYCIN TROUGH DUE 1 EACH MISC MISCELLANE ONE (09:00)
--- NOTE | 2020-10-26 10:30 | P.PN ---
Subjective Progress Note Date: 10/26/20 Principal diagnosis: Presumed Covid 19 pneumonia Sepsis Acute hypoxic respiratory failure Left-sided pneumonia likely community-acquired bacterial versus viral Right-sided lung cancer status post lobectomy and chemotherapy History of DVT PE status post IVC filter and on direct anticoagulant Hypertension hypertensive cardiovascular disease Baseline COPD Patient remains short of breath on BiPAP, has been on BiPAP 08/20 with 50% oxygen started yesterday evening has been all along until this morning, attempts were done to get him off of BiPAP on 15 L high flow oxygen couldn't tolerated desaturated and gets more short of breath but placed back on BiPAP machine, saturation is low 90s, tachycardic hemodynamics are stable, labs reviewed in phlegm atrial parameters elevated including LDH pro-calcitonin and ferritin does have infiltrates on x-ray the covert 19 testing has been negative however patient is presumed to add covert 19 pneumonia being treated with IV REM doesn't wear and steroids and supportive care This is a 65-year-old with extensive history of COPD and diagnosis of lung cancer also has a history of DVT PE status post IVC filter and on direct oral anticoagulant patient has finished 4 courses of chemotherapy last was in of September since then patient was more short of breath appetite continued to decompensate was found to be hypoxic in oncology office advised to be admitted into the hospital found to have pneumonia currently being treated with broad- spectrum antibiotics cephapirin, patient was on room air at home oxygen requirement was 6 L at admission bump up to 15 L continued to be hypoxic and eventually placed on BiPAP currently 08/20 with 100% oxygen appears comfortable does have cough shortness of breath the severity is improved on BiPAP, arterial blood gas after 3-4 hours pending, review of the data revealed that white cell count was over 17,010 the patient on cephapirin bronchodilator continuation of Eliquis, prednisone and vancomycin, patient had a computed tomography scan done in outpatient was negative for PE in oncology office, chest x-ray showing development of patchy left by a hilar infiltrate, right-sided pleural thickeni ng, and loss of volume on the right side due to prior right lobectomy for lung cancer Objective - Vital Signs Vital signs: Vital Signs Temp 97.8 F 10/25/20 20:30 Pulse 112 H 10/26/20 08:43 Resp 24 10/26/20 04:25 BP 126/78 10/26/20 04:25 Pulse Ox 93 L 10/26/20 04:25 Intake & Output 10/25/20 10/26/20 10/26/20 18:59 06:59 18:59 Intake Total 952 40 Output Total 230 Balance 952 -190 Weight 78.5 kg Intake: IV 40 40 Invasive Line 1 40 40 Oral 912 Output: Urine 230 Other: Voiding Method Toilet Toilet # Voids 4 1 # Bowel Movements 0 - Exam - Constitutional General appearance: average body habitus, cooperative, disheveled, mild distress - EENT Eyes: PERRLA Ears: bilateral: normal - Neck Carotids: bilateral: upstroke normal Thyroid: bilateral: normal size - Respiratory Respiratory: bilateral: diminished - Cardiovascular Rhythm: regular Heart sounds: normal: S1, S2 - Gastrointestinal General gastrointestinal: normal bowel sounds - Integumentary Integumentary: decreased turgor - Neurologic Neurologic: CNII-XII intact - Musculoskeletal Musculoskeletal: gait normal, generalized weakness, strength equal bilaterally - Psychiatric Psychiatric: A&O x's 3, appropriate affect, intact judgment & insight - Labs CBC & Chem 7: 10/25/20 09:30 10/25/20 09:30 Labs: Abnormal Lab Results - Last 24 Hours (Table) 10/25/20 10/25/20 10/25/20 Range/Units 09:30 09:30 13:30 WBC 12.9 H (3.8-10.6) k/uL RBC 2.75 L (4.30-5.90) m/uL Hgb 9.7 L D (13.0-17.5) gm/dL Hct 31.2 L (39.0-53.0) % MCV 113.4 H (80.0-100.0) fL MCH 35.2 H (25.0-35.0) pg RDW 20.9 H (11.5-15.5) % Plt Count 117 L (150-450) k/uL Neutrophils # 11.8 H (1.3-7.7) k/uL Lymphocytes # 0.6 L (1.0-4.8) k/uL Macrocytosis Marked A ABG pO2 >400 H (83-108) mmHg ABG O2 Saturation 100.0 H (94-97) % Sodium 131 L (137-145) mmol/L Potassium 3.4 L (3.5-5.1) mmol/L Creatinine 0.53 L (0.66-1.25) mg/dL POC Glucose (mg/dL) (75-99) mg/dL Calcium 6.9 L (8.4-10.2) mg/dL Magnesium 1.5 L (1.6-2.3) mg/dL 10/25/20 10/25/20 10/26/20 Range/Units 16:59 21:00 00:19 WBC (3.8-10.6) k/uL RBC (4.30-5.90) m/uL Hgb (13.0-17.5) gm/dL Hct (39.0-53.0) % MCV (80.0-100.0) fL MCH (25.0-35.0) pg RDW (11.5-15.5) % Plt Count (150-450) k/uL Neutrophils # (1.3-7.7) k/uL Lymphocytes # (1.0-4.8) k/uL Macrocytosis ABG pO2 (83-108) mmHg ABG O2 Saturation (94-97) % Sodium (137-145) mmol/L Potassium (3.5-5.1) mmol/L Creatinine (0.66-1.25) mg/dL POC Glucose (mg/dL) 192 H 71 L 159 H (75-99) mg/dL Calcium (8.4-10.2) mg/dL Magnesium (1.6-2.3) mg/dL 10/26/20 Range/Units 06:11 WBC (3.8-10.6) k/uL RBC (4.30-5.90) m/uL Hgb (13.0-17.5) gm/dL Hct (39.0-53.0) % MCV (80.0-100.0) fL MCH (25.0-35.0) pg RDW (11.5-15.5) % Plt Count (150-450) k/uL Neutrophils # (1.3-7.7) k/uL Lymphocytes # (1.0-4.8) k/uL Macrocytosis ABG pO2 (83-108) mmHg ABG O2 Saturation (94-97) % Sodium (137-145) mmol/L Potassium (3.5-5.1) mmol/L Creatinine (0.66-1.25) mg/dL POC Glucose (mg/dL) 134 H (75-99) mg/dL Calcium (8.4-10.2) mg/dL Magnesium (1.6-2.3) mg/dL Microbiology - Last 24 Hours (Table) 10/23/20 16:35 Blood Culture - Preliminary Blood No Growth after 48 hours 10/23/20 13:16 Blood Culture - Preliminary Blood No Growth after 48 hours Assessment and Plan Assessment: Presumed covid 19 pneumonia Sepsis Acute hypoxic respiratory failure Left-sided pneumonia likely community-acquired versus Covid 19 pneumonia Right-sided lung cancer status post lobectomy and chemotherapy History of DVT PE status post IVC filter and on direct anticoagulant Hypertension hypertensive cardiovascular disease Baseline COPD Plan: Plan treated treated with IV REM doesn't wear for 5 days Gentle rehydration Continue BiPAP setting of 12/ with 50% oxygen will attempt high flow oxygen again Chest x-ray tomorrow Continue broad-spectrum antibiotics Sputum from Gram stain and culture Blood cultures IV steroids Continue bronchodilator Further recommendations pending plan of care as per clinical response of the patient Time with Patient: Greater than 30
[2020-10-26] MEDS: methylPREDNISolone SOD SUCCI 40 MG/ML 1 ML VIAL IV SCH ×2 (10:37→20:06)
[2020-10-26] MEDS: FUROSEMIDE 10 MG/ML 4 ML VIAL IV SCH (10:38)
[2020-10-26] MEDS: APIXABAN 5 MG TAB PO SCH ×2 (10:40→20:06)
[2020-10-26] MEDS: POTASSIUM CHLORIDE ER 20 MEQ TAB.ER PO SCH (10:40)
[2020-10-26] MEDS: FAMOTIDINE 20 MG TAB PO SCH (10:40)
[2020-10-26] MEDS: MAG HYDROX/AL HYDROX/SIMETH 30 ML, LIDOCAINE VISCOUS 30 ML, diphenhydrAMINE ELIXIR 75 M... PO SCH ×12 (10:41→20:07)
--- NOTE | 2020-10-26 11:36 | P.PN ---
Subjective Progress Note Date: 10/26/20 No new complaints today. Improving oxygenation status, FiO2 down to 50% on BiPAP Objective - Vital Signs Vital signs: Vital Signs Temp 97.8 F 10/25/20 20:30 Pulse 112 H 10/26/20 08:43 Resp 24 10/26/20 04:25 BP 126/78 10/26/20 04:25 Pulse Ox 93 L 10/26/20 04:25 Intake & Output 10/25/20 10/26/20 10/26/20 18:59 06:59 18:59 Intake Total 952 40 Output Total 230 Balance 952 -190 Weight 78.5 kg Intake: IV 40 40 Invasive Line 1 40 40 Oral 912 Output: Urine 230 Other: Voiding Method Toilet Toilet # Voids 4 1 # Bowel Movements 0 - Exam Gen: awake, alert HEENT: normocephalic, atraumatic, good hearing acuity, dry mucous membranes Resp: BiPAP - 12/6, 50%; breathing with no accessory muscle use, crackles in the left lung, no wheezes CVS: good distal perfusion x 4, tachycardic, regular rhythm, no murmurs GI: soft, NTTP, ND : no SPT, no CVAT, ji catheter not present MSK: Trace pitting edema, no clubbing Neuro: non-focal, moving all extremities Psych: cooperative, euthymic mood - Labs CBC & Chem 7: 10/25/20 09:30 10/25/20 09:30 Labs: Abnormal Lab Results - Last 24 Hours (Table) 10/25/20 10/25/20 10/25/20 Range/Units 09:30 09:30 13:30 WBC 12.9 H (3.8-10.6) k/uL RBC 2.75 L (4.30-5.90) m/uL Hgb 9.7 L D (13.0-17.5) gm/dL Hct 31.2 L (39.0-53.0) % MCV 113.4 H (80.0-100.0) fL MCH 35.2 H (25.0-35.0) pg RDW 20.9 H (11.5-15.5) % Plt Count 117 L (150-450) k/uL Neutrophils # 11.8 H (1.3-7.7) k/uL Lymphocytes # 0.6 L (1.0-4.8) k/uL Macrocytosis Marked A ABG pO2 >400 H (83-108) mmHg ABG O2 Saturation 100.0 H (94-97) % Potassium 3.4 L (3.5-5.1) mmol/L POC Glucose (mg/dL) (75-99) mg/dL 10/25/20 10/25/20 10/26/20 Range/Units 16:59 21:00 00:19 WBC (3.8-10.6) k/uL RBC (4.30-5.90) m/uL Hgb (13.0-17.5) gm/dL Hct (39.0-53.0) % MCV (80.0-100.0) fL MCH (25.0-35.0) pg RDW (11.5-15.5) % Plt Count (150-450) k/uL Neutrophils # (1.3-7.7) k/uL Lymphocytes # (1.0-4.8) k/uL Macrocytosis ABG pO2 (83-108) mmHg ABG O2 Saturation (94-97) % Potassium (3.5-5.1) mmol/L POC Glucose (mg/dL) 192 H 71 L 159 H (75-99) mg/dL 10/26/20 Range/Units 06:11 WBC (3.8-10.6) k/uL RBC (4.30-5.90) m/uL Hgb (13.0-17.5) gm/dL Hct (39.0-53.0) % MCV (80.0-100.0) fL MCH (25.0-35.0) pg RDW (11.5-15.5) % Plt Count (150-450) k/uL Neutrophils # (1.3-7.7) k/uL Lymphocytes # (1.0-4.8) k/uL Macrocytosis ABG pO2 (83-108) mmHg ABG O2 Saturation (94-97) % Potassium (3.5-5.1) mmol/L POC Glucose (mg/dL) 134 H (75-99) mg/dL Microbiology - Last 24 Hours (Table) 10/23/20 16:35 Blood Culture - Preliminary Blood No Growth after 48 hours 10/23/20 13:16 Blood Culture - Preliminary Blood No Growth after 48 hours Assessment and Plan Assessment: 1. Sepsis with Acute Hypoxemic Respiratory Failure 2. Community Acquired Pneumonia 3. Hypertension, essential 4. Hx of Alcohol induced NICM, with recovered EF 5. Lung Cancer s/p lobectomy with mets to the liver 6. Immunosuppressed state 7. Hx of PE on Eliquis 65 year old man with history of HTN, lung cancer, immunosuppression presented with hypoxia from oncology clinic and was found to be in sepsis with acute hypoxemic respiratory failure and to have left hilar infiltrate on chest x-ray concerning for community acquired pneumonia. Plan: - admit to inpatient - oxygen PRN --> 6-15L on 10/24 --> BiPAP on 10/25 --> BiPAP/HFNC alternating on 10/26 - BCx = NGTD; RCx = pending - covid negative - cefepime/azithromycin on admission, escalated to vancomycin/cefepime on 10/24 - procalcitonin mildly elevated at 0.13 - lactate 2.4 --> 1.7 - ferritin 1763 - echo = EF 50-55%, LVH, moderately enlarged RV, mod pHTN to 53 - IVF: NS 2.5L of total bolus in the ER --> NS 100cc/hr - stopped IVF on 10/24 - started on 40mg lasix IV daily, held on 10/25 - prednisone at 40mg daily --> solumedrol 40mg IV q12 on 10/25 - low dose SSI aspart - continue home loratadine/famotidine - continue home hydroxyzine - holding home metoprolol/spironolactone - patient has not been taking these for this past week - continue home Nicola - hematology consult, appreciate recs - pulmonary consult, appreciate recs Full Code DVT PPx: nicola is DPOA
[2020-10-26] MEDS: TRIAMCINOLONE 0.1% CREAM 80 GM TUBE TOPICAL SCH ×2 (12:11→21:12)
[2020-10-26 12:24] LABS: African American GFR (CKD) >90 (>60 ml/min/1.73 sqM); Anion Gap 6 mmol/L; Anisocytosis Moderate; Basophils % (A) 0 %; Blood Urea Nitrogen 24 mg/dL (9-20); Calcium 7.2 mg/dL (8.4-10.2); Carbon Dioxide 24 mmol/L (22-30); Chloride 101 mmol/L (98-107); Eosinophils % (A) 0 %; Glucose 87 mg/dL (74-99); HGB 8.8 gm/dL (13.0-17.5); Hypochromasia Marked; Lymphocytes # (A) 0.9 k/uL (1.0-4.8); Lymphocytes % (A) 6 %; MCH 34.4 pg (25.0-35.0); MCHC 30.4 g/dL (31.0-37.0); MCV 113.1 fL (80.0-100.0); Macrocytosis Marked; Magnesium 1.7 mg/dL (1.6-2.3); Mean Platelet Volume 11.5; Monocytes # (A) 0.5 k/uL (0-1.0); Monocytes % (A) 4 %; Neutrophils # (A) 12.9 k/uL (1.3-7.7); Neutrophils % (A) 90 %; Non-African American GFR(CKD) >90 (>60 ml/min/1.73 sqM); Platelet Count 141 k/uL (150-450); RBC 2.56 m/uL (4.30-5.90); RDW 21.1 % (11.5-15.5); Sodium 131 mmol/L (137-145); WBC 14.4 k/uL (3.8-10.6)
[2020-10-26 12:38] LABS: Glucose,Whole Blood 135 mg/dL (75-99)
[2020-10-26 12:53] LABS: Poikilocytosis (M) Present
[2020-10-26 12:54] LABS: Polychromasia Present
--- NOTE | 2020-10-26 13:44 | P.PN ---
Subjective Progress Note Date: 10/26/20 Principal diagnosis: Pneumonia, sepsis, NSCLC In f/u today pt is on bipap, he is tolerating well, he has good color, states that other then the mask being irritating his breathing is comfortable. Objective - Vital Signs Vital signs: Vital Signs Temp 97.7 F 10/26/20 08:30 Pulse 128 H 10/26/20 12:08 Resp 26 H 10/26/20 11:54 BP 109/77 10/26/20 08:30 Pulse Ox 92 L 10/26/20 11:54 Intake & Output 10/25/20 10/26/20 10/26/20 18:59 06:59 18:59 Intake Total 952 40 50 Output Total 230 Balance 952 -190 50 Weight 78.5 kg Intake: IV 40 40 50 Invasive Line 1 40 40 40 Invasive Line 2 10 Oral 912 Output: Urine 230 Other: Voiding Method Toilet Toilet # Voids 4 1 # Bowel Movements 0 - Exam Pt has good color today, A&Ox4, is able to carry on a conversation without BETINA, the rash on his arms is cleared up, no swelling in his legs - Constitutional General appearance: Present: average body habitus, cooperative, no acute distress - EENT Eyes: Present: anicteric sclerae, EOMI ENT: Present: hearing grossly normal - Psychiatric Psychiatric: Present: A&O x's 3, appropriate affect, intact judgment & insight - Labs CBC & Chem 7: 10/26/20 10:05 10/26/20 10:05 Labs: Abnormal Lab Results - Last 24 Hours (Table) 10/25/20 10/25/20 10/25/20 Range/Units 13:30 16:59 21:00 WBC (3.8-10.6) k/uL RBC (4.30-5.90) m/uL Hgb (13.0-17.5) gm/dL Hct (39.0-53.0) % MCV (80.0-100.0) fL MCHC (31.0-37.0) g/dL RDW (11.5-15.5) % Plt Count (150-450) k/uL Neutrophils # (1.3-7.7) k/uL Lymphocytes # (1.0-4.8) k/uL Macrocytosis ABG pO2 >400 H (83-108) mmHg ABG O2 Saturation 100.0 H (94-97) % Sodium (137-145) mmol/L BUN (9-20) mg/dL Creatinine (0.66-1.25) mg/dL POC Glucose (mg/dL) 192 H 71 L (75-99) mg/dL Calcium (8.4-10.2) mg/dL 10/26/20 10/26/20 10/26/20 Range/Units 00:19 06:11 10:05 WBC 14.4 H (3.8-10.6) k/uL RBC 2.56 L (4.30-5.90) m/uL Hgb 8.8 L (13.0-17.5) gm/dL Hct 29.0 L (39.0-53.0) % MCV 113.1 H (80.0-100.0) fL MCHC 30.4 L (31.0-37.0) g/dL RDW 21.1 H (11.5-15.5) % Plt Count 141 L (150-450) k/uL Neutrophils # 12.9 H (1.3-7.7) k/uL Lymphocytes # 0.9 L (1.0-4.8) k/uL Macrocytosis Marked A ABG pO2 (83-108) mmHg ABG O2 Saturation (94-97) % Sodium (137-145) mmol/L BUN (9-20) mg/dL Creatinine (0.66-1.25) mg/dL POC Glucose (mg/dL) 159 H 134 H (75-99) mg/dL Calcium (8.4-10.2) mg/dL 10/26/20 10/26/20 Range/Units 10:05 12:37 WBC (3.8-10.6) k/uL RBC (4.30-5.90) m/uL Hgb (13.0-17.5) gm/dL Hct (39.0-53.0) % MCV (80.0-100.0) fL MCHC (31.0-37.0) g/dL RDW (11.5-15.5) % Plt Count (150-450) k/uL Neutrophils # (1.3-7.7) k/uL Lymphocytes # (1.0-4.8) k/uL Macrocytosis ABG pO2 (83-108) mmHg ABG O2 Saturation (94-97) % Sodium 131 L (137-145) mmol/L BUN 24 H (9-20) mg/dL Creatinine 0.48 L (0.66-1.25) mg/dL POC Glucose (mg/dL) 135 H (75-99) mg/dL Calcium 7.2 L (8.4-10.2) mg/dL Microbiology - Last 24 Hours (Table) 10/23/20 16:35 Blood Culture - Preliminary Blood No Growth after 48 hours 10/23/20 13:16 Blood Culture - Preliminary Blood No Growth after 48 hours - Imaging and Cardiology CT scan - chest: report reviewed Assessment and Plan (1) Hypoxia Current Visit: Yes Status: Acute Priority: High Code(s): R09.02 - HYPOXEMIA SNOMED Code(s): 413449530 (2) Pneumonia Current Visit: Yes Status: Acute Priority: High Code(s): J18.9 - PNEUMONIA, UNSPECIFIED ORGANISM SNOMED Code(s): 401469624 (3) Sepsis Current Visit: Yes Status: Acute Priority: High Code(s): A41.9 - SEPSIS, UNSPECIFIED ORGANISM SNOMED Code(s): 33904502 (4) Non-small cell lung cancer (NSCLC) Narrative/Plan: Patient most recently completed Taxotere and cyramza (VEGF treatment) at the end of September. He had decrease in lung and liver lesions after 3 cycles, CT in early Sep. He is due to begin single agent Taxotere, regimen changed after 4 cycles due to progressive intolerance-rash, weakness after Tx. Tx will be held until his current condition is stabilized and he has had the opportunity to rehabilitate, as needed, to recover from acute illness and have a PS adequate to cont cancer therapy. Current Visit: Yes Status: Chronic Priority: Medium Code(s): C34.90 - MALIGNANT NEOPLASM OF UNSP PART OF UNSP BRONCHUS OR LUNG SNOMED Code(s): 286259411 (5) Pulmonary embolism Narrative/Plan: Continue Eliquis as prescribed. Did do CTA due to persistent SOB on exertion, no PE, has increased infiltrates Current Visit: No Status: Chronic Priority: Medium Code(s): I26.99 - OTHER PULMONARY EMBOLISM WITHOUT ACUTE COR PULMONALE SNOMED Code(s): 09450697 (6) Mucositis due to antineoplastic therapy Narrative/Plan: CTCAE grade 2, improving slowly. Cont salt and soda, cool solution Current Visit: Yes Status: Acute Priority: High Code(s): K12.31 - ORAL MUCOSITIS (ULCERATIVE) DUE TO ANTINEOPLASTIC THERAPY SNOMED Code(s): 336656302 (7) Rash Narrative/Plan: Drug rash, resolved, hydrocortisone PRN Current Visit: Yes Status: Acute Priority: Medium Code(s): R21 - RASH AND OTHER NONSPECIFIC SKIN ERUPTION SNOMED Code(s): 298961452
[2020-10-26] MEDS: LACTATED RINGERS 1,000 ML IV SCH ×2 (15:53→17:25)
[2020-10-26 16:51] LABS: Glucose,Whole Blood 155 mg/dL (75-99)
[2020-10-26] MEDS: VANCOMYCIN 1,250 MG in SODIUM CHLORIDE 0.9% 250 ML IVPB SCH ×2 (17:12→18:56)
[2020-10-26 19:45] LABS: Glucose,Whole Blood 160 mg/dL (75-99)
[2020-10-26] MEDS: REMDESIVIR 100 MG in SODIUM CHLORIDE 0.9% 250 ML IVPB SCH (20:04)
[2020-10-26] MEDS: LORATADINE 10 MG TAB PO SCH (20:06)
[2020-10-27] MEDS: VANCOMYCIN 1,250 MG in SODIUM CHLORIDE 0.9% 250 ML IVPB SCH ×3 (02:38→17:56)
[2020-10-27 06:34] LABS: Glucose,Whole Blood 185 mg/dL (75-99)
[2020-10-27] MEDS: INSULIN ASPART (NovoLOG) 100 UNIT/ML VIAL SQ SCH ×4 (06:39→20:37)
[2020-10-27] MEDS: SALT AND SODA MOUTHWASH 1,000 ML PO SCH ×5 (06:41→23:47)
--- NOTE | 2020-10-27 07:40 | XR ---
EXAMINATION TYPE: XR chest 1V portable DATE OF EXAM: 10/27/2020 COMPARISON: 10/24/2020 INDICATION: Dyspnea short of breath TECHNIQUE: Single frontal view of the chest is obtained. FINDINGS: The heart size is borderline prominent. The pulmonary vasculature is prominent. There is diffuse increased infiltrate throughout the left lung. Correlate for pneumonia. Consider aty pical pneumonia. Small right pleural effusion is present which is stable. IMPRESSION: 1. Stable left lung infiltrate. Correlate for pneumonia. 2. Small right pleural effusion
[2020-10-27] MEDS: IPRATROPIUM-ALBUTEROL 3 ML NEB INHALATION SCH ×4 (07:48→20:18)
[2020-10-27] MEDS: TRIAMCINOLONE 0.1% CREAM 80 GM TUBE TOPICAL SCH ×2 (08:54→20:38)
[2020-10-27] MEDS: APIXABAN 5 MG TAB PO SCH ×2 (08:54→20:38)
[2020-10-27] MEDS: FAMOTIDINE 20 MG TAB PO SCH (08:54)
[2020-10-27] MEDS: CEFEPIME 2 GM in SODIUM CHLORIDE 0.9% 100 ML IVPB SCH ×3 (08:54→23:48)
[2020-10-27] MEDS: POTASSIUM CHLORIDE ER 20 MEQ TAB.ER PO SCH (08:54)
[2020-10-27] MEDS: methylPREDNISolone SOD SUCCI 40 MG/ML 1 ML VIAL IV SCH ×2 (08:54→20:37)
[2020-10-27] MEDS: MAG HYDROX/AL HYDROX/SIMETH 30 ML, LIDOCAINE VISCOUS 30 ML, diphenhydrAMINE ELIXIR 75 M... PO SCH ×12 (08:55→20:37)
--- NOTE | 2020-10-27 11:00 | P.PN ---
Subjective Progress Note Date: 10/27/20 Principal diagnosis: Presumed Covid 19 pneumonia Sepsis Acute hypoxic respiratory failure Left-sided pneumonia likely community-acquired bacterial versus viral Right-sided lung cancer status post lobectomy and chemotherapy History of DVT PE status post IVC filter and on direct anticoagulant Hypertension hypertensive cardiovascular disease Baseline COPD 10/27/2020, patient seen eval examined on high flow aerosolized oxygen when his stay quite fit mouth close sats up to 90%, during talking conversation drops down to 87-88%, denies any cough or sputum production,patient remains short of breath, BiPAP at nighttime, labs not done today, chest x-ray finding reviewed diffuse infiltrate throughout the left lung likely atypical pneumonia right- sided small pleural effusion and volume loss is stable overall no significant change, patient remains on bronchodilators, broad-spectrum antibiotic cephapirin, day #3 of REMdesivir, IV vancomycin 10/26/2020,Patient remains short of breath on BiPAP, has been on BiPAP 12/ with 50% oxygen started yesterday evening has been all along until this morning, attempts were done to get him off of BiPAP on 15 L high flow oxygen couldn't tolerated desaturated and gets more short of breath but placed back on BiPAP machine, saturation is low 90s, tachycardic hemodynamics are stable, labs reviewed in phlegm atrial parameters elevated including LDH pro-calcitonin and ferritin does have infiltrates on x-ray the covert 19 testing has been negative however patient is presumed to add covert 19 pneumonia being treated with IV REM doesn't wear and steroids and supportive care This is a 65-year-old with extensive history of COPD and diagnosis of lung cancer also has a history of DVT PE status post IVC filter and on direct oral anticoagulant patient has finished 4 courses of chemotherapy last was in of September since then patient was more short of breath appetite continued to decompensate was found to be hypoxic in oncology office advised to be admitted into the hospital found to have pneumonia currently being treated with broad- spectrum antibiotics cephapirin, patient was on room air at home oxygen requirement was 6 L at admission bump up to 15 L continued to be hypoxic and eventually placed on BiPAP currently 12/6 with 100% oxygen appears comfortable does have cough shortness of breath the severity is improved on BiPAP, arterial blood gas after 3-4 hours pending, review of the data revealed that white cell count was over 17,010 the patient on cephapirin bronchodilator continuation of Eliquis, prednisone and vancomycin, patient had a computed tomography scan done in outpatient was negative for PE in oncology office, chest x-ray showing development of patchy left by a hilar infiltrate, right-sided pleural thickening , and loss of volume on the right side due to prior right lobectomy for lung cancer Objective - Vital Signs Vital signs: Vital Signs Temp 97.8 F 10/27/20 08:50 Pulse 108 H 10/27/20 08:50 Resp 18 10/27/20 08:50 BP 122/78 10/27/20 08:50 Pulse Ox 99 10/27/20 08:50 Intake & Output 10/26/20 10/27/20 10/27/20 18:59 06:59 18:59 Intake Total 761 287 20 Output Total 1400 550 Balance -639 -263 20 Weight 84 kg Intake: IV 70 50 20 Invasive Line 1 50 30 10 Invasive Line 2 20 20 Invasive Line 3 10 Oral 691 237 Output: Urine 1400 550 Other: Voiding Method Urinal Urinal - Exam - Constitutional General appearance: average body habitus, cooperative, disheveled, mild distress - EENT Eyes: PERRLA Ears: bilateral: normal - Neck Carotids: bilateral: upstroke normal Thyroid: bilateral: normal size - Respiratory Respiratory: bilateral: diminished - Cardiovascular Rhythm: regular Heart sounds: normal: S1, S2 - Gastrointestinal General gastrointestinal: normal bowel sounds - Integumentary Integumentary: decreased turgor - Neurologic Neurologic: CNII-XII intact - Musculoskeletal Musculoskeletal: gait normal, generalized weakness, strength equal bilaterally - Psychiatric Psychiatric: A&O x's 3, appropriate affect, intact judgment & insight - Labs CBC & Chem 7: 10/26/20 10:05 10/26/20 10:05 Labs: Abnormal Lab Results - Last 24 Hours (Table) 10/26/20 10/26/20 10/26/20 Range/Units 10:05 10:05 12:37 WBC 14.4 H (3.8-10.6) k/uL RBC 2.56 L (4.30-5.90) m/uL Hgb 8.8 L (13.0-17.5) gm/dL Hct 29.0 L (39.0-53.0) % MCV 113.1 H (80.0-100.0) fL MCHC 30.4 L (31.0-37.0) g/dL RDW 21.1 H (11.5-15.5) % Plt Count 141 L (150-450) k/uL Neutrophils # 12.9 H (1.3-7.7) k/uL Lymphocytes # 0.9 L (1.0-4.8) k/uL Macrocytosis Marked A Sodium 131 L (137-145) mmol/L BUN 24 H (9-20) mg/dL Creatinine 0.48 L (0.66-1.25) mg/dL POC Glucose (mg/dL) 135 H (75-99) mg/dL Calcium 7.2 L (8.4-10.2) mg/dL 10/26/20 10/26/20 10/27/20 Range/Units 16:50 19:43 06:33 WBC (3.8-10.6) k/uL RBC (4.30-5.90) m/uL Hgb (13.0-17.5) gm/dL Hct (39.0-53.0) % MCV (80.0-100.0) fL MCHC (31.0-37.0) g/dL RDW (11.5-15.5) % Plt Count (150-450) k/uL Neutrophils # (1.3-7.7) k/uL Lymphocytes # (1.0-4.8) k/uL Macrocytosis Sodium (137-145) mmol/L BUN (9-20) mg/dL Creatinine (0.66-1.25) mg/dL POC Glucose (mg/dL) 155 H 160 H 185 H (75-99) mg/dL Calcium (8.4-10.2) mg/dL Microbiology - Last 24 Hours (Table) 10/23/20 16:35 Blood Culture - Preliminary Blood No Growth after 72 hours 10/23/20 13:16 Blood Culture - Preliminary Blood No Growth after 72 hours Assessment and Plan Assessment: interstitial pneumonia Presumed covid 19 pneumonia Sepsis Acute hypoxic respiratory failure Left-sided pneumonia likely community-acquired versus Covid 19 pneumonia Right-sided lung cancer status post lobectomy and chemotherapy History of DVT PE status post IVC filter and on direct anticoagulant Hypertension hypertensive cardiovascular disease Baseline COPD Plan: Plan treated treated with IV REMdesivir for 5 days add doxycycline Gentle rehydration Continue aerosolized high flow oxygen alternating with BiPAP setting of 12/6 with 50% oxygen especially at nighttime Chest x-ray reviewed Continue broad-spectrum antibiotics Sputum from Gram stain and culture Blood cultures IV steroids Continue bronchodilator Further recommendations pending plan of care as per clinical response of the patient Time with Patient: Greater than 30
[2020-10-27] MEDS ORDERED: DOXYCYCLINE 50 MG CAP PO SCH (11:15)
--- NOTE | 2020-10-27 12:02 | P.PN ---
Subjective Progress Note Date: 10/27/20 Pt continues to require high amounts of oxygen, and appears to get winded while speaking. No complaints of pain. Objective - Vital Signs Vital signs: Vital Signs Temp 98.1 F 10/27/20 11:51 Pulse 107 H 10/27/20 11:51 Resp 18 10/27/20 11:51 BP 130/89 10/27/20 11:51 Pulse Ox 96 10/27/20 11:51 Intake & Output 10/26/20 10/27/20 10/27/20 18:59 06:59 18:59 Intake Total 761 287 20 Output Total 1400 550 Balance -639 -263 20 Weight 84 kg Intake: IV 70 50 20 Invasive Line 1 50 30 10 Invasive Line 2 20 20 Invasive Line 3 10 Oral 691 237 Output: Urine 1400 550 Other: Voiding Method Urinal Urinal - Exam Gen: awake, alert HEENT: normocephalic, atraumatic, good hearing acuity, dry mucous membranes Resp: AirVo: FiO2 92%, 60LPM; breathing with no accessory muscle use, crackles in the left lung, no wheezes CVS: good distal perfusion x 4, tachycardic, regular rhythm, no murmurs GI: soft, NTTP, ND : no SPT, no CVAT, ji catheter not present MSK: Trace pitting edema, no clubbing Neuro: non-focal, moving all extremities Psych: cooperative, euthymic mood - Labs CBC & Chem 7: 10/26/20 10:05 10/26/20 10:05 Labs: Abnormal Lab Results - Last 24 Hours (Table) 10/26/20 10/26/20 10/26/20 Range/Units 10:05 10:05 12:37 WBC 14.4 H (3.8-10.6) k/uL RBC 2.56 L (4.30-5.90) m/uL Hgb 8.8 L (13.0-17.5) gm/dL Hct 29.0 L (39.0-53.0) % MCV 113.1 H (80.0-100.0) fL MCHC 30.4 L (31.0-37.0) g/dL RDW 21.1 H (11.5-15.5) % Plt Count 141 L (150-450) k/uL Neutrophils # 12.9 H (1.3-7.7) k/uL Lymphocytes # 0.9 L (1.0-4.8) k/uL Macrocytosis Marked A Sodium 131 L (137-145) mmol/L BUN 24 H (9-20) mg/dL Creatinine 0.48 L (0.66-1.25) mg/dL POC Glucose (mg/dL) 135 H (75-99) mg/dL Calcium 7.2 L (8.4-10.2) mg/dL 10/26/20 10/26/20 10/27/20 Range/Units 16:50 19:43 06:33 WBC (3.8-10.6) k/uL RBC (4.30-5.90) m/uL Hgb (13.0-17.5) gm/dL Hct (39.0-53.0) % MCV (80.0-100.0) fL MCHC (31.0-37.0) g/dL RDW (11.5-15.5) % Plt Count (150-450) k/uL Neutrophils # (1.3-7.7) k/uL Lymphocytes # (1.0-4.8) k/uL Macrocytosis Sodium (137-145) mmol/L BUN (9-20) mg/dL Creatinine (0.66-1.25) mg/dL POC Glucose (mg/dL) 155 H 160 H 185 H (75-99) mg/dL Calcium (8.4-10.2) mg/dL Microbiology - Last 24 Hours (Table) 10/23/20 16:35 Blood Culture - Preliminary Blood No Growth after 72 hours 10/23/20 13:16 Blood Culture - Preliminary Blood No Growth after 72 hours Assessment and Plan Assessment: 1. Sepsis with Acute Hypoxemic Respiratory Failure and ARDS 2. Community Acquired Pneumonia 3. Hypertension, essential 4. Hx of Alcohol induced NICM, with recovered EF 5. Lung Cancer s/p lobectomy with mets to the liver 6. Immunosuppressed state 7. Hx of PE on Eliquis 65 year old man with history of HTN, lung cancer, immunosuppression presented with hypoxia from oncology clinic and was found to be in sepsis with acute hypoxemic respiratory failure and to have left hilar infiltrate on chest x-ray concerning for community acquired pneumonia. Plan: - admit to inpatient - oxygen PRN --> 6-15L on 10/24 --> BiPAP on 10/25 --> BiPAP/HFNC alternating on 10/26-10/27 - patient was counseled on self-proning techniques 10/27 - patient to receive IS 10/27 - BCx = NGTD; RCx = pending - covid negative - cefepime/azithromycin on admission, escalated to vancomycin/cefepime on 10/24 - procalcitonin mildly elevated at 0.13 - lactate 2.4 --> 1.7 - ferritin 1763 - echo = EF 50-55%, LVH, moderately enlarged RV, mod pHTN to 53 - IVF: NS 2.5L of total bolus in the ER --> NS 100cc/hr - stopped IVF on 10/24 - started on 40mg lasix IV daily, held on 10/25 - prednisone at 40mg daily --> solumedrol 40mg IV q12 on 10/25 - low dose SSI aspart - continue home loratadine/famotidine - continue home hydroxyzine - holding home metoprolol/spironolactone - patient has not been taking these for this past week - continue home Nicola - hematology consult, appreciate recs - pulmonary consult, appreciate recs Full Code DVT PPx: nicola is ROSLYN
[2020-10-27 12:15] LABS: Anisocytosis Moderate; Basophils % (A) 0 %; Eosinophils # (A) 0.3 k/uL (0-0.7); Eosinophils % (A) 2 %; HCT 28.4 % (39.0-53.0); HGB 8.9 gm/dL (13.0-17.5); Hypochromasia Marked; Lymphocytes # (A) 0.7 k/uL (1.0-4.8); Lymphocytes % (A) 4 %; MCH 35.1 pg (25.0-35.0); MCHC 31.4 g/dL (31.0-37.0); MCV 111.8 fL (80.0-100.0); Macrocytosis Marked; Mean Platelet Volume 10.5; Monocytes # (A) 0.3 k/uL (0-1.0); Monocytes % (A) 2 %; Neutrophils # (A) 15.8 k/uL (1.3-7.7); Neutrophils % (A) 92 %; Platelet Count 141 k/uL (150-450); RBC 2.54 m/uL (4.30-5.90); RDW 21.2 % (11.5-15.5); WBC 17.2 k/uL (3.8-10.6)
[2020-10-27 12:18] LABS: Glucose,Whole Blood 117 mg/dL (75-99)
[2020-10-27 12:20] LABS: INR 1.3 (<1.2); Prothrombin Time 13.5 sec (9.0-12.0)
[2020-10-27 12:25] LABS: African American GFR (CKD) >90 (>60 ml/min/1.73 sqM); Anion Gap 3 mmol/L; Blood Urea Nitrogen 32 mg/dL (9-20); Carbon Dioxide 28 mmol/L (22-30); Chloride 103 mmol/L (98-107); Non-African American GFR(CKD) >90 (>60 ml/min/1.73 sqM); Potassium 4.1 mmol/L (3.5-5.1); Sodium 134 mmol/L (137-145)
[2020-10-27] MEDS ORDERED: LIDOCAINE 1% INJ 10MG/ML (20 ML MDV) SQ ONE (12:31)
[2020-10-27 12:37] LABS: Toxic Granulation Present
[2020-10-27 12:38] LABS: Poikilocytosis (M) Present
--- NOTE | 2020-10-27 12:59 | P.PN ---
Subjective Progress Note Date: 10/27/20 Principal diagnosis: Pneumonia, sepsis, NSCLC In f/u today pt continues to have BETINA, requiring hi flow O2. He denies any chest pain, his breathing is ok at rest. Objective - Vital Signs Vital signs: Vital Signs Temp 98.1 F 10/27/20 11:51 Pulse 107 H 10/27/20 11:51 Resp 18 10/27/20 11:51 BP 130/89 10/27/20 11:51 Pulse Ox 96 10/27/20 11:51 Intake & Output 10/26/20 10/27/20 10/27/20 18:59 06:59 18:59 Intake Total 761 287 20 Output Total 1400 550 Balance -639 -263 20 Weight 84 kg Intake: IV 70 50 20 Invasive Line 1 50 30 10 Invasive Line 2 20 20 Invasive Line 3 10 Oral 691 237 Output: Urine 1400 550 Other: Voiding Method Urinal Urinal - Constitutional General appearance: Present: average body habitus, cooperative, no acute distress - EENT Eyes: Present: anicteric sclerae, EOMI ENT: Present: hearing grossly normal - Respiratory Details: resp even, mildly labored - Peripheral edema leg Peripheral Edema: bilateral: None - Integumentary Integumentary: Present: normal - Neurologic Neurologic: Present: CNII-XII intact - Musculoskeletal Musculoskeletal: Present: generalized weakness - Psychiatric Psychiatric: Present: A&O x's 3, appropriate affect, intact judgment & insight - Labs CBC & Chem 7: 10/27/20 12:00 10/27/20 12:00 Labs: Abnormal Lab Results - Last 24 Hours (Table) 10/26/20 10/26/20 10/26/20 Range/Units 10:05 16:50 19:43 WBC (3.8-10.6) k/uL RBC (4.30-5.90) m/uL Hgb (13.0-17.5) gm/dL Hct (39.0-53.0) % MCV (80.0-100.0) fL MCH (25.0-35.0) pg RDW (11.5-15.5) % Plt Count 141 L (150-450) k/uL Neutrophils # 12.9 H (1.3-7.7) k/uL Lymphocytes # 0.9 L (1.0-4.8) k/uL Macrocytosis PT (9.0-12.0) sec INR (<1.2) Sodium (137-145) mmol/L BUN (9-20) mg/dL Creatinine (0.66-1.25) mg/dL POC Glucose (mg/dL) 155 H 160 H (75-99) mg/dL 10/27/20 10/27/20 10/27/20 Range/Units 06:33 12:00 12:00 WBC 17.2 H (3.8-10.6) k/uL RBC 2.54 L (4.30-5.90) m/uL Hgb 8.9 L (13.0-17.5) gm/dL Hct 28.4 L (39.0-53.0) % MCV 111.8 H (80.0-100.0) fL MCH 35.1 H (25.0-35.0) pg RDW 21.2 H (11.5-15.5) % Plt Count 141 L (150-450) k/uL Neutrophils # 15.8 H (1.3-7.7) k/uL Lymphocytes # 0.7 L (1.0-4.8) k/uL Macrocytosis Marked A PT 13.5 H (9.0-12.0) sec INR 1.3 H (<1.2) Sodium (137-145) mmol/L BUN (9-20) mg/dL Creatinine (0.66-1.25) mg/dL POC Glucose (mg/dL) 185 H (75-99) mg/dL 10/27/20 10/27/20 Range/Units 12:00 12:16 WBC (3.8-10.6) k/uL RBC (4.30-5.90) m/uL Hgb (13.0-17.5) gm/dL Hct (39.0-53.0) % MCV (80.0-100.0) fL MCH (25.0-35.0) pg RDW (11.5-15.5) % Plt Count (150-450) k/uL Neutrophils # (1.3-7.7) k/uL Lymphocytes # (1.0-4.8) k/uL Macrocytosis PT (9.0-12.0) sec INR (<1.2) Sodium 134 L (137-145) mmol/L BUN 32 H (9-20) mg/dL Creatinine 0.50 L (0.66-1.25) mg/dL POC Glucose (mg/dL) 117 H (75-99) mg/dL Microbiology - Last 24 Hours (Table) 10/23/20 16:35 Blood Culture - Preliminary Blood No Growth after 72 hours 10/23/20 13:16 Blood Culture - Preliminary Blood No Growth after 72 hours Assessment and Plan (1) Hypoxia Narrative/Plan: Increased O2 needs. Pulm following, treatments ordered Current Visit: Yes Status: Acute Priority: High Code(s): R09.02 - HYPOXEMIA SNOMED Code(s): 068106187 (2) Pneumonia Current Visit: Yes Status: Acute Priority: High Code(s): J18.9 - PNEUMONIA, UNSPECIFIED ORGANISM SNOMED Code(s): 092903431 (3) Sepsis Current Visit: Yes Status: Acute Priority: High Code(s): A41.9 - SEPSIS, UNSPECIFIED ORGANISM SNOMED Code(s): 69972040 (4) Non-small cell lung cancer (NSCLC) Narrative/Plan: Patient most recently completed Taxotere and cyramza (VEGF treatment) at the end of September. He had decrease in lung and liver lesions after 3 cycles, CT in early Sep. He is due to begin single agent Taxotere, regimen changed after 4 cycles due to progressive intolerance-rash, weakness after Tx. Tx will be held until his current condition is stabilized and he has had the opportunity to rehabilitate, as needed, to recover from acute illness and have a PS adequate to cont cancer therapy. Current Visit: Yes Status: Chronic Priority: Medium Code(s): C34.90 - MALIGNANT NEOPLASM OF UNSP PART OF UNSP BRONCHUS OR LUNG SNOMED Code(s): 144749925 (5) Pulmonary embolism Narrative/Plan: Continue Eliquis as prescribed. Current Visit: No Status: Chronic Priority: Medium Code(s): I26.99 - OTHER PULMONARY EMBOLISM WITHOUT ACUTE COR PULMONALE SNOMED Code(s): 06402889 (6) Mucositis due to antineoplastic therapy Narrative/Plan: Improved. Cont salt and soda, cool solution Current Visit: Yes Status: Acute Priority: High Code(s): K12.31 - ORAL MUCOSITIS (ULCERATIVE) DUE TO ANTINEOPLASTIC THERAPY SNOMED Code(s): 129083036 (7) Rash Current Visit: Yes Status: Resolved Priority: Medium Code(s): R21 - RASH AND OTHER NONSPECIFIC SKIN ERUPTION SNOMED Code(s): 804106510
[2020-10-27] MEDS: DOXYCYCLINE 100 MG CAP PO SCH ×2 (13:07→17:57)
--- NOTE | 2020-10-27 13:14 | XR ---
EXAMINATION TYPE: XR chest 1V portable DATE OF EXAM: 10/27/2020 HISTORY: Shortness of breath. COMPARISON: None. TECHNIQUE: Single view of the chest is submitted. FINDINGS: Demonstrated are scattered senescent parenchymal change. Patchy infiltrate throughout the left lung. Volume loss right apical region and 6 right basilar pleur al effusion. PICC line with its distal tip at the SVC\brachiocephalic junction. The heart is stable. Hilar and mediastinal structures are within normal limits. Degenerative changes are seen of the dorsal spine. IMPRESSION: 1. Patchy infiltrate throughout the left lung. Volume loss right apical region and 6 right basilar p leural effusion. PICC line with its distal tip at the SVC\brachiocephalic junction.
--- NOTE | 2020-10-27 14:09 | IR ---
PICC LINE PLACEMENT: HISTORY: Infection requiring long-term antibiotic therapy PROCEDURE: Ultrasound guidance of PICC line placement. [employer] PROCESSOR: Dr. Tamayo. COMPLICATIONS: None ANESTHESIA: 1. 1% Lidocaine locally. FINDINGS/TECHNIQUE: The procedure was explained to the patient. The risks, complications, benefits and alternatives were discussed and any questions were answered. Informed consent was obtained. The patient was placed supine on the fluoroscopic table and prepped and draped in the usual sterile [facility] ion. Utilizing a 21 gauge needle and sonographic guidance, access in the left basilic vein was achi eved and there is placement of a 0.018 guidewire. The vein is patent. A 5-F. sheath was placed over the guidewire. The guidewire and dilator were removed and a 5-F. Double lumen PICC line was placed through the sheath with the chest x-ray confirming the tip at the level of the SVC. The sheath was r emoved, the catheter was flushed and sutured into position. The patient was stable throughout the pr ocedure and remained stable upon discharge from the Department of Radiology. The vein puncture was patent under ultrasound. A escalera scale image was obtained to document patency of the vein punctured. All elements of the maximal barrier technique were utilized. IMPRESSION: 1. Successful PICC line placement under ultrasound performed bedside.
[2020-10-27 16:39] LABS: Glucose,Whole Blood 128 mg/dL (75-99)
[2020-10-27 20:06] LABS: Glucose,Whole Blood 167 mg/dL (75-99)
[2020-10-27] MEDS: LORATADINE 10 MG TAB PO SCH (20:37)
[2020-10-27] MEDS: REMDESIVIR 100 MG in SODIUM CHLORIDE 0.9% 250 ML IVPB SCH (20:38)
[2020-10-28] MEDS: VANCOMYCIN 1,250 MG in SODIUM CHLORIDE 0.9% 250 ML IVPB SCH ×3 (03:21→22:00)
[2020-10-28 06:05] LABS: Glucose,Whole Blood 128 mg/dL (75-99)
[2020-10-28] MEDS: INSULIN ASPART (NovoLOG) 100 UNIT/ML VIAL SQ SCH ×4 (06:21→20:27)
[2020-10-28] MEDS: DOXYCYCLINE 100 MG CAP PO SCH ×2 (07:05→20:22)
[2020-10-28] MEDS: SALT AND SODA MOUTHWASH 1,000 ML PO SCH ×4 (07:05→20:20)
[2020-10-28] MEDS: FAMOTIDINE 20 MG TAB PO SCH (08:09)
[2020-10-28] MEDS: TRIAMCINOLONE 0.1% CREAM 80 GM TUBE TOPICAL SCH ×2 (08:10→20:20)
[2020-10-28] MEDS: POTASSIUM CHLORIDE ER 20 MEQ TAB.ER PO SCH (08:10)
[2020-10-28] MEDS: CEFEPIME 2 GM in SODIUM CHLORIDE 0.9% 100 ML IVPB SCH ×2 (08:10→15:40)
[2020-10-28] MEDS: APIXABAN 5 MG TAB PO SCH ×2 (08:10→20:20)
[2020-10-28] MEDS: methylPREDNISolone SOD SUCCI 40 MG/ML 1 ML VIAL IV SCH ×2 (08:10→20:20)
[2020-10-28] MEDS: MAG HYDROX/AL HYDROX/SIMETH 30 ML, LIDOCAINE VISCOUS 30 ML, diphenhydrAMINE ELIXIR 75 M... PO SCH ×12 (08:10→21:59)
[2020-10-28] MEDS: IPRATROPIUM-ALBUTEROL 3 ML NEB INHALATION SCH ×4 (08:15→20:46)
[2020-10-28] MEDS ORDERED: VANCOMYCIN TROUGH DUE 1 EACH MISC MISCELLANE ONE (09:00)
[2020-10-28 10:13] LABS: African American GFR (CKD) >90 (>60 ml/min/1.73 sqM); Anion Gap 8 mmol/L; Blood Urea Nitrogen 34 mg/dL (9-20); Calcium 8.4 mg/dL (8.4-10.2); Carbon Dioxide 22 mmol/L (22-30); Chloride 104 mmol/L (98-107); Glucose 159 mg/dL (74-99); Non-African American GFR(CKD) >90 (>60 ml/min/1.73 sqM); Potassium 3.9 mmol/L (3.5-5.1); Sodium 134 mmol/L (137-145)
[2020-10-28 11:57] LABS: Glucose,Whole Blood 140 mg/dL (75-99)
--- NOTE | 2020-10-28 13:04 | P.PN ---
Subjective Progress Note Date: 10/28/20 Pt feels more energetic today, sitting in chair, eating lunch with good appetite. Had good BM earlier in the day. Breathing is more comfortable. Objective - Vital Signs Vital signs: Vital Signs Temp 97.3 F L 10/28/20 11:57 Pulse 104 H 10/28/20 11:57 Resp 24 10/28/20 11:57 BP 134/93 10/28/20 11:57 Pulse Ox 99 10/28/20 11:57 Intake & Output 10/27/20 10/28/20 10/28/20 18:59 06:59 18:59 Intake Total 1387 475 560 Output Total 1550 Balance -163 475 560 Weight 81 kg Intake: IV 390 Cefepime 2 gm In Sodium 100 Chloride 0.9% 100 ml @ 25 mls/hr IVPB Q8HR [facility] Rx# :[id number] Invasive Line 1 10 Invasive Line 3 10 Invasive Line 5 20 Vancomycin 1,250 mg In 250 Sodium Chloride 0.9% 250 ml @ 125 mls/hr IVPB Q8H [facility] Rx#:[id number] Oral 997 475 560 Output: Urine 1550 Other: Voiding Method Urinal Urinal # Voids 1 - Exam Gen: awake, alert HEENT: normocephalic, atraumatic, good hearing acuity, dry mucous membranes Resp: AirVo: FiO2 92%, 60LPM; breathing with no accessory muscle use, crackles in the left lung, no wheezes CVS: good distal perfusion x 4, tachycardic, regular rhythm, no murmurs GI: soft, NTTP, ND : no SPT, no CVAT, ji catheter not present MSK: Trace pitting edema, no clubbing Neuro: non-focal, moving all extremities Psych: cooperative, euthymic mood - Labs CBC & Chem 7: 10/27/20 12:00 10/28/20 09:01 Labs: Abnormal Lab Results - Last 24 Hours (Table) 10/27/20 10/27/20 10/28/20 Range/Units 16:38 20:05 06:03 Sodium (137-145) mmol/L BUN (9-20) mg/dL Creatinine (0.66-1.25) mg/dL Glucose (74-99) mg/dL POC Glucose (mg/dL) 128 H 167 H 128 H (75-99) mg/dL 10/28/20 10/28/20 Range/Units 09:01 11:55 Sodium 134 L (137-145) mmol/L BUN 34 H (9-20) mg/dL Creatinine 0.49 L (0.66-1.25) mg/dL Glucose 159 H (74-99) mg/dL POC Glucose (mg/dL) 140 H (75-99) mg/dL Microbiology - Last 24 Hours (Table) 10/27/20 15:27 Gram Stain - Preliminary Sputum Sputum Culture - Preliminary 10/23/20 16:35 Blood Culture - Preliminary Blood No Growth after 96 hours 10/23/20 13:16 Blood Culture - Preliminary Blood No Growth after 96 hours Assessment and Plan Assessment: 1. Sepsis with Acute Hypoxemic Respiratory Failure and ARDS 2. Community Acquired Pneumonia 3. Hypertension, essential 4. Hx of Alcohol induced NICM, with recovered EF 5. Lung Cancer s/p lobectomy with mets to the liver 6. Immunosuppressed state 7. Hx of PE on Eliquis 65 year old man with history of HTN, lung cancer, immunosuppression presented with hypoxia from oncology clinic and was found to be in sepsis with acute hypoxemic respiratory failure and to have left hilar infiltrate on chest x-ray concerning for community acquired pneumonia. Plan: - admit to inpatient - oxygen PRN --> 6-15L on 10/24 --> BiPAP on 10/25 --> BiPAP/HFNC alternating on 10/26-10/27 - patient was counseled on self-proning techniques 10/27 - patient to receive IS 10/27 - BCx = NGTD; RCx = GS - rare GPC, pending - covid negative x 3 - on day 4 of remdesivir per pulmonary - cefepime/azithromycin on admission, escalated to vancomycin/cefepime on 10/24 - procalcitonin mildly elevated at 0.13 - lactate 2.4 --> 1.7 - ferritin 1763 - echo = EF 50-55%, LVH, moderately enlarged RV, mod pHTN to 53 - IVF: NS 2.5L of total bolus in the ER --> NS 100cc/hr - stopped IVF on 10/24 - started on 40mg lasix IV daily, held on 10/25 - prednisone at 40mg daily --> solumedrol 40mg IV q12 on 10/25 - low dose SSI aspart - continue home loratadine/famotidine - continue home hydroxyzine - holding home metoprolol/spironolactone - patient has not been taking these for the week prior to admission - continue home Nicola - hematology consult, appreciate recs - pulmonary consult, appreciate recs Full Code DVT PPx: nicola is DPOA
[2020-10-28 17:13] LABS: Glucose,Whole Blood 121 mg/dL (75-99)
[2020-10-28 20:05] LABS: Glucose,Whole Blood 158 mg/dL (75-99)
[2020-10-28] MEDS: LORATADINE 10 MG TAB PO SCH (20:20)
[2020-10-28] MEDS: REMDESIVIR 100 MG in SODIUM CHLORIDE 0.9% 250 ML IVPB SCH (20:20)
[2020-10-29] MEDS: CEFEPIME 2 GM in SODIUM CHLORIDE 0.9% 100 ML IVPB SCH ×3 (00:08→16:14)
[2020-10-29] MEDS: SALT AND SODA MOUTHWASH 1,000 ML PO SCH ×5 (00:08→21:37)
[2020-10-29 06:05] LABS: Glucose,Whole Blood 112 mg/dL (75-99)
[2020-10-29] MEDS: INSULIN ASPART (NovoLOG) 100 UNIT/ML VIAL SQ SCH ×4 (06:23→21:38)
[2020-10-29] MEDS: DOXYCYCLINE 100 MG CAP PO SCH ×2 (06:36→18:19)
[2020-10-29] MEDS: IPRATROPIUM-ALBUTEROL 3 ML NEB INHALATION SCH ×5 (07:58→21:05)
[2020-10-29 08:34] LABS: African American GFR (CKD) >90 (>60 ml/min/1.73 sqM); Anion Gap 5 mmol/L; Blood Urea Nitrogen 47 mg/dL (9-20); Calcium 8.8 mg/dL (8.4-10.2); Carbon Dioxide 25 mmol/L (22-30); Chloride 105 mmol/L (98-107); Glucose 96 mg/dL (74-99); Magnesium 1.7 mg/dL (1.6-2.3); Non-African American GFR(CKD) >90 (>60 ml/min/1.73 sqM); Potassium 4.5 mmol/L (3.5-5.1); Sodium 135 mmol/L (137-145)
[2020-10-29] MEDS: methylPREDNISolone SOD SUCCI 40 MG/ML 1 ML VIAL IV SCH ×2 (08:44→21:38)
[2020-10-29] MEDS: POTASSIUM CHLORIDE ER 20 MEQ TAB.ER PO SCH (08:44)
[2020-10-29] MEDS: FAMOTIDINE 20 MG TAB PO SCH (08:44)
[2020-10-29] MEDS: MAG HYDROX/AL HYDROX/SIMETH 30 ML, LIDOCAINE VISCOUS 30 ML, diphenhydrAMINE ELIXIR 75 M... PO SCH ×12 (08:44→23:20)
[2020-10-29] MEDS: APIXABAN 5 MG TAB PO SCH ×2 (08:44→21:38)
[2020-10-29] MEDS: TRIAMCINOLONE 0.1% CREAM 80 GM TUBE TOPICAL SCH ×2 (08:45→23:19)
[2020-10-29 09:30] LABS: Anisocytosis Moderate; Basophils % (A) 0 %; Eosinophils % (A) 0 %; HCT 30.1 % (39.0-53.0); HGB 9.4 gm/dL (13.0-17.5); Hypochromasia Marked; Lymphocytes # (A) 1.1 k/uL (1.0-4.8); Lymphocytes % (A) 6 %; MCHC 31.1 g/dL (31.0-37.0); MCV 112.7 fL (80.0-100.0); Macrocytosis Marked; Mean Platelet Volume 11.1; Monocytes # (A) 0.6 k/uL (0-1.0); Monocytes % (A) 4 %; Neutrophils % (A) 89 %; RBC 2.67 m/uL (4.30-5.90); RDW 21.5 % (11.5-15.5); WBC 16.8 k/uL (3.8-10.6)
--- NOTE | 2020-10-29 10:04 | P.PN ---
Subjective Progress Note Date: 10/29/20 Principal diagnosis: Presumed Covid 19 pneumonia Sepsis Acute hypoxic respiratory failure Left-sided pneumonia likely community-acquired bacterial versus viral Right-sided lung cancer status post lobectomy and chemotherapy History of DVT PE status post IVC filter and on direct anticoagulant Hypertension hypertensive cardiovascular disease Baseline COPD 10/29/2020, patient seen eval reexamined patient is on high flow oxygen down to 80% now remains on broad-spectrum antibiotics last day of IV antivirals as well respiratory status slightly better complaining of fatigue some epistaxis as noted likely related to oxygen resolve and improve with conservative means 10/27/2020, patient seen eval examined on high flow aerosolized oxygen when his stay quite fit mouth close sats up to 90%, during talking conversation drops down to 87-88%, denies any cough or sputum production,patient remains short of breath, BiPAP at nighttime, labs not done today, chest x-ray finding reviewed diffuse infiltrate throughout the left lung likely atypical pneumonia right- sided small pleural effusion and volume loss is stable overall no significant change, patient remains on bronchodilators, broad-spectrum antibiotic cephapirin, day #3 of REMdesivir, IV vancomycin 10/26/2020,Patient remains short of breath on BiPAP, has been on BiPAP 08/20 with 50% oxygen started yesterday evening has been all along until this morning, attempts were done to get him off of BiPAP on 15 L high flow oxygen couldn't tolerated desaturated and gets more short of breath but placed back on BiPAP machine, saturation is low 90s, tachycardic hemodynamics are stable, labs reviewed in phlegm atrial parameters elevated including LDH pro-calcitonin and ferritin does have infiltrates on x-ray the covert 19 testing has been negative however patient is presumed to add covert 19 pneumonia being treated with IV REM doesn't wear and steroids and supportive care This is a 65-year-old with extensive history of COPD and diagnosis of lung cancer also has a history of DVT PE status post IVC filter and on direct oral anticoagulant patient has finished 4 courses of chemotherapy last was in september since then patient was more short of breath appetite continued to decompensate was found to be hypoxic in oncology office advised to be admitted into the hospital found to have pneumonia currently being treated with broad- spectrum antibiotics cephapirin, patient was on room air at home oxygen requirement was 6 L at admission bump up to 15 L continued to be hypoxic and eventually placed on BiPAP currently 08/20 with 100% oxygen appears comfortable does have cough shortness of breath the severity is improved on BiPAP, arterial blood gas after 3-4 hours pending, review of the data revealed that white cell c ount was over 17,010 the patient on cephapirin bronchodilator continuation of Eliquis, prednisone and vancomycin, patient had a computed tomography scan done in outpatient was negative for PE in oncology office, chest x-ray showing development of patchy left by a hilar infiltrate, right-sided pleural thickening, and loss of volume on the right side due to prior right lobectomy for lung cancer Objective - Vital Signs Vital signs: Vital Signs Temp 97.6 F 10/29/20 08:42 Pulse 102 H 10/29/20 08:42 Resp 22 10/29/20 08:42 BP 154/97 10/29/20 08:42 Pulse Ox 91 L 10/29/20 08:42 Intake & Output 10/28/20 10/29/20 10/29/20 18:59 06:59 18:59 Intake Total 1680 240 Output Total 900 450 Balance 780 -450 240 Weight 81.5 kg Intake: Oral 1680 240 Output: Urine 900 450 Other: Voiding Method Urinal Urinal Urinal - Exam - Constitutional General appearance: average body habitus, cooperative, disheveled, mild distress - EENT Eyes: PERRLA Ears: bilateral: normal - Neck Carotids: bilateral: upstroke normal Thyroid: bilateral: normal size - Respiratory Respiratory: bilateral: diminished - Cardiovascular Rhythm: regular Heart sounds: normal: S1, S2 - Gastrointestinal General gastrointestinal: normal bowel sounds - Integumentary Integumentary: decreased turgor - Neurologic Neurologic: CNII-XII intact - Musculoskeletal Musculoskeletal: gait normal, generalized weakness, strength equal bilaterally - Psychiatric Psychiatric: A&O x's 3, appropriate affect, intact judgment & insight - Labs CBC & Chem 7: 10/29/20 07:29 10/29/20 07:29 Labs: Abnormal Lab Results - Last 24 Hours (Table) 10/28/20 10/28/20 10/28/20 Range/Units 09:01 11:55 17:12 WBC (3.8-10.6) k/uL RBC (4.30-5.90) m/uL Hgb (13.0-17.5) gm/dL Hct (39.0-53.0) % MCV (80.0-100.0) fL RDW (11.5-15.5) % Macrocytosis Sodium 134 L (137-145) mmol/L BUN 34 H (9-20) mg/dL Creatinine 0.49 L (0.66-1.25) mg/dL Glucose 159 H (74-99) mg/dL POC Glucose (mg/dL) 140 H 121 H (75-99) mg/dL 10/28/20 10/29/20 10/29/20 Range/Units 20:03 06:03 07:29 WBC (3.8-10.6) k/uL RBC (4.30-5.90) m/uL Hgb (13.0-17.5) gm/dL Hct (39.0-53.0) % MCV (80.0-100.0) fL RDW (11.5-15.5) % Macrocytosis Sodium 135 L (137-145) mmol/L BUN 47 H (9-20) mg/dL Creatinine 0.61 L (0.66-1.25) mg/dL Glucose (74-99) mg/dL POC Glucose (mg/dL) 158 H 112 H (75-99) mg/dL 10/29/20 Range/Units 07:29 WBC 16.8 H (3.8-10.6) k/uL RBC 2.67 L (4.30-5.90) m/uL Hgb 9.4 L (13.0-17.5) gm/dL Hct 30.1 L (39.0-53.0) % MCV 112.7 H (80.0-100.0) fL RDW 21.5 H (11.5-15.5) % Macrocytosis Marked A Sodium (137-145) mmol/L BUN (9-20) mg/dL Creatinine (0.66-1.25) mg/dL Glucose (74-99) mg/dL POC Glucose (mg/dL) (75-99) mg/dL Microbiology - Last 24 Hours (Table) 10/27/20 15:27 Gram Stain - Final Sputum Sputum Culture - Final 10/23/20 16:35 Blood Culture - Preliminary Blood No Growth after 120 hours 10/23/20 13:16 Blood Culture - Preliminary Blood No Growth after 120 hours Assessment and Plan Assessment: interstitial pneumonia Presumed covid 19 pneumonia Sepsis Acute hypoxic respiratory failure Left-sided pneumonia likely community-acquired versus Covid 19 pneumonia Right-sided lung cancer status post lobectomy and chemotherapy History of DVT PE status post IVC filter and on direct anticoagulant Hypertension hypertensive cardiovascular disease Baseline COPD Plan: Plan treated treated with IV REMdesivir for 5 days Continue doxycycline Gentle rehydration Continue aerosolized high flow oxygen alternating with BiPAP setting of 08/20 with 50% oxygen especially at nighttime Chest x-ray reviewed, will order a follow-up for tomorrow Continue broad-spectrum antibiotics Sputum from Gram stain and culture Blood cultures IV steroids Continue bronchodilator Further recommendations pending plan of care as per clinical response of the patient Time with Patient: Greater than 30
[2020-10-29] MEDS: VANCOMYCIN 1,250 MG in SODIUM CHLORIDE 0.9% 250 ML IVPB SCH ×2 (10:41→23:19)
[2020-10-29 11:23] LABS: Large Platelets Present; Platelet Count 75 k/uL (150-450)
[2020-10-29 11:54] LABS: Glucose,Whole Blood 108 mg/dL (75-99)
--- NOTE | 2020-10-29 13:03 | P.PN ---
Subjective Progress Note Date: 10/29/20 No new complaints. Pt had nose bleed and had airvo switched to NRB for a break. Appetite not as good as yesterday, but patient still has minimal complaints. Objective - Vital Signs Vital signs: Vital Signs Temp 97.6 F 10/29/20 11:21 Pulse 120 H 10/29/20 11:31 Resp 22 10/29/20 11:21 BP 151/97 10/29/20 11:21 Pulse Ox 88 L 10/29/20 11:38 Intake & Output 10/28/20 10/29/20 10/29/20 18:59 06:59 18:59 Intake Total 1680 240 Output Total 900 450 350 Balance 780 -450 -110 Weight 81.5 kg Intake: Oral 1680 240 Output: Urine 900 450 350 Other: Voiding Method Urinal Urinal Urinal - Exam Gen: awake, alert HEENT: normocephalic, atraumatic, good hearing acuity, dry mucous membranes Resp: NRB @ 15LPM; breathing with no accessory muscle use, crackles in the left lung, no wheezes CVS: good distal perfusion x 4, tachycardic, regular rhythm, no murmurs GI: soft, NTTP, ND : no SPT, no CVAT, ji catheter not present MSK: Trace pitting edema, no clubbing Neuro: non-focal, moving all extremities Psych: cooperative, euthymic mood - Labs CBC & Chem 7: 10/29/20 07:29 10/29/20 07:29 Labs: Abnormal Lab Results - Last 24 Hours (Table) 10/28/20 10/28/20 10/29/20 Range/Units 17:12 20:03 06:03 WBC (3.8-10.6) k/uL RBC (4.30-5.90) m/uL Hgb (13.0-17.5) gm/dL Hct (39.0-53.0) % MCV (80.0-100.0) fL RDW (11.5-15.5) % Plt Count (150-450) k/uL Neutrophils # (1.3-7.7) k/uL Macrocytosis Sodium (137-145) mmol/L BUN (9-20) mg/dL Creatinine (0.66-1.25) mg/dL POC Glucose (mg/dL) 121 H 158 H 112 H (75-99) mg/dL 10/29/20 10/29/20 10/29/20 Range/Units 07:29 07:29 11:53 WBC 16.8 H (3.8-10.6) k/uL RBC 2.67 L (4.30-5.90) m/uL Hgb 9.4 L (13.0-17.5) gm/dL Hct 30.1 L (39.0-53.0) % MCV 112.7 H (80.0-100.0) fL RDW 21.5 H (11.5-15.5) % Plt Count 75 L (150-450) k/uL Neutrophils # 15.0 H (1.3-7.7) k/uL Macrocytosis Marked A Sodium 135 L (137-145) mmol/L BUN 47 H (9-20) mg/dL Creatinine 0.61 L (0.66-1.25) mg/dL POC Glucose (mg/dL) 108 H (75-99) mg/dL Microbiology - Last 24 Hours (Table) 10/27/20 15:27 Gram Stain - Final Sputum Sputum Culture - Final 10/23/20 16:35 Blood Culture - Preliminary Blood No Growth after 120 hours 10/23/20 13:16 Blood Culture - Preliminary Blood No Growth after 120 hours Assessment and Plan Assessment: 1. Sepsis with Acute Hypoxemic Respiratory Failure and ARDS 2. Community Acquired Pneumonia 3. Hypertension, essential 4. Hx of Alcohol induced NICM, with recovered EF 5. Lung Cancer s/p lobectomy with mets to the liver 6. Immunosuppressed state 7. Hx of PE on Eliquis 65 year old man with history of HTN, lung cancer, immunosuppression presented with hypoxia from oncology clinic and was found to be in sepsis with acute hypoxemic respiratory failure and to have left hilar infiltrate on chest x-ray concerning for community acquired pneumonia. Plan: - admit to inpatient - oxygen PRN --> 6-15L on 10/24 --> BiPAP on 10/25 --> BiPAP/HFNC alternating on 10/26-10/29 --> 15L NRB on 10/29 - patient was counseled on self-proning techniques 10/27 - patient to receive IS 10/27 - BCx = NGTD; RCx = GS - rare GPR, NGTD of pathogen - covid negative x 3 - on day 5 of remdesivir per pulmonary - cefepime/azithromycin on admission, escalated to vancomycin/cefepime on 10/24 - procalcitonin mildly elevated at 0.13 - lactate 2.4 --> 1.7 - ferritin 1763 - echo = EF 50-55%, LVH, moderately enlarged RV, mod pHTN to 53 - IVF: NS 2.5L of total bolus in the ER --> NS 100cc/hr - stopped IVF on 10/24 - started on 40mg lasix IV daily, held on 10/25 - prednisone at 40mg daily --> solumedrol 40mg IV q12 on 10/25 - low dose SSI aspart - continue home loratadine/famotidine - continue home hydroxyzine - holding home metoprolol/spironolactone - patient has not been taking these for the week prior to admission - continue home Nicola - hematology consult, appreciate recs - pulmonary consult, appreciate recs Full Code DVT PPx: nicola is DPOA
[2020-10-29 16:14] VITALS: TEMP 98
[2020-10-29 17:04] LABS: Glucose,Whole Blood 128 mg/dL (75-99)
[2020-10-29 21:25] LABS: Glucose,Whole Blood 149 mg/dL (75-99)
[2020-10-29] MEDS: REMDESIVIR 100 MG in SODIUM CHLORIDE 0.9% 250 ML IVPB SCH (21:36)
[2020-10-29] MEDS: LORATADINE 10 MG TAB PO SCH (21:38)
[2020-10-30] MEDS: SALT AND SODA MOUTHWASH 1,000 ML PO SCH ×3 (00:27→08:29)
[2020-10-30] MEDS: CEFEPIME 2 GM in SODIUM CHLORIDE 0.9% 100 ML IVPB SCH (00:27)
[2020-10-30 02:30] VITALS: RESP 22
[2020-10-30 06:30] VITALS: BP 96/62; PULSE 123
[2020-10-30 06:41] LABS: Glucose,Whole Blood 167 mg/dL (75-99)
[2020-10-30] MEDS: INSULIN ASPART (NovoLOG) 100 UNIT/ML VIAL SQ SCH ×3 (06:53→08:29)
[2020-10-30] MEDS: DOXYCYCLINE 100 MG CAP PO SCH ×2 (06:53→08:28)
[2020-10-30] MEDS ORDERED: MORPHINE SULFATE 4 MG/ML SYRINGE IVP STA (07:51)
[2020-10-30 07:56] LABS: Anisocytosis Moderate; Basophils % (A) 0 %; Eosinophils % (A) 0 %; HCT 21.5 % (39.0-53.0); Hypochromasia Marked; Lymphocytes # (A) 1.3 k/uL (1.0-4.8); Lymphocytes % (A) 5 %; MCH 34.6 pg (25.0-35.0); Macrocytosis Marked; Mean Platelet Volume 14.1; Monocytes # (A) 0.8 k/uL (0-1.0); Monocytes % (A) 3 %; Neutrophils # (A) 21.8 k/uL (1.3-7.7); Neutrophils % (A) 91 %; RDW 22.5 % (11.5-15.5); WBC 24.1 k/uL (3.8-10.6)
[2020-10-30 07:57] LABS: Glucose,Whole Blood 151 mg/dL (75-99)
[2020-10-30 08:05] LABS: HGB 6.2 gm/dL (13.0-17.5); MCV 119.6 fL (80.0-100.0); Platelet Count 73 k/uL (150-450)
[2020-10-30 08:10] LABS: Calcium 8.4 mg/dL (8.4-10.2); Magnesium 1.9 mg/dL (1.6-2.3)
[2020-10-30] MEDS ORDERED: HYDROmorphone 1 MG/ML 1 ML SYRINGE IVP PRN (08:19)
[2020-10-30] MEDS ORDERED: MORPHINE SULFATE 4 MG/ML SYRINGE IV PRN (08:19)
[2020-10-30] MEDS: IPRATROPIUM-ALBUTEROL 3 ML NEB INHALATION SCH ×2 (08:26→08:29)
[2020-10-30] MEDS: FAMOTIDINE 20 MG TAB PO SCH (08:27)
[2020-10-30] MEDS: APIXABAN 5 MG TAB PO SCH (08:27)
[2020-10-30] MEDS: POTASSIUM CHLORIDE ER 20 MEQ TAB.ER PO SCH (08:28)
[2020-10-30] MEDS: VANCOMYCIN 1,250 MG in SODIUM CHLORIDE 0.9% 250 ML IVPB SCH (08:28)
[2020-10-30] MEDS: TRIAMCINOLONE 0.1% CREAM 80 GM TUBE TOPICAL SCH (08:28)
[2020-10-30] MEDS: MAG HYDROX/AL HYDROX/SIMETH 30 ML, LIDOCAINE VISCOUS 30 ML, diphenhydrAMINE ELIXIR 75 M... PO SCH ×8 (08:28→08:29)
[2020-10-30] MEDS: methylPREDNISolone SOD SUCCI 40 MG/ML 1 ML VIAL IV SCH (08:28)
[2020-10-30 08:59] LABS: Potassium 6.5 mmol/L (3.5-5.1)
--- NOTE | 2020-10-30 09:17 | XR ---
EXAMINATION TYPE: XR chest 1V portable DATE OF EXAM: 10/30/2020 COMPARISON: 10/27/2020 INDICATION: Pneumonia TECHNIQUE: Single frontal view of the chest is obtained. FINDINGS: The heart size is mildly prominent. The pulmonary vasculature is normal. There is increase infiltrate throughout the left lung. Right lung clear turner appear clear. Small ri ght pleural effusion right apical thickening remains present. Left-sided PICC line remains present with the tip in the brachiocephalic region. IMPRESSION: 1. Worsening infiltrate left lung.
[2020-10-30 09:30] LABS: Large Platelets Present; Polychromasia Present
[2020-10-30 09:31] LABS: Poikilocytosis (M) Present; RBC Fragments Present
--- NOTE | 2020-10-30 10:37 | P.DS ---
Providers Date of admission: 10/23/20 14:34 Expected date of discharge: 10/30/20 Attending physician: Miladys Flores MD Consults: 10/23/20 16:40 Consult Physician Routine Consulting Provider: Adrián Smith Consult Reason/Comments: metastatic lung cancer Do you want consulting provider notified?: Yes 10/25/20 10:11 Consult Physician Routine Consulting Provider: Leonel Middleton Consult Reason/Comments: known to pt, pneumonia Do you want consulting provider notified?: Yes Primary care physician: Jennifer Lea [facility] Course: 1. Sepsis with Acute Hypoxemic Respiratory Failure and ARDS 2. Community Acquired Pneumonia 3. Hypertension, essential 4. Hx of Alcohol induced NICM, with recovered EF 5. Lung Cancer s/p lobectomy with mets to the liver 6. Immunosuppressed state 7. Hx of PE on Eliquis 65 year old man with history of HTN, lung cancer, immunosuppression presented with hypoxia from oncology clinic and was found to be in sepsis with acute hypoxemic respiratory failure and to have left hilar infiltrate on chest x-ray concerning for community acquired pneumonia. Plan: - admitted to inpatient ---> on 10/30 @ 0805 - oxygen PRN --> 6-15L on 10/24 --> BiPAP on 10/25 --> BiPAP/HFNC alternating on 10/26-10/29 --> 15L NRB on 10/29 --> hypoxic/agonal @ 0740 on 10/30, switched to comfort measures, then at 0805 - BCx = NGTD; RCx = GS - rare GPR, NGTD of pathogen - covid negative x 3 - rec'd 5 days of remdesivir - cefepime/azithromycin on admission, escalated to vancomycin/cefepime on 10/24 - 10/30 - echo = EF 50-55%, LVH, moderately enlarged RV, mod pHTN to 53 - IVF: NS 2.5L of total bolus in the ER --> NS 100cc/hr - stopped IVF on 10/24 - started on 40mg lasix IV daily, held on 10/25 - prednisone at 40mg daily --> solumedrol 40mg IV q12 on 10/25-10/30 - low dose SSI aspart - continued home loratadine/famotidine - continued home hydroxyzine - held home metoprolol/spironolactone - patient has not been taking these for the week prior to admission - continued home Nicola - hematology consult, appreciate recs - pulmonary consult, appreciate recs Comfort Care DVT PPx: nicola is DPOA Patient was suffering from Sepsis with acute respiratory failure and ARDS from pneumonia superimposed on underlying emphysema and lung cancer s/p RL Lobectomy. He had high oxygen requirements, however, unfortunately acute decompensated on 10/30 AM and became hypoxic to 64% despite supplemental oxygen and developed agonal breathing. At bedside, was in the room, and expressed wish to make patient comfortable through dying process. Patient was switched to comfort measures and provided dilaudid/morphine PRN for air hunger. He passed shortly thereafter at 0805, from Sepsis with Respiratory Failure secondary to ARDS secondary to pneumonia, with underlying cause of emphysema and lung cancer, with smoking as a contributing factor. Assessment: Dolls eyes, negative heart and lung sounds, no corneal or gag reflexes, no chest rise Plan - Discharge Summary Discharge Rx Participant: No New Discharge Prescriptions: No Action Spironolactone [Aldactone] 25 mg PO DAILY Apixaban [Eliquis] 5 mg PO BID Metoprolol Tartrate [Lopressor] 50 mg PO DAILY HYDROcodone/APAP 5-325MG [[place] 5-325] 1 tab PO BID PRN PRN Reason: Pain predniSONE [Deltasone] See Taper PO DAILY Potassium Chloride ER [K-Dur 20] 20 meq PO DAILY hydrOXYzine HCL [Atarax] 10 mg PO QID PRN PRN Reason: Itching Furosemide [Lasix] 20 - 40 mg PO DAILY PRN PRN Reason: Edema Famotidine [Pepcid] 10 mg PO DAILY Loratadine [Claritin] 10 mg PO HS Discharge Medication List Spironolactone [Aldactone] 25 mg PO DAILY 11/10/19 [History] Apixaban [Eliquis] 5 mg PO BID 07/29/20 [History] HYDROcodone/APAP 5-325MG [[place] 5-325] 1 tab PO BID PRN 07/29/20 [History] Metoprolol Tartrate [Lopressor] 50 mg PO DAILY 07/29/20 [History] Famotidine [Pepcid] 10 mg PO DAILY 10/23/20 [History] Furosemide [Lasix] 20 - 40 mg PO DAILY PRN 10/23/20 [History] Loratadine [Claritin] 10 mg PO HS 10/23/20 [History] Potassium Chloride ER [K-Dur 20] 20 meq PO DAILY 10/23/20 [History] hydrOXYzine HCL [Atarax] 10 mg PO QID PRN 10/23/20 [History] predniSONE [Deltasone] See Taper PO DAILY 10/23/20 [History] Follow up Appointment(s)/Referral(s): Adrián Smith MD [STAFF PHYSICIAN] - 11/06/20 3:00 pm Leonel Middleton MD [STAFF PHYSICIAN] - 1 Week Jennifer Lea MD [Primary Care Provider] - 1-2 days Patient Instructions/Handouts: BiPAP (GEN)
--- NOTE | 2020-10-30 10:56 | P.PN ---
Subjective Progress Note Date: 10/30/20 Principal diagnosis: Presumed Covid 19 pneumonia Sepsis Acute hypoxic respiratory failure Left-sided pneumonia likely community-acquired bacterial versus viral Right-sided lung cancer status post lobectomy and chemotherapy History of DVT PE status post IVC filter and on direct anticoagulant Hypertension hypertensive cardiovascular disease Baseline COPD 10/30/2020, family present at bedside, patient was made no code comfort care by the primary service, 10/29/2020, patient seen eval reexamined patient is on high flow oxygen down to 80% now remains on broad-spectrum antibiotics last day of IV antivirals as well respiratory status slightly better complaining of fatigue some epistaxis as noted likely related to oxygen resolve and improve with conservative means 10/27/2020, patient seen eval examined on high flow aerosolized oxygen when his stay quite fit mouth close sats up to 90%, during talking conversation drops down to 87-88%, denies any cough or sputum production,patient remains short of breath, BiPAP at nighttime, labs not done today, chest x-ray finding reviewed diffuse infiltrate throughout the left lung likely atypical pneumonia right- sided small pleural effusion and volume loss is stable overall no significant change, patient remains on bronchodilators, broad-spectrum antibiotic cephapirin, day #3 of REMdesivir, IV vancomycin 10/26/2020,Patient remains short of breath on BiPAP, has been on BiPAP 08/20 with 50% oxygen started yesterday evening has been all along until this morning, attempts were done to get him off of BiPAP on 15 L high flow oxygen couldn't tolerated desaturated and gets more short of breath but placed back on BiPAP machine, saturation is low 90s, tachycardic hemodynamics are stable, labs reviewed in phlegm atrial parameters elevated including LDH pro-calcitonin and ferritin does have infiltrates on x-ray the covert 19 testing has been negative however patient is presumed to add covert 19 pneumonia being treated with IV REM doesn't wear and steroids and supportive care This is a 65-year-old with extensive history of COPD and diagnosis of lung cancer also has a history of DVT PE status post IVC filter and on direct oral anticoagulant patient has finished 4 courses of chemotherapy last was in of September since then patient was more short of breath appetite continued to decompensate was found to be hypoxic in oncology office advised to be admitted into the hospital found to have pneumonia currently being treated with broad- spectrum antibiotics cephapirin, patient was on room air at home oxygen requirement was 6 L at admission bump up to 15 L continued to be hypoxic and eventually placed on BiPAP currently 08/20 with 100% oxygen appears comfortable does have cough shortness of breath the severity is improved on BiPAP, arterial blood gas after 3-4 hours pending, review of the data revealed that white cell count was over 17,010 the patient on cephapirin bronchodilator continuation of Eliquis, prednisone and vancomycin, patient had a computed tomography scan done in outpatient was negative for PE in oncology office, chest x-ray showing development of patchy left by a hilar infiltrate, right-sided pleural thickening, and loss of volume on the right side due to prior right lobectomy for lung cancer Objective - Vital Signs Vital signs: Vital Signs Temp 98.0 F 10/30/20 04:00 Pulse 123 H 10/30/20 04:00 Resp 22 10/30/20 04:00 BP 96/62 10/30/20 04:00 Pulse Ox 93 L 10/30/20 04:00 Intake & Output 10/29/20 10/30/20 10/30/20 18:59 06:59 18:59 Intake Total 480 0 Output Total 700 Balance -220 0 Weight 81.5 kg Intake: Oral 480 0 Output: Urine 700 Other: Voiding Method Urinal Urinal # Voids 1 - Exam Family present at bedside - Labs CBC & Chem 7: 10/30/20 07:20 10/30/20 07:20 Labs: Abnormal Lab Results - Last 24 Hours (Table) 10/29/20 10/29/20 10/29/20 Range/Units 07:29 11:53 17:03 WBC (3.8-10.6) k/uL RBC (4.30-5.90) m/uL Hgb (13.0-17.5) gm/dL Hct (39.0-53.0) % MCV (80.0-100.0) fL MCHC (31.0-37.0) g/dL RDW (11.5-15.5) % Plt Count 75 L (150-450) k/uL Neutrophils # 15.0 H (1.3-7.7) k/uL Macrocytosis Sodium (137-145) mmol/L Potassium (3.5-5.1) mmol/L Carbon Dioxide (22-30) mmol/L BUN (9-20) mg/dL Glucose (74-99) mg/dL POC Glucose (mg/dL) 108 H 128 H (75-99) mg/dL 10/29/20 10/30/20 10/30/20 Range/Units 21:24 06:39 07:20 WBC (3.8-10.6) k/uL RBC (4.30-5.90) m/uL Hgb (13.0-17.5) gm/dL Hct (39.0-53.0) % MCV (80.0-100.0) fL MCHC (31.0-37.0) g/dL RDW (11.5-15.5) % Plt Count (150-450) k/uL Neutrophils # (1.3-7.7) k/uL Macrocytosis Sodium 136 L (137-145) mmol/L Potassium 6.5 H* (3.5-5.1) mmol/L Carbon Dioxide 13 L (22-30) mmol/L BUN 89 H (9-20) mg/dL Glucose 139 H (74-99) mg/dL POC Glucose (mg/dL) 149 H 167 H (75-99) mg/dL 10/30/20 10/30/20 Range/Units 07:20 07:46 WBC 24.1 H (3.8-10.6) k/uL RBC 1.80 L (4.30-5.90) m/uL Hgb 6.2 L* D (13.0-17.5) gm/dL Hct 21.5 L (39.0-53.0) % MCV 119.6 H D (80.0-100.0) fL MCHC 29.0 L (31.0-37.0) g/dL RDW 22.5 H (11.5-15.5) % Plt Count 73 L (150-450) k/uL Neutrophils # 21.8 H (1.3-7.7) k/uL Macrocytosis Marked A Sodium (137-145) mmol/L Potassium (3.5-5.1) mmol/L Carbon Dioxide (22-30) mmol/L BUN (9-20) mg/dL Glucose (74-99) mg/dL POC Glucose (mg/dL) 151 H (75-99) mg/dL Microbiology - Last 24 Hours (Table) 10/23/20 16:35 Blood Culture - Final Blood No Growth after 144 hours 10/23/20 13:16 Blood Culture - Final Blood No Growth after 144 hours 10/27/20 15:27 Gram Stain - Final Sputum Sputum Culture - Final Assessment and Plan Assessment: interstitial pneumonia Presumed covid 19 pneumonia Sepsis Acute hypoxic respiratory failure Left-sided pneumonia likely community-acquired versus Covid 19 pneumonia Right-sided lung cancer status post lobectomy and chemotherapy History of DVT PE status post IVC filter and on direct anticoagulant Hypertension hypertensive cardiovascular disease Baseline COPD Plan: Discussed with the family present at bedside patient was made no code comfort care now Time with Patient: Greater than 30
[2020-10-30 11:19] VITALS: BMI 24.3
--- NOTE | 2020-11-01 13:27 | CDI ---
Documentation Clarification Form Date: 11/01/2020 01:04:25 PM From: Chioma PiperANA abel, CCDS Admit Date: 10/23/2020 02:34:00 PM Patient Name: Vahid Patel Visit Number: [id number] Discharge Date: 10/30/2020 12:00:00 PM ATTENTION: The Clinical Documentation Specialists (CDI) and [facility] Coding Staff appreciate your assistance in clarifying documentation. Please respond to the clarification below the line at the bottom and electronically sign. The CDI & [facility] Coding staff will review the response and follow-up if needed. Please note: Queries are made part of the Legal Health Record. If you have any questions, please contact the author of this message via ITS. Dr. Miladys Flores: COVID -19 Pneumonia is documented by the [facility] beginning in the 10/26 Progress Notes and included in subsequent Progress Notes on 10/27, 10/29 and 10/30. The patient was tested during this admission for COVID-19 on 10/23: Negative and on 10/25: Negative. Reminder per the CDC A negative result does not rule out COVID-19 and should not be used as the sole basis for treatment or patient management decisions. Patient history/risk factors per the 10/23 History & Physical patient's Past Medical History: Immunocompromised with history of Non-Small Cell Lung Cancer status post Right Lower Lobectomy, Chemotherapy & Immunotherapy with Metastasis to Right Lung, Bone: Spine and Scapula and Liver. 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 Clinical Indicators: Presented to the ED on 10/23 with SOB & cough with clear sputum. ED Clinical Impression: Pneumonia, Severe Sepsis. Per the 10/23 History & Physical: Cough, weakness, dyspnea and hypoxia, profoundly weak since last cycle of chemotherapy, appetite okay with unintentional weight loss over few months, chills. 10/23 VS: T 98.4, P 119, R 20 (non labored, SOB), BP 104/64, PO 87 RA - 3Lnc. 10/23 LAB: WBC 17.2, RBC 2.97, Hgb 10.1, Hct 32.6, Neut 16.1, Lymph 0.7, Na 130, Cr 0.57, Glucose 105, Lactic Acid 3.3, 2.7, 2.4; Calcium 7.1, Ferritin 1763.7, Alk Phos 159, LDH 1132, CRP 72.1, Total Protein 5.5, Albumin 2.6, Procalcitonin 0.13. 10/23 CXR: Interval development of patchy left perihilar infiltrates. Correlate for underlying Pneumonia. Persistent changes right lung. Treatment 10/23: INH Duoneb, IV Azithromycin, IV Cefepime, IV fluid 1,000 mls @ 999 mls/hr q1H x2, IV Ativan 10/24: IV Cefepime, IV Lasix, IV Vancomycin 10/25: IV Remdesivir x2 doses. Pulmonary consult 10/25: Sepsis, Acute Hypoxic Respiratory Failure, Left Side Pneumonia likely community acquired, Right sided Lung Cancer status post Lobectomy & Chemotherapy and Baseline COPD. In order to capture the severity of condition, please clarify the COVID-19 status: False negative, treating for COVID-19 infection COVID-19 ruled out Other, please specify (Last Form Revision: November 2019) COVID 19 ruled out MTDD
--- NOTE | 2020-11-01 13:37 | CDI ---
Documentation Clarification Form Date: 11/01/2020 01:27:31 PM From: Chioma PiperANA abel, CCDS Admit Date: 10/23/2020 02:34:00 PM Patient Name: Vahid Patel Visit Number: [id number] Discharge Date: 10/30/2020 12:00:00 PM ATTENTION: The Clinical Documentation Specialists (CDI) and [facility] Coding Staff appreciate your assistance in clarifying documentation. Please respond to the clarification below the line at the bottom and electronically sign. The CDI & [facility] Coding staff will review the response and follow-up if needed. Please note: Queries are made part of the Legal Health Record. If you have any questions, please contact the author of this message via ITS. Dr. Miladys Flores: Severe Sepsis is documented in the 10/23 ED Note under the Clinical Impression, Severe Sepsis is not further documented in the record. Patient history/risk factors per the 10/23 History & Physical patient's Past Medical History: Immunocompromised with history of Non-Small Cell Lung Cancer status post Right Lower Lobectomy, Chemotherapy & Immunotherapy with Metastasis to Right Lung, Bone: Spine and Scapula and Liver. 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 Clinical Indicators: Presented to the ED on 10/23 with SOB & cough with clear sputum. ED Clinical Impression: Pneumonia, Severe Sepsis. Per the 10/23 History & Physical: Cough, weakness, dyspnea and hypoxia, profoundly weak since last cycle of chemotherapy, appetite okay with unintentional weight loss over few months, chills. Assessment: Sepsis with Acute Hypoxemic Respiratory Failure, Community Acquired Pneumonia. Per the 10/30 Discharge Summary: "He passed..... from Sepsis with Respiratory Failure secondary to ARDS secondary to Pneumonia, with underlying cause of Emphysema and Lung Cancer with smoking as a contributing factor.." 10/23 VS: T 98.4, P 119, R 20 (non labored, SOB), BP 104/64, PO 87 RA - 3Lnc. 10/27 VS: T 98.6, P 122, R 28 (SOB, labored, accessory use, cough, talks in phrases), BP 138/89, PO 92 High Flow 60% 10/23 LAB: WBC 17.2, RBC 2.97, Hgb 10.1, Hct 32.6, Neut 16.1, Lymph 0.7, Na 130, Cr 0.57, Glucose 105, Lactic Acid 3.3, 2.7, 2.4; Calcium 7.1, Ferritin 1763.7, Alk Phos 159, LDH 1132, CRP 72.1, Total Protein 5.5, Albumin 2.6, Procalcitonin 0.13. 10/27 LAB: WBC 17.2, RBC 2.54, Hgb 8.9, Hct 28.4, Pl Ct 141, Neut 15.8, Lymph 0.7 10/23 CXR: Interval development of patchy left perihilar infiltrates. Correlate for underlying Pneumonia. Persistent changes right lung. Treatment 10/23: INH Duoneb, IV Azithromycin, IV Cefepime, IV fluid 1,000 mls @ 999 mls/hr q1H x2, IV Ativan 10/24: IV Cefepime, IV Lasix, IV Vancomycin 10/25: IV Remdesivir x2 doses. Pulmonary consult 10/25: Sepsis, Acute Hypoxic Respiratory Failure, Left Side Pneumonia likely community acquired, Right sided Lung Cancer status post Lobectomy & Chemotherapy and Baseline COPD. In your professional opinion, please clarify if these findings signify one of the following conditions, whether the condition is POA, and cause, if known: Sepsis o With Severe Sepsis o Other, please specify o Unable to determine Present on Admission o Yes o No Link or clarify if there is associated (due to/with): o Organ failure (Last Revision: December 2017) Sepsis was present on admission with a pneumonococcal source, severe sepsis developed later with worsening hypoxia and encephalopathy MTDD
== END 2020-10-30 12:00 | disposition expired | DRG 871 ==
LOC: EC 12:35 → 3SCARD 14:34
PROVIDERS: ADMIT Internal Medicine; ATTEND Internal Medicine
PROC: 5A0935A Assistance with Respiratory Ventilation, Less than 24 Consecutive Hours, High Flow/Velocity Cannula (ICD-10-PCS; 2020-10-24)
PROC: 5A09457 Assistance with Respiratory Ventilation, 24-96 Consecutive Hours, Continuous Positive Airway Pressure (ICD-10-PCS; principal; 2020-10-25)
PROC: XW033E5 Introduction of Remdesivir Anti-infective into Peripheral Vein, Percutaneous Approach, New Technology Group 5 (ICD-10-PCS; 2020-10-25)
PROC: 02HV33Z Insertion of Infusion Device into Superior Vena Cava, Percutaneous Approach (ICD-10-PCS; 2020-10-27)
DX: A40.3 Sepsis due to Streptococcus pneumoniae (principal); G93.41 Metabolic encephalopathy; J18.9 Pneumonia, unspecified organism; J80 Acute respiratory distress syndrome; R65.20 Severe sepsis without septic shock; D84.9 Immunodeficiency, unspecified; I42.6 Alcoholic cardiomyopathy; C79.51 Secondary malignant neoplasm of bone; C78.7 Secondary malignant neoplasm of liver and intrahepatic bile duct; C34.31 Malignant neoplasm of lower lobe, right bronchus or lung; I11.9 Hypertensive heart disease without heart failure; J43.9 Emphysema, unspecified; Z20.822 Contact with and (suspected) exposure to COVID-19; Z66 Do not resuscitate; Z51.5 Encounter for palliative care; K12.31 Oral mucositis (ulcerative) due to antineoplastic therapy; L27.0 Generalized skin eruption due to drugs and medicaments taken internally; R04.0 Epistaxis; T45.1X5A Adverse effect of antineoplastic and immunosuppressive drugs, initial encounter; Z71.3 Dietary counseling and surveillance; Z79.01 Long term (current) use of anticoagulants; Z86.711 Personal history of pulmonary embolism; Z90.2 Acquired absence of lung [part of]; Z79.899 Other long term (current) drug therapy; Z98.890 Other specified postprocedural states; Z95.828 Presence of other vascular implants and grafts; Z87.891 Personal history of nicotine dependence; Z88.0 Allergy status to penicillin; Z91.030 Bee allergy status; Z91.038 Other insect allergy status; Z82.49 Family history of ischemic heart disease and other diseases of the circulatory system; Z80.3 Family history of malignant neoplasm of breast
CPT/HCPCS: 36415; 36573; 36600; 71045; 71046; 71275; 80048; 80051; 80053; 80202; 82565; 82728; 82805; 83605; 83615; 83735; 83880; 84145; 84439; 84443; 84481; 84520; 85025; 85610; 85730; 86140; 87040; 87070; 87205; 87635; 93005; 93306; 94640; 94660; 94760; 96365; 96367; 99291